=== PATIENT | female | born 1945 | race Caucasian/White ===

== ENCOUNTER → 2016-09-26 | Outpatient (CLI) | payer OTHER ==
[~2016-09-26] MED LIST: ASPEC81 PO; LEVO75TA25 PO; LOVA40TA4 PO; NORT25CA PO; TPRSR25 PO; XNX25 PO
[2016-09-26 12:04] LABS: BASO % 1.1 %; BASO ABS # 0.06 K/uL (0-0.2); COMPLETE YES; EOS % 5.7 %; IG% 0.2 %; LYMPH % 31.1 %; MEAN CORPUSCULAR HEMOGLOBIN 30.3 pg (25-34); MEAN CORPUSCULAR HGB CONC 33.6 g/dl (32-36); MEAN PLATELET VOLUME 10.6 fL (7.4-10.4); MONO % 8.4 %; NEUT % 53.5 %; PLATELET COUNT 253 K/uL (130-400); WHITE BLOOD COUNT 5.47 K/uL (4.8-10.8)
[2016-09-26 17:40] LABS: ALT/SGPT 20 U/L (12-78); BLOOD UREA NITROGEN 15 mg/dl (7-18); BUN/CREATININE RATIO 13.2 (10-20); CALCIUM 8.2 mg/dl (8.5-10.1); CARBON DIOXIDE 27 mmol/L (21-32); CHLORIDE 103 mmol/L (98-107); CHOLESTEROL 183 mg/dl (0-200); GLUCOSE 78 mg/dl (70-99); SODIUM 138 mmol/L (136-145); TRIGLYCERIDES 117 mg/dl (0-150); VERY LOW DENSITY LIPOPROT CALC 23 mg/dl
[2016-09-26 17:50] LABS: ALKALINE PHOSPHATASE 84 U/L (45-117); AST/SGOT 20 U/L (15-37); CHOLESTEROL/HDL RATIO 2.9; HDL CHOLESTEROL 64 mg/dl; LDL CHOLESTEROL CALCULATED 96 mg/dl
== END | disposition home or self-care (01) ==
LOC: C.LABPBG 10:50
PROVIDERS: ATTEND Internal Medicine Geriatric Medicine
DX: E03.9 Hypothyroidism, unspecified (principal); I10 Essential (primary) hypertension; R78.5 Finding of other psychotropic drug in blood; F64.9 Gender identity disorder, unspecified; E55.9 Vitamin D deficiency, unspecified

== ENCOUNTER → 2016-10-28 | Outpatient (CLI) | payer OTHER ==
[2016-10-28 13:58] LABS: BLOOD UREA NITROGEN 18 mg/dl (7-18); BUN/CREATININE RATIO 16.6 (10-20); CALCIUM 8.4 mg/dl (8.5-10.1); CARBON DIOXIDE 30 mmol/L (21-32); CHLORIDE 103 mmol/L (98-107); GLUCOSE 93 mg/dl (70-99); POTASSIUM 3.9 mmol/L (3.5-5.1); SODIUM 139 mmol/L (136-145)
== END | disposition home or self-care (01) ==
LOC: C.LABPBG 11:13
PROVIDERS: ATTEND Internal Medicine Geriatric Medicine
DX: E03.9 Hypothyroidism, unspecified (principal); I10 Essential (primary) hypertension; M81.0 Age-related osteoporosis without current pathological fracture

== ENCOUNTER → 2016-10-29 | Outpatient (CLI) | payer OTHER ==
--- NOTE | 2016-10-29 16:46 | MAMMOGRAPHY REPORT ---
BILATERAL DIGITAL SCREENING MAMMOGRAM WITH CAD: 10/29/2016 TECHNIQUE: Current study was also evaluated with a Computer Aided Detection (CAD) system. Bilatera l CC and MLO views were obtained. COMPARISON: Comparison is made to exams dated: 09/11/2015 mammogram - [facility], 04/19 mammogram, 04/04/2013 mammogram, 03/05/2011 mammogram, 01/30/2010 mammogram, and 03/10/2012 mammogr am - [facility]. BREAST COMPOSITION: There are scattered areas of fibroglandular density in both breasts. FINDINGS: No suspicious masses, calcifications, or areas of architectural distortion are noted in e ither breast. There has been no significant interval change compared to prior exams. Bilateral sunil gn-appearing calcifications are not significantly changed. Nodular asymmetry seen within the left m edial posterior breast on the cc view is stable dating back to at least the 2008 and 2009 exams. IMPRESSION: ACR BI-RADS CATEGORY 2: BENIGN There is no mammographic evidence of malignancy. A 1 year screening mammogram is recommended. The p atient will receive written notification of the results. Approximately 10% of breast cancers are not detected with mammography. A negative mammographic repor t should not delay biopsy if a clinically suggestive mass is present. Julissa Nielsen M.D. /:10/29/2016 14:59:04 Asp Developer: Tricia STEIN(Arpan)(M), [facility] letter sent: Normal 1/2 BI-RADS Code: ACR BI-RADS Category 2: Benign
== END | disposition home or self-care (01) ==
LOC: C.MAMM 14:27
PROVIDERS: ATTEND Internal Medicine Geriatric Medicine
DX: Z12.31 Encounter for screening mammogram for malignant neoplasm of breast (principal)

== ENCOUNTER → 2017-03-19 | Outpatient (CLI) | payer OTHER ==
[2017-03-19 16:08] LABS: CALCIUM 8.5 mg/dl (8.5-10.1)
[2017-03-19 16:23] LABS: THYROID STIMULATING HORMONE 0.821 uIu/ml (0.300-4.500)
--- NOTE | 2017-03-25 11:03 | CODING QUERY MEDICAL NECESSITY ---
CQSUPPORTING DIAGNOSIS NEEDED A supporting diagnosis is required for the test/procedure performed on this patient in order for us to be reimbursed by the patient's insurance. Please provide a supporting diagnosis for the following test/procedure listed below next to the test name along with your signature. *If there is no additional diagnosis for this patient that would support the following test/procedure please document that below next to the test/procedure. Test(s)/Procedure(s) that require a supporting diagnosis: DOS 03/19/17 VITAMIN D TEST ORDERED BY YAMILE MERRILL Provider Signature: Date: Thank you Samira Swenson Health Information Management Once completed, please kindly fax back to [phone] For questions please call [phone]
== END | disposition home or self-care (01) ==
LOC: C.LAB1850 14:48
PROVIDERS: ATTEND Physician Assistant
DX: E03.9 Hypothyroidism, unspecified (principal); E55.9 Vitamin D deficiency, unspecified

== ENCOUNTER → 2017-05-01 | Outpatient (CLI) | payer OTHER | END | disposition home or self-care (01) | LOC: C.LABSPEC 12:36 | PROVIDERS: ATTEND Family Medicine | DX: J02.9 Acute pharyngitis, unspecified (principal) ==

== ENCOUNTER → 2017-12-08 | Outpatient (CLI) | payer OTHER ==
[~2017-12-08] MED LIST changes: -ASPEC81 PO; +ASPI-320 PO
[2017-12-08 17:07] LABS: BASO % 0.5 %; BASO ABS # 0.03 K/uL (0-0.2); EOS % 4.5 %; EOS ABS # 0.28 K/uL (0-0.5); HEMATOCRIT 37.7 % (37-47); HEMOGLOBIN 12.6 g/dL (12.0-16.0); IG# 0.01 K/uL (0.00-0.02); LYMPH % 25.6 %; LYMPH ABS # 1.58 K/uL (1.2-3.4); MEAN CELL VOLUME 91.7 fL (80-100); MEAN CORPUSCULAR HEMOGLOBIN 30.7 pg (25-34); MEAN CORPUSCULAR HGB CONC 33.4 g/dl (32-36); MEAN PLATELET VOLUME 11.1 fL (7.4-10.4); MONO % 10.5 %; MONO ABS # 0.65 K/uL (0.11-0.59); NEUT % 58.7 %; NEUT ABS # 3.62 K/uL (1.4-6.5); PLATELET COUNT 278 K/uL (130-400); RED CELL DISTRIBUTION WIDTH CV 12.8 % (11.5-14.5); RED CELL DISTRIBUTION WIDTH SD 43.3 fL (36.4-46.3); WHITE BLOOD COUNT 6.17 K/uL (4.8-10.8)
[2017-12-08 17:27] LABS: ALBUMIN 3.6 gm/dl (3.4-5.0); ALKALINE PHOSPHATASE 82 U/L (45-117); ALT/SGPT 20 U/L (12-78); AST/SGOT 17 U/L (15-37); BLOOD UREA NITROGEN 18 mg/dl (7-18); CALCIUM 8.4 mg/dl (8.5-10.1); CARBON DIOXIDE 28 mmol/L (21-32); CHOLESTEROL 173 mg/dl (0-200); CREATININE 1.19 mg/dl (0.60-1.20); GLUCOSE 87 mg/dl (70-99); POTASSIUM 3.8 mmol/L (3.5-5.1); SODIUM 134 mmol/L (136-145); TOTAL PROTEIN 7.5 gm/dl (6.4-8.2)
[2017-12-08 17:37] LABS: LDL CHOLESTEROL CALCULATED 86 mg/dl
== END | disposition home or self-care (01) ==
LOC: C.LABPBG 11:06
PROVIDERS: ATTEND Internal Medicine Geriatric Medicine
DX: E03.9 Hypothyroidism, unspecified (principal); I10 Essential (primary) hypertension; M81.0 Age-related osteoporosis without current pathological fracture; E78.5 Hyperlipidemia, unspecified; D64.9 Anemia, unspecified; E55.9 Vitamin D deficiency, unspecified; K21.9 Gastro-esophageal reflux disease without esophagitis; E83.51 Hypocalcemia

== ENCOUNTER → 2017-12-09 | Outpatient (CLI) | payer OTHER ==
--- NOTE | 2017-12-09 15:44 | MAMMOGRAPHY REPORT ---
BILATERAL DIGITAL SCREENING MAMMOGRAM TOMOSYNTHESIS WITH CAD: 12/09/2017 CLINICAL HISTORY: Routine screening. Patient has no complaints. TECHNIQUE: Breast tomosynthesis in addition to standard 2D mammography was performed. Current study was also evaluated with a Computer Aided Detection (CAD) system. COMPARISON: Comparison is made to exams dated: 10/29/2016 mammogram - [facility], mammogram - [facility], 04/19/2014 mammogram, 04/04/2013 mammogram, 03/10/2012 [facility], and 03/05/2011 mammogram - [facility]. BREAST COMPOSITION: There are scattered areas of fibroglandular density in both breasts. FINDINGS: There is a small cluster of calcifications seen within the left medial breast at approximat willy 9:00, for which spot magnification views are recommended for further evaluation. The remainder of both breasts are stable compared to prior exams, without suspicious masses, calcific ations, or areas of architectural distortion noted. IMPRESSION: ACR BI-RADS CATEGORY 0: INCOMPLETE EVALUATION: NEED ADDITIONAL IMAGING EVALUATION Left breast calcifications, for which additional imaging evaluation is recommended. The patient will be called to schedule an appointment. Approximately 10% of breast cancers are not detected with mammography. A negative mammographic report should not delay biopsy if a clinically suggestive mass is present. Julissa Nielsen M.D. ah/:12/09/2017 15:08:05 Commercial Loan Analyst: Yoli STEIN(Arpan)(M), [facility] letter sent: Addl Imaging 0 BI-RADS Code: ACR BI-RADS Category 0: Incomplete Evaluation: Need Additional Imaging Evaluation
== END | disposition home or self-care (01) ==
LOC: C.MAMM 13:55
PROVIDERS: ATTEND Obstetrics & Gynecology
DX: Z12.31 Encounter for screening mammogram for malignant neoplasm of breast (principal)

== ENCOUNTER → 2017-12-16 | Outpatient (CLI) | payer OTHER ==
--- NOTE | 2017-12-16 15:08 | MAMMOGRAPHY REPORT ---
UNILATERAL LEFT DIGITAL DIAGNOSTIC MAMMOGRAM: 12/16/2017 CLINICAL HISTORY: 72-year-old woman called back from screening mammography for microcalcifications in the medial left breast. TECHNIQUE: Spot magnification left CC and ML views were obtained. COMPARISON: Comparison is made to exams dated: 12/09/2017 mammogram, 10/29/2016 mammogram - [facility], 09/11/2015 mammogram - [facility], 04/19/2014 mammogram, 04/04/2013 [facility], and 03/10/2012 mammogram - [facility]. BREAST COMPOSITION: There are scattered areas of fibroglandular density in the left breast. FINDINGS: There is a 3 mm cluster of punctate microcalcifications in the approximate 9:00 middle one third of the left breast. No associated asymmetry, mass or architectural distortion. When comparin g back to prior available mammograms, the calcifications are increased in conspicuity and remain inde terminate. Definitive characterization with a stereotactic guided biopsy is recommended. Note is ma de of mild to moderate vascular calcification in the left breast. IMPRESSION: ACR BI-RADS CATEGORY 4: SUSPICIOUS Left breast stereotactic guided biopsy is recommended for a 3 mm grouping of punctate microcalcificat ions in the 9:00 middle one third of the breast. These results and recommendations were discussed with the patient at the time of the exam. She tenta tively scheduled a left breast biopsy prior to leaving our department. Approximately 10% of breast cancers are not detected with mammography. A negative mammographic report should not delay biopsy if a clinically suggestive mass is present. Kaykay Messina M.D. ay/:12/16/2017 14:18:49 Gate Operator: Laly STEIN(Arpan)(Jasmin), [facility] letter sent: Abnormal 4/5 BI-RADS Code: ACR BI-RADS Category 4: Suspicious
== END | disposition home or self-care (01) ==
LOC: C.MAMM 13:28
PROVIDERS: ATTEND Obstetrics & Gynecology
DX: R92.0 Mammographic microcalcification found on diagnostic imaging of breast (principal)

== ENCOUNTER → 2017-12-23 | Outpatient (CLI) | payer OTHER | END | disposition home or self-care (01) | LOC: C.PAPS 15:32 | PROVIDERS: ATTEND Obstetrics & Gynecology | DX: Z01.419 Encounter for gynecological examination (general) (routine) without abnormal findings (principal) ==

== ENCOUNTER 2022-12-10 09:48 | Observation (INO) ==
[2022-12-10 11:06] LABS: Basophils # (auto) 0.04 K/uL (0-0.2); Basophils % (auto) 0.3 %; Eosinophils # (auto) 0.02 K/uL (0-0.50); Eosinophils % (auto) 0.1 %; Hematocrit (blood only) 38.6 % (37.0-47.0); Hemoglobin 13.1 g/dl (12.0-16.0); Immature Granulocytes # (auto) 0.08 K/uL (0.01-0.20); Immature Granulocytes % (auto) 0.5 %; Lymphocytes # (auto) 0.85 K/uL (1.2-3.4); Lymphocytes % (auto) 5.5 %; Mean Corpuscular Hemoglobin 30.9 pg (25.0-34.0); Mean Corpuscular Hgb Conc 33.9 g/dL (32.0-36.0); Mean Platelet Volume 10.6 fL (9.4-12.4); Monocytes # (auto) 0.83 K/uL (0.11-0.59); Monocytes % (auto) 5.4 %; Neutrophils # (auto) 13.64 K/uL (1.40-6.50); Neutrophils % (auto) 88.2 %; Platelet Count 348 K/uL (130-400); RDW Coefficient of Variation 12.3 % (11.5-14.5); RDW Standard Deviation 40.8 fL (36.4-46.3); Red Blood Count 4.24 M/uL (4.20-5.40); White Blood Count 15.46 K/ul (4.8-10.8)
[2022-12-10] MEDS ORDERED: SODIUM CHLORIDE 0.9% 500 ML IV ONE (11:10)
[2022-12-10 11:19] LABS: Albumin Globulin Ratio 1.5 (0.9-2); Albumin Level 4.1 gm/dl (3.4-5.0); BUN Creatinine Ratio 13.4 (10-20); Bilirubin,Total 0.6 mg/dl (0.2-1.0); Calcium 8.8 mg/dl (8.6-10.3); Creatinine Clr Calc Pharmacy 30.7 ml/min; Est GFR (African American) 47.1 ml/min; Est GFR (Non-African American) 40.7 ml/min; Globulin 2.8 gm/dl (2.5-4.0); Potassium 3.8 mmol/L (3.5-5.1); Total Protein 6.9 gm/dl (6.0-8.3)
[2022-12-10 11:29] LABS: Partial Thromboplastin Time 27.5 Seconds (21.0-31.0); Prothrombin Time 11.3 Seconds (9.0-12.0)
[2022-12-10 11:31] LABS: Troponin I High Sensitivity 86.7 pg/ml (0-14)
[2022-12-10 11:44] LABS: Phosphorus 3.1 mg/dl (2.5-4.9)
--- NOTE | 2022-12-10 12:31 | XRay Report ---
SINGLE VIEW PELVIS CLINICAL HISTORY: Fall. Pelvic pain. FINDINGS: 2 AP, portable, supine views of the pelvis are compared to study dated 05/03/2018. The skele iain structures are osteopenic. There is no radiographic evidence of acute fracture involving the hips or bony pelvis. Mild arthritic change and space narrowing is seen in the hips. There is mild degener ative sclerosis of the sacroiliac joints. The overlying soft tissues are within normal limits. A phle bolith is seen in the right hemipelvis. No bowel obstruction is identified. IMPRESSION: There is no radiographic evidence of acute fracture. Electronically signed by: Leopoldo Sales M.D. 12/10/2022 12:30 PM
--- NOTE | 2022-12-10 12:34 | XRay Report ---
XR chest 1V portable HISTORY: syncope COMPARISON: Chest 05/02/2018. FINDINGS: No pneumothorax. No pleural effusions. The cardiac silhouette remains borderline enlarged. No new focal lung consolidations to suggest a pneumonia. No evidence for pulmonary edema. There is an old distal right clavicle fracture again noted. IMPRESSION: No acute process. ACT 112: Negative or not required by law. Electronically signed by: Richardson Castillo M.D. 12/10/2022 12:33 PM
[2022-12-10] MEDS ORDERED: OPTIRAY 320 500ml IV ONE (13:01)
--- NOTE | 2022-12-10 13:24 | CT Scan Report ---
CT ANGIOGRAM OF THE BRAIN CLINICAL HISTORY: Syncope. Vertigo. COMPARISON STUDY: Unenhanced CT of the brain performed concurrently on 12/10/2022. TECHNIQUE: Following the IV administration of 110 cc of Optiray 320, CT angiogram of the brain was pe rformed from the skull base to the vertex. Images are reviewed in the axial, sagittal, and coronal pl anes. 3-D MIPS images are created and assessed. IV contrast was administered without complication. A dose lowering technique was utilized adhering to the principles of ALARA. FINDINGS: Brain parenchyma: There is age-related involutional change noting mild mammogram disease. There is no evidence of hemorrhage, mass effect, or acute territorial ischemia noting angiog raphic phase technique. There is no evidence of enhancing mass lesion on the angiogram phase images. No extra-axial fluid collection is seen. Dominguez-white matter differentiation is preserved. Ventricles, sulci, and cisterns: Normal in configuration. CT angiogram of the brain: There is atherosclerotic calcification of the cavernous carotid arteries. The internal carotid arteries are widely patent, as are the anterior and middle cerebral arteries. Th e vertebrobasilar system and posterior cerebral arteries are widely patent. The vertebral arteries ar e codominant. There is no aneurysm, high-grade stenosis, or focal vessel cutoff identified throughout the intracranial circulation. Dural sinuses: Clear as visualized. Orbits: The bony orbits are intact. The orbital contents are normal as visualized. Sinuses and mastoids: The visualized paranasal sinuses are clear. The mastoid air cells are well pneu matized. Calvarium: Unremarkable. IMPRESSION: 1. There is no evidence of hemorrhage, mass effect, or acute territorial ischemia noting angiographic phase technique. 2. Unremarkable CT angiogram of the brain. ACT 112: Negative or not required by law. Electronically signed by: Leopoldo Sales M.D. 12/10/2022 1:23 PM
--- NOTE | 2022-12-10 13:27 | CT Scan Report ---
NECK CTA HISTORY: syncope, vertigo TECHNIQUE: Multiaxial CT images of the neck were performed following the intravenous administration o f contrast to evaluate the major cervical vessels. Maximum intensity projection images were also obta ined. All measurements were calculated based on NASCET criteria. A dose lowering technique was utili zed adhering to the principles of ALARA. COMPARISON STUDY: None. FINDINGS: Mild focal narrowing of approximately 30% within the proximal left subclavian artery due to the calcified plaque. Otherwise, the aortic arch and remaining proximal great vessels are patent. Mi ld to moderate calcified plaque within the bilateral carotid bifurcations without significant stenosi s. There is no significant stenosis, occlusion, or dissection identified within the bilateral common carotid, internal carotid, or vertebral arteries. IMPRESSION: No significant stenosis, occlusion, or dissection identified within the carotid or vertebral arteries . ACT 112: Negative or not required by law. Electronically signed by: Ricahrdson Castillo M.D. 12/10/2022 1:26 PM
--- NOTE | 2022-12-10 13:28 | CT Scan Report ---
CT OF THE HEAD WITHOUT CONTRAST CLINICAL HISTORY: Syncope, vertigo. COMPARISON STUDY: Head CT March 23, 2015. TECHNIQUE: Helical axial images of the head were obtained without IV contrast. Automated exposure con trol was utilized for the study. A dose lowering technique was utilized adhering to the principles o f ALARA. FINDINGS: No acute intracranial hemorrhage, midline shift or mass effect is present. Scattered white matter hypodensity suggests small vessel disease. The ventricular system is unremarkable. The basal c isterns are patent. No extra-axial collections are present. There are no findings to suggest acute du ral sinus thrombosis or acute territorial infarct. No significant calvarial abnormalities are present . Visualized portions of the sinuses and mastoid air cells are clear. IMPRESSION: No acute intracranial findings. ACT 112: Negative or not required by law. Electronically signed by: Bari Damon M.D. 12/10/2022 1:27 PM
--- NOTE | 2022-12-10 14:04 | Electrocardiogram Report ---
Test Reason : Blood Pressure : / mmHG Vent. Rate : 071 BPM Atrial Rate : 071 BPM P-R Int : 160 ms QRS Dur : 078 ms QT Int : 428 ms P-R-T Axes : 119 019 112 degrees QTc Int : 465 ms Normal sinus rhythm Abnormal ECG When compared with ECG of 29-MAR-2015 06:38, Premature atrial complexes are no longer Present Questionable change in QRS axis T wave inversion now evident in Anterolateral leads Confirmed by Roney Acosta ([id number]) on 12/10/2022 2:04:41 PM Referred By: Confirmed By:Roney Acosta
[2022-12-10] MEDS ORDERED: ACETAMINOPHEN 1,000 MG/100 ML VIAL IV STA (14:18)
--- NOTE | 2022-12-10 14:27 | Emergency Department Note ---
Impression & Plan Syncope, Elevated troponin, Elevated CPK, Fall from standing, H/O dizziness ED Provider Note NAME: DIANA CHRISTIANSON AGE: 77 SEX: F ARRIVES VIA: Ambulance INFORMANT: Patient ED PROVIDER(S): Alex Sahni MD CHIEF COMPLAINT: Syncope, fall PLAN: Disposition: Admit MEDICAL DECISION MAKING: The patient is a pleasant 77-year-old woman with a past medical history of CKD, lightheadedness/near syncope, history of cardiomyopathy, atrial fibrillation on Eliquis, hypertension, hyperlipidemia, GERD, IBS presents to the emergency department via EMS and then accompanied by her daughter for evaluation of a fall that occurred this morning when she reports she got out of bed around 5 AM to urinate and reports feeling lightheaded and awoke next to the toilet and the w all where it is estimated she may have been there for a couple of hours and then took another hour to 2 hours to crawl and get help from a neighbor in her apartment building. Prior to today she denies any recent fevers, chills, cough, congestion, GI or symptoms. She denies any chest pain or shortness of breath. She does not think she hit her head denies any head pain. Reports she has months to years of symptoms of lightheadedness which per understanding was suspected to be related to blood pressure fluctuations as they attempted to treat her hypertension without overcorrection. Of note, the patient did have a recent echo on 11/06 2022 with normal LV size with mild LVH, EF of 55-60% without regional wall motion abnormalities. Normal RV size and function. Aortic valve sclerosis without stenosis is seen. Normal right-sided pressures. On arrival emergency department the patient is in no acute distress, afebrile with blood pressure 180s/90s and vital signs otherwise stable. She appears clinically dry. There is no midline CTL spine tenderness palpation or step- offs. Head is atraumatic. There is no chest wall tenderness. She has minor abrasion of bilateral elbows without edema or deformity. She is moving all extremities equally with generalized weakness. EKG demonstrates nonspecific ST abnormality without overt ST elevation or depression but is different from prior in 2015 with no more recent for comparison. Chest x-ray negative for acute cardiopulmonary process. Film of the pelvis negative for acute traumatic injuries. WBC 15.4K with neutrophil predominance though no left shift and nonspecific. H/H and platelets within normal limits. Chemistry without metabolic acidosis. Creatinine 1.2, similar to prior values in the setting of CKD. Electrolytes and LFTs without significant abnormality. High-sensitivity troponin 86.7, nonspecific. CPK 470 consistent with patient's prolonged downtime. TSH within normal limits. CT of the head and CT of the head and neck were performed were negative for ICH, ischemia or severe narrowing or occlusion of large vessels. Given the patient's fall with prolonged downtime with elevated CPK the patient and daughter at bedside agree with plan for admission for further management and likely PT/OT eval. Case was d/w Dr. Lang [facility] hospitalist who will evaluate the patient for admission. Triage Nursing notes reviewed and agree them. Prior/outside medical records reviewed Vital Signs: reviewed Differential diagnosis: Vasovagal event, dehydration, infection, hypoglycemia, electrolyte abnormalities, cardiac sources, intracerebral event, pulmonary embolism, seizure, toxicologic, neurologic, as well as other pathologies. ER treatment provided: See below. Diagnostics interpreted by me: ECG: Normal sinus rhythm, 71 bpm, ST and T wave abnormality, no overt ST e levation or depression, QTc 465, QRS 70 Cardiac Monitoring: An order for continuous cardiac monitoring was placed and demonstrated Normal sinus rhythm, 71 bpm, no ectopy Laboratory studies: See below Imaging studies: See below Consultation(s): Case was d/w Dr. Lang [facility] hospitalist who will evaluate the patient for admission. HPI: The patient is a pleasant 77-year-old woman with a past medical history of CKD, lightheadedness/near syncope, history of cardiomyopathy, atrial fibrillation on Eliquis, hypertension, hyperlipidemia, GERD, IBS presents to the emergency department via EMS and then accompanied by her daughter for evaluation of a fall that occurred this morning when she reports she got out of bed around 5 AM to urinate and reports feeling lightheaded and awoke next to the toilet and the wall where it is estimated she may have been there for a couple of hours and then took another hour to 2 hours to crawl and get help from a neighbor in her apartment building. Prior to today she denies any recent fevers, chills, cough, congestion, GI or symptoms. She denies any chest pain or shortness of breath. She does not think she hit her head denies any head pain. Reports she has months to years of symptoms of lightheadedness which per understanding was suspected to be related to blood pressure fluctuations as they attempted to treat her hypertension without overcorrection. Of note, the patient did have a recent echo on 11/06 2022 with normal LV size with mild LVH, EF of 55-60% without regional wall motion abnormalities. Normal RV size and function. Aortic valve sclerosis without stenosis is seen. Normal right-sided pressures. ROS: See above HPI for pertinent positives & negatives. A total of 10 systems reviewed and were otherwise negative. VITALS:See Below PHYSICAL EXAMINATION: GENERAL: Awake, alert, fatigued-appearing, in no distress. HENT: Normocephalic, atraumatic. Oropharynx with dry mucous membranes and otherwise unremarkable. EYES: Normal conjunctiva. Sclera non-icteric. EOMI. No nystamgus. PEARRL. NECK: Supple. No nuchal rigidity. FROM. No JVD. RESPIRATORY: Clear to auscultation. CARDIAC: Regular rate, normal rhythm. Extremities warm and well perfused. Pulses equal. ABDOMEN: Soft, non-distended. No tenderness to palpation. No rebound or guarding. No masses. RECTAL: Deferred. MUSCULOSKELETAL: Chest examination reveals no tenderness. The back is symmetrical on inspection without obvious abnormality. There is no CVA tenderness to palpation. No joint edema. LOWER EXTREMITIES: Calves are equal size bilaterally and non-tender. No edema. No discoloration. NEURO: Normal sensorium. No sensory or motor deficits noted. 5/5 strength and SILT x 4 extremities. Intact finger to nose. SKIN: No rash or jaundice noted. 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 NO HX BLEEDING ISSUES Gastroesophageal reflux disease HX Andriy's thyroiditis History of cardiomyopathy HTN (hypertension) Hx of fracture of clavicle Hypothyroidism Irritable bowel syndrome HX-FAMILY HX Osteoporosis Panic attacks Pleural effusion HX Right clavicle fracture S/P Sensorineural hearing loss of both ears Vitamin D deficiency Surgical History H/O oral surgery History of colonoscopy S/P dilatation and curettage S/P eye surgery BLOCKED TEAR DUCT S/P tubal ligation Family History Mother Hypertension Heart disease Stroke Brother Hypertension Grandfather (Paternal) Lung cancer Father Cancer Other No family history of allergies No family history of bleeding disorder Denies family history of Ovarian cancer Prostate cancer Breast cancer Colorectal cancer Asthma Social History Smoking Status: Never smoker Second Hand Exposure: Yes (SPOUSE SMOKED); Do You Dip or Chew Tobacco: No; Hx Alcohol Use: No Hx Substance Use: No Preferred Language: Swedish Communication Ability: Effective Visual Impairment: No Limitations 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 Required: No Beliefs That Will Affect Care: None marital status: Current Living Situation: Alone current occupational status: retired How many Children do You have: 3 Feels Safe at Home: Yes Childhood Exposure to Second-Hand Smoke: No Diet: regular Diet Comment: regular caffeine: No during the past year weight has: remained stable Dental Care, Regularly: Yes Physical Activity Frequency: Daily Physical Activity Frequency Comment: walk Seatbelt Use: always Sunscreen Use: Yes Assistive Devices: Glasses Allergies Allergies Allergy/AdvReac Type Severity Reaction Status Date / Time methylprednisolone Allergy Mild Rash Verified 09/29/22 11:42 alendronate sodium AdvReac Mild GI upset Verified 09/29/22 11:42 erythromycin base AdvReac Mild GI upset Verified 09/29/22 11:42 hydrochlorothiazide AdvReac Mild hyponatremi Verified 09/29/22 11:42 a hydrocodone AdvReac Mild nausea Verified 09/29/22 11:42 vomiting tramadol AdvReac Mild nausea Verified 09/29/22 11:42 vomiting clavulanic acid AdvReac Gastrointestinal Verified 09/29/22 11:42 [From Augmentin] Upset Home Meds Home Medications Medication Instructions Recorded Confirmed calcium carbonate 600 mg-vitamin 600 tab PO BID 03/28/19 12/10/22 D3 10 mcg (400 unit) chewable tablet (Calcium 600 with Vitamin D3) polyethylene glycol 3350 17 17 gm PO DAILY PRN constipation 10/13/19 12/10/22 gram/dose oral powder metoprolol tartrate 25 mg tablet 0 mg PO .q 8 hours PRN palpitations 12/10/22 12/10/22 Previous Rx's Medication Instructions Recorded betamethasone dipropionate 0.05 % 1 applic topical BID PRN skin 11/11/21 topical cream irritation #45 grams cholecalciferol (vitamin D3) 50 50 mcg PO DAILY #30 caps 04/08/22 mcg (2,000 unit) capsule levothyroxine 88 mcg tablet 88 mcg PO QAM #90 tabs 04/29/22 nortriptyline 25 mg capsule 50 mg PO HS #180 caps 04/29/22 lovastatin 40 mg tablet 40 mg PO QPM #90 tabs 05/12/22 alprazolam 0.25 mg tablet 0.25 mg PO DAILY PRN anxiety #30 07/16/22 tabs apixaban 5 mg tablet (Eliquis) 5 mg PO BID #180 tabs 07/25/22 zoledronic acid 5 mg/100 mL in 5 mg IV ONCE #100 mL 10/15/22 mannitol 5 %-water intravenous piggybck Results & Data (ED) Vital Signs Vital Signs - 24 hr 12/10/22 10:03 12/10/22 10:09 12/10/22 10:09 Temperature 36.5 C Temperature Source Oral Pulse Rate 69 75 Pulse Rate from SpO2 Sensor Respiratory Rate 18 Respiratory Depth Normal Blood Pressure 180/90 H Blood Pressure Mean 120 Blood Pressure Position Lying Pulse Oximetry 96 Oxygen Delivery Method Room Air Room Air Sepsis Recent Fever Within 48 Hours No Sepsis New/Unexplained Change in Mental Status No Sepsis Action Taken by Nursing No Action Required 12/10/22 10:25 12/10/22 11:00 12/10/22 11:01 Temperature Temperature Source Pulse Rate 73 Pulse Rate from SpO2 Sensor 85 Respiratory Rate 20 Respiratory Depth Blood Pressure 138/78 Blood Pressure Mean 98 Blood Pressure Position Pulse Oximetry 95 97 Oxygen Delivery Method Room Air Sepsis Recent Fever Within 48 Hours Sepsis New/Unexplained Change in Mental Status Sepsis Action Taken by Nursing 12/10/22 11:01 12/10/22 11:30 12/10/22 11:30 Temperature Temperature Source Pulse Rate 71 75 Pulse Rate from SpO2 Sensor 71 75 Respiratory Rate 19 24 Respiratory Depth Blood Pressure 150/113 H Blood Pressure Mean 125 Blood Pressure Position Pulse Oximetry 99 97 Oxygen Delivery Method Room Air Sepsis Recent Fever Within 48 Hours Sepsis New/Unexplained Change in Mental Status Sepsis Action Taken by Nursing 12/10/22 12:00 12/10/22 12:00 12/10/22 12:30 Temperature Temperature Source Pulse Rate 78 Pulse Rate from SpO2 Sensor 75 Respiratory Rate 19 Respiratory Depth Blood Pressure 162/80 H 171/91 H Blood Pressure Mean 107 117 Blood Pressure Position Pulse Oximetry 98 Oxygen Delivery Method Room Air Sepsis Recent Fever Within 48 Hours Sepsis New/Unexplained Change in Mental Status Sepsis Action Taken by Nursing 12/10/22 12:30 12/10/22 13:01 12/10/22 13:01 Temperature Temperature Source Pulse Rate 71 72 Pulse Rate from SpO2 Sensor 72 74 Respiratory Rate 17 18 Respiratory Depth Blood Pressure 184/77 H Blood Pressure Mean 112 Blood Pressure Position Pulse Oximetry 97 100 Oxygen Delivery Method Room Air Room Air Sepsis Recent Fever Within 48 Hours Sepsis New/Unexplained Change in Mental Status Sepsis Action Taken by Nursing 12/10/22 13:30 12/10/22 13:30 12/10/22 14:00 Temperature Temperature Source Pulse Rate 68 Pulse Rate from SpO2 Sensor 67 Respiratory Rate 22 Respiratory Depth Blood Pressure 198/93 H 209/97 H Blood Pressure Mean 128 134 Blood Pressure Position Pulse Oximetry 97 Oxygen Delivery Method Room Air Sepsis Recent Fever Within 48 Hours Sepsis New/Unexplained Change in Mental Status Sepsis Action Taken by Nursing 12/10/22 14:00 12/10/22 14:11 12/10/22 14:30 Temperature Temperature Source Pulse Rate 67 69 Pulse Rate from SpO2 Sensor 67 Respiratory Rate 11 L Respiratory Depth Blood Pressure 183/109 H Blood Pressure Mean 133 Blood Pressure Position Pulse Oximetry 97 Oxygen Delivery Method Room Air Sepsis Recent Fever Within 48 Hours Sepsis New/Unexplained Change in Mental Status Sepsis Action Taken by Nursing 12/10/22 14:30 12/10/22 14:51 12/10/22 15:00 Temperature Temperature Source Pulse Rate 68 74 Pulse Rate from SpO2 Sensor 68 74 Respiratory Rate 22 17 Respiratory Depth Blood Pressure 205/92 H Blood Pressure Mean 129 Blood Pressure Position Pulse Oximetry 99 99 Oxygen Delivery Method Room Air Room Air Sepsis Recent Fever Within 48 Hours Sepsis New/Unexplained Change in Mental Status Sepsis Action Taken by Nursing 12/10/22 15:01 12/10/22 15:30 12/10/22 15:30 Temperature Temperature Source Pulse Rate 72 69 Pulse Rate from SpO2 Sensor 71 69 Respiratory Rate 12 20 Respiratory Depth Blood Pressure 196/100 H Blood Pressure Mean 132 Blood Pressure Position Pulse Oximetry 99 100 Oxygen Delivery Method Room Air Room Air Sepsis Recent Fever Within 48 Hours Sepsis New/Unexplained Change in Mental Status Sepsis Action Taken by Nursing 12/10/22 16:00 12/10/22 16:00 12/10/22 16:30 Temperature Temperature Source Pulse Rate 69 Pulse Rate from SpO2 Sensor 69 Respiratory Rate 15 Respiratory Depth Blood Pressure 188/91 H 182/93 H Blood Pressure Mean 123 122 Blood Pressure Position Pulse Oximetry 97 Oxygen Delivery Method Room Air Sepsis Recent Fever Within 48 Hours Sepsis New/Unexplained Change in Mental Status Sepsis Action Taken by Nursing 12/10/22 16:30 12/10/22 17:00 12/10/22 17:00 Temperature Temperature Source Pulse Rate 67 65 Pulse Rate from SpO2 Sensor 67 65 Respiratory Rate 17 19 Respiratory Depth Blood Pressure 158/132 H Blood Pressure Mean 140 Blood Pressure Position Pulse Oximetry 98 99 Oxygen Delivery Method Room Air Room Air Sepsis Recent Fever Within 48 Hours Sepsis New/Unexplained Change in Mental Status Sepsis Action Taken by Nursing 12/10/22 17:30 12/10/22 17:30 12/10/22 18:30 Temperature Temperature Source Pulse Rate 68 69 Pulse Rate from SpO2 Sensor 67 Respiratory Rate 17 Respiratory Depth Blood Pressure 173/101 H Blood Pressure Mean 125 Blood Pressure Position Pulse Oximetry 98 Oxygen Delivery Method Room Air Sepsis Recent Fever Within 48 Hours Sepsis New/Unexplained Change in Mental Status Sepsis Action Taken by Nursing 12/10/22 18:30 12/10/22 18:30 Temperature Temperature Source Pulse Rate 71 Pulse Rate from SpO2 Sensor 70 Respiratory Rate 22 Respiratory Depth Blood Pressure 190/90 H Blood Pressure Mean 123 Blood Pressure Position Pulse Oximetry 96 Oxygen Delivery Method Room Air Sepsis Recent Fever Within 48 Hours Sepsis New/Unexplained Change in Mental Status Sepsis Action Taken by Nursing Laboratory Data Attestation: I reviewed the patient's lab results. 12/10/22 10:33 12/10/22 10:33 Lab Results 12/10/22 12/10/22 12/10/22 Range/Units 10:33 10:33 10:33 WBC 15.46 H (4.8-10.8) K/ul RBC 4.24 (4.20-5.40) M/uL Hgb 13.1 (12.0-16.0) g/dl Hct 38.6 (37.0-47.0) % MCV 91.0 (80.0-100.0) fL MCH 30.9 (25.0-34.0) pg MCHC 33.9 (32.0-36.0) g/dL RDW Std Deviation 40.8 (36.4-46.3) fL RDW Coeff of Maria Antonia 12.3 (11.5-14.5) % Plt Count 348 (130-400) K/uL MPV 10.6 (9.4-12.4) fL Immature Gran % (Auto) 0.5 % Neut % (Auto) 88.2 % Lymph % (Auto) 5.5 % Hays % (Auto) 5.4 % Eos % (Auto) 0.1 % Baso % (Auto) 0.3 % Neut # (Auto) 13.64 H (1.40-6.50) K/uL Lymph # (Auto) 0.85 L (1.2-3.4) K/uL Hays # (Auto) 0.83 H (0.11-0.59) K/uL Eos # (Auto) 0.02 (0-0.50) K/uL Baso # (Auto) 0.04 (0-0.2) K/uL Immature Gran # (Auto) 0.08 (0.01-0.20) K/uL PT 11.3 (9.0-12.0) Seconds INR 1.0 (0.9-1.1) APTT 27.5 (21.0-31.0) Seconds PTT Ratio 1.0 Sodium 138 (136-145) mmol/L Potassium 3.8 (3.5-5.1) mmol/L Chloride 106 (98-107) mmol/L Carbon Dioxide 26 (21-32) mmol/L Anion Gap 6 (3-11) BUN 17 (6-23) mg/dl Creatinine 1.27 H (0.6-1.2) mg/dl Est Cr Clr Drug Dosing 30.7 ml/min Est GFR ( Amer) 47.1 ml/min Est GFR (Non-Af Amer) 40.7 ml/min BUN/Creatinine Ratio 13.4 (10-20) Glucose 108 H (70-99(Fasting)) mg/dl Calcium 8.8 (8.6-10.3) mg/dl Phosphorus 3.1 (2.5-4.9) mg/dl Magnesium 2.0 (1.7-2.4) mg/dl Total Bilirubin 0.6 (0.2-1.0) mg/dl AST 21 (13-39) U/L ALT 13 (7-52) U/L Alkaline Phosphatase 68 (34-104) U/L Total Creatine Kinase 474 H (26-192) U/L Troponin I High Sens 86.7 H* (0-14) pg/ml Total Protein 6.9 (6.0-8.3) gm/dl Albumin 4.1 (3.4-5.0) gm/dl Globulin 2.8 (2.5-4.0) gm/dl Albumin/Globulin Ratio 1.5 (0.9-2) TSH (0.300-4.500) uIu/ml Urine Color Urine Appearance (Clear) Urine pH (4.5-7.5) Ur Specific Breaks (1.000-1.030) Urine Protein (Negative) Urine Glucose (UA) (Negative) Urine Ketones (Negative) Urine Blood (Negative) Urine Nitrite (Negative) Urine Bilirubin (Negative) Urine Urobilinogen (Negative) Ur Leukocyte Esterase (Negative) Urine WBC (Auto) (0-5) /hpf Urine RBC (Auto) (0-4) /hpf U Hyaline Cast (Auto) (0-5) /lpf U Epithel Cells (Auto) (0-5) /lpf Urine Bacteria (Auto) (Negative) SARS-CoV-2, RNA, NAAT (NEGATIVE) 12/10/22 12/10/22 12/10/22 Range/Units 10:40 15:00 16:40 WBC (4.8-10.8) K/ul RBC (4.20-5.40) M/uL Hgb (12.0-16.0) g/dl Hct (37.0-47.0) % MCV (80.0-100.0) fL MCH (25.0-34.0) pg MCHC (32.0-36.0) g/dL RDW Std Deviation (36.4-46.3) fL RDW Coeff of Maria Antonia (11.5-14.5) % Plt Count (130-400) K/uL MPV (9.4-12.4) fL Immature Gran % (Auto) % Neut % (Auto) % Lymph % (Auto) % Hays % (Auto) % Eos % (Auto) % Baso % (Auto) % Neut # (Auto) (1.40-6.50) K/uL Lymph # (Auto) (1.2-3.4) K/uL Hays # (Auto) (0.11-0.59) K/uL Eos # (Auto) (0-0.50) K/uL Baso # (Auto) (0-0.2) K/uL Immature Gran # (Auto) (0.01-0.20) K/uL PT (9.0-12.0) Seconds INR (0.9-1.1) APTT (21.0-31.0) Seconds PTT Ratio Sodium (136-145) mmol/L Potassium (3.5-5.1) mmol/L Chloride (98-107) mmol/L Carbon Dioxide (21-32) mmol/L Anion Gap (3-11) BUN (6-23) mg/dl Creatinine (0.6-1.2) mg/dl Est Cr Clr Drug Dosing ml/min Est GFR ( Amer) ml/min Est GFR (Non-Af Amer) ml/min BUN/Creatinine Ratio (10-20) Glucose (70-99(Fasting)) mg/dl Calcium (8.6-10.3) mg/dl Phosphorus (2.5-4.9) mg/dl Magnesium (1.7-2.4) mg/dl Total Bilirubin (0.2-1.0) mg/dl AST (13-39) U/L ALT (7-52) U/L Alkaline Phosphatase (34-104) U/L Total Creatine Kinase (26-192) U/L Troponin I High Sens (0-14) pg/ml Total Protein (6.0-8.3) gm/dl Albumin (3.4-5.0) gm/dl Globulin (2.5-4.0) gm/dl Albumin/Globulin Ratio (0.9-2) TSH 1.595 (0.300-4.500) uIu/ml Urine Color Yellow Urine Appearance Clear (Clear) Urine pH 8.0 H (4.5-7.5) Ur Specific Breaks > 1.045 H (1.000-1.030) Urine Protein Trace H (Negative) Urine Glucose (UA) Negative (Negative) Urine Ketones 1+ H (Negative) Urine Blood Trace H (Negative) Urine Nitrite Negative (Negative) Urine Bilirubin Negative (Negative) Urine Urobilinogen Negative (Negative) Ur Leukocyte Esterase Negative (Negative) Urine WBC (Auto) 1-5 (0-5) /hpf Urine RBC (Auto) 0-4 (0-4) /hpf U Hyaline Cast (Auto) 1-5 (0-5) /lpf U Epithel Cells (Auto) >30 H (0-5) /lpf Urine Bacteria (Auto) Negative (Negative) SARS-CoV-2, RNA, NAAT NEGATIVE (NEGATIVE) 12/10/22 Range/Units 17:08 WBC (4.8-10.8) K/ul RBC (4.20-5.40) M/uL Hgb (12.0-16.0) g/dl Hct (37.0-47.0) % MCV (80.0-100.0) fL MCH (25.0-34.0) pg MCHC (32.0-36.0) g/dL RDW Std Deviation (36.4-46.3) fL RDW Coeff of Maria Antonia (11.5-14.5) % Plt Count (130-400) K/uL MPV (9.4-12.4) fL Immature Gran % (Auto) % Neut % (Auto) % Lymph % (Auto) % Hays % (Auto) % Eos % (Auto) % Baso % (Auto) % Neut # (Auto) (1.40-6.50) K/uL Lymph # (Auto) (1.2-3.4) K/uL Hays # (Auto) (0.11-0.59) K/uL Eos # (Auto) (0-0.50) K/uL Baso # (Auto) (0-0.2) K/uL Immature Gran # (Auto) (0.01-0.20) K/uL PT (9.0-12.0) Seconds INR (0.9-1.1) APTT (21.0-31.0) Seconds PTT Ratio Sodium (136-145) mmol/L Potassium (3.5-5.1) mmol/L Chloride (98-107) mmol/L Carbon Dioxide (21-32) mmol/L Anion Gap (3-11) BUN (6-23) mg/dl Creatinine (0.6-1.2) mg/dl Est Cr Clr Drug Dosing ml/min Est GFR ( Amer) ml/min Est GFR (Non-Af Amer) ml/min BUN/Creatinine Ratio (10-20) Glucose (70-99(Fasting)) mg/dl Calcium (8.6-10.3) mg/dl Phosphorus (2.5-4.9) mg/dl Magnesium (1.7-2.4) mg/dl Total Bilirubin (0.2-1.0) mg/dl AST (13-39) U/L ALT (7-52) U/L Alkaline Phosphatase (34-104) U/L Total Creatine Kinase (26-192) U/L Troponin I High Sens 715.0 H* D (0-14) pg/ml Total Protein (6.0-8.3) gm/dl Albumin (3.4-5.0) gm/dl Globulin (2.5-4.0) gm/dl Albumin/Globulin Ratio (0.9-2) TSH (0.300-4.500) uIu/ml Urine Color Urine Appearance (Clear) Urine pH (4.5-7.5) Ur Specific Breaks (1.000-1.030) Urine Protein (Negative) Urine Glucose (UA) (Negative) Urine Ketones (Negative) Urine Blood (Negative) Urine Nitrite (Negative) Urine Bilirubin (Negative) Urine Urobilinogen (Negative) Ur Leukocyte Esterase (Negative) Urine WBC (Auto) (0-5) /hpf Urine RBC (Auto) (0-4) /hpf U Hyaline Cast (Auto) (0-5) /lpf U Epithel Cells (Auto) (0-5) /lpf Urine Bacteria (Auto) (Negative) SARS-CoV-2, RNA, NAAT (NEGATIVE) Administered Medications Lactated Ringer's (Lr) 1,000 mls @ 80 mls/hr IV .[id number] BETHANY Stop: 12/11/22 05:29 Last Admin: 12/10/22 18:35 Dose: 80 mls/hr Documented By: MAIKEL Discontinued Medications Sodium Chloride (Nss) 500 mls @ 999 mls/hr IV .Q31M ONE Stop: 12/10/22 11:40 Last Infusion: 12/10/22 13:27 Dose: 0 mls/hr Documented By: Admin: 12/10/22 11:28 Dose: 999 mls/hr Documented By: MAIKEL Sodium Chloride (Nss) 500 mls @ 125 mls/hr IV .Q4H BETHANY Stop: 01/09/23 14:29 Last Infusion: 12/10/22 18:34 Dose: 0 mls/hr Documented By: Admin: 12/10/22 14:57 Dose: 125 mls/hr Documented By: MAIKEL Acetaminophen (Ofirmev) 1,000 mg in 100 mls @ 400 mls/hr IV NOW STA Stop: 12/10/22 14:32 Last Infusion: 12/10/22 15:12 Dose: 0 mls/hr Documented By: Admin: 12/10/22 14:57 Dose: 400 mls/hr Documented By: MAIKEL Ioversol (Optiray 320 500ml) 110 ml IV ONCE ONE Stop: 12/10/22 13:02 Last Admin: 12/10/22 13:01 Dose: 110 ml Documented By: LUC Imaging Data Radiologist's Impression: Chest X-Ray 12/10/22 12:00 XR chest 1V portable HISTORY: syncope COMPARISON: Chest 05/02/2018. FINDINGS: No pneumothorax. No pleural effusions. The cardiac silhouette remains borderline enlarged. No new focal lung consolidations to suggest a pneumonia. No evidence for pulmonary edema. There is an old distal right clavicle fracture again noted. IMPRESSION: No acute process. ACT 112: Negative or not required by law. Electronically signed by: Richardson Castillo M.D. 12/10/2022 12:[address] 12/10/22 12:00 CT OF THE HEAD WITHOUT CONTRAST CLINICAL HISTORY: Syncope, vertigo. COMPARISON STUDY: Head CT March 23, 2015. TECHNIQUE: Helical axial images of the head were obtained without IV contrast. Automated exposure control was utilized for the study. A dose lowering technique was utilized adhering to the principles of ALARA. FINDINGS: No acute intracranial hemorrhage, midline shift or mass effect is present. Scattered white matter hypodensity suggests small vessel disease. The ventricular system is unremarkable. The basal cisterns are patent. No extra- axial collections are present. There are no findings to suggest acute dural sinus thrombosis or acute territorial infarct. No significant calvarial abnormalities are present. Visualized portions of the sinuses and mastoid air cells are clear. IMPRESSION: No acute intracranial findings. ACT 112: Negative or not required by law. Electronically signed by: Bari Damon M.D. 12/10/2022 1:27 PM Head CTA 12/10/22 12:00 CT ANGIOGRAM OF THE BRAIN CLINICAL HISTORY: Syncope. Vertigo. COMPARISON STUDY: Unenhanced CT of the brain performed concurrently on 12/10/2022. TECHNIQUE: Following the IV administration of 110 cc of Optiray 320, CT angiogram of the brain was performed from the skull base to the vertex. Images are reviewed in the axial, sagittal, and coronal planes. 3-D MIPS images are created and assessed. IV contrast was administered without complication. A dose lowering technique was utilized adhering to the principles of ALARA. FINDINGS: Brain parenchyma: There is age-related involutional change noting mild mammogram disease. There is no evidence of hemorrhage, mass effect, or acute territorial ischemia noting angiographic phase technique. There is no evidence of enhancing mass lesion on the angiogram phase images. No extra-axial fluid collection is seen. Dominguez-white matter differentiation is preserved. Ventricles, sulci, and cisterns: Normal in configuration. CT angiogram of the brain: There is atherosclerotic calcification of the cavernous carotid arteries. The internal carotid arteries are widely patent, as are the anterior and middle cerebral arteries. The vertebrobasilar system and posterior cerebral arteries are widely patent. The vertebral arteries are codominant. There is no aneurysm, high-grade stenosis, or focal vessel cutoff identified throughout the intracranial circulation. Dural sinuses: Clear as visualized. Orbits: The bony orbits are intact. The orbital contents are normal as visualized. Sinuses and mastoids: The visualized paranasal sinuses are clear. The mastoid air cells are well pneumatized. Calvarium: Unremarkable. IMPRESSION: 1. There is no evidence of hemorrhage, mass effect, or acute territorial ischemia noting angiographic phase technique. 2. Unremarkable CT angiogram of the brain. ACT 112: Negative or not required by law. Electronically signed by: Leopoldo Sales M.D. 12/10/2022 1:23 PM Neck CTA 12/10/22 12:00 NECK CTA HISTORY: syncope, vertigo TECHNIQUE: Multiaxial CT images of the neck were performed following the intravenous administration of contrast to evaluate the major cervical vessels. Maximum intensity projection images were also obtained. All measurements were calculated based on NASCET criteria. A dose lowering technique was utilized adhering to the principles of ALARA. COMPARISON STUDY: None. FINDINGS: Mild focal narrowing of approximately 30% within the proximal left subclavian artery due to the calcified plaque. Otherwise, the aortic arch and remaining proximal great vessels are patent. Mild to moderate calcified plaque within the bilateral carotid bifurcations without significant stenosis. There is no significant stenosis, occlusion, or dissection identified within the bilate ral common carotid, internal carotid, or vertebral arteries. IMPRESSION: No significant stenosis, occlusion, or dissection identified within the carotid or vertebral arteries. ACT 112: Negative or not required by law. Electronically signed by: Richardson Castillo M.D. 12/10/2022 1:26 PM Pelvis X-Ray 12/10/22 12:03 SINGLE VIEW PELVIS CLINICAL HISTORY: Fall. Pelvic pain. FINDINGS: 2 AP, portable, supine views of the pelvis are compared to study dated 05/03/2018. The skeletal structures are osteopenic. There is no radiographic evidence of acute fracture involving the hips or bony pelvis. Mild arthritic change and space narrowing is seen in the hips. There is mild degenerative sclerosis of the sacroiliac joints. The overlying soft tissues are within normal limits. A phlebolith is seen in the right hemipelvis. No bowel obstruction is identified. IMPRESSION: There is no radiographic evidence of acute fracture. Electronically signed by: Leopoldo Sales M.D. 12/10/2022 12:30 PM Thoracic Spine X-Ray 12/10/22 16:58 XR thoracic spine 3V routine CLINICAL HISTORY: fall, back pain COMPARISON STUDY: Thoracic spine radiographs February 23, 2013. FINDINGS: Incidental note is made of contrast within the collecting systems from recent contrast-enhanced CT. No thoracic spine fracture is identified. Vertebral body heights are maintained. Disc spaces are preserved. IMPRESSION: No thoracic spine fracture. ACT 112: Negative or not required by law. Electronically signed by: Bari Damon M.D. 12/10/2022 6:34 PM Discharge Plan Visit Data Chief Complaint: Syncope Stated Complaint: SYNCOPE ED Provider: Alex Sahni Discharge Problem: Syncope, Elevated troponin, Elevated CPK, Fall from standing, H/O dizziness Forms Stand Alone Forms: [facility] Prescriptions Prescriptions: No Action cholecalciferol (vitamin D3) 50 mcg (2,000 unit) capsule 50 mcg PO DAILY Qty: 30 0RF nortriptyline 25 mg capsule 50 mg PO HS Qty: 180 1RF levothyroxine 88 mcg tablet 88 mcg PO QAM Qty: 90 1RF lovastatin 40 mg tablet 40 mg PO QPM Qty: 90 1RF alprazolam 0.25 mg tablet 0.25 mg PO DAILY PRN (Reason: anxiety) Qty: 30 0RF Rx Instructions: PDMP check 10/01/20 Eliquis 5 mg tablet 5 mg PO BID Qty: 180 3RF zoledronic xdkj-gofzfbxv-teisu 5 mg/100 mL piggyback 5 mg IV ONCE Qty: 100 0RF Rx Instructions: Patient takes once yearly. Scheduled for 01/2023 betamethasone dipropionate 0.05 % cream 1 applic topical BID PRN (Reason: skin irritation) Qty: 45 0RF Rx Instructions: apply to b/l hands polyethylene glycol 3350 17 gram/dose powder 17 gm PO DAILY PRN (Reason: constipation) Calcium 600 with Vitamin D3 600 mg(1,500mg) -400 unit tablet,chewable 600 tab PO BID metoprolol tartrate 25 mg tablet 0 mg PO .q 8 hours PRN (Reason: palpitations) Rx Instructions: Patient only takes medication IF systolic blood pressure is over 200, up to three times daily. Referrals Referrals: Roopa Vo DO [Primary Care Provider] -
[2022-12-10] MEDS ORDERED: SODIUM CHLORIDE 0.9% 500 ML IV SCH (14:30)
--- NOTE | 2022-12-10 15:18 | Electrocardiogram Report ---
Test Reason : Blood Pressure : / mmHG Vent. Rate : 068 BPM Atrial Rate : 068 BPM P-R Int : 182 ms QRS Dur : 082 ms QT Int : 480 ms P-R-T Axes : 065 034 135 degrees QTc Int : 510 ms Normal sinus rhythm Prolonged QT Abnormal ECG When compared with ECG of 10-DEC-2022 10:01, No significant change was found Confirmed by Roney Acosta ([id number]) on 12/10/2022 3:17:34 PM Referred By: REFERRED SELF Confirmed By:Roney Acosta
[2022-12-10 15:23] LABS: Appearance Urine Clear (Clear); Bacteria Urine Automated Negative (Negative); Bilirubin Urine Negative (Negative); Blood Urine Trace (Negative); Color Urine Yellow; Epithelial Cell Urine Auto >30 /lpf (0-5); Glucose Urine UA Negative (Negative); Ketones Urine 1+ (Negative); Leukocyte Esterase Urine Negative (Negative); Nitrite Urine Negative (Negative); RBC Urine Automated 0-4 /hpf (0-4); Specific Gravity Urine > 1.045 (1.000-1.030); Urobilinogen Urine Negative (Negative)
[2022-12-10 15:24] LABS: Protein Urine Trace (Negative)
--- NOTE | 2022-12-10 16:25 | History & Physical Report ---
Date of Service December 10, 2022 Assessment & Plan (1) Syncope: Plan: -Admit to med/tele -Currently stable -At this time it appears that the patient has had another episode of orthostatic hypotension/vasovagal episode leading to syncope -Her history from today is consistent with her previous history of syncope, she noted herself to be in afib prior to getting up, was likely dehydrated this am as well -Initial trauma workup was negative, currently in NSR -Had a recent TTE in October of this year which was WNL -Will obtain an xray of the thoracic spine due to bruising and point tenderness on palpation -Will give 1L LR, placed BL RABIA stocking, and add fall precautions -Daily orthostatic vitals -Continue to monitor on tele -BL SCD's and home Eliquis for DVT PPX (2) Elevated troponin: Plan: -Initial high sen trop elevated at 86 -Patient is without chest pain and acute ST segment or T-wave changes -Likely due to demand from her fall and being down for multiple hours -Will repeat a STAT 2 hour high sen trop, monitor on tele (3) Elevated CK: Plan: -Noted to be 474 -Renal function is stable -S/P 1.5 L NSS in the ED, will give another 1L LR now -Monitor am renal function (4) Atrial fibrillation: Plan: -Currently in NSR -Continue Eliquis -Continue to monitor on tele (5) Dyslipidemia: Plan: -Hold Statin for now with elevated CK (6) Gastroesophageal reflux disease: Plan: -Daily famotidine while admitted (7) Depression with anxiety: Plan: -Continue PRN Xanax (8) HTN (hypertension): Plan: -Starting to improve compared to arrival -Would avoid treating at this time as she is asymptomatic and want to avoid continued episodes of orthostasis (9) Hypothyroidism: Plan: -Continue levothyroxine Plan The patient was discussed with Dr. Lang at the time of the admission History of Present Illness Chief Complaint: Syncope Primary Care Provider: DO Brittney Morgan is a 77-year-old female with a history of paroxysmal atrial fibrillation (on Eliquis), hypertension, mild dynamic LV outflow track obstruction, prior stress-induced cardiomyopathy, orthostatic hypotension who presented to the [facility] ED on 12/10/22 due to syncopal episode this morning. She was noted to be hypertensive at 209/97 on arrival to the ED, otherwise vitals are stable. Labs were remarkable for a leukocytosis of 15 with left shift of 13, total CK of 447, initial high sen trop of 86. ECG shows NSR with ST and T-wave depressions in the anterolateral leads. Chest Xray, CT of the head, CTA of the head/neck, and x-ray of the pelvis were negative for acute findings. Prior to admission the patient was given 1L NSS, and 1 gm of IV tylenol. At the time of the exam the patient was sitting in bed in no acute distress with her daughter sitting bedside. The patient and her daughter explain that she has had a long history of issues with paroxysmal Afib and orthostatic hypotension. She follows with Dr. Mcfarland for these issues and has undergone a large workup in the past including holter monitor and carotid duplexes. She has been taken off of all her antihypertensives in the past and is only on prn metoprolol for systolic BP > 200. She had been in her normal state of health when she woke this am around 0530. She noticed that she was in a-bib when checking her pulse, this quickly resolved on it's own. She then stood to use the bathroom and started to walk with her rolling walker. She quickly developed lightheadedness/dizziness and lost consciousness. She woke around 0800 and had to drag herself to the door in order to get help. She denies any chest pain or SOB when the event occurred and has been without chest pain since arrival to the ED. She uses compression stockings at home, her daughter states that the patient does not drinking enough water. She did not take her am dose of Eliquis today. She denies recent fever, chills, cough, abd pain, nausea, vomiting, diarrhea, dysuria, hematuria, melena, LE swelling. She attempted to get up and walk to the bathroom while in the ED but was still getting lightheaded/dizzy. She is a Full Code and would want her children to make medical decisions for her if she cannot make them herself. Please refer to Dr. Lang's attestation for any changes to the treatment plan Allergies Allergy/AdvReac Type Severity Reaction Status Date / Time methylprednisolone Allergy Mild Rash Verified 09/29/22 11:42 alendronate sodium AdvReac Mild GI upset Verified 09/29/22 11:42 erythromycin base AdvReac Mild GI upset Verified 09/29/22 11:42 hydrochlorothiazide AdvReac Mild hyponatremi Verified 09/29/22 11:42 a hydrocodone AdvReac Mild nausea Verified 09/29/22 11:42 vomiting tramadol AdvReac Mild nausea Verified 09/29/22 11:42 vomiting clavulanic acid AdvReac Gastrointestinal Verified 09/29/22 11:42 [From Augmentin] Upset Home Medications Medication Instructions Recorded Confirmed Type calcium carbonate 600 mg-vitamin 600 tab PO BID 03/28/19 12/10/22 History D3 10 mcg (400 unit) chewable tablet (Calcium 600 with Vitamin D3) polyethylene glycol 3350 17 17 gm PO DAILY PRN constipation 10/13/19 12/10/22 History gram/dose oral powder betamethasone dipropionate 0.05 % 1 applic topical BID PRN skin 11/11/21 12/10/22 Rx topical cream irritation #45 grams cholecalciferol (vitamin D3) 50 50 mcg PO DAILY #30 caps 04/08/22 12/10/22 Rx mcg (2,000 unit) capsule levothyroxine 88 mcg tablet 88 mcg PO QAM #90 tabs 04/29/22 12/10/22 Rx nortriptyline 25 mg capsule 50 mg PO HS #180 caps 04/29/22 12/10/22 Rx lovastatin 40 mg tablet 40 mg PO QPM #90 tabs 05/12/22 12/10/22 Rx alprazolam 0.25 mg tablet 0.25 mg PO DAILY PRN anxiety #30 07/16/22 12/10/22 Rx tabs apixaban 5 mg tablet (Eliquis) 5 mg PO BID #180 tabs 07/25/22 12/10/22 Rx zoledronic acid 5 mg/100 mL in 5 mg IV ONCE #100 mL 10/15/22 12/10/22 Rx mannitol 5 %-water intravenous piggybck metoprolol tartrate 25 mg tablet 0 mg PO .q 8 hours PRN palpitations 12/10/22 12/10/22 History Past Med/Surg History Medical History Allergic rhinitis Aortic atherosclerosis Asymmetric septal hypertrophy Atrial fibrillation HX ON ELIQUIS-F/U DR SUDHA MCFARLAND Chronic kidney disease, stage 3a Depression with anxiety Dyslipidemia 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 NO HX BLEEDING ISSUES Gastroesophageal reflux disease HX Andriy's thyroiditis History of cardiomyopathy HTN (hypertension) Hx of fracture of clavicle Hypothyroidism Irritable bowel syndrome HX-FAMILY HX Osteoporosis Panic attacks Pleural effusion HX Right clavicle fracture S/P Sensorineural hearing loss of both ears Vitamin D deficiency Surgical History H/O oral surgery History of colonoscopy S/P dilatation and curettage S/P eye surgery BLOCKED TEAR DUCT S/P tubal ligation Family History Mother Hypertension Heart disease Stroke Brother Hypertension Grandfather (Paternal) Lung cancer Father Cancer Other No family history of allergies No family history of bleeding disorder Denies family history of Ovarian cancer Prostate cancer Breast cancer Colorectal cancer Asthma Social History Smoking Status: Never smoker Second Hand Exposure: Yes (SPOUSE SMOKED); Do You Dip or Chew Tobacco: No; Hx Alcohol Use: No Hx Substance Use: No Preferred Language: Georgian Communication Ability: Effective Visual Impairment: No Limitations Hearing Ability: Normal Story Editor Required: No Beliefs That Will Affect Care: Spiritual marital status: Current Living Situation: Alone Current Living Situation Comment: apartment alone current occupational status: retired How many Children do You have: 3 Other Information That Helps Us Care for You: No Feels Safe at Home: Yes Safety Concerns: Feels Safe At This Time Childhood Exposure to Second-Hand Smoke: No Diet: regular Diet Comment: regular caffeine: No during the past year weight has: remained stable Dental Care, Regularly: Yes Physical Activity Frequency: Daily Physical Activity Frequency Comment: walk Seatbelt Use: always Sunscreen Use: Yes Assistive Devices: Walker Physical Exam Physical Exam: Physical Exam: General: In no acute distress, stated age, well-nourished, good hygiene HEENT: Normocephalic, atraumatic, no scleral icterus, pupils around round, symmetrical, and reactive to light, moist mucus membranes, trachea midline, no thyromegaly Chest/Pulm: No respiratory distress, symmetrical chest expansion, clear breath sounds throughout Cardiac: RRR, systolic murmur noted Abdomen: Negative for ascites and bruising, normoactive bowel sounds, soft, non-tender to palpation throughout Musculoskeletal: No trauma noted on inspection of the face, head, cervical spine, BL UE's and LE's, and pelvis. Patient noted to have bruises overlying the BL scapulae with minor scratches from dragging herself on the floor. Point tenderness to palpation over the mid thoracic spine. Extremities: Radial, dorsalis pedis, and posterior tibial pulses are intact and symmetrical, no edema noted in the BL LE's Skin: Warm, dry, no rashes , lesions, or scars noted Neuro: Alert and oriented to person, place, month, year, and president, no focal defects, CN II-XII tested and intact, no tremors noted Psych: No acute distress, calm and cooperative during the exam Results & Data Results & Data Vital Signs (Past 12 Hours) Vital Signs Temp Pulse Resp BP Pulse Ox O2 Del Method 12/10/22 16:00 69 15 97 Room Air 12/10/22 16:00 188/91 H 12/10/22 15:30 69 20 100 Room Air 12/10/22 15:30 196/100 H 12/10/22 15:01 72 12 99 Room Air 12/10/22 15:00 205/92 H 12/10/22 14:51 74 17 99 Room Air 12/10/22 14:30 68 22 99 Room Air 12/10/22 14:30 183/109 H 12/10/22 14:11 69 12/10/22 14:00 67 11 L 97 Room Air 12/10/22 14:00 209/97 H 12/10/22 13:30 68 22 97 Room Air 12/10/22 13:30 198/93 H 12/10/22 13:01 72 18 100 Room Air 12/10/22 13:01 184/77 H 12/10/22 12:30 71 17 97 Room Air 12/10/22 12:30 171/91 H 12/10/22 12:00 78 19 98 Room Air 12/10/22 12:00 162/80 H 12/10/22 11:30 75 24 97 Room Air 12/10/22 11:30 150/113 H 12/10/22 11:01 71 19 99 12/10/22 11:01 138/78 12/10/22 11:00 73 20 97 12/10/22 10:25 95 Room Air 12/10/22 10:09 Room Air 12/10/22 10:09 36.5 C 75 18 180/90 H 96 Room Air 12/10/22 10:03 69 Laboratory Results Abnormal lab results 12/10/22 12/10/22 12/10/22 Range/Units 10:33 10:33 15:00 WBC 15.46 H (4.8-10.8) K/ul Neut # (Auto) 13.64 H (1.40-6.50) K/uL Lymph # (Auto) 0.85 L (1.2-3.4) K/uL [place] # (Auto) 0.83 H (0.11-0.59) K/uL Creatinine 1.27 H (0.6-1.2) mg/dl Glucose 108 H (70-99(Fasting)) mg/dl Total Creatine Kinase 474 H (26-192) U/L Troponin I High Sens 86.7 H* (0-14) pg/ml Urine pH 8.0 H (4.5-7.5) Ur Specific [place] > 1.045 H (1.000-1.030) Urine Protein Trace H (Negative) Urine Ketones 1+ H (Negative) Urine Blood Trace H (Negative) U Epithel Cells (Auto) >30 H (0-5) /lpf Diagnostic Findings Chest X-Ray 12/10/22 12:00 XR chest 1V portable HISTORY: syncope COMPARISON: Chest 05/02/2018. FINDINGS: No pneumothorax. No pleural effusions. The cardiac silhouette remains borderline enlarged. No new focal lung consolidations to suggest a pneumonia. No evidence for pulmonary edema. There is an old distal right clavicle fracture again noted. IMPRESSION: No acute process. ACT 112: Negative or not required by law. Electronically signed by: Richardson Castillo M.D. 12/10/2022 12:[address] 12/10/22 12:00 CT OF THE HEAD WITHOUT CONTRAST CLINICAL HISTORY: Syncope, vertigo. COMPARISON STUDY: Head CT March 23, 2015. TECHNIQUE: Helical axial images of the head were obtained without IV contrast. Automated exposure control was utilized for the study. A dose lowering technique was utilized adhering to the principles of ALARA. FINDINGS: No acute intracranial hemorrhage, midline shift or mass effect is present. Scattered white matter hypodensity suggests small vessel disease. The ventricular system is unremarkable. The basal cisterns are patent. No extra- axial collections are present. There are no findings to suggest acute dural sinus thrombosis or acute territorial infarct. No significant calvarial abnormalities are present. Visualized portions of the sinuses and mastoid air cells are clear. IMPRESSION: No acute intracranial findings. ACT 112: Negative or not required by law. Electronically signed by: Bari Damon M.D. 12/10/2022 1:27 PM Head CTA 12/10/22 12:00 CT ANGIOGRAM OF THE BRAIN CLINICAL HISTORY: Syncope. Vertigo. COMPARISON STUDY: Unenhanced CT of the brain performed concurrently on 12/10/2022. TECHNIQUE: Following the IV administration of 110 cc of Optiray 320, CT angio gram of the brain was performed from the skull base to the vertex. Images are reviewed in the axial, sagittal, and coronal planes. 3-D MIPS images are created and assessed. IV contrast was administered without complication. A dose lowering technique was utilized adhering to the principles of ALARA. FINDINGS: Brain parenchyma: There is age-related involutional change noting mild mammogram disease. There is no evidence of hemorrhage, mass effect, or acute territorial ischemia noting angiographic phase technique. There is no evidence of enhancing mass lesion on the angiogram phase images. No extra-axial fluid collection is seen. Dominguez-white matter differentiation is preserved. Ventricles, sulci, and cisterns: Normal in configuration. CT angiogram of the brain: There is atherosclerotic calcification of the cavernous carotid arteries. The internal carotid arteries are widely patent, as are the anterior and middle cerebral arteries. The vertebrobasilar system and posterior cerebral arteries are widely patent. The vertebral arteries are codominant. There is no aneurysm, high-grade stenosis, or focal vessel cutoff identified throughout the intracranial circulation. Dural sinuses: Clear as visualized. Orbits: The bony orbits are intact. The orbital contents are normal as visualized. Sinuses and mastoids: The visualized paranasal sinuses are clear. The mastoid air cells are well pneumatized. Calvarium: Unremarkable. IMPRESSION: 1. There is no evidence of hemorrhage, mass effect, or acute territorial ischemia noting angiographic phase technique. 2. Unremarkable CT angiogram of the brain. ACT 112: Negative or not required by law. Electronically signed by: Leopoldo Sales M.D. 12/10/2022 1:23 PM Neck CTA 12/10/22 12:00 NECK CTA HISTORY: syncope, vertigo TECHNIQUE: Multiaxial CT images of the neck were performed following the intravenous administration of contrast to evaluate the major cervical vessels. Maximum intensity projection images were also obtained. All measurements were calculated based on NASCET criteria. A dose lowering technique was utilized adhering to the principles of ALARA. COMPARISON STUDY: None. FINDINGS: Mild focal narrowing of approximately 30% within the proximal left subclavian artery due to the calcified plaque. Otherwise, the aortic arch and remaining proximal great vessels are patent. Mild to moderate calcified plaque within the bilateral carotid bifurcations without significant stenosis. There is no significant stenosis, occlusion, or dissection identified within the bilateral common carotid, internal carotid, or vertebral arteries. IMPRESSION: No significant stenosis, occlusion, or dissection identified within the carotid or vertebral arteries. ACT 112: Negative or not required by law. Electronically signed by: Richardson Castillo M.D. 12/10/2022 1:26 PM Pelvis X-Ray 12/10/22 12:03 SINGLE VIEW PELVIS CLINICAL HISTORY: Fall. Pelvic pain. FINDINGS: 2 AP, portable, supine views of the pelvis are compared to study dated 05/03/2018. The skeletal structures are osteopenic. There is no radiographic evidence of acute fracture involving the hips or bony pelvis. Mild arthritic change and space narrowing is seen in the hips. There is mild degenerative sclerosis of the sacroiliac joints. The overlying soft tissues are within normal limits. A phlebolith is seen in the right hemipelvis. No bowel obstruction is identified. IMPRESSION: There is no radiographic evidence of acute fracture. Electronically signed by: Leopoldo Sales M.D. 12/10/2022 12:30 PM ECG Additional Comments: Normal sinus rhythm ST & T wave abnormality, consider anterolateral ischemia Prolonged QT Abnormal ECG When compared with ECG of 10-DEC-2022 10:01, No significant change was found Confirmed by Roney Acosta ([id number]) on 12/10/2022 3:17:34 PM Code Status & VTE Plan Code Status Full code VTE Prophylaxis Plan VTE Prophylaxis will be ordered: Yes Supervising Physician Co-Signing Physician Notes I personally saw and examined the patient. I verified all aguiar points and agree with Raul Cunningham PA-C with the following exceptions and/or additions: 77 year old female presents to the ER following a syncopal event. Multiple previous episodes related to a. fib RVR. On this occasion occurred after she went to stand up from the toilet. Currently in NSR O/E A&Ox3, HS RRR, systolic murmur loudest in apex, Chest CTAB, Abdo SNT A/P Syncope - monitor overnight on telemetry. consult cardiology. Monitor for orthostasis. No need to repeat echo as recently performed in October and murmur is longstanding. Fall - CT head negative for intracranial hemorrhage. superficial skin injuries only. Ok to continue apixaban. PG Care Time/CCT Total # of Minutes Spent Total Time Spent with Patient: Total time spent is greater than 50% in coordination of care (as documented) at patient's floor/unit and/or counseling patient: Coding [place] [address] INT INP/OBS CARE 2/55MIN Patient Type Established Medical Decision Making Moderate Complexity Diagnoses Syncope R55 Elevated troponin R77.8 Elevated CK R74.8 Atrial fibrillation I48.91 Dyslipidemia E78.5 Gastroesophageal reflux disease K21.9 Depression with anxiety F41.8 HTN (hypertension) I10 Hypothyroidism E03.9
[2022-12-10] MEDS ORDERED: LACTATED RINGER'S 1,000 ML IV SCH (17:00)
--- NOTE | 2022-12-10 18:35 | XRay Report ---
XR thoracic spine 3V routine CLINICAL HISTORY: fall, back pain COMPARISON STUDY: Thoracic spine radiographs February 23, 2013. FINDINGS: Incidental note is made of contrast within the collecting systems from recent contrast-enha nced CT. No thoracic spine fracture is identified. Vertebral body heights are maintained. Disc spaces are preserved. IMPRESSION: No thoracic spine fracture. ACT 112: Negative or not required by law. Electronically signed by: Bari Damon M.D. 12/10/2022 6:34 PM
[2022-12-10] MEDS: ALPRAZolam 0.25 MG TABLET PO PRN (21:35)
[2022-12-10] MEDS: ACETAMINOPHEN 325 MG TAB PO PRN (21:35)
[2022-12-10] MEDS: APIXABAN 5 MG TABLET PO SCH (21:51)
[2022-12-10] MEDS: NORTRIPTYLINE HCL 25 MG CAP PO SCH (21:51)
[2022-12-11] MEDS: LEVOTHYROXINE SODIUM 88 MCG TABLET PO SCH (05:43)
[2022-12-11 07:16] LABS: Basophils # (auto) 0.09 K/uL (0-0.2); Basophils % (auto) 1.3 %; Eosinophils # (auto) 0.15 K/uL (0-0.50); Eosinophils % (auto) 2.2 %; Hematocrit (blood only) 35.1 % (37.0-47.0); Hemoglobin 11.8 g/dl (12.0-16.0); Immature Granulocytes # (auto) 0.01 K/uL (0.01-0.20); Immature Granulocytes % (auto) 0.1 %; Lymphocytes # (auto) 1.35 K/uL (1.2-3.4); Lymphocytes % (auto) 20.1 %; Mean Corpuscular Hemoglobin 30.6 pg (25.0-34.0); Mean Corpuscular Hgb Conc 33.6 g/dL (32.0-36.0); Mean Corpuscular Volume 90.9 fL (80.0-100.0); Mean Platelet Volume 11.1 fL (9.4-12.4); Monocytes # (auto) 0.54 K/uL (0.11-0.59); Neutrophils # (auto) 4.59 K/uL (1.40-6.50); Neutrophils % (auto) 68.3 %; Platelet Count 299 K/uL (130-400); RDW Coefficient of Variation 12.3 % (11.5-14.5); RDW Standard Deviation 40.8 fL (36.4-46.3); Red Blood Count 3.86 M/uL (4.20-5.40); White Blood Count 6.73 K/ul (4.8-10.8)
[2022-12-11 07:38] LABS: BUN Creatinine Ratio 15.6 (10-20); Calcium 7.9 mg/dl (8.6-10.3); Creatinine Clr Calc Pharmacy 43.1 ml/min; Est GFR (African American) 71.5 ml/min; Est GFR (Non-African American) 61.7 ml/min; Potassium 3.3 mmol/L (3.5-5.1)
[2022-12-11 07:49] LABS: INR 1.1 (0.9-1.1); Prothrombin Time 11.9 Seconds (9.0-12.0)
[2022-12-11] MEDS ORDERED: POTASSIUM CHLORIDE CRTAB 20 MEQ TABCR PO STA (08:03)
[2022-12-11] MEDS ORDERED: amLODIPine BESYLATE 5 MG TAB PO ONE (08:08)
[2022-12-11] MEDS: FAMOTIDINE 10 MG TABLET PO SCH (08:21)
[2022-12-11] MEDS: APIXABAN 5 MG TABLET PO SCH ×2 (08:21→20:54)
[2022-12-11] MEDS ORDERED: LORazepam 0.5 MG TAB PO STA (15:47)
[2022-12-11] MEDS: ALPRAZolam 0.25 MG TABLET PO PRN (16:40)
--- NOTE | 2022-12-11 16:45 | Hospitalist Progress Note ---
Date of Service December 11, 2022 Assessment & Plan (1) Syncope: Plan: -Admit to med/tele -Currently stable -? Orthostasis versus possible A-fib rate related presyncopal episode Did discuss with cardiology. Patient has extremely labile hypertension that has been hard to control, and is instructed not to check her blood pressure at home. She has a significant anxiety component which should be treated, unfortunately thiazides/CCB/BB/oral hydralazine all with extremely poor tolerance and induction of orthostatic symptoms and falls. Tolerating high blood pressure acknowledging risk of CVA. Patient is with blood pressure of 190 on reassessment, is pending treatment with home dose of Xanax for anxiety component. Does decline low-dose trial of hydralazine, amlodipine, metoprolol. Patient also volume depleted on admission, improving oral input and received fl uids in ER TTE 10/2022 within normal limits Repeat echo pending given degree of troponin rise, although this is downtrending and patient is without chest pain at bedside. -BL SCD's and home Eliquis for DVT PPX Fall precautions Patient very resistant to any type of placement or strength training, although is more limited with pain and soreness than her normal baseline. Did discuss with family who agree that they can come and help her at home if needed while she recovers, patient will remain for completion of cardiac work-up and observation tonight (2) Elevated troponin: Plan: -Initial high sen trop elevated at 86, peaked at 715 and now downtrending -Patient is without chest pain and acute ST segment or T-wave changes -Echo pending (3) Elevated CK: Plan: -Noted to be 474, following a fall and patient ran -Renal function is stable -Tolerating p.o., creatinine 0.9 on admission. Continue to encourage oral (4) Atrial fibrillation: Plan: -Currently in NSR -Continue Eliquis -Continue to monitor on tele (5) Dyslipidemia: Plan: Statin held for elevated CK (6) Gastroesophageal reflux disease: Plan: -Daily famotidine while admitted (7) Depression with anxiety: Plan: -Continue PRN Xanax (8) HTN (hypertension): Plan: -Starting to improve compared to arrival -Significant anxiety component, recommended for treatment first. Patient declines various antihypertension options at bedside, noting that she has tried hydralazine/amlodipine/metoprolol/hydralazine all with severe swings in blood pressure (9) Hypothyroidism: Plan: -Continue levothyroxine Hypokalemia 3.3, repletion ordered Admission and Anticipated Discharge Date Admission Date: December 10, 2022 Subjective Seen at the bedside. Denies chest pain, chest pressure, lightheadedness, dizziness. Reports she "just feels achy ". She is tired, would like to go home and take Tylenol and a hot shower. Did discuss that her echo is pending, it is recommended to ensure this is normal given her elevated troponins. Did discuss various options for blood pressure control as she has been [id number], and declines antihypertensive treatment. Did discuss with cardiology and has been noted to have very labile swings and a significant anxiety component and has been treated with Xanax at home. Discussed that he is recommended that she follow-up for mobile telemetry monitoring given her recurrent and persistent symptoms, however she does not wish for this to be done at this time "may be in a week or so I will follow-up ". At time of bedside assessment she is not having chest pain or chest pressure. No numbness or tingling. Family updated at bedside by phone. Did review various blood pressure options including hydralazine, BENJIE/ARB, amlodipine, beta-angelica, calcium channel angelica treatment. P as tolerated as needed very low doses of metoprolol in the past, but has not tolerated thiazides, had rapid swings even with oral hydralazine, and was significantly symptomatic with hypotension on even low-dose amlodipine. She does not wish to have any of these at this time, will continue to manage anxiety component and does acknowledge risk of CVD/CAD with poorly controlled hypertension but again notes that she has been very symptomatic with labile swings and this is not new to her. Review of Systems Review of Systems: All systems reviewed & are unremarkable except as noted in Subjective Physical Exam Physical Exam: General: A&Ox3. NAD. Cooperative. HEENT: Atraumatic, normocephalic. Vision and hearing intact. Pupils equal and reactive to light. Pulm: CTAB A&P. -wheezes, -rales, -rhonchi. Symmetrical chest rise. No increased work of breathing. No respiratory distress. Cardiac: RRR, -mrg. Radial pulses intact and symmetrical. Abdominal: Nontender, nondistended, soft. BS present. Extremities: Dors is feeling diffusely achy, bruises overlying upper back, scratches on the arms, and small skin tear on right wrist. No crepitus/hematoma appreciated. 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 Results & Data Results & Data Vital Signs (Past 12 Hours) Vital Signs Temp Pulse Pulse Resp BP Pulse Ox O2 Del Method 12/11/22 15:42 211/91 H 12/11/22 14:31 36.7 C 67 16 192/94 H 95 Room Air 12/11/22 11:07 36.9 C 71 16 173/91 H 99 Room Air 12/11/22 08:24 174/83 H 12/11/22 07:58 68 12/11/22 07:23 36.7 C 70 16 191/93 H 97 Room Air PG Care Time/CCT Total # of Minutes Spent Total Time Spent with Patient: Total time spent is greater than 50% in coordination of care (as documented) at patient's floor/unit and/or counseling patient: Coding Level of Care Code 35073 SUB INP/OBS CARE 2/35MIN Diagnoses Syncope R55 Elevated troponin R77.8 Elevated CK R74.8 Atrial fibrillation I48.91 Dyslipidemia E78.5 Gastroesophageal reflux disease K21.9 Depression with anxiety F41.8 HTN (hypertension) I10 Hypothyroidism E03.9
--- NOTE | 2022-12-11 18:12 | XCELERA ---
[id number] \\[id number]
[2022-12-11] MEDS: NORTRIPTYLINE HCL 25 MG CAP PO SCH (20:54)
[2022-12-11] MEDS: ACETAMINOPHEN 325 MG TAB PO PRN (20:54)
[2022-12-12] MEDS: LEVOTHYROXINE SODIUM 88 MCG TABLET PO SCH (05:39)
[2022-12-12 07:47] LABS: Basophils # (auto) 0.08 K/uL (0-0.2); Basophils % (auto) 1.1 %; Eosinophils # (auto) 0.28 K/uL (0-0.50); Eosinophils % (auto) 3.9 %; Hematocrit (blood only) 35.7 % (37.0-47.0); Hemoglobin 11.9 g/dl (12.0-16.0); Immature Granulocytes # (auto) 0.02 K/uL (0.01-0.20); Immature Granulocytes % (auto) 0.3 %; Lymphocytes # (auto) 1.94 K/uL (1.2-3.4); Mean Corpuscular Hemoglobin 30.2 pg (25.0-34.0); Mean Corpuscular Hgb Conc 33.3 g/dL (32.0-36.0); Mean Corpuscular Volume 90.6 fL (80.0-100.0); Mean Platelet Volume 10.6 fL (9.4-12.4); Monocytes # (auto) 0.56 K/uL (0.11-0.59); Monocytes % (auto) 7.8 %; Neutrophils % (auto) 59.9 %; Platelet Count 319 K/uL (130-400); RDW Coefficient of Variation 12.1 % (11.5-14.5); RDW Standard Deviation 40.3 fL (36.4-46.3); Red Blood Count 3.94 M/uL (4.20-5.40); White Blood Count 7.18 K/ul (4.8-10.8)
[2022-12-12 07:55] LABS: Prothrombin Time 11.3 Seconds (9.0-12.0)
[2022-12-12 08:11] LABS: Potassium 3.6 mmol/L (3.5-5.1)
[2022-12-12] MEDS: FAMOTIDINE 10 MG TABLET PO SCH (08:11)
[2022-12-12] MEDS: APIXABAN 5 MG TABLET PO SCH (08:11)
[2022-12-12 08:17] LABS: BUN Creatinine Ratio 12.6 (10-20); Creatinine Clr Calc Pharmacy 37.8 ml/min; Est GFR (African American) 60.7 ml/min; Est GFR (Non-African American) 52.4 ml/min
--- NOTE | 2022-12-12 12:57 | Cardiology Consultation ---
Date of Consultation December 12, 2022 Assessment & Plan (1) Syncope: (2) Elevated troponin: (3) History of cardiomyopathy: (4) Atrial fibrillation: Plan 1. Syncope: She had loss of consciousness for some period of time, the duration is not clear and it was not transient lightheadedness or presyncope as she has described before. I am concerned that this was an arrhythmia of some sort, she was in atrial fibrillation prior to it based on her symptoms but subsequently (at least after this event when monitored) she was in sinus rhythm. It is conceivable that this was some type of post cardioversion bradycardia, but that is speculative. It is possible it was a tachy arrhythmia but that seems less likely. I think it is important to try to monitor her for arrhythmias given her history of atrial fibrillation, her intermittent dizziness and presyncope and this most recent event. I have recommended a loop recorder and I thought she should have it done today but she is unwilling. She is willing to do it in the future and I hope she will do it in the near future. 2. Elevated troponin: Her troponin is significantly elevated yet it does not appear to be an acute coronary event based on her echocardiogram, the electrocardiogram and lack of symptoms. She has not had a stress test for a year and a half, I do not think we need to do 1 now but it might be prudent to do that in the future. We can arrange that as an outpatient. I suspect that the elevated troponin is demand ischemia from an arrhythmia, hypotension or what ever caused her loss of consciousness. 3. Cardiomyopathy: There is no evidence that she has had recurrence of her cardiomyopathy. She has been left with anterior T wave inversions but they do not seem to be different now than before. 4. Atrial fibrillation: We have identified atrial fibrillation in the past and she was aware of symptoms she thought were atrial fibrillation prior to this event. As noted above it may be related somehow to her event, but atrial fibrillation itself seems unlikely since she is not very symptomatic during it. Long-term monitoring with loop recorder would help determine the extent of her arrhythmia however. History of Present Illness Reason for Consultation: Loss of consciousness Attending Physician: Bryan Fierro History of Present Illness This is a 77-year-old woman with a history of hypertension, stress-induced cardiomyopathy in 2014 with improvement of her left ventricular function subsequently. An echocardiogram November 06, 2022 shows normal left ventricular size with concentric left ventricular hypertrophy and no regional wall motion abnormalities, her ejection fraction is 55 to 60%. Her most recent stress test was May 15, 2021 which was a perfusion scan and was negative for ischemia. 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 She has been having difficulty with lightheadedness for a number of years, this has been evaluated by monitoring historically and atrial fibrillation was identified on monitoring although it did not reproduce her symptoms. I believe her symptoms have been felt to be due to transient hypotension although by her description I am not sure that we have identified that. She describes intermittent episodes which are transient dizziness, often quite brief, but sounding as though they are presyncope and that she will feel that she might fall over although typically has not. However preceding her hospitalization this time she felt that she was in atrial fibrillation (which she describes as feeling weak and having an irregular heart rate and pulse), she went to the bathroom sat on the toilet and then ended up waking up next to the toilet. She was not able to stand but apparently that is not related to this event, she does not feel she has the strength in her hands to get up from the floor and she had to crawl over to knock on the wall for her neighbor to help pick her up. At some point her atrial fibrillation converted but it is not clear when. Although she has had intermittent lightheadedness and feelings of presyncope this was much worse. Here in the hospital she has felt well, she has been on the monitor without any significant arrhythmia and her electrocardiogram shows sinus rhythm with anterior T wave inversions (which are old) and a repeat echocardiogram with limited views is similar to prior. Her troponins are abnormal, on presentation her high sensitive troponin was slightly elevated at 87, however 7 hours later it had increased to 715 (which was the peak) and about 24 hours after presentation it was 435. This is suggestive of some type of event but it does not appear to be an acute myocardial infarction. Allergies Allergy/AdvReac Type Severity Reaction Status Date / Time methylprednisolone Allergy Mild Rash Verified 09/29/22 11:42 alendronate sodium AdvReac Mild GI upset Verified 09/29/22 11:42 erythromycin base AdvReac Mild GI upset Verified 09/29/22 11:42 hydrochlorothiazide AdvReac Mild hyponatremi Verified 09/29/22 11:42 a hydrocodone AdvReac Mild nausea Verified 09/29/22 11:42 vomiting tramadol AdvReac Mild nausea Verified 09/29/22 11:42 vomiting clavulanic acid AdvReac Gastrointestinal Verified 09/29/22 11:42 [From Augmentin] Upset Home Medications Medication Instructions Recorded Confirmed Type calcium carbonate 600 mg-vitamin 600 tab PO BID 03/28/19 12/10/22 History D3 10 mcg (400 unit) chewable tablet (Calcium 600 with Vitamin D3) polyethylene glycol 3350 17 17 gm PO DAILY PRN constipation 10/13/19 12/10/22 History gram/dose oral powder betamethasone dipropionate 0.05 % 1 applic topical BID PRN skin 11/11/21 12/10/22 Rx topical cream irritation #45 grams cholecalciferol (vitamin D3) 50 50 mcg PO DAILY #30 caps 04/08/22 12/10/22 Rx mcg (2,000 unit) capsule levothyroxine 88 mcg tablet 88 mcg PO QAM #90 tabs 04/29/22 12/10/22 Rx nortriptyline 25 mg capsule 50 mg PO HS #180 caps 04/29/22 12/10/22 Rx lovastatin 40 mg tablet 40 mg PO QPM #90 tabs 05/12/22 12/10/22 Rx alprazolam 0.25 mg tablet 0.25 mg PO DAILY PRN anxiety #30 07/16/22 12/10/22 Rx tabs apixaban 5 mg tablet (Eliquis) 5 mg PO BID #180 tabs 07/25/22 12/10/22 Rx zoledronic acid 5 mg/100 mL in 5 mg IV ONCE #100 mL 10/15/22 12/10/22 Rx mannitol 5 %-water intravenous piggybck metoprolol tartrate 25 mg tablet 0 mg PO .q 8 hours PRN palpitations 12/10/22 12/10/22 History Patient History Medical History Allergic rhinitis Aortic atherosclerosis Asymmetric septal hypertrophy Atrial fibrillation HX ON ELIQUIS-F/U DR SUDHA MCFARLAND Chronic kidney disease, stage 3a Depression with anxiety Dyslipidemia 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 NO HX BLEEDING ISSUES Gastroesophageal reflux disease HX Andriy's thyroiditis History of cardiomyopathy HTN (hypertension) Hx of fracture of clavicle Hypothyroidism Irritable bowel syndrome HX-FAMILY HX Osteoporosis Panic attacks Pleural effusion HX Right clavicle fracture S/P Sensorineural hearing loss of both ears Vitamin D deficiency Surgical History H/O oral surgery History of colonoscopy S/P dilatation and curettage S/P eye surgery BLOCKED TEAR DUCT S/P tubal ligation Family History Mother Hypertension Heart disease Stroke Brother Hypertension Grandfather (Paternal) Lung cancer Father Cancer Other No family history of allergies No family history of bleeding disorder Denies family history of Ovarian cancer Prostate cancer Breast cancer Colorectal cancer Asthma Social History Smoking Status: Never smoker Second Hand Exposure: Yes (SPOUSE SMOKED); Do You Dip or Chew Tobacco: No; Hx Alcohol Use: No Hx Substance Use: No Preferred Language: Thai Communication Ability: Effective Visual Impairment: No Limitations Hearing Ability: Normal Supply Cataloguer Required: No Beliefs That Will Affect Care: Spiritual marital status: Current Living Situation: Alone Current Living Situation Comment: apartment alone current occupational status: retired How many Children do You have: 3 Other Information That Helps Us Care for You: No Feels Safe at Home: Yes Safety Concerns: Feels Safe At This Time Childhood Exposure to Second-Hand Smoke: No Diet: regular Diet Comment: regular caffeine: No during the past year weight has: remained stable Dental Care, Regularly: Yes Physical Activity Frequency: Daily Physical Activity Frequency Comment: walk Seatbelt Use: always Sunscreen Use: Yes Assistive Devices: Walker Review of Systems Review of Systems: Negative for lightheadedness, dizziness, palpitations, presyncope or syncope. No exertional symptoms, no dyspnea on exertion or exertional chest pain. No orthopnea or PND or peripheral edema. No GI complaints, no bleeding. No neurologic complaints such as TIA or stroke symptoms. Other systems negative. Physical Exam Physical Exam: Constitutional: Alert, cooperative and in no distress. HEENT: Unremarkable Neck: No jugular venous distention, carotid pulses are normal and equal bilaterally without bruits. Pulmonary: Clear to auscultation bilaterally. Cardiac: Regular rhythm with no murmur, gallop or rub. Abdomen: Soft, nontender with normal bowel sounds. Extremities: No edema. Distal pulses intact. Neurologic: No focal findings. Gait is steady. Skin: No rash, ecchymoses or petechiae. Results & Data Vital Signs (Past 12 Hours) Vital Signs Temp Pulse Pulse Resp BP BP Pulse Ox 12/12/22 11:17 36.7 C 60 16 165/75 H 97 12/12/22 11:02 12/12/22 06:01 68 12/12/22 07:28 36.5 C 87 16 156/78 H 95 12/12/22 04:07 36.7 C 79 18 163/81 H 96 O2 Del Method 12/12/22 11:17 Room Air 12/12/22 11:02 Room Air 12/12/22 06:01 12/12/22 07:28 Room Air 12/12/22 04:07 Room Air Laboratory Results Cardiac Enzymes 12/11/22 Range/Units 12:27 Troponin I High Sens 434.8 H* (0-14) pg/ml Coagulation 12/12/22 Range/Units 07:19 PT 11.3 (9.0-12.0) Seconds CBC 12/12/22 Range/Units 07:19 WBC 7.18 (4.8-10.8) K/ul RBC 3.94 L (4.20-5.40) M/uL Hgb 11.9 L (12.0-16.0) g/dl Hct 35.7 L (37.0-47.0) % Plt Count 319 (130-400) K/uL Neut # (Auto) 4.30 (1.40-6.50) K/uL Lymph # (Auto) 1.94 (1.2-3.4) K/uL Steele # (Auto) 0.56 (0.11-0.59) K/uL Eos # (Auto) 0.28 (0-0.50) K/uL Baso # (Auto) 0.08 (0-0.2) K/uL Comprehensive Metabolic Panel 12/12/22 Range/Units 07:19 Sodium 133 L (136-145) mmol/L Potassium 3.6 (3.5-5.1) mmol/L Chloride 99 (98-107) mmol/L Carbon Dioxide 28 (21-32) mmol/L BUN 13 (6-23) mg/dl Creatinine 1.03 (0.6-1.2) mg/dl Glucose 84 (70-99(Fasting)) mg/dl Calcium 8.0 L (8.6-10.3) mg/dl Intake and Output 12/11/22 12/12/22 12/12/22 22:59 06:59 14:59 Intake Total 580 / 1680 Balance 580 / 1680 Intake: Oral 580 / 680 Other: # Unmeasured Voids 1 Weight 57 kg Weight Measurement Method Standing Scale Diagnostic Findings Telemetry: Sinus rhythm and sinus bradycardia, no significant arrhythmia. PG Care Time/CCT Total # of Minutes Spent Total Time Spent with Patient: Total time spent is greater than 50% in coordination of care (as documented) at patient's floor/unit and/or counseling patient: Coding Level of Care Code 10030 INT INP/OBS CARE 3/75MIN Diagnoses Syncope R55 Syncope type: unspecified Elevated troponin R77.8 History of cardiomyopathy Z86.79 Atrial fibrillation I48.91 (1) Syncope Syncope type: unspecified Qualified Code(s): R55 - Syncope and collapse
--- NOTE | 2022-12-12 13:16 | Discharge Summary ---
Date of Service December 12, 2022 Admission HPI Per Admitting Provider Brittney Jorgensen is a 77-year-old female with a history of paroxysmal atrial fibrillation (on Eliquis), hypertension, mild dynamic LV outflow track obstruction, prior stress-induced cardiomyopathy, orthostatic hypotension who presented to the [facility] ED on 12/10/22 due to syncopal episode this morning. She was noted to be hypertensive at 209/97 on arrival to the ED, otherwise vitals are stable. Labs were remarkable for a leukocytosis of 15 with left shift of 13, total CK of 447, initial high sen trop of 86. ECG shows NSR with ST and T-wave depressions in the anterolateral leads. Chest Xray, CT of the head, CTA of the head/neck, and x-ray of the pelvis were negative for acute findings. Prior to admission the patient was given 1L NSS, and 1 gm of IV tylenol. At the time of the exam the patient was sitting in bed in no acute distress with her daughter sitting bedside. The patient and her daughter explain that she has had a long history of issues with paroxysmal Afib and orthostatic hypotension. She follows with Dr. Anne for these issues and has undergone a large workup in the past including holter monitor and carotid duplexes. She has been taken off of all her antihypertensives in the past and is only on prn metoprolol for systolic BP > 200. She had been in her normal state of health when she woke this am around 0530. She noticed that she was in a-bib when checking her pulse, this quickly resolved on it's own. She then stood to use the bathroom and started to walk with her rolling walker. She quickly developed lightheadedness/dizziness and lost consciousness. She woke around 0800 and had to drag herself to the door in order to get help. She denies any chest pain or SOB when the event occurred and has been without chest pain since arrival to the ED. She uses compression stockings at home, her daughter states that the patient does not drinking enough water. She did not take her am dose of Eliquis today. She denies recent fever, chills, cough, abd pain, nausea, vomiting, diarrhea, dysuria, hematuria, melena, LE swelling. She attempted to get up and walk to the bathroom while in the ED but was still getting lightheaded/dizzy. She is a [employer] and would want her children to make medical decisions for her if she cannot make them herself. Please refer to Dr. Lang's attestation for any changes to the treatment plan Principal Diagnosis syncope Discharge Exam Patient sitting upright in no acute distress. Not using accessory muscles to breath. moving all extremities. Discharge Data Allergies Allergy/AdvReac Type Severity Reaction Status Date / Time methylprednisolone Allergy Mild Rash Verified 09/29/22 11:42 alendronate sodium AdvReac Mild GI upset Verified 09/29/22 11:42 erythromycin base AdvReac Mild GI upset Verified 09/29/22 11:42 hydrochlorothiazide AdvReac Mild hyponatremi Verified 09/29/22 11:42 a hydrocodone AdvReac Mild nausea Verified 09/29/22 11:42 vomiting tramadol AdvReac Mild nausea Verified 09/29/22 11:42 vomiting clavulanic acid AdvReac Gastrointestinal Verified 09/29/22 11:42 [From Augmentin] Upset Consultations 12/10/22 14:18 ED Decision to Admit Stat 12/12/22 08:45 Consult Cardiology Routine Ordered Studies 12/10/22 12:00 CT angio head w con Stat CT angio neck with con Stat CT head/brain wo con Stat Hospital Course (1) Syncope: -Admit to med/tele -Currently stable -? Orthostasis versus possible A-fib rate related presyncopal episode Did discuss with cardiology. Patient has extremely labile hypertension that has been hard to control, and is instructed not to check her blood pressure at home. She has a significant anxiety component which should be treated, unfortunately thiazides/CCB/BB/oral hydralazine all with extremely poor tolerance and induction of orthostatic symptoms and falls. Tolerating high blood pressure acknowledging risk of CVA. Patient is with blood pressure of 190 on reassessment, is pending treatment with home dose of Xanax for anxiety component. Does decline low-dose trial of hydralazine, amlodipine, metoprolol. Patient also volume depleted on admission, improving oral input and received fluids in ER TTE 10/2022 within normal limits Repeat echo pending given degree of troponin rise, although this is downtrending and patient is without chest pain at bedside. -BL SCD's and home Eliquis for DVT PPX Fall precautions Patient very resistant to any type of placement or strength training, although is more limited with pain and soreness than her normal baseline. Did discuss with family who agree that they can come and help her at home if needed while she recovers -Patient agreeable to plan for loop recorder. Patient seen by Lala: appreciate their input. (2) Elevated troponin: -Initial high sen trop elevated at 86, peaked at 715 and now downtrending -Patient is without chest pain and acute ST segment or T-wave changes (3) Elevated CK: -Noted to be 474, following a fall and patient ran -Renal function is stable -Tolerating p.o., creatinine 0.9 on admission. Continue to encourage oral (4) Atrial fibrillation: -Currently in NSR -Continue Eliquis -Continue to monitor on tele (5) Dyslipidemia: Statin held for elevated CK (6) Gastroesophageal reflux disease: -Daily famotidine while admitted (7) Depression with anxiety: -Continue PRN Xanax (8) HTN (hypertension): -Starting to improve compared to arrival -Significant anxiety component, recommended for treatment first. Patient declines various antihypertension options at bedside, noting that she has tried hydralazine/amlodipine/metoprolol/hydralazine all with severe swings in blood pressure (9) Hypothyroidism: -Continue levothyroxine Hypokalemia replenished Total Time Total Time Spent Total Time Spent (In Minutes): 32 Discharge Plan Discharge Items Patient Disposition: Home - Self-Care Reason For Visit: SYNCOPE Discharge Diagnosis: syncope Activity: Resume your previous activity Non-emergency contact: Primary Care Provider Call non-emergency contact if: you have any medication questions Follow-up/Referrals: Roopa Vo DO [Primary Care Provider] - 12/18/22 11:40 am Diet: Heart Healthy Addtl Attending Provider Instructions: recommend followup with Cardio within 1 week, Pending Studies at Discharge: No Stand-Alone Forms: My [email or web address], Smoking Cessation Medications and DC Order Prescriptions: Continued cholecalciferol (vitamin D3) 50 mcg (2,000 unit) capsule 50 mcg PO DAILY Qty: 30 0RF nortriptyline 25 mg capsule 50 mg PO HS Qty: 180 1RF levothyroxine 88 mcg tablet 88 mcg PO QAM Qty: 90 1RF lovastatin 40 mg tablet 40 mg PO QPM Qty: 90 1RF alprazolam 0.25 mg tablet 0.25 mg PO DAILY PRN (Reason: anxiety) Qty: 30 0RF Rx Instructions: PDMP check 10/01/20 Eliquis 5 mg tablet 5 mg PO BID Qty: 180 3RF zoledronic ovqw-rdquujin-fugqx 5 mg/100 mL piggyback 5 mg IV ONCE Qty: 100 0RF Rx Instructions: Patient takes once yearly. Scheduled for 01/2023 betamethasone dipropionate 0.05 % cream 1 applic topical BID PRN (Reason: skin irritation) Qty: 45 0RF Rx Instructions: apply to b/l hands polyethylene glycol 3350 17 gram/dose powder 17 gm PO DAILY PRN (Reason: constipation) Calcium 600 with Vitamin D3 600 mg(1,500mg) -400 unit tablet,chewable 600 tab PO BID metoprolol tartrate 25 mg tablet 0 mg PO .q 8 hours PRN (Reason: palpitations) Rx Instructions: Patient only takes medication IF systolic blood pressure is over 200, up to three times daily. Discharge Orders: Discharge Order (Routine); Ordered 12/12/22 Ordered By: Bryan Fierro Admission Data Admit Date/Time: 12/10/22 16:36 Attending Provider: Bryan Fierro Admit Provider: Cristobal Lang Primary Care Provider: Roopa Vo Other Providers: Cristobal Lang ; Adonis Ireland ; Wilfred Sauer ; Mick Mays ; Uriel Durant ; Roney Acosta ; Walker Sneed Jr ; Nelson Chaidez ; Nereida Jones ; Kaykay Rockwell ; Ronnie Anne ; Gustabo Kirby ; Davon Elizabeth ; Sarahi Limon ; Margarita Lamar ; Jamaal Castillo ; Baldomero Albright ; Uriel Layne V. Other Interventions: Discharge Summary Assessment (RN) Last Done: 12/12/22 13:32 Coding Level of Care Code 89752 INP/OBS DISCH >30 MIN Diagnoses Syncope R55 Elevated troponin R77.8 Elevated CK R74.8 Atrial fibrillation I48.91 Dyslipidemia E78.5 Gastroesophageal reflux disease K21.9 Depression with anxiety F41.8 HTN (hypertension) I10 Hypothyroidism E03.9
--- NOTE | 2022-12-12 22:16 | Electrocardiogram Report ---
Test Reason : Blood Pressure : / mmHG Vent. Rate : 062 BPM Atrial Rate : 062 BPM P-R Int : 144 ms QRS Dur : 086 ms QT Int : 442 ms P-R-T Axes : 079 052 100 degrees QTc Int : 448 ms Normal sinus rhythm Nonspecific ST and T wave abnormality Abnormal ECG When compared with ECG of 10-DEC-2022 14:41, T wave inversion less evident in Anterolateral leads QT has shortened Confirmed by Roney Acosta ([id number]) on 12/12/2022 10:15:44 PM Referred By: REFERRED SELF Confirmed By:Roney Acosta
== END 2022-12-12 15:52 | disposition home or self-care (01) ==
LOC: ED 09:48 → 2N 09:48 → SUATTDRO 16:36 → 2N 20:17

== ENCOUNTER 2024-07-28 04:54 | Inpatient (IN) ==
[2024-07-28 05:30] LABS: Basophils # (auto) 0.04 K/uL (0.00-0.20); Basophils % (auto) 0.5 %; Eosinophils # (auto) 0.14 K/uL (0.00-0.50); Eosinophils % (auto) 1.6 %; Hematocrit (blood only) 36.4 % (37.0-47.0); Immature Granulocytes # (auto) 0.09 K/uL (0.01-0.20); Mean Corpuscular Hemoglobin 30.5 pg (25.0-34.0); Mean Corpuscular Volume 92.4 fL (80.0-100.0); Mean Platelet Volume 10.2 fL (9.4-12.4); Monocytes # (auto) 0.49 K/uL (0.11-0.59); Monocytes % (auto) 5.6 %; Neutrophils # (auto) 6.62 K/uL (1.40-6.50); Neutrophils % (auto) 76.3 %; Platelet Count 327 K/uL (130-400); RDW Coefficient of Variation 11.7 % (11.5-14.5); RDW Standard Deviation 39.8 fL (36.4-46.3); Red Blood Count 3.94 M/uL (4.20-5.40); White Blood Count 8.68 K/ul (4.8-10.8)
[2024-07-28 05:44] LABS: Albumin Globulin Ratio 1.3 (0.9-2); BUN Creatinine Ratio 12.3 (10-20); Bilirubin,Total 0.5 mg/dl (0.2-1.0); Calcium 8.6 mg/dl (8.6-10.3); Creatinine Clr Calc Pharmacy 33.6 ml/min; Globulin 3.1 gm/dl (2.5-4.0); Potassium 2.9 mmol/L (3.5-5.1); Total Protein 7.1 gm/dl (6.0-8.3)
[2024-07-28 05:50] LABS: Troponin I High Sensitivity 10.2 pg/ml (0-14)
[2024-07-28] MEDS: ONDANSETRON INJ 2 MG/ML 2 ML VIAL IV STA (05:52)
[2024-07-28] MEDS: fentaNYL citrate PF 100 MCG/2 ML VIAL IV STA ×3 (05:52→08:21)
[2024-07-28 05:57] LABS: Partial Thromboplastin Time 28 Seconds (21-31); Prothrombin Time 10.9 Seconds (9.0-12.0)
--- NOTE | 2024-07-28 06:15 | Emergency Department Note ---
Impression & Plan Closed fracture of right hip, Hypokalemia admit to the [facility] ED Provider Note NAME: DIANA CHRISTIANSON AGE: 78 SEX: Female INFORMANT: Patient ED PROVIDER(S): Samira Alejandra DO CHIEF COMPLAINT: Dizziness; fall PLAN: Disposition: admit to the [facility] MEDICAL DECISION MAKING: this is a 78-year-old female patient who had a dizzy episode when she got up to go to the bathroom tonight. She fell to the ground landing on her right hip and now complains of pain. She was unable to get up. She denies striking her head or losing consciousness. patient has been having episodes of dizziness and has a history of atrial fibrillation and is on Eliquis. Right hip x-ray confirms fracture. Chest x-ray was unremarkable. Laboratory studies were performed and revealed significant hypokalemia. IV replacement was initiated. Other laboratory studies revealed a normal glucose. Troponin was negative. Coagulation studies were normal. There was no leukocytosis or anemia noted. I discussed the case with the [facility] Hospitalist. They will evaluate for further inpatient care and discussed the case with orthopedics. patient's pain was managed with multiple doses of IV fentanyl. Care/management discussed with: or nurse manager and [facility] Hospitalist. Triage Nursing notes: reviewed and agree With them. Vital Signs: reviewed and remarkable for hypertension Additional History obtained from: the patient's daughter who is at the bedside Differential Diagnosis: cardiac dysrhythmia, dehydration, vertigo, hip fracture Diagnostics, independently interpreted by me: ECG: normal sinus rhythm at a rate of [address] segment depression laterally and T wave inversion in leads I and aVL. There is no ectopy Cardiac Monitoring: normal sinus rhythm at a rate Of 72 Imaging studies: right hip x-ray: Femoral neck fracture Portable chest x-ray: no acute pulmonary infiltrates or consolidation HPI: 78 year old Female arrives for evaluation of dizziness and fall. patient got up out of bed tonight to go to the bathroom when she became dizzy and fell to the ground landing on her right hip. She denies striking her head or losing consciousness. She was unable to get up off the ground. EMS was called and she was transported here with a shortened and rotated right lower extremity. PAST MEDICAL HISTORY: See Below, PAST SURGICAL HISTORY: See Below, SOCIAL HISTORY: See Below, HOME MEDICATIONS: See list ALLERGIES: see list VITALS: See Below PHYSICAL EXAMINATION: HEENT: Head - normocephalic and atraumatic. Pupils are equal, round, and reactive to light. Extraocular eye muscles are intact, and sclera are anicteric. Nose - moist nasal mucosa without discharge. Mouth - moist buccal mucosa. Oropharynx is nonerythematous and there is no tonsillar exudate or edema noted. Neck: Supple; no Pain to palpation over the posterior cervical spine. Heart: Regular rate and rhythm. There is a normal S1 and S2 with no murmurs, clicks, or gallops appreciated. Lungs: Clear to auscultation bilaterally with no wheezes, rales, or rhonchi. Abdomen: Soft, completely nontender, nondistended, with good bowel sounds. There are no palpable pulsatile masses or hepatosplenomegaly. There is no guarding, rigidity, or rebound noted. Extremities: Pain to palpation over the right hip with obvious shortening to the right lower extremity and external rotation. Will pulses in the posterior tibial region of the right lower extremity and dorsalis pedis pulse as well. Skin: warm and dry with good turgor and no rashes. Emergency department treatment: child monitor, IV Zofran, IV fentanyl x 2, IV K rider emergency department course: The patient was evaluated in room B-10. A complete history and physical was performed. Order was placed for continuous cardiac monitoring. The patient was in a normal sinus rhythm at a rate of 72. Twelve-lead EKG was obtained as described above. Plain x-rays of the right hip were obtained. A chest x-ray was obtained. Patient was medicated with IV Zofran and IV fentanyl for the pain in her hip. Her potassium was quite low and she was started on IV potassium replacement. She continued to complain of pain in the right hip and was given an additional dose of IV fentanyl. I discussed the case with the [facility] Hospitalist and they will evaluate for further inpatient care. Past Med/Surg History Problem List (Updated 07/29/24 @ 18:16 by Samira Alejandra DO) Hypokalemia (Acute) Closed fracture of right hip (Acute) Systolic murmur Fall Vitamin D deficiency Osteoporotic fracture of right hip Hypokalemia Closed right femoral fracture (07/28/24) right femoral neck fracture from a fall Anemia History of loop recorder Syncope (Acute) Chronic kidney disease, stage 3a Gait disturbance Sensorineural hearing loss of both ears Allergic rhinitis History of cardiomyopathy Irritable bowel syndrome HX-FAMILY HX Aortic atherosclerosis Asymmetric septal hypertrophy Atrial fibrillation HX ON ELIQUIS-F/U DR 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 NO HX BLEEDING ISSUES Panic attacks Medical History (Updated 07/29/24 @ 18:16 by Samira Alejandra DO) Paroxysmal atrial fibrillation H/O dizziness Vertigo Dyslipidemia Gastroesophageal reflux disease HX Depression with anxiety Osteoporosis Hypothyroidism HTN (hypertension) Status post placement of implantable loop recorder Hx of fracture of clavicle Right clavicle fracture S/P Pleural effusion HX Surgical History History of colonoscopy H/O oral surgery S/P eye surgery BLOCKED TEAR DUCT S/P tubal ligation S/P dilatation and curettage Family History Mother Hypertension Heart disease Stroke Brother Hypertension Grandfather (Paternal) Lung cancer Father Cancer Other No family history of allergies No family history of bleeding disorder Denies family history of Ovarian cancer Prostate cancer Breast cancer Colorectal cancer Asthma Social History Smoking Status: Never smoker Second Hand Exposure: Yes (SPOUSE SMOKED); Do You Dip or Chew Tobacco: No; Hx Alcohol Use: No Hx Substance Use: No Preferred Language: Slovak Communication Ability: Effective Visual Impairment: No Limitations Hearing Ability: Normal 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 Required: No Beliefs That Will Affect Care: None marital status: Current Living Situation: Alone Current Living Situation Comment: apartment alone current occupational status: retired How many Children do You have: 3 Feels Safe at Home: Yes Childhood Exposure to Second-Hand Smoke: No Diet: regular Diet Comment: regular caffeine: No during the past year weight has: remained stable Dental Care, Regularly: Yes Physical Activity Frequency: Daily Physical Activity Frequency Comment: walk Seatbelt Use: always Sunscreen Use: Yes Assistive Devices: Walker Allergies Allergies Allergy/AdvReac Type Severity Reaction Status Date / Time methylprednisolone Allergy Mild Rash Verified 07/29/24 14:32 alendronate sodium AdvReac Mild GI upset Verified 07/29/24 14:32 erythromycin base AdvReac Mild GI upset Verified 07/29/24 14:32 hydrochlorothiazide AdvReac Mild hyponatremi Verified 07/29/24 14:32 a hydrocodone AdvReac Mild nausea Verified 07/29/24 14:32 vomiting tramadol AdvReac Mild nausea Verified 07/29/24 14:32 vomiting clavulanic acid AdvReac Gastrointestinal Verified 07/29/24 14:32 [From Augmentin] Upset Home Meds Home Medications Medication Instructions Recorded Confirmed calcium 600 mg (as carbonate)-vit 1 tab PO BID 03/28/19 07/28/24 D3 10 mcg (400 unit) chewable tablet (Calcium 600 with Vitamin D3) polyethylene glycol 3350 17 17 gm PO DAILY PRN constipation 10/13/19 07/28/24 gram/dose oral powder Previous Rx's Medication Instructions Recorded cyanocobalamin (vitamin B-12) 1,000 mcg PO DAILY #30 caps 03/23/23 1,000 mcg capsule cetirizine 10 mg tablet (Zyrtec) 10 mg PO DAILY PRN allergy 05/22/23 symptoms #90 tabs fluticasone propionate 50 1 spray intranasal DAILY #48 grams 07/06/23 mcg/actuation nasal spray,suspension (Flonase Allergy Relief) apixaban 5 mg tablet (Eliquis) 5 mg PO BID #180 tabs 07/23/23 lovastatin 40 mg tablet 40 mg PO QPM #90 tabs 01/18/24 sertraline 50 mg tablet 50 mg PO DAILY #90 tabs 02/12/24 cholecalciferol (vitamin D3) 125 125 mcg PO DAILY #30 caps 06/09/24 mcg (5,000 unit) capsule nortriptyline 25 mg capsule 50 mg (2 x 25 mg) PO HS #180 caps 07/04/24 levothyroxine 100 mcg tablet 100 mcg PO QAM #90 tabs 07/11/24 alprazolam 0.25 mg tablet 0.25 mg PO DAILY PRN anxiety #30 07/26/24 tabs Results & Data (ED) Vital Signs Vital Signs - 24 hr 07/28/24 05:05 07/28/24 05:05 07/28/24 05:16 Temperature 36.4 C L Temperature Source Oral Pulse Rate 71 72 Pulse Rhythm Regular Pulse Strength Normal Respiratory Rate 20 Respiratory Effort / Characteristics Non-Labored Spontaneous Respiratory Depth Normal Normal Respiratory Pattern Regular Blood Pressure 177/95 H Blood Pressure Mean 122 Blood Pressure Position Lying Pulse Oximetry 96 Oxygen Delivery Method Room Air Sepsis Recent Fever Within 48 Hours No Sepsis New/Unexplained Change in Mental Status N/A Sepsis Action Taken by Nursing No Action Required Laboratory Data 07/29/24 06:03 07/29/24 06:03 Lab Results 07/28/24 07/28/24 Range/Units 05:10 06:32 WBC 8.68 (4.8-10.8) K/ul RBC 3.94 L (4.20-5.40) M/uL Hgb 12.0 (12.0-16.0) g/dl Hct 36.4 L (37.0-47.0) % MCV 92.4 (80.0-100.0) fL MCH 30.5 (25.0-34.0) pg MCHC 33.0 (32.0-36.0) g/dL RDW Std Deviation 39.8 (36.4-46.3) fL RDW Coeff of Maria Antonia 11.7 (11.5-14.5) % Plt Count 327 (130-400) K/uL MPV 10.2 (9.4-12.4) fL Immature Gran % (Auto) 1.0 % Neut % (Auto) 76.3 % Lymph % (Auto) 15.0 % [place] % (Auto) 5.6 % Eos % (Auto) 1.6 % Baso % (Auto) 0.5 % Neut # (Auto) 6.62 H (1.40-6.50) K/uL Lymph # (Auto) 1.30 (1.20-3.40) K/uL [place] # (Auto) 0.49 (0.11-0.59) K/uL Eos # (Auto) 0.14 (0.00-0.50) K/uL Baso # (Auto) 0.04 (0.00-0.20) K/uL Immature Gran # (Auto) 0.09 (0.01-0.20) K/uL PT 10.9 (9.0-12.0) Seconds INR 1.0 (0.9-1.1) APTT 28 (21-31) Seconds PTT Ratio 1.0 Sodium 134 L (136-145) mmol/L Potassium 2.9 L (3.5-5.1) mmol/L Chloride 98 (98-107) mmol/L Carbon Dioxide 29 (21-32) mmol/L Anion Gap 7 (3-11) BUN 14 (6-23) mg/dl Creatinine 1.14 (0.6-1.2) mg/dl Est Cr Clr Drug Dosing 33.6 ml/min eGFR 49.27 BUN/Creatinine Ratio 12.3 (10-20) Glucose 135 H (70-99(Fasting)) mg/dl Calcium 8.6 (8.6-10.3) mg/dl Magnesium 2.2 (1.7-2.4) mg/dl Total Bilirubin 0.5 (0.2-1.0) mg/dl AST 18 (13-39) U/L ALT 15 (7-52) U/L Alkaline Phosphatase 75 (34-104) U/L Troponin I High Sens 10.2 (0-14) pg/ml Total Protein 7.1 (6.0-8.3) gm/dl Albumin 4.0 (3.4-5.0) gm/dl Globulin 3.1 (2.5-4.0) gm/dl Albumin/Globulin Ratio 1.3 (0.9-2) Urine Color Yellow Urine Appearance Clear (Clear) Urine pH 7.0 (4.5-7.5) Ur Specific [place] 1.005 (1.000-1.030) Urine Protein Negative (Negative) Urine Glucose (UA) Negative (Negative) Urine Ketones Negative (Negative) Urine Blood Negative (Negative) Urine Nitrite Negative (Negative) Urine Bilirubin Negative (Negative) Urine Urobilinogen Negative (Negative) Ur Leukocyte Esterase Negative (Negative) Administered Medications Acetaminophen (Acetaminophen 325 Mg Tab) 650 mg PO Q4H PRN PRN Reason: Pain or Fever Stop: 08/27/24 12:31 Last Admin: 07/29/24 09:28 Dose: 650 mg Documented By: Admin: 07/29/24 06:31 Dose: 650 mg Documented By: Admin: 07/28/24 17:59 Dose: 650 mg Documented By: Admin: 07/28/24 14:28 Dose: 650 mg Documented By: MANISH Alprazolam (Alprazolam 0.25 Mg Tablet) 0.25 mg PO DAILY PRN PRN Reason: anxiety Stop: 08/28/24 01:16 Last Admin: 07/29/24 10:06 Dose: 0.25 mg Documented By: LORRAINE Calcium/Vitamin D (Calcium 600mg + Vit D 400 Iu Tab) 1 tab PO BID [facility] Stop: 08/27/24 12:44 Last Admin: 07/29/24 07:44 Dose: Not Given Documented By: Admin: 07/28/24 21:03 Dose: 1 tab Documented By: Admin: 07/28/24 14:18 Dose: Not Given Documented By: MANISH Cyanocobalamin (Cyanocobalamin (B-12) 500 Mcg Tablet) 1,000 mcg PO DAILY BETHANY Stop: 08/27/24 12:44 Last Admin: 07/29/24 07:44 Dose: Not Given Documented By: Admin: 07/28/24 14:18 Dose: Not Given Documented By: MANISH Fluticasone Propionate (Fluticasone Propionate Na Spr 16 Gm Btl) 1 sprays JESSY DAILY [facility] Stop: 08/27/24 12:31 Last Admin: 07/29/24 07:48 Dose: 1 sprays Documented By: Admin: 07/28/24 13:42 Dose: Not Given Documented By: MANISH Hydromorphone HCl (Hydromorphone Inj 0.5 Mg/0.5 Ml Syr) 0.25 mg IV Q3H PRN PRN Reason: Pain (1,2,3,4,5) & Pre PT Stop: 08/11/24 12:31 Last Admin: 07/28/24 15:55 Dose: 0.25 mg Documented By: MANISH Hydromorphone HCl (Hydromorphone Inj 0.5 Mg/0.5 Ml Syr) 0.5 mg IV Q3H PRN PRN Reason: Pain (6,7,8,9,10) Stop: 08/11/24 12:31 Last Admin: 07/28/24 20:06 Dose: 0.5 mg Documented By: SAIRA Levothyroxine Sodium (Levothyroxine Sodium 100 Mcg Tablet) 100 mcg PO DAILYBB [facility] Stop: 08/27/24 12:31 Last Admin: 07/29/24 05:24 Dose: 100 mcg Documented By: Admin: 07/28/24 14:18 Dose: 100 mcg Documented By: MANISH Lovastatin (Lovastatin 20 Mg Tab) 40 mg PO QPM BETHANY Stop: 08/27/24 20:59 Last Admin: 07/28/24 21:03 Dose: 40 mg Documented By: SAIRA Nortriptyline HCl (Nortriptyline Hcl 25 Mg Cap) 50 mg PO HS BETHANY Stop: 08/27/24 20:59 Last Admin: 07/28/24 21:03 Dose: 50 mg Documented By: SAIRA Sertraline HCl (Sertraline Hcl 50 Mg Tablet) 50 mg PO DAILY BETHANY Stop: 08/27/24 12:31 Last Admin: 07/29/24 07:44 Dose: Not Given Documented By: Admin: 07/28/24 14:18 Dose: 50 mg Documented By: MANISH Vitamin D (Cholecalciferol 125 Mcg (5,000 Units) Tab) 125 mcg PO DAILY [facility] Stop: 08/27/24 12:44 Last Admin: 07/29/24 07:44 Dose: Not Given Documented By: Admin: 07/28/24 14:18 Dose: Not Given Documented By: MANISH Discontinued Medications Bupivacaine HCl (Bupivacaine 0.5 % 5 Mg/1 Ml Mpf 30ml Vial) Confirm Administered Dose 30 ml .ROUTE .STK-MED ONE Stop: 07/29/24 15:31 Last Admin: 07/29/24 16:36 Dose: 5 ml Documented By: MATHEUS Fentanyl Citrate (Fentanyl Citrate Pf 100 Mcg/2 Ml Vial) 50 mcg IV NOW STA Stop: 07/28/24 05:46 Last Admin: 07/28/24 05:52 Dose: 50 mcg Documented By: BRITNEY Fentanyl Citrate (Fentanyl Citrate Pf 100 Mcg/2 Ml Vial) 50 mcg IV NOW STA Stop: 07/28/24 06:48 Last Admin: 07/28/24 06:51 Dose: 50 mcg Documented By: BRITNEY Fentanyl Citrate (Fentanyl Citrate Pf 100 Mcg/2 Ml Vial) 50 mcg IV NOW STA Stop: 07/28/24 07:55 Last Admin: 07/28/24 08:21 Dose: 50 mcg Documented By: PAUL Hydralazine HCl (Hydralazine Hcl 20 Mg/Ml Vial) 5 mg IV Q8H PRN PRN Reason: SBP>180 Stop: 08/27/24 16:22 Last Admin: 07/28/24 17:19 Dose: 5 mg Documented By: MANISH Hydromorphone HCl (Hydromorphone Inj 0.5 Mg/0.5 Ml Syr) Confirm Administered Dose 0.5 mg .ROUTE .STK-MED ONE Stop: 07/28/24 12:10 Last Admin: 07/28/24 12:14 Dose: 0.25 mg Documented By: MANISH Potassium Chloride (K [place] / Wtr) 10 meq in 100 mls @ 100 mls/hr IV ONE ONE Stop: 07/28/24 06:57 Last Infusion: 07/28/24 07:47 Dose: Infused Documented By: Admin: 07/28/24 06:38 Dose: 100 mls/hr Documented By: BRITNEY Potassium Chloride (K [place] / Wtr) 10 meq in 100 mls @ 100 mls/hr IV Q1H BETHANY Stop: 07/28/24 11:29 Last Infusion: 07/28/24 20:57 Dose: Infused Documented By: Admin: 07/28/24 11:08 Dose: 100 mls/hr Documented By: Infusion: 07/28/24 11:07 Dose: Infused Documented By: Admin: 07/28/24 09:55 Dose: 100 mls/hr Documented By: Infusion: 07/28/24 09:51 Dose: Infused Documented By: Admin: 07/28/24 08:51 Dose: 100 mls/hr Documented By: Infusion: 07/28/24 08:51 Dose: Infused Documented By: Infusion: 07/28/24 08:38 Dose: 100 mls/hr Documented By: Infusion: 07/28/24 08:20 Dose: 0 mls/hr Documented By: Admin: 07/28/24 07:47 Dose: 100 mls/hr Documented By: PAUL Acetaminophen (Ofirmev) 1,000 mg in 100 mls @ 400 mls/hr IV NOW STA Stop: 07/28/24 08:08 Last Infusion: 07/28/24 08:37 Dose: Infused Documented By: Admin: 07/28/24 08:20 Dose: 400 mls/hr Documented By: PAUL Cefazolin Sodium (Ancef 2000mg) 2,000 mg in 15 mls @ 3.75 mls/min IV PREOP ONE; Protocol Stop: 07/29/24 06:03 Last Admin: 07/29/24 14:49 Dose: Not Given Documented By: SARIAH Tranexamic Acid (Tranexamic Acid / 0.7% Nacl) 1,000 mg in 100 mls @ 600 mls/hr IV PREOP ONE Stop: 07/29/24 06:09 Last Admin: 07/29/24 14:49 Dose: Not Given Documented By: SARIAH Potassium Chloride (K [place] / Wtr) 10 meq in 100 mls @ 100 mls/hr IV Q1H BETHANY Stop: 07/28/24 17:59 Last Admin: 07/28/24 16:21 Dose: Not Given Documented By: Admin: 07/28/24 16:21 Dose: Not Given Documented By: MANISH Sodium Chloride (Nss) 1,000 mls @ 125 mls/hr IV .Q8H BETHANY Stop: 07/29/24 16:14 Last Admin: 07/29/24 08:29 Dose: 125 mls/hr Documented By: LORRAINE Tranexamic Acid (Tranexamic Acid / 0.7% Nacl) 1,000 mg in 100 mls @ 600 mls/hr IV PREOP ONE Stop: 07/29/24 14:24 Last Admin: 07/29/24 15:32 Dose: 600 mls/hr Documented By: SARIAH Cefazolin Sodium (Ancef 2000mg) 2,000 mg in 15 mls @ 3.75 mls/min IV PREOP ONE; Protocol Stop: 07/29/24 14:18 Last Admin: 07/29/24 15:36 Dose: 3.75 mls/min Documented By: [id number] Prothrombin Complex Concent ( (Human) 2,000 units/ Syringe) 80 mls @ 10 mls/min IV NOW ONE; Protocol Stop: 07/29/24 15:37 Last Admin: 07/29/24 15:01 Dose: 10 mls/min Documented By: SARIAH Lidocaine/Epinephrine (Lidocaine 1%/Epinephrine 1:100,000 50 Ml Vial) Confirm Administered Dose 1 ml .ROUTE .STK-MED ONE Stop: 07/29/24 15:31 Last Admin: 07/29/24 16:36 Dose: 5 ml Documented By: DAB Ondansetron HCl (Ondansetron Inj 2 Mg/Ml 2 Ml Vial) 4 mg IV NOW STA Stop: 07/28/24 05:47 Last Admin: 07/28/24 05:52 Dose: 4 mg Documented By: NAW Potassium Chloride (Potassium Chloride Crtab 20 Meq Tabcr) 20 meq PO NOW STA Stop: 07/28/24 12:11 Last Admin: 07/28/24 13:42 Dose: Not Given Documented By: MANISH Discharge Plan Visit Data Chief Complaint: Fall Stated Complaint: FALL ED Provider: Samira Alejandra Discharge Problem: Closed fracture of right hip, Hypokalemia Patient Disposition: Admitted As Inpatient Discharge Instructions Interventions: ED Discharge Assessment Last Done: 07/28/24 18:45
--- NOTE | 2024-07-28 06:26 | XRay Report ---
EXAM: XR hip RT min 2V CLINICAL HISTORY: FALL RT HIP PAIN, DEFORMITY JMF TECHNIQUE: X-ray images of the right hip joint were obtained in 2 views: anteroposterior (AP) and lateral projection. COMPARISON: No prior studies are available for comparison. FINDINGS: Hip Joint: There is a shortening of the right femoral neck and showing a linear dense line [due to compression of trabeculae] traversing in the neck of femur. 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 Right sacroiliac joint appears normal. Symphysis Pubis: The symphysis pubis is normal and intact. No evidence of separation or widening. Soft Tissues: Visualized soft tissues are normal and unremarkable. No soft tissue swelling, calcifications, or masses. Additional Findings: No other significant abnormalities noted. IMPRESSION: Shortening of right femoral neck showing that dense linear line in the femoral neck possibly due to compression of trabeculae with coxa vera deformity, possibility of femoral neck fracture. Suggest clinical correlation and CT right hip joint is advised. DISCLAIMER:A subtle bone abnormality or fracture may not be readily apparent on x-rays, thus clinical correlation and further imaging including follow up CT, MRI, or follow up x-rays are advised as needed. Electronically signed by Rupesh Willoughby 07-28-2024 06:26 AM
[2024-07-28] MEDS: POTASSIUM CHLORIDE / WTR 10 MEQ/100 ML PLCT IV ONE (06:38)
--- NOTE | 2024-07-28 07:07 | XRay Report ---
EXAM: XR chest 1V portable CLINICAL HISTORY: FALL JM TECHNIQUE: An X-ray image of the chest is obtained in 1 AP projection. COMPARISON: 12/10/2022 CR. FINDINGS: Pulmonary Parenchyma: Mildly hyperinflated lung field are seen. Bilateral prominent bronchovascular markings. No pneumothorax. No evidence of consolidation, collapse, or focal opacities. No pulmonary nodules are identified. No evidence of pleural effusion or pleural thickening. Heart and Mediastinum: Heart size and shape are normal. No mediastinal widening or masses. No hilar or mediastinal lymphadenopathy. Bony Thorax: Bony thorax appears intact without fractures or deformities. Old healled right distal clavicular fracture Soft Tissues: Soft tissues overlying the chest wall are unremarkable. Linear external device shadow is seen overlying left chest wall. Device seen over right upper arm. IMPRESSION: 1. Mildly hyperinflated lung field are seen with bilateral prominent bronchovascular markings, interval progression could be bronchitis. 2. No acute cardiopulmonary abnormalities are identified. 3. No definite acute abnormality seen. Electronically signed by Rupesh Willoughby 07-28-2024 07:07 AM
[2024-07-28 07:18] LABS: Appearance Urine Clear (Clear); Bilirubin Urine Negative (Negative); Blood Urine Negative (Negative); Color Urine Yellow; Glucose Urine UA Negative (Negative); Ketones Urine Negative (Negative); Leukocyte Esterase Urine Negative (Negative); Nitrite Urine Negative (Negative); Protein Urine Negative (Negative); Specific Gravity Urine 1.005 (1.000-1.030); Urobilinogen Urine Negative (Negative)
--- NOTE | 2024-07-28 07:42 | History & Physical Report ---
Date of Service July 28, 2024 Assessment & Plan (1) Closed right femoral fracture: Plan: s/p mechanical fall after a vertigo episode interrogated loop recorder-no arrhythmias around time of fall but did have several hours of Afib in 100-150s on 07/23 and 07/24 which is more than her usual burden admit to med-tele unit Consult ortho-plan for hemiarthroplasty tomorrow after holding Eliquis for over 24 hrs. Diet today and then NPO after midnight Pain control with IV dilaudid, ZOfran prn nausea (has a h/o nausea with some opioids) Burden in place Check CBC, BMP in AM, watch for blood loss with fracture in setting of taking Eliquis (2) Hypokalemia: Plan: significantly low at 2.9 on admission replace with IV and po KCl Mag level normal follow BMP. mag in AM (3) Paroxysmal atrial fibrillation: Plan: had several hours of rapid afib on 07/23 and 07/24 on loop recorder holding Eliquis for hip surgery, resume afterwards if ok with Ortho monitor on tele (4) HTN (hypertension): Plan: BPs quite elevated here likely due to pain, anxiety disorder IV hydralazine prn treat pain and anxiety Cardio wanted her to be on Toprol XL for atrial tach but she declined to take it-if med needed, would be good first line choice (5) History of loop recorder: Plan: for multiple dizzy spells has PAF and atrial tachycardia Follows with Dr. Acosta (6) Depression with anxiety: Plan: continue home xanax prn, sertraline, nortriptylline (7) Hypothyroidism: Plan: recent TSH normal continue home levothyroxine (8) Dyslipidemia: Plan: continue statin Plan DVT proph-SCDs, add Eliquis after surgery Dispo-admit to med-tele DNR/DNI as discussed with pt. Her daughter would be her POA History of Present Illness Chief Complaint: Right hip pain Primary Care Provider: Roopa Vo, DO This pt is a 78-year-old female with a h/o HTN, dyslipidemia, anxiety/depression, GERD, hypothyroidism, vertigo, and paroxysmal atrial fibrillation on Eliquis who had one of her usual vertigo spells and fell around 3:00 AM after getting up to go to the bathroom. She fell onto her right side and was unable to get up secondary to hip pain. She denies striking her head. There was no loss of consciousness. She does have some left-sided lower rib pain but no other injuries. She denies associated chest pain, SOB, heart palpitations with the fall. A hip xray showed right hip fracture. She will be admitted for right hip fracture. I contacted Orthopedic Surgery who will perform surgical repair tomorrow after Eliquis held for 24 hours or more. Last dose of Eliquis was 8:00 PM on 07/27. Allergies Allergy/AdvReac Type Severity Reaction Status Date / Time methylprednisolone Allergy Mild Rash Verified 07/05/24 16:25 alendronate sodium AdvReac Mild GI upset Verified 07/05/24 16:25 erythromycin base AdvReac Mild GI upset Verified 07/05/24 16:25 hydrochlorothiazide AdvReac Mild hyponatremi Verified 07/05/24 16:25 a hydrocodone AdvReac Mild nausea Verified 07/05/24 16:25 vomiting tramadol AdvReac Mild nausea Verified 07/05/24 16:25 vomiting clavulanic acid AdvReac Gastrointestinal Verified 07/05/24 16:25 [From Augmentin] Upset Home Medications Medication Instructions Recorded Confirmed Type calcium 600 mg (as carbonate)-vit 1 tab PO BID 03/28/19 07/28/24 History D3 10 mcg (400 unit) chewable tablet (Calcium 600 with Vitamin D3) polyethylene glycol 3350 17 17 gm PO DAILY PRN constipation 10/13/19 07/28/24 History gram/dose oral powder cyanocobalamin (vitamin B-12) 1,000 mcg PO DAILY #30 caps 03/23/23 07/28/24 Rx 1,000 mcg capsule cetirizine 10 mg tablet (Zyrtec) 10 mg PO DAILY PRN allergy 05/22/23 07/28/24 Rx symptoms #90 tabs fluticasone propionate 50 1 spray intranasal DAILY #48 grams 07/06/23 07/28/24 Rx mcg/actuation nasal spray,suspension (Flonase Allergy Relief) apixaban 5 mg tablet (Eliquis) 5 mg PO BID #180 tabs 07/23/23 07/28/24 Rx lovastatin 40 mg tablet 40 mg PO QPM #90 tabs 01/18/24 07/28/24 Rx sertraline 50 mg tablet 50 mg PO DAILY #90 tabs 02/12/24 07/28/24 Rx cholecalciferol (vitamin D3) 125 125 mcg PO DAILY #30 caps 06/09/24 07/28/24 Rx mcg (5,000 unit) capsule nortriptyline 25 mg capsule 50 mg (2 x 25 mg) PO HS #180 caps 07/04/24 07/28/24 Rx levothyroxine 100 mcg tablet 100 mcg PO QAM #90 tabs 07/11/24 07/28/24 Rx alprazolam 0.25 mg tablet 0.25 mg PO DAILY PRN anxiety #30 07/26/24 07/28/24 Rx tabs Past Med/Surg History Problem List (Updated 07/29/24 @ 01:17 by Miriam Hutchinson MD) Hypokalemia Closed right femoral fracture (07/28/24) right femoral neck fracture from a fall Anemia History of loop recorder Syncope (Acute) Chronic kidney disease, stage 3a Gait disturbance Sensorineural hearing loss of both ears Allergic rhinitis History of cardiomyopathy Irritable bowel syndrome HX-FAMILY HX Aortic atherosclerosis Asymmetric septal hypertrophy Atrial fibrillation HX ON ELIQUIS-F/U DR 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 NO HX BLEEDING ISSUES Panic attacks Medical History Paroxysmal atrial fibrillation H/O dizziness Vertigo Dyslipidemia Gastroesophageal reflux disease HX Depression with anxiety Vitamin D deficiency Osteoporosis Hypothyroidism HTN (hypertension) Status post placement of implantable loop recorder Hx of fracture of clavicle Right clavicle fracture S/P Pleural effusion HX Surgical History History of colonoscopy H/O oral surgery S/P eye surgery BLOCKED TEAR DUCT S/P tubal ligation S/P dilatation and curettage Family History Mother Hypertension Heart disease Stroke Brother Hypertension Grandfather (Paternal) Lung cancer Father Cancer Other No family history of allergies No family history of bleeding disorder Denies family history of Ovarian cancer Prostate cancer Breast cancer Colorectal cancer Asthma Social History Smoking Status: Never smoker Second Hand Exposure: Yes (SPOUSE SMOKED); Do You Dip or Chew Tobacco: No; Hx Alcohol Use: No Hx Substance Use: No Preferred Language: Luxembourgish Communication Ability: Effective Visual Impairment: No Limitations Hearing Ability: Normal Dowel Sticker Operator Required: No Beliefs That Will Affect Care: None marital status: Current Living Situation: Alone Current Living Situation Comment: apartment alone current occupational status: retired How many Children do You have: 3 Feels Safe at Home: Yes Childhood Exposure to Second-Hand Smoke: No Diet: regular Diet Comment: regular caffeine: No during the past year weight has: remained stable Dental Care, Regularly: Yes Physical Activity Frequency: Daily Physical Activity Frequency Comment: walk Seatbelt Use: always Sunscreen Use: Yes Assistive Devices: Glasses and Walker Review of Systems Review of Systems: All systems reviewed & are unremarkable except as noted in HPI & below no constipation or diarrhea, no urinary issues Physical Exam Constitutional: WD/WN, vitals as above Eyes: PERRL, conjunctivae normal, anicteric sclerae ENMT: external ear and nose normal, oropharynx normal Neck: trachea midline, no thyromegaly Respiratory: normal respiratory effort, lungs clear to auscultation Cardiovascular: Rate/Rhythm: regular rate and regular rhythm Heart Sounds: + murmur (2/6 holosystolic murmur at LLSB) Extremities: no edema Chest (Breasts): Chest: normal inspection of chest Additional Comments: +TTP over left posterior lower ribs, no hematoma or ecchymosis Gastrointestinal (Abdomen): normal bowel sounds, soft, nontender, no hepatosplenomegaly Musculoskeletal: Extremities: + extremities abnormal to inspection (RLE shortened and int rotated,+TTP over right hip), no cyanosis and no clubbing Skin: no rashes, warm and dry Neurologic: moves all extremities and awake; no focal motor deficits Psychiatric: A+Ox3, euthymic affect Lymphatic: no lymphedema Results & Data Results & Data Vital Signs (Past 12 Hours) Vital Signs Temp Pulse Resp BP Pulse Ox O2 Del Method O2 Flow Rate 07/28/24 07:00 158/83 H 07/28/24 06:57 62 13 94 Nasal Cannula 3 07/28/24 05:16 72 07/28/24 05:05 36.4 C L 71 20 177/95 H 96 Room Air Laboratory Results CBC, BMP,magnesium, troponin, LFTs, UA, coags reviewed Diagnostic Findings CXR and right hip xray images personally reviewed by me ECG Additional Comments: ECG with SR, 1st deg AVB, normal rate, ST downsloping depressions in lateral leads slightly increased from previous Code Status & VTE Plan Code Status DNR/DNI VTE Prophylaxis Plan VTE Prophylaxis will be ordered: Yes PG Care Time/CCT Total # of Minutes Spent Total Time Spent with Patient: Total time spent is greater than 50% in coordination of care (as documented) at patient's floor/unit and/or counseling patient: Coding Level of Care Code 77428 INT INP/OBS CARE 3/75MIN Diagnoses Closed nondisplaced basicervical fracture of right femur, initial encounter S72.044A Encounter type: initial encounter Femur location: base of neck Fracture alignment: nondisplaced Hypokalemia E87.6 Paroxysmal atrial fibrillation I48.0 HTN (hypertension) I10 History of loop recorder Z98.890 Depression with anxiety F41.8 Hypothyroidism E03.9 Dyslipidemia E78.5 (1) Closed right femoral fracture Encounter type: initial encounter Femur location: base of neck Fracture alignment: nondisplaced Qualified Code(s): S72.044A - Nondisplaced fracture of base of neck of right femur, initial encounter for closed fracture
[2024-07-28] MEDS: POTASSIUM CHLORIDE / WTR 10 MEQ/100 ML PLCT IV SCH ×2 (07:47→16:21)
[2024-07-28 08:04] LABS: Magnesium 2.2 mg/dl (1.7-2.4)
[2024-07-28] MEDS: ACETAMINOPHEN 1,000 MG/100 ML VIAL IV STA (08:20)
--- NOTE | 2024-07-28 10:43 | Orthopedic Consultation ---
Date of Consultation July 28, 2024 Assessment & Plan (1) Closed right femoral fracture: The patient was educated regarding today's findings as well as her daughter. She will be admitted to the hospitalist service. Conservative care measures were discussed vs surgical intervention. Risks and benefits of each were discussed. Her films show a well-preserved acetabulum. The patient will be scheduled for a right hip hemiarthroplasty tomorrow. She is on Eliquis and we will hold this over the next 24 hours. Antibiotics on-call to the OR. Surgery will be performed by Dr. Diamond. All questions were answered. Informed written consent was obtained. She may eat today. NPO after midnight. Call the office at [phone] with any other questions. Present on Admission?: Yes Supervising Physician Co-Signing Physician Notes I, Dr. Diamond, saw and examined the patient and agree with the above findings and plan of care I developed and discussed with my PA. History of Present Illness Reason for Consultation: Right hip femoral neck fracture Requesting Physician: Fermín Diamond MD Attending Physician: Miriam Hutchinson MD History of Present Illness This 78-year-old female with a history of hypertension, dyslipidemia, anxiety, depression, GERD, hypothyroidism, vertigo, and atrial fibrillation is seen today in the ED for orthopedic consultation. Her daughter is present at this time. The patient states she fell around 3:00 AM after getting up to go to the bathroom. She became dizzy and lost her balance. She fell onto her right side. She was unable to get up secondary to hip pain. She denies striking her head. There was no loss of consciousness. She currently denies any neck pain, back pain, or left leg pain. She does have some left-sided lower rib pain. She has already been evaluated by the ED staff. Radiographic films obtained this morning show a femoral neck fracture. She denies any prior history of long bone fracture. She did fracture her foot and her clavicle in the past. She currently denies any chest pain, shortness of breath, nausea, or vomiting. Allergies Allergy/AdvReac Type Severity Reaction Status Date / Time methylprednisolone Allergy Mild Rash Verified 07/05/24 16:25 alendronate sodium AdvReac Mild GI upset Verified 07/05/24 16:25 erythromycin base AdvReac Mild GI upset Verified 07/05/24 16:25 hydrochlorothiazide AdvReac Mild hyponatremi Verified 07/05/24 16:25 a hydrocodone AdvReac Mild nausea Verified 07/05/24 16:25 vomiting tramadol AdvReac Mild nausea Verified 07/05/24 16:25 vomiting clavulanic acid AdvReac Gastrointestinal Verified 07/05/24 16:25 [From Augmentin] Upset Home Medications Medication Instructions Recorded Confirmed Type calcium 600 mg (as carbonate)-vit 1 tab PO BID 03/28/19 07/28/24 History D3 10 mcg (400 unit) chewable tablet (Calcium 600 with Vitamin D3) polyethylene glycol 3350 17 17 gm PO DAILY PRN constipation 10/13/19 07/28/24 History gram/dose oral powder cyanocobalamin (vitamin B-12) 1,000 mcg PO DAILY #30 caps 03/23/23 07/28/24 Rx 1,000 mcg capsule cetirizine 10 mg tablet (Zyrtec) 10 mg PO DAILY PRN allergy 05/22/23 07/28/24 Rx symptoms #90 tabs fluticasone propionate 50 1 spray intranasal DAILY #48 grams 07/06/23 07/28/24 Rx mcg/actuation nasal spray,suspension (Flonase Allergy Relief) apixaban 5 mg tablet (Eliquis) 5 mg PO BID #180 tabs 07/23/23 07/28/24 Rx lovastatin 40 mg tablet 40 mg PO QPM #90 tabs 01/18/24 07/28/24 Rx sertraline 50 mg tablet 50 mg PO DAILY #90 tabs 02/12/24 07/28/24 Rx cholecalciferol (vitamin D3) 125 125 mcg PO DAILY #30 caps 06/09/24 07/28/24 Rx mcg (5,000 unit) capsule nortriptyline 25 mg capsule 50 mg (2 x 25 mg) PO HS #180 caps 07/04/24 07/28/24 Rx levothyroxine 100 mcg tablet 100 mcg PO QAM #90 tabs 07/11/24 07/28/24 Rx alprazolam 0.25 mg tablet 0.25 mg PO DAILY PRN anxiety #30 07/26/24 07/28/24 Rx tabs Patient History Medical History (Updated 07/28/24 @ 14:45 by Abhishek Cortes LPN) Paroxysmal atrial fibrillation H/O dizziness Vertigo Dyslipidemia Gastroesophageal reflux disease HX Depression with anxiety Vitamin D deficiency Osteoporosis Hypothyroidism HTN (hypertension) Status post placement of implantable loop recorder Hx of fracture of clavicle Right clavicle fracture S/P Pleural effusion HX Surgical History History of colonoscopy H/O oral surgery S/P eye surgery BLOCKED TEAR DUCT S/P tubal ligation S/P dilatation and curettage Family History Mother Hypertension Heart disease Stroke Brother Hypertension Grandfather (Paternal) Lung cancer Father Cancer Other No family history of allergies No family history of bleeding disorder Denies family history of Ovarian cancer Prostate cancer Breast cancer Colorectal cancer Asthma Social History Smoking Status: Never smoker Second Hand Exposure: Yes (SPOUSE SMOKED); Do You Dip or Chew Tobacco: No; Hx Alcohol Use: No Hx Substance Use: No Preferred Language: Portuguese Communication Ability: Effective Visual Impairment: No Limitations Hearing Ability: Normal Education Reporter Required: No Beliefs That Will Affect Care: None marital status: Current Living Situation: Alone Current Living Situation Comment: apartment alone current occupational status: retired How many Children do You have: 3 Feels Safe at Home: Yes Childhood Exposure to Second-Hand Smoke: No Diet: regular Diet Comment: regular caffeine: No during the past year weight has: remained stable Dental Care, Regularly: Yes Physical Activity Frequency: Daily Physical Activity Frequency Comment: walk Seatbelt Use: always Sunscreen Use: Yes Assistive Devices: Glasses and Walker Review of Systems Review of Systems: All systems reviewed & are unremarkable except as noted in HPI & below Physical Exam Physical Exam: General: Well-developed, well-nourished, elderly female, in no acute distress. Lying on the bed. Alert and oriented. Obvious discomfort with any movement of her right leg. Skin: Warm and dry with fair turgor. No rashes. She has ecchymosis present on her left deltoid from a previous COVID vaccine. No ecchymosis at her hip or ribs. No peripheral edema. HEENT: Normocephalic atraumatic. Eyes PERRLA, EOMI. No conjunctiva or scleral injection. Nares patent bilaterally without turbinate enlargement. No significant drainage. No epistaxis. Oropharynx without erythema or exudate. Uvula midline, oral mucosa mildly dry. No lesions present. Fair dentition. Heart: RRR. No GR. 2/6 ejection murmur is noted in all andnio. Peripheral pulses are 2+. Lungs: Clear to auscultation bilaterally. No crackles, rhonchi, or wheezing. Good air movement. Abdomen: Abdomen was inspected, auscultated, and palpated. Bowel sounds present x 4. Soft, nontender to palpation. No hepato-splenomegaly. No masses noted. No rebound. Musculoskeletal: Right leg is shortened and externally rotated. She has no discomfort with motion of the left hip, knee, or ankle. She has intact motor function of the right ankle and toes. Hip and knee motion was not assessed secondary to patient comfort. She has discomfort with palpation over the anterior flexion crease. Neurologic: Gross sensation is intact across both lower extremities by soft touch. Results & Data Vital Signs (Past 12 Hours) Vital Signs Temp Pulse Resp BP Pulse Ox O2 Del Method O2 Flow Rate 07/28/24 09:37 66 07/28/24 09:00 174/94 H 07/28/24 09:00 66 17 100 Nasal Cannula 3 07/28/24 08:36 66 18 100 Nasal Cannula 3 07/28/24 08:06 66 15 100 Nasal Cannula 3 07/28/24 08:00 161/84 H 07/28/24 07:54 66 18 100 Nasal Cannula 3 07/28/24 07:48 66 18 100 Nasal Cannula 3 07/28/24 07:00 158/83 H 07/28/24 06:57 62 13 94 Nasal Cannula 3 07/28/24 05:16 72 07/28/24 05:05 36.4 C L 71 20 177/95 H 96 Room Air Laboratory Results CBC obtained today shows a white count of 8.68. H&H of 12.0 and 36.4. Platelets are normal at 327,000. INR is 1.0 today with PT 10.9. Sodium 134, potassium low at 2.9. Chloride 98. BUN of 14 with creatinine 1.14. Glucose today is 135. Normal LFTs. Troponin obtained this morning was 10.2. UA was entirely unremarkable. Diagnostic Findings 1 view chest x-ray obtained today was unremarkable. Right hip x-ray shows a femoral neck fracture, displaced, with shortening. (1) Closed right femoral fracture Encounter type: initial encounter Femur location: base of neck Fracture alignment: nondisplaced Qualified Code(s): S72.044A - Nondisplaced fracture of base of neck of right femur, initial encounter for closed fracture
[2024-07-28] MEDS: HYDROmorphone INJ 0.5 MG/0.5 ML SYR ONE (12:14)
[2024-07-28] MEDS ORDERED: POLYETHYLENE (MIRALAX) 17 GM PACK PO PRN (12:32)
[2024-07-28] MEDS ORDERED: MAGNESIUM HYDROXIDE SUSP 30 ML UDC PO PRN (12:32)
[2024-07-28] MEDS ORDERED: bisacodyL 10 MG SUPP PR PRN (12:32)
[2024-07-28] MEDS ORDERED: ALUMINUM/MAGNESIUM SUSP 30 ML UDC PO PRN (12:32)
[2024-07-28] MEDS ORDERED: NALOXONE HCL 0.4 MG/1 ML VIAL/CARP IV PRN (12:32)
[2024-07-28] MEDS ORDERED: CETIRIZINE HCL 10 MG TABLET PO PRN (12:32)
[2024-07-28] MEDS ORDERED: ONDANSETRON INJ 2 MG/ML 2 ML VIAL IV PRN (12:32)
--- NOTE | 2024-07-28 13:39 | XCELERA ---
[id number]
[2024-07-28] MEDS: FLUTICASONE PROPIONATE NA SPR 16 GM BTL NAE SCH (13:42)
[2024-07-28] MEDS: POTASSIUM CHLORIDE CRTAB 20 MEQ TABCR PO STA (13:42)
[2024-07-28] MEDS: CHOLECALCIFEROL 125 MCG (5,000 UNITS) TAB PO SCH (14:18)
[2024-07-28] MEDS: LEVOTHYROXINE SODIUM 100 MCG TABLET PO SCH (14:18)
[2024-07-28] MEDS: CALCIUM 600MG + VIT D 400 IU TAB PO SCH (14:18)
[2024-07-28] MEDS: CYANOCOBALAMIN (B-12) 500 MCG TABLET PO SCH (14:18)
[2024-07-28] MEDS: SERTRALINE HCL 50 MG TABLET PO SCH (14:18)
[2024-07-28] MEDS: ACETAMINOPHEN 325 MG TAB PO PRN (14:28)
[2024-07-28] MEDS: HYDROmorphone INJ 0.5 MG/0.5 ML SYR IV PRN ×2 (15:55→20:06)
[2024-07-28] MEDS: hydrALAZINE HCL 20 MG/ML VIAL IV PRN (17:19)
[2024-07-28] MEDS: LOVASTATIN 20 MG TAB PO SCH (21:03)
[2024-07-28] MEDS: NORTRIPTYLINE HCL 25 MG CAP PO SCH (21:03)
--- NOTE | 2024-07-28 22:13 | Electrocardiogram Report ---
Test Reason : Blood Pressure : */* mmHG Vent. Rate : 70 BPM Atrial Rate : 70 BPM P-R Int : 216 ms QRS Dur : 86 ms QT Int : 422 ms P-R-T Axes : 37 22 94 degrees QTcB Int : 455 ms Sinus rhythm with 1st degree A-V block with Premature atrial complexes Abnormal ECG When compared with ECG of 12-Dec-2022 10:14, Premature atrial complexes are now Present Confirmed by Nelson Chaidez ([id number]) on 07/28/2024 10:13:25 PM Referred By: REFERRED SELF Confirmed By: Nelson Chaidez
[2024-07-29] MEDS ORDERED: ceFAZolin 2000MG 2,000 MG/15 ML SYR IV SCH (06:00)
[2024-07-29 06:30] LABS: Basophils # (auto) 0.02 K/uL (0.00-0.20); Basophils % (auto) 0.1 %; Hematocrit (blood only) 32.4 % (37.0-47.0); Hemoglobin 10.5 g/dl (12.0-16.0); Immature Granulocytes # (auto) 0.06 K/uL (0.01-0.20); Immature Granulocytes % (auto) 0.4 %; Lymphocytes % (auto) 4.3 %; Mean Corpuscular Hemoglobin 30.3 pg (25.0-34.0); Mean Corpuscular Hgb Conc 32.4 g/dL (32.0-36.0); Mean Corpuscular Volume 93.6 fL (80.0-100.0); Mean Platelet Volume 10.4 fL (9.4-12.4); Monocytes # (auto) 0.81 K/uL (0.11-0.59); Monocytes % (auto) 5.9 %; Neutrophils # (auto) 12.35 K/uL (1.40-6.50); Neutrophils % (auto) 89.3 %; Platelet Count 285 K/uL (130-400); RDW Standard Deviation 41.1 fL (36.4-46.3); Red Blood Count 3.46 M/uL (4.20-5.40); White Blood Count 13.84 K/ul (4.8-10.8)
[2024-07-29 06:56] LABS: BUN Creatinine Ratio 18.3 (10-20); Calcium 8.5 mg/dl (8.6-10.3); Creatinine Clr Calc Pharmacy 36.9 ml/min; Potassium 4.4 mmol/L (3.5-5.1)
[2024-07-29] MEDS: SODIUM CHLORIDE 0.9% 1,000 ML IV SCH (08:29)
--- NOTE | 2024-07-29 08:41 | Hospitalist Progress Note ---
Date of Service July 29, 2024 Assessment & Plan (1) Closed right femoral fracture: Plan: s/p mechanical fall after a vertigo episode (longstanding balance issues) Suspected osteoporotic fracture but will need DEXA as follow up on discharge interrogated loop recorder-no arrhythmias around time of fall but did have several hours of Afib in 100-150s on 07/23 and 07/24 which is more than her usual burden No further episodes of a. fib on med/tele Plan for kirby-arthroplasty today, NPO, start IV NSS. Discussed with Dr Rivera and given within 48 hours and higher risk bleeding procedure plan on KCentra prior to surgery Burden placed on admission, will need to be removed post operatively Medically stable for surgery today (2) Fall: Plan: Longstanding balance issues B12 level with AM labs but otherwise recommend outpatient workup for this as longstanding with progression over last several years (3) Systolic murmur: Plan: Systolic loud murmur on exam. Sclerotic aortic valve but no significant stenosis, no further workup required (4) Hypokalemia: Plan: Resolved with supplementation given on admission, will repeat with AM labs (5) Paroxysmal atrial fibrillation: Plan: had several hours of rapid afib on 07/23 and 07/24 on loop recorder holding Eliquis for hip surgery, timing of resumption after surgery per ortho recommendations but no urgency from a atrial fibrillation perspective Currently in NSR, monitor on tele (6) HTN (hypertension): Plan: BPs quite elevated here likely due to pain, anxiety disorder Avoid IV PRN medications, will discontinue hydralazine treat pain and anxiety Cardio wanted her to be on Toprol XL for atrial tach but she declined to take it-if med needed, would be good first line choice (7) History of loop recorder: Plan: for multiple dizzy spells has PAF and atrial tachycardia Follows with Dr. Acosta (8) Osteoporotic fracture of right hip: Plan: Suspected osteoporosis, will need DEXA scan as follow up (9) Vitamin D deficiency: Plan: Add vitamin D2 50,000 units weekly to her prior regimen as appears to be chronically deficient Plan Depression with anxiety - continue home Xanax prn, sertraline, nortriptyline Hypothyroidism - recent TSH normal, continue home levothyroxine VTE Prophylaxis - SCDs, add Eliquis after surgery Diet - NPO, can restart following surgery Dispo-admit to med-tele DNR/DNI as discussed with pt. on admission. Her daughter would be her POA Admission and Anticipated Discharge Date Admission Date: July 28, 2024 Subjective Awaiting surgery today. No questions or concerns from the patient just asking when her surgery will be. No chest pain, shortness of breath, history of AK or stroke. Not on oxygen at home but using 1.5 LPM O2 here. No cough, fever or chills. CXR with bilateral prominent bronchovascular markings but no significant cardiopulmonary abnormality identified. Discussed care with orthopedics and anticoagulation clinic physician Dr Rivera Review of Systems Review of Systems: All systems reviewed & are unremarkable except as noted in HPI & below Physical Exam Constitutional: WD/WN, vitals as above ENMT: Mouth: + dry oral mucous membranes Respiratory: normal respiratory effort, lungs clear to auscultation Cardiovascular: Rate/Rhythm: regular rate and regular rhythm Heart Sounds: + murmur (systolic 4/6) Extremities: normal capillary refill; no calf tenderness and no pedal edema Gastrointestinal (Abdomen): normal bowel sounds, soft, nontender, no hepatosplenomegaly Musculoskeletal: Shortended and externally rotated right leg with normal sensation in toes and cap refill Results & Data Results & Data Vital Signs (Past 12 Hours) Vital Signs Temp Pulse Pulse Resp BP BP Pulse Ox 07/29/24 07:44 36.8 C 72 18 186/75 H 92 07/29/24 07:28 73 07/29/24 02:58 37.3 C 81 18 174/75 H 93 07/28/24 23:10 37.3 C 82 20 107/69 93 07/28/24 21:49 79 O2 Del Method O2 Flow Rate 07/29/24 07:44 Room Air 07/29/24 07:28 07/29/24 02:58 Nasal Cannula 2 07/28/24 23:10 Nasal Cannula 2 07/28/24 21:49 PG Care Time/CCT Total # of Minutes Spent Total Time Spent with Patient: Total time spent is greater than 50% in coordination of care (as documented) at patient's floor/unit and/or counseling patient: Coding Level of Care Code 13448 SUB INP/OBS CARE 2/35MIN Diagnoses Closed nondisplaced basicervical fracture of right femur, initial encounter S72.044A Encounter type: initial encounter Femur location: base of neck Fracture alignment: nondisplaced Fall W19.XXXA Encounter type: initial encounter Systolic murmur R01.1 Hypokalemia E87.6 Paroxysmal atrial fibrillation I48.0 HTN (hypertension) I10 History of loop recorder Z98.890 Osteoporotic fracture of right hip M80.051A Vitamin D deficiency E55.9 (1) Closed right femoral fracture Encounter type: initial encounter Femur location: base of neck Fracture alignment: nondisplaced Qualified Code(s): S72.044A - Nondisplaced fracture of base of neck of right femur, initial encounter for closed fracture (2) Fall Encounter type: initial encounter Qualified Code(s): W19.XXXA - Unspecified fall, initial encounter
[2024-07-29] MEDS: ALPRAZolam 0.25 MG TABLET PO PRN (10:06)
--- NOTE | 2024-07-29 10:10 | Orthopedic Progress Note ---
Date of Service July 29, 2024 Assessment & Plan (1) Closed right femoral fracture: Plan: Surgery was delayed this morning due to Eliquis. Care was coordinated with the hospitalist Dr. Lang as well as Dr. Rivera with hematology. Plan is that the patient will go to surgery this afternoon. We are to notify Dr. Rivera when she is in preop so she can order Kcentra. Consent is on chart. Patient has a history of anxiety and I think would benefit from a dose of her Xanax. I discussed this with the nurse and she was given a half dose. It sounds like she received Dilaudid overnight which did not agree with her from a psychiatric standpoint, so she did just receive Tylenol. Hopefully that will provide some relief as well. Remain NPO. Notified Dr. Diamond to coordinate with Dr. Rivera when she is in pre-op Admission and Anticipated Discharge Date Admission Date: July 28, 2024 Subjective Patient seen in bed this morning with son at bedside. She has pain in the right hip and is having a hard time getting comfortable. She takes alprazolam on a fairly regular basis for anxiety and thinks she probably needs a dose. She denies any chest pain or shortness of breath, no numbness or tingling in her toes. She did not have breakfast. Physical Exam Constitutional: Uncomfortable and anxious appearing. Cardiovascular: DP pulses 2+ bilaterally Musculoskeletal: Thigh-high teds in place bilaterally. Right lower extremity: leg is shortened and externally rotated. buttock and hip/thigh soft tissue is soft without induration, no ecchymosis. Strength 5/5 with ankle plantarflexion and dorsiflexion. Significant pain elicited with active ankle eversion. Able to fire ankle inversion. Moves all toes. Neurologic: No sensory deficits to bilateral toes to light touch Results & Data Vital Signs (Past 12 Hours) Vital Signs Temp Pulse Pulse Resp BP BP Pulse Ox 07/29/24 09:23 07/29/24 07:44 98.2 F 72 18 186/75 H 92 07/29/24 07:28 73 07/29/24 02:58 99.1 F 81 18 174/75 H 93 07/28/24 23:10 99.1 F 82 20 107/69 93 O2 Del Method O2 Flow Rate 07/29/24 09:23 Nasal Cannula 2 07/29/24 07:44 Room Air 07/29/24 07:28 07/29/24 02:58 Nasal Cannula 2 07/28/24 23:10 Nasal Cannula 2 (1) Closed right femoral fracture Encounter type: initial encounter Femur location: base of neck Fracture alignment: nondisplaced Qualified Code(s): S72.044A - Nondisplaced fracture of base of neck of right femur, initial encounter for closed fracture
[2024-07-29] MEDS: ceFAZolin 2000MG 2,000 MG/15 ML SYR IV ONE ×2 (14:49→15:36)
[2024-07-29] MEDS: TRANEXAMIC ACID / 0.7% NACL 1,000 MG/100 ML BAG IV ONE ×2 (14:49→15:32)
[2024-07-29] MEDS: KCENTRA (500unit vial) 2000 units IVP IV ONE (15:01)
--- NOTE | 2024-07-29 15:14 | Anesthesiology Consultation ---
Date of Service July 29, 2024 Assessment & Plan Chart Review Chart Review: Acceptable Risk for Surgery Consults Requested none History Surgery Operation Date: 07/29/24 07:00 Proposed Procedures p Right Hip Hemiarthroplasty - Shawn Anya Diamond MD Height/Weight Height: 5 ft 3 in Weight: 54.9 kg Allergies Allergy/AdvReac Type Severity Reaction Status Date / Time methylprednisolone Allergy Mild Rash Verified 07/29/24 14:32 alendronate sodium AdvReac Mild GI upset Verified 07/29/24 14:32 erythromycin base AdvReac Mild GI upset Verified 07/29/24 14:32 hydrochlorothiazide AdvReac Mild hyponatremi Verified 07/29/24 14:32 a hydrocodone AdvReac Mild nausea Verified 07/29/24 14:32 vomiting tramadol AdvReac Mild nausea Verified 07/29/24 14:32 vomiting clavulanic acid AdvReac Gastrointestinal Verified 07/29/24 14:32 [From Augmentin] Upset Medications Home Medications Medication Instructions Recorded Confirmed Last Taken calcium 600 mg (as carbonate)-vit 1 tab PO BID 03/28/19 07/28/24 12/09/22 D3 10 mcg (400 unit) chewable tablet (Calcium 600 with Vitamin D3) polyethylene glycol 3350 17 17 gm PO DAILY PRN constipation 10/13/19 07/28/24 12/09/22 gram/dose oral powder cyanocobalamin (vitamin B-12) 1,000 mcg PO DAILY #30 caps 03/23/23 07/28/24 Unknown 1,000 mcg capsule cetirizine 10 mg tablet (Zyrtec) 10 mg PO DAILY PRN allergy 05/22/23 07/28/24 Unknown symptoms #90 tabs fluticasone propionate 50 1 spray intranasal DAILY #48 grams 07/06/23 07/28/24 Unknown mcg/actuation nasal spray,suspension (Flonase Allergy Relief) apixaban 5 mg tablet (Eliquis) 5 mg PO BID #180 tabs 07/23/23 07/28/24 Unknown lovastatin 40 mg tablet 40 mg PO QPM #90 tabs 01/18/24 07/28/24 Unknown sertraline 50 mg tablet 50 mg PO DAILY #90 tabs 02/12/24 07/28/24 Unknown cholecalciferol (vitamin D3) 125 125 mcg PO DAILY #30 caps 06/09/24 07/28/24 Unknown mcg (5,000 unit) capsule nortriptyline 25 mg capsule 50 mg (2 x 25 mg) PO HS #180 caps 07/04/24 07/28/24 Unknown levothyroxine 100 mcg tablet 100 mcg PO QAM #90 tabs 07/11/24 07/28/24 Unknown alprazolam 0.25 mg tablet 0.25 mg PO DAILY PRN anxiety #30 07/26/24 07/28/24 Unknown tabs Active Medications Generic Name Dose Route Start Last Admin Trade Name Freq PRN Reason Stop Dose Admin Acetaminophen 650 mg 07/28/24 12:32 07/29/24 09:28 Acetaminophen 325 Mg Tab PO 08/27/24 12:31 650 mg Q4H PRN Administration Pain or Fever Alprazolam 0.25 mg 07/29/24 01:17 07/29/24 10:06 Alprazolam 0.25 Mg Tablet PO 08/28/24 01:16 0.25 mg DAILY PRN Administration anxiety Calcium/Vitamin D 1 tab 07/28/24 12:45 07/29/24 07:44 Calcium 600mg + Vit D 400 Iu Tab PO 08/27/24 12:44 Not Given BID BETHANY Cyanocobalamin 1,000 mcg 07/28/24 12:45 07/29/24 07:44 Cyanocobalamin (B-12) 500 Mcg Tablet PO 08/27/24 12:44 Not Given DAILY BETHANY Fluticasone Propionate 1 sprays 07/28/24 12:32 07/29/24 07:48 Fluticasone Propionate Na Spr 16 Gm Btl JESSY 08/27/24 12:31 1 sprays DAILY BETHANY Administration Hydromorphone HCl 0.25 mg 07/28/24 12:32 07/28/24 15:55 Hydromorphone Inj 0.5 Mg/0.5 Ml Syr IV 08/11/24 12:31 0.25 mg Q3H PRN Administration Pain (1,2,3,4,5) & Pre PT Hydromorphone HCl 0.5 mg 07/28/24 12:32 07/28/24 20:06 Hydromorphone Inj 0.5 Mg/0.5 Ml Syr IV 08/11/24 12:31 0.5 mg Q3H PRN Administration Pain (6,7,8,9,10) Sodium Chloride 1,000 mls @ 125 mls/hr 07/29/24 08:15 07/29/24 08:29 Nss IV 07/29/24 16:14 125 mls/hr .Q8H BETHANY Administration Prothrombin Complex Concent ( 80 mls @ 10 mls/min 07/29/24 15:30 07/29/24 15:01 Human) 2,000 units/ Syringe IV 07/29/24 15:37 10 mls/min NOW ONE Administration Protocol Levothyroxine Sodium 100 mcg 07/28/24 12:32 07/29/24 05:24 Levothyroxine Sodium 100 Mcg Tablet PO 08/27/24 12:31 100 mcg DAILYBB BETHANY Administration Lovastatin 40 mg 07/28/24 21:00 07/28/24 21:03 Lovastatin 20 Mg Tab PO 08/27/24 20:59 40 mg QPM BETHANY Administration Nortriptyline HCl 50 mg 07/28/24 21:00 07/28/24 21:03 Nortriptyline Hcl 25 Mg Cap PO 08/27/24 20:59 50 mg HS BETHANY Administration Sertraline HCl 50 mg 07/28/24 12:32 07/29/24 07:44 Sertraline Hcl 50 Mg Tablet PO 08/27/24 12:31 Not Given DAILY BETHANY Vitamin D 125 mcg 07/28/24 12:45 07/29/24 07:44 Cholecalciferol 125 Mcg (5,000 Units) Tab PO 08/27/24 12:44 Not Given DAILY BETHANY NPO Date Last Intake of Fluids: 07/28/24 Time Last Intake of Fluids: 21:00 Date Last Intake of Solids: 07/28/24 Time Last Intake of Solids: 21:00 Past Medical History Medical History (Updated 07/29/24 @ 13:13 by Cristobal Lang MD) Paroxysmal atrial fibrillation H/O dizziness Vertigo Dyslipidemia Gastroesophageal reflux disease HX Depression with anxiety Osteoporosis Hypothyroidism HTN (hypertension) Status post placement of implantable loop recorder Hx of fracture of clavicle Right clavicle fracture S/P Pleural effusion HX Past Family History Family History Mother Hypertension Heart disease Stroke Brother Hypertension Grandfather (Paternal) Lung cancer Father Cancer Other No family history of allergies No family history of bleeding disorder Denies family history of Ovarian cancer Prostate cancer Breast cancer Colorectal cancer Asthma Past Surgical History Surgical History History of colonoscopy H/O oral surgery S/P eye surgery BLOCKED TEAR DUCT S/P tubal ligation S/P dilatation and curettage Social History Smoking Status: Never smoker Do You Dip or Chew Tobacco: No Hx Alcohol Use: No Hx Substance Use: No substance use type: does not use Physical Exam Vital Signs Last Vital Signs Temp 36.3 C L 07/29/24 14:26 Pulse 79 07/29/24 14:26 Resp 19 07/29/24 14:26 BP 176/85 H 07/29/24 14:26 Pulse Ox 93 07/29/24 14:26 O2 Del Method Nasal Cannula 07/29/24 14:26 O2 Flow Rate 3 07/29/24 14:26 Testing Laboratory Results 07/29/24 06:03 07/29/24 06:03 PT 10.9 Seconds (9.0-12.0) 07/28/24 05:10 INR 1.0 (0.9-1.1) 07/28/24 05:10 APTT 28 Seconds (21-31) 07/28/24 05:10 Urine Color Yellow 07/28/24 06:32 Urine Appearance Clear (Clear) 07/28/24 06:32 Urine pH 7.0 (4.5-7.5) 07/28/24 06:32 Ur Specific [place] 1.005 (1.000-1.030) 07/28/24 06:32 Urine Protein Negative (Negative) 07/28/24 06:32 Urine Glucose (UA) Negative (Negative) 07/28/24 06:32 Urine Ketones Negative (Negative) 07/28/24 06:32 Urine Nitrite Negative (Negative) 07/28/24 06:32 Ur Leukocyte Esterase Negative (Negative) 07/28/24 06:32 Blood Type B Positive 07/28/24 07:45 Antibody Screen NEGATIVE 07/28/24 07:45
[2024-07-29] MEDS ORDERED: PROMETHAZINE HCL 6.25 MG in SODIUM CHLORIDE 0.9% 50 ML IV PRN (15:17)
[2024-07-29] MEDS ORDERED: ONDANSETRON INJ 2 MG/ML 2 ML VIAL IV PRN ×3 (15:17→16:49)
[2024-07-29] MEDS ORDERED: ePHEDrine sulfate 50 MG/ML AMP IV PRN ×2 (15:17→15:26)
[2024-07-29] MEDS ORDERED: PROPOFOL IV EMULSION 10 MG/ML 20 ML VIAL IV ONE (15:17)
[2024-07-29] MEDS ORDERED: ATROPINE SULFATE 0.1 MG/ML 10ML SYR IV PRN ×2 (15:17→15:26)
[2024-07-29] MEDS ORDERED: LIDOCAINE 2% 2 ML VIAL/AMP(20MG/ML) INFIL ONE (15:17)
[2024-07-29] MEDS ORDERED: HYDROmorphone INJ 1 MG/ML SYRINGE IV PRN ×2 (15:17→15:26)
[2024-07-29] MEDS ORDERED: fentaNYL citrate PF 100 MCG/2 ML VIAL ONE (15:17)
[2024-07-29] MEDS ORDERED: fentaNYL citrate PF 100 MCG/2 ML VIAL IV PRN ×2 (15:17→15:26)
[2024-07-29] MEDS ORDERED: ONDANSETRON INJ 2 MG/ML 2 ML VIAL ONE (15:17)
[2024-07-29] MEDS ORDERED: ALBUMIN HUMAN 5% 12.5 GM/250 ML VIAL IV ONE (15:28)
[2024-07-29] MEDS: LIDOCAINE 1%/EPINEPHRINE 1:100,000 50 ML VIAL ONE (16:36)
[2024-07-29] MEDS: BUPIVACAINE 0.5 % 5 MG/1 ML MPF 30ML VIAL ONE (16:36)
[2024-07-29] MEDS ORDERED: MAGNESIUM HYDROXIDE SUSP 30 ML UDC PO PRN (16:49)
[2024-07-29] MEDS ORDERED: bisacodyL 10 MG SUPP PR PRN (16:49)
[2024-07-29] MEDS ORDERED: METOCLOPRAMIDE HCL INJ 5 MG/ML 2 ML VIAL IV PRN (16:49)
[2024-07-29] MEDS ORDERED: oxyCODONE HCL IR 5 MG TAB (IMMEDIATE RELEASE) PO PRN (16:49)
[2024-07-29] MEDS ORDERED: NALOXONE HCL 0.4 MG/1 ML VIAL/CARP IV PRN (16:49)
[2024-07-29] MEDS ORDERED: diphenhydrAMINE 50 MG/ML VIAL IV PRN (16:49)
[2024-07-29] MEDS ORDERED: ALUMINUM/MAGNESIUM SUSP 30 ML UDC PO PRN (16:49)
[2024-07-29] MEDS ORDERED: PHENYLEPHRINE HCL 10 MG/ML VIAL ONE (17:03)
--- NOTE | 2024-07-29 17:21 | XRay Report ---
EXAM: Radiographs of the Right Hip 1 View INDICATION: Intraoperative assessment. TECHNIQUE: Intraoperative images in 1 projection obtained. COMPARISON: No relevant prior studies available. FINDINGS: Femoral shaft device is in good position. No acute fracture. Resected femoral head. IMPRESSION: Intraoperative imaging during hip arthroplasty. ACT 112: Negative or not required by law. Electronically signed by Viviane Dunlap 07-29-2024 6:20 PM
[2024-07-29] MEDS ORDERED: SUGAMMADEX SODIUM 200 MG/2 ML VIAL IV ONE (17:42)
--- NOTE | 2024-07-29 18:12 | Post Operative Brief Note ---
Immediate Post Op Note Date of Surgery July 29, 2024 Pre & Post Diagnosis Operation Date: 07/29/24 07:00 Pre-Op Diagnosis: Right hip fracture Post-Op Diagnosis: Right hip fracture I identified the patient and participated in the time-out.: Yes Procedure Operation Date: 07/29/24 07:00 Actual Procedures p Right Hip Hemiarthroplasty(Right) - Shawn Diamond MD Surgeon Shawn Diamond MD Film [employer] Video Graphics Designer Zaira Luke PA-C, was relived by Wendy Gay DO Estimated Blood Loss 50 Findings Consistent with Post-Op Diagnosis Fluids 800 cc Specimens Right hip contents Drains Burden Catheter Anesthesia Type General Complications none
--- NOTE | 2024-07-29 18:13 | Operative Report ---
Post Operative Report Pre & Post Diagnosis Operation Date: 07/29/24 07:00 Pre-Op Diagnosis: Right hip fracture Post-Op Diagnosis: Right hip fracture I identified the patient and participated in the time-out.: Yes Procedure Operation Date: 07/29/24 07:00 Actual Procedures p Right Hip Hemiarthroplasty(Right) - Shawn Diamond MD Surgeon Shawn Diamond MD Class A Lineman Zaira Luke PA-C, was relived by Wendy Gay DO Estimated Blood Loss 50 Findings See Below Displaced, comminuted right femoral neck fracture. Fluids 800 cc Specimens Right hip contents Drains Burden Anesthesia Type General Complications none Indications The patient is a 78 year old female who sustained a Traumatic Osteoporotic fracture of right femoral neck in setting of ground level fall. After orthope dic consult discussing the patients treatment options of conservative versus surgical intervention, she agreed for a planned hemiarthroplasty. Since the patient was ambulatory prior to the injury and to avoid the risks of bed sores, pulmonary complications, and to give the patient the best chance for ambulation, I recommended surgery. The patient understands the risks of surgery, which include but are not limited to: bleeding, infection, re-operation, damage to nerves and arteries, continued pain, failure of the hardware, dislocation, DVT, and . In addition, the patient is aware of the 20-30% morbidity associated with hip fracture for up to 1 year following a hip fracture. The patient understands all of these instructions and explanations, all of their questions have been satisfactorily addressed. The patient has elected to proceed with surgery and the informed consent was signed. Description of Procedure Zaira Luke PA-C is assisting with retraction, reducing the hip, and was relieved by the fellow as he was not available until x-rays were obtained of the trial components. IMPLANTS: 1) 9 x 130, Echo Fx Cemented Stem ([place]/[employer]). 2) Femoral Head 28mm Diameter, + 0 mm Neck Length. 3) 48 mm Bipolar Shell. 4) 9 mm Distal Centralizer. 5) Pal[place]os cement x 2 PROCEDURE: The patient was taken to the Operating Room and placed in the lateral position with [place]berg following general anesthesia administration. A multidisciplinary time-out was performed identifying my initials on the left lower limb as the correct and operative limb. Prior to the incision being made, 2 grams of intravenous Ancef were given. The right lower extremity was prepped in the standard fashion. The trochanter was marked as was the planned incision 1/3 proximal and 2/3 distal to the tip of the greater trochanter. The incision was injected with a 50:50 mixture of 1% Lidocaine epi and 0.5% Bupivacaine plain for a total of 10cc. A standard posterior approach was made. The planned incision was carried down through the Tensor Fascia Radha, which was then split in-line with its fibers. The Gluteus Vasu was bluntly dissected. The Piriformis and short external rotators were dissected off the capsule and femur and tagged for later repair. The capsule was incised and freed off the fracture fragments. The Neck cut was made to allow removal of the femoral head and comminuted fragments. The femoral canal was prepared with Box osteotome, followed by a canal finder. The femur was sequentially broached in the standard fashion, and trial heads were placed. Fluoroscopy was brought in to ensure adequate proper alignment, fill of the canal, head size, and leg length. Fluoroscopy showed good canal fill and good position. The trial components were removed and the wound and femoral canal were copiously irrigated and dried. The femur was cemented using 3rd generation technique followed by placement of the components in the standard fashion and the hip reduced. There was excellent stability with no sense of dislocation with 20 degrees adduction, flexion 90 degrees, and internal rotation to 75 degrees. The wounds were copiously irrigated. The External rotators and capsule were closed over bone bridges with #2 FiberWire. The Tensor Fascia Radha was closed with #0 Vicryl. The subcutaneous fat had a few stay sutures placed using 2-0 Vicryl. The subcutaneous tissue was closed with 3-0 Vicryl. The skin was closed with Zipline and shield. The incisions were covered with 4 x 4's, ABD, and foam tape. The patient was transferred to her hospital bed and taken to the PACU in stable condition. The sponge and needle counts were correct. Post-op Instructions: The patient was re-admitted back to the Hospitalist service on the Med/Surg floor. Final x-rays will be obtained in the PACU. The patient will be WBAT with a walker. The patient will be seen by PT/OT. Total hip precautions will be followed. The patient's labs will be checked in the am. DVT prophylaxis will be with TEDs, mechanical devices and ASA in the AM. I attest to the content of the Intraoperative Record and any orders documented therein. Any exceptions are noted below.
[2024-07-29] MEDS ORDERED: LABETALOL HCL IV 5 MG/ML 20ML IV ONE (18:19)
--- NOTE | 2024-07-29 19:03 | XRay Report ---
EXAM: Radiographs of the Right Hip 1 View INDICATION: Postoperative check. TECHNIQUE: AP view of the right hip and pelvis not including the iliac crests. COMPARISON: No relevant prior studies available. FINDINGS: Bones/joints: Cemented hip arthroplasty component well-seated and normally located in 1 view. No fracture. Soft tissues: Expected postoperative gas and swelling noted in the operative bed. IMPRESSION: Satisfactory appearance of right hip arthroplasty. ACT 112: Negative or not required by law. Electronically signed by Viviane Dunlap 07-29-2024 8:01 PM
--- NOTE | 2024-07-29 19:21 | Anesthesiology Progress Note ---
Date of Service July 29, 2024 Anesthesia Post Procedure Vital Signs Vital Signs: Temp Pulse Pulse Pulse Resp BP BP 07/29/24 19:15 60 18 149/97 H 07/29/24 19:05 62 16 150/80 H 07/29/24 18:55 64 16 153/70 H 07/29/24 18:45 60 14 163/85 H 07/29/24 18:37 36.1 C L 59 L 16 161/86 H 07/29/24 16:34 74 07/29/24 14:26 36.3 C L 79 19 176/85 H 07/29/24 11:45 36.6 C 76 16 162/79 H 07/29/24 09:23 07/29/24 07:44 36.8 C 72 18 186/75 H 07/29/24 07:28 73 07/29/24 02:58 37.3 C 81 18 174/75 H 07/28/24 23:10 37.3 C 82 20 107/69 07/28/24 21:49 79 07/28/24 20:10 07/28/24 20:06 70 07/28/24 19:58 36.5 C 72 18 146/67 H Pulse Ox O2 Del Method O2 Flow Rate 07/29/24 19:15 94 Oxymask 4 07/29/24 19:05 95 Oxymask 4 07/29/24 18:55 92 Oxymask 5 07/29/24 18:45 94 Oxymask 6 07/29/24 18:37 93 Oxymask 8 07/29/24 16:34 07/29/24 14:26 93 Nasal Cannula 3 07/29/24 11:45 90 Nasal Cannula 1.5 07/29/24 09:23 Nasal Cannula 2 07/29/24 07:44 92 Room Air 07/29/24 07:28 07/29/24 02:58 93 Nasal Cannula 2 07/28/24 23:10 93 Nasal Cannula 2 07/28/24 21:49 07/28/24 20:10 Nasal Cannula 2 07/28/24 20:06 07/28/24 19:58 93 Nasal Cannula 2 Pain Intensity Right Hip: Pain Intensity: 8 Transfer of Care Handoff Completed per policy Notes Mental Status: alert / awake / arousable Patient Amnestic to Procedure: Yes Nausea / Vomiting: adequately controlled Pain: adequately controlled Airway Patency, RR, SpO2: stable & adequate BP & HR: stable & adequate Hydration State: stable & adequate Anesthetic Complications: no major complications apparent and Pt Satisfied with anesthetic care
--- NOTE | 2024-07-29 19:50 | Operative Report ---
Post Operative Report Pre & Post Diagnosis Operation Date: 07/29/24 07:00 Pre-Op Diagnosis: Right hip fracture Post-Op Diagnosis: Right hip fracture I identified the patient and participated in the time-out.: No Procedure Operation Date: 07/29/24 07:00 Actual Procedures p Right Hip Hemiarthroplasty(Right) - Shawn Diamond MD Surgeon Shawn Diamond MD In Store Banker Zaira Luke PA-C, was relived by Wendy Gay DO Estimated Blood Loss 50 Findings Consistent with Post-Op Diagnosis Specimens Right hip contents Description of Procedure Patient was brought to the operative suite where she underwent anesthesia. She was placed in the left lateral decubitus position. The right lower extremity was prepped and draped in the usual sterile fashion. Surgical timeout was performed. Patient positioning and timeout were performed prior to my arrival. Patient underwent a right total hip arthroplasty. Please see Dr. Diamond's operative report for full details. I was not present at the start of the procedure, I relieved Sarahi Luke PA-C and assisted with final hardware placement, soft tissue retraction, limb management, wound closure, postoperative dressing placement. The patient was awakened and taken to the recovery room in satisfactory condition. I attest to the content of the Intraoperative Record and any orders documented therein. Any exceptions are noted below.
[2024-07-29] MEDS: KETOROLAC TROMETHAMINE 15 MG/ML VIAL IV SCH (20:08)
[2024-07-29] MEDS: FERROUS GLUCONATE 324 MG TAB PO SCH (20:17)
[2024-07-29] MEDS: ASCORBIC ACID 500 MG TAB PO SCH (20:17)
[2024-07-29] MEDS: DOCUSATE SODIUM 100 MG CAP PO SCH (20:29)
[2024-07-29] MEDS: SENNA 8.6 MG TAB PO SCH (20:29)
--- NOTE | 2024-07-29 22:21 | Electrocardiogram Report ---
Test Reason : Blood Pressure : */* mmHG Vent. Rate : 74 BPM Atrial Rate : 74 BPM P-R Int : 240 ms QRS Dur : 82 ms QT Int : 410 ms P-R-T Axes : 46 73 101 degrees QTcB Int : 455 ms Sinus rhythm with 1st degree A-V block T wave abnormality, consider lateral ischemia When compared with ECG of 28-Jul-2024 05:07, Premature atrial complexes are no longer Present T wave inversion no longer evident in Anterolateral leads Confirmed by Nelson Chaidez ([id number]) on 07/29/2024 10:21:03 PM Referred By: REFERRED SELF Confirmed By: Nelson Chaidez
[2024-07-29] MEDS: ACETAMINOPHEN 500 MG TAB PO SCH (22:59)
[2024-07-29] MEDS: ceFAZolin 2000MG 2,000 MG/15 ML SYR IV SCH (23:16)
[2024-07-30] MEDS ORDERED: ceFAZolin 2000MG 2,000 MG/15 ML SYR IV ONE (06:00)
[2024-07-30] MEDS: APIXABAN 5 MG TABLET PO SCH (07:43)
[2024-07-30] MEDS: ERGOCALCIFEROL 1250 MCG (50,000 UNITS) CAP PO SCH (07:44)
[2024-07-30] MEDS: MULTIVITAMIN TAB PO SCH (07:44)
--- NOTE | 2024-07-30 09:17 | Orthopedic Progress Note ---
Date of Service July 30, 2024 Assessment & Plan (1) Closed right femoral fracture: Plan: POD 1 s/p Right hip hemiarthroplasty, doing well WBAT with walker Continue pain control Resume diet Continue Total hip precautions, 8 weeks DVT prophylaxis: TEDs x 3 weeks, foot pumps while in hospital, resume Eliquis. Plan dressing change to Silverlon prior to d/c PT/OT D/C planning Continue care per primary service. Follow-up in Dr. Diamond's office in 2 weeks. Admission and Anticipated Discharge Date Admission Date: July 28, 2024 Subjective No hip pain. Physical Exam Physical Exam: RLE: Dressing clean, dry, intact. BCR < 2 sec. Sensation to light touch intact. Wiggling toes & ankle up and down. Calf soft and non-tender. Abduction pillow in place. Results & Data Vital Signs (Past 12 Hours) Vital Signs Temp Pulse Pulse Resp BP Pulse Ox O2 Del Method 07/30/24 08:36 37.8 C H 83 20 93 Nasal Cannula 07/30/24 07:19 89 07/30/24 07:18 38.4 C H 86 24 97/61 L 94 Oxymask 07/30/24 01:00 36.8 C 75 16 153/88 H 97 Oxymask 07/29/24 22:04 Oxymask 07/29/24 21:46 72 07/29/24 21:26 36.6 C 70 16 133/73 92 Oxymask O2 Flow Rate 07/30/24 08:36 4 07/30/24 07:19 07/30/24 07:18 6 07/30/24 01:00 4 07/29/24 22:04 4 07/29/24 21:46 07/29/24 21:26 4 Laboratory Results Laboratory Results WBC 13.84 K/ul (4.8-10.8) H 07/29/24 06:03 RBC 3.46 M/uL (4.20-5.40) L 07/29/24 06:03 Hgb 10.5 g/dl (12.0-16.0) L 07/29/24 06:03 Hct 32.4 % (37.0-47.0) L 07/29/24 06:03 MCV 93.6 fL (80.0-100.0) 07/29/24 06:03 MCH 30.3 pg (25.0-34.0) 07/29/24 06:03 MCHC 32.4 g/dL (32.0-36.0) 07/29/24 06:03 RDW Std Deviation 41.1 fL (36.4-46.3) 07/29/24 06:03 RDW Coeff of Maria Antonia 12.0 % (11.5-14.5) 07/29/24 06:03 Plt Count 285 K/uL (130-400) 07/29/24 06:03 MPV 10.4 fL (9.4-12.4) 07/29/24 06:03 Immature Gran % (Auto) 0.4 % 07/29/24 06:03 Neut % (Auto) 89.3 % 07/29/24 06:03 Lymph % (Auto) 4.3 % 07/29/24 06:03 [place] % (Auto) 5.9 % 07/29/24 06:03 Eos % (Auto) 0.0 % 07/29/24 06:03 Baso % (Auto) 0.1 % 07/29/24 06:03 Neut # (Auto) 12.35 K/uL (1.40-6.50) H 07/29/24 06:03 Lymph # (Auto) 0.60 K/uL (1.20-3.40) L 07/29/24 06:03 [place] # (Auto) 0.81 K/uL (0.11-0.59) H 07/29/24 06:03 Eos # (Auto) 0.00 K/uL (0.00-0.50) 07/29/24 06:03 Baso # (Auto) 0.02 K/uL (0.00-0.20) 07/29/24 06:03 Immature Gran # (Auto) 0.06 K/uL (0.01-0.20) 07/29/24 06:03 PT 10.9 Seconds (9.0-12.0) 07/28/24 05:10 INR 1.0 (0.9-1.1) 07/28/24 05:10 APTT 28 Seconds (21-31) 07/28/24 05:10 PTT Ratio 1.0 07/28/24 05:10 Sodium 130 mmol/L (136-145) L 07/29/24 06:03 Potassium 4.4 mmol/L (3.5-5.1) D 07/29/24 06:03 Chloride 97 mmol/L (98-107) L 07/29/24 06:03 Carbon Dioxide 26 mmol/L (21-32) 07/29/24 06:03 Anion Gap 7 (3-11) 07/29/24 06:03 BUN 19 mg/dl (6-23) 07/29/24 06:03 Creatinine 1.04 mg/dl (0.6-1.2) 07/29/24 06:03 Est Cr Clr Drug Dosing 36.9 ml/min 07/29/24 06:03 eGFR 55.01 07/29/24 06:03 BUN/Creatinine Ratio 18.3 (10-20) 07/29/24 06:03 Glucose 124 mg/dl (70-99(Fasting)) H 07/29/24 06:03 Calcium 8.5 mg/dl (8.6-10.3) L 07/29/24 06:03 Magnesium 2.0 mg/dl (1.7-2.4) 07/29/24 06:03 Total Bilirubin 0.5 mg/dl (0.2-1.0) 07/28/24 05:10 AST 18 U/L (13-39) 07/28/24 05:10 ALT 15 U/L (7-52) 07/28/24 05:10 Alkaline Phosphatase 75 U/L (34-104) 07/28/24 05:10 Troponin I High Sens 9.3 pg/ml (0-14) 07/28/24 18:43 Total Protein 7.1 gm/dl (6.0-8.3) 07/28/24 05:10 Albumin 4.0 gm/dl (3.4-5.0) 07/28/24 05:10 Globulin 3.1 gm/dl (2.5-4.0) 07/28/24 05:10 Albumin/Globulin Ratio 1.3 (0.9-2) 07/28/24 05:10 Urine Color Yellow 07/28/24 06:32 Urine Appearance Clear (Clear) 07/28/24 06:32 Urine pH 7.0 (4.5-7.5) 07/28/24 06:32 Ur Specific [place] 1.005 (1.000-1.030) 07/28/24 06:32 Urine Protein Negative (Negative) 07/28/24 06:32 Urine Glucose (UA) Negative (Negative) 07/28/24 06:32 Urine Ketones Negative (Negative) 07/28/24 06:32 Urine Blood Negative (Negative) 07/28/24 06:32 Urine Nitrite Negative (Negative) 07/28/24 06:32 Urine Bilirubin Negative (Negative) 07/28/24 06:32 Urine Urobilinogen Negative (Negative) 07/28/24 06:32 Ur Leukocyte Esterase Negative (Negative) 07/28/24 06:32 Blood Type B Positive 07/28/24 07:45 Antibody Screen NEGATIVE 07/28/24 07:45 Impressions Chest X-Ray 07/28/24 06:01 EXAM: XR chest 1V portable CLINICAL HISTORY: FALL JMF TECHNIQUE: An X-ray image of the chest is obtained in 1 AP projection. COMPARISON: 12/10/2022 CR. FINDINGS: Pulmonary Parenchyma: Mildly hyperinflated lung field are seen. Bilateral prominent bronchovascular markings. No pneumothorax. No evidence of consolidation, collapse, or focal opacities. No pulmonary nodules are identified. No evidence of pleural effusion or pleural thickening. Heart and Mediastinum: Heart size and shape are normal. No mediastinal widening or masses. No hilar or mediastinal lymphadenopathy. Bony Thorax: Bony thorax appears intact without fractures or deformities. Old healled right distal clavicular fracture Soft Tissues: Soft tissues overlying the chest wall are unremarkable. Linear external device shadow is seen overlying left chest wall. Device seen over right upper arm. IMPRESSION: 1. Mildly hyperinflated lung field are seen with bilateral prominent bronchovascular markings, interval progression could be bronchitis. 2. No acute cardiopulmonary abnormalities are identified. 3. No definite acute abnormality seen. Electronically signed by Rupesh Willoughby 07-28-2024 07:07 AM Hip X-Ray 07/29/24 15:21 EXAM: Radiographs of the Right Hip 1 View INDICATION: Intraoperative assessment. TECHNIQUE: Intraoperative images in 1 projection obtained. COMPARISON: No relevant prior studies available. FINDINGS: Femoral shaft device is in good position. No acute fracture. Resected femoral head. IMPRESSION: Intraoperative imaging during hip arthroplasty. ACT 112: Negative or not required by law. Electronically signed by Viviane Dunlap 07-29-2024 5:20 PM Pelvis X-Ray 07/29/24 16:49 EXAM: Radiographs of the Right Hip 1 View INDICATION: Postoperative check. TECHNIQUE: AP view of the right hip and pelvis not including the iliac crests. COMPARISON: No relevant prior studies available. FINDINGS: Bones/joints: Cemented hip arthroplasty component well-seated and normally located in 1 view. No fracture. Soft tissues: Expected postoperative gas and swelling noted in the operative bed. IMPRESSION: Satisfactory appearance of right hip arthroplasty. ACT 112: Negative or not required by law. Electronically signed by Viviane Dunlap 07-29-2024 7:01 PM (1) Closed right femoral fracture Encounter type: initial encounter Femur location: base of neck Fracture alignment: nondisplaced Qualified Code(s): S72.044A - Nondisplaced fracture of base of neck of right femur, initial encounter for closed fracture
--- NOTE | 2024-07-30 09:17 | Hospitalist Progress Note ---
Date of Service July 30, 2024 Assessment & Plan (1) Closed right femoral fracture: Plan: s/p mechanical fall after a vertigo episode (longstanding balance issues) s/p Right Hip Hemiarthroplasty performed by Dr Diamond on 07/29 Suspected osteoporotic fracture but will need DEXA as follow up on discharge PT/OT (2) Postoperative hypoxia: Plan: WBC actually improved post operatively from yesterday but procalcitonin positive and new patchy infiltrates on CXR with fever this morning Incentive spirometer, flutter valve, sputum culture Start Unasyn to cover for aspiration pneumonia Follow up blood cultures (3) Fall: Plan: Longstanding balance issues B12 level normal Interrogated loop recorder-no arrhythmias around time of fall but did have several hours of Afib in 100-150s on 07/23 and 07/24 which is more than her usual burden. No further episodes of a. fib on med/tele (4) Systolic murmur: Plan: Systolic loud murmur on exam. Sclerotic aortic valve but no significant stenosis, no further workup required (5) Hypokalemia: Plan: Resolved with supplementation given on admission, will repeat with AM labs (6) Paroxysmal atrial fibrillation: Plan: had several hours of rapid afib on 07/23 and 07/24 on loop recorder holding Eliquis for hip surgery, timing of resumption after surgery per ortho recommendations but no urgency from a atrial fibrillation perspective Currently in NSR, monitor on tele (7) HTN (hypertension): Plan: BPs quite elevated here likely due to pain, anxiety disorder Avoid IV PRN medications, will discontinue hydralazine treat pain and anxiety Cardio wanted her to be on Toprol XL for atrial tach but she declined to take it-if med needed, would be good first line choice (8) History of loop recorder: Plan: for multiple dizzy spells has PAF and atrial tachycardia Follows with Dr. Acosta (9) Osteoporotic fracture of right hip: Plan: Suspected osteoporosis, will need DEXA scan as follow up (10) Vitamin D deficiency: Plan: Add vitamin D2 50,000 units weekly to her prior regimen as appears to be chronically deficient Plan Depression with anxiety - continue home Xanax prn, sertraline, nortriptyline Hypothyroidism - recent TSH normal, continue home levothyroxine VTE Prophylaxis - Eliquis Diet - regular Disposition - continue admission to med-tele DNR/DNI as discussed with pt. on admission. Her daughter would be her POA Admission and Anticipated Discharge Date Admission Date: July 28, 2024 Subjective No shortness of breath, cough or chest pain. She feels she is a bit confused. hypoxic on 4LPM O2 and febrile this morning Review of Systems Review of Systems: All systems reviewed & are unremarkable except as noted in HPI & below Physical Exam Constitutional: WD/WN, vitals as above ENMT: Mouth: oral mucous membranes not dry Respiratory: normal respiratory effort, lungs clear to auscultation Cardiovascular: Rate/Rhythm: regular rate and regular rhythm Heart Sounds: + murmur (systolic 4/6) Extremities: normal capillary refill; no calf tenderness and no pedal edema Gastrointestinal (Abdomen): normal bowel sounds, soft, nontender, no hepatosplenomegaly Results & Data Results & Data Vital Signs (Past 12 Hours) Vital Signs Temp Pulse Pulse Resp BP Pulse Ox O2 Del Method 07/30/24 08:36 37.8 C H 83 20 93 Nasal Cannula 07/30/24 07:19 89 07/30/24 07:18 38.4 C H 86 24 97/61 L 94 Oxymask 07/30/24 01:00 36.8 C 75 16 153/88 H 97 Oxymask 07/29/24 22:04 Oxymask 07/29/24 21:46 72 07/29/24 21:26 36.6 C 70 16 133/73 92 Oxymask O2 Flow Rate 07/30/24 08:36 4 07/30/24 07:19 07/30/24 07:18 6 07/30/24 01:00 4 07/29/24 22:04 4 07/29/24 21:46 07/29/24 21:26 4 PG Care Time/CCT Total # of Minutes Spent Total Time Spent with Patient: Total time spent is greater than 50% in coordination of care (as documented) at patient's floor/unit and/or counseling patient: Coding Level of Care Code 52348 SUB INP/OBS CARE 2/35MIN Diagnoses Closed nondisplaced basicervical fracture of right femur, initial encounter S72.044A Encounter type: initial encounter Femur location: base of neck Fracture alignment: nondisplaced Postoperative hypoxia R09.02; Z98.890 Fall W19.XXXA Encounter type: initial encounter Systolic murmur R01.1 Hypokalemia E87.6 Paroxysmal atrial fibrillation I48.0 HTN (hypertension) I10 History of loop recorder Z98.890 Osteoporotic fracture of right hip M80.051A Vitamin D deficiency E55.9 (1) Closed right femoral fracture Encounter type: initial encounter Femur location: base of neck Fracture alignment: nondisplaced Qualified Code(s): S72.044A - Nondisplaced fracture of base of neck of right femur, initial encounter for closed fracture (3) Fall Encounter type: initial encounter Qualified Code(s): W19.XXXA - Unspecified fall, initial encounter
[2024-07-30 09:29] LABS: Basophils # (auto) 0.03 K/uL (0.00-0.20); Basophils % (auto) 0.3 %; Eosinophils # (auto) 0.04 K/uL (0.00-0.50); Eosinophils % (auto) 0.4 %; Hematocrit (blood only) 29.1 % (37.0-47.0); Hemoglobin 9.6 g/dl (12.0-16.0); Immature Granulocytes # (auto) 0.06 K/uL (0.01-0.20); Immature Granulocytes % (auto) 0.6 %; Lymphocytes # (auto) 0.43 K/uL (1.20-3.40); Lymphocytes % (auto) 4.5 %; Mean Corpuscular Hemoglobin 31.1 pg (25.0-34.0); Mean Corpuscular Volume 94.2 fL (80.0-100.0); Mean Platelet Volume 10.9 fL (9.4-12.4); Monocytes # (auto) 0.66 K/uL (0.11-0.59); Monocytes % (auto) 6.9 %; Neutrophils # (auto) 8.38 K/uL (1.40-6.50); Neutrophils % (auto) 87.3 %; Platelet Count 228 K/uL (130-400); RDW Coefficient of Variation 12.1 % (11.5-14.5); RDW Standard Deviation 41.6 fL (36.4-46.3); Red Blood Count 3.09 M/uL (4.20-5.40)
[2024-07-30 09:38] LABS: Albumin Level 3.4 gm/dl (3.4-5.0); Bilirubin,Total 0.4 mg/dl (0.2-1.0); Calcium 8.2 mg/dl (8.6-10.3); Potassium 4.7 mmol/L (3.5-5.1)
[2024-07-30 09:44] LABS: Albumin Globulin Ratio 1.4 (0.9-2); BUN Creatinine Ratio 19.7 (10-20); Creatinine Clr Calc Pharmacy 31.4 ml/min; Globulin 2.5 gm/dl (2.5-4.0); Total Protein 5.9 gm/dl (6.0-8.3)
--- NOTE | 2024-07-30 10:01 | XRay Report ---
EXAM: Radiograph of the Chest 1 View INDICATION: Fever and hypoxia TECHNIQUE: Frontal view of the chest. COMPARISON: 07/28/2024 FINDINGS: Lungs and pleural spaces: New consolidation in the left lung base and patchy bilateral lower lung zone infiltrates present. New small left pleural effusion. No pneumothorax. Heart: Stable prominent cardiac shadow and loop recorder. Mediastinum: Normal contour. Bones/joints: No fracture, erosion or dislocation. Soft tissues: No abnormality noted. No radiopaque foreign body noted. Upper abdomen: No abnormality noted. IMPRESSION: 1. New dense consolidation in the left base and small left pleural effusion. Consider mucous plugging. 2. New patchy infiltrates in the lower lung zones. Consider alveolar edema and aspiration pneumonitis. ACT 112: Negative or not required by law. Electronically signed by Viviane Dunlap 07-30-2024 11:01 AM
[2024-07-30] MEDS: SODIUM CHLORIDE 0.9% 1,000 ML IV ONE (10:30)
[2024-07-30] MEDS: AMPICILLIN/SULBACTAM SOD 3,000 MG/100 ML BAG IV SCH (11:12)
[2024-07-30 11:28] LABS: Appearance Urine Cloudy (Clear); Bacteria Urine Automated None Seen (None Seen); Bilirubin Urine 1+ (Negative); Blood Urine 2+ (Negative); Color Urine Dark Yellow; Glucose Urine UA Negative (Negative); Ketones Urine 1+ (Negative); Leukocyte Esterase Urine 1+ (Negative); Mucus Urine Present (None Prsent); Nitrite Urine Negative (Negative); Protein Urine 2+ (Negative); RBC Urine Automated >20 /hpf (0-2); Specific Gravity Urine > 1.045 (1.000-1.030); Urobilinogen Urine Negative (Negative); pH Urine 5.5 (4.5-7.5)
[2024-07-30 11:42] LABS: Adenovirus PCR Not Detected (NotDetected); Bordetella parapertussis PCR Not Detected (NotDetected); Bordetella pertussis PCR Not Detected (NotDetected); Chlamydia pneumoniae PCR Not Detected (NotDetected); Coronavirus 229E PCR Not Detected (NotDetected); Coronavirus CoV-2 (COVID19)PCR Not Detected (NotDetected); Coronavirus HKU1 PCR Not Detected (NotDetected); Coronavirus NL63 PCR Not Detected (NotDetected); Coronavirus OC43PCR Not Detected (NotDetected); Human Metapneumovirus PCR Not Detected (NotDetected); Influenza A PCR Not Detected (NotDetected); Influenza B PCR Not Detected (NotDetected); Mycoplasma pneumoniae PCR Not Detected (NotDetected); Parainfluenza Virus 1 PCR Not Detected (NotDetected); Parainfluenza Virus 2 PCR Not Detected (NotDetected); Parainfluenza Virus 3 PCR Not Detected (NotDetected); Parainfluenza Virus 4 PCR Not Detected (NotDetected); Respiratory Syncytial VirusPCR Not Detected (NotDetected); Rhinovirus/Enterovirus PCR Not Detected (NotDetected)
--- NOTE | 2024-07-30 18:55 | CT Scan Report ---
EXAM: CT Head Without Intravenous Contrast INDICATION: Right upper extremity weakness. TECHNIQUE: Axial computed tomography images of the head/brain without intravenous contrast. Sagittal and/or coronal reformats are provided. Sagittal and coronal reformatted images were created and reviewed. This CT exam was performed using one or more of the following dose reduction techniques: automated exposure control, adjustment of the mA and/or kV according to patient size, and/or use of iterative reconstruction technique. COMPARISON: 12/10/2022 FINDINGS: Limitations: None. Brain and extra-axial spaces: Periventricular white matter hypodensities are unchanged. Stable more prominent hypodensity in the bilateral subinsular cortices. No acute infarct identified. No hemorrhage. No extra-axial collection noted. Bones/joints: No acute changes. Soft tissues: No significant abnormality noted. Vasculature: No acute abnormality noted. Sinuses: No layering fluid in the visualized portions of the paranasal sinuses. Mastoid air cells: No mastoid effusion. Orbits: No significant abnormality noted. IMPRESSION: Stable nonspecific periventricular white matter changes. No acute abnormality identified. ACT 112: Negative or not required by law. Electronically signed by Viviane Dunlap 07-30-2024 7:55 PM
[2024-07-31] MEDS: METOPROLOL TARTRATE 1 MG/ML VIAL IV STA ×2 (04:07→06:26)
[2024-07-31] MEDS: METOPROLOL TARTRATE 1 MG/ML VIAL IV ONE (04:15)
[2024-07-31 07:49] LABS: Basophils # (auto) 0.04 K/uL (0.00-0.20); Basophils % (auto) 0.4 %; Eosinophils # (auto) 0.22 K/uL (0.00-0.50); Eosinophils % (auto) 2.2 %; Hematocrit (blood only) 27.1 % (37.0-47.0); Immature Granulocytes # (auto) 0.04 K/uL (0.01-0.20); Immature Granulocytes % (auto) 0.4 %; Lymphocytes # (auto) 0.85 K/uL (1.20-3.40); Lymphocytes % (auto) 8.4 %; Mean Corpuscular Hemoglobin 30.6 pg (25.0-34.0); Mean Corpuscular Hgb Conc 33.2 g/dL (32.0-36.0); Mean Corpuscular Volume 92.2 fL (80.0-100.0); Mean Platelet Volume 10.9 fL (9.4-12.4); Monocytes # (auto) 0.71 K/uL (0.11-0.59); Monocytes % (auto) 7.1 %; Neutrophils # (auto) 8.21 K/uL (1.40-6.50); Neutrophils % (auto) 81.5 %; Platelet Count 241 K/uL (130-400); RDW Coefficient of Variation 12.2 % (11.5-14.5); RDW Standard Deviation 41.1 fL (36.4-46.3); Red Blood Count 2.94 M/uL (4.20-5.40); White Blood Count 10.07 K/ul (4.8-10.8)
[2024-07-31 08:06] LABS: BUN Creatinine Ratio 27.1 (10-20); Calcium 8.1 mg/dl (8.6-10.3); Creatinine Clr Calc Pharmacy 35.8 ml/min; Potassium 4.2 mmol/L (3.5-5.1)
--- NOTE | 2024-07-31 09:20 | Hospitalist Progress Note ---
Date of Service July 31, 2024 Assessment & Plan (1) Closed right femoral fracture: Plan: s/p mechanical fall after a vertigo episode (longstanding balance issues) s/p Right Hip Hemiarthroplasty performed by Dr Diamond on 07/29 Suspected osteoporotic fracture but will need DEXA as follow up on discharge PT/OT (2) Aspiration pneumonia: Plan: Video swallow planned for tomorrow Unasyn IV (3) Dry mouth: Plan: Despite being on nortriptyline for 25 years this is the most likely medication contributing towards this and making her eating difficulty, will hold starting tonight 07/31 Suspect she is also hypovolemic and will give additional NSS today (4) Loss of coordination: Plan: Longstanding balance issues although having significant upper extremity right > left co-ordination difficulty which she reports is new CT head taken yesterday for this reason shows no acute abnormality, will get Brain MRI today No opiates to account for this since 07/28 but will discontinue irregardless Possible hyponatremia related but lower suspicion of this at current levels (5) Hyponatremia: Plan: Previously assumed to be from hypovolemia but given additional 1L NSS bolus yesterday and continues to decrease Will get serum osm, urine osm and Na this morning to assess further (6) Postoperative hypoxia: Plan: WBC actually improved post operatively from yesterday but procalcitonin positive and new patchy infiltrates on CXR with post operative fever Incentive spirometer, flutter valve, sputum culture Start Unasyn to cover for aspiration pneumonia Follow up blood cultures (7) Fall: Plan: Longstanding balance issues B12 level normal Interrogated loop recorder-no arrhythmias around time of fall but did have several hours of Afib in 100-150s on 07/23 and 07/24 which is more than her usual burden. No further episodes of a. fib on med/tele (8) Systolic murmur: Plan: Systolic loud murmur on exam. Sclerotic aortic valve but no significant stenosis, no further workup required (9) Hypokalemia: Plan: Resolved with supplementation given on admission, will repeat with AM labs (10) Paroxysmal atrial fibrillation: Plan: had several hours of rapid afib on 07/23 and 07/24 on loop recorder Resumed Eliquis post operatively Currently in NSR, monitor on tele (11) HTN (hypertension): Plan: BPs quite elevated here likely due to pain, anxiety disorder Avoid IV PRN medications, will discontinue hydralazine treat pain and anxiety Cardio wanted her to be on Toprol XL for atrial tach but she declined to take it-if med needed, would be good first line choice (12) History of loop recorder: Plan: for multiple dizzy spells has PAF and atrial tachycardia Follows with Dr. Acosta (13) Osteoporotic fracture of right hip: Plan: Suspected osteoporosis, will need DEXA scan as follow up (14) Vitamin D deficiency: Plan: Add vitamin D2 50,000 units weekly to her prior regimen as appears to be chronically deficient Plan Depression with anxiety - continue home Xanax prn, sertraline, nortriptyline Hypothyroidism - recent TSH normal, continue home levothyroxine VTE Prophylaxis - Eliquis Diet - regular Disposition - continue admission to med-tele DNR/DNI as discussed with pt. on admission. Her daughter would be her POA Admission and Anticipated Discharge Date Admission Date: July 28, 2024 Subjective Bilateral co-ordination issue not resolved, ongoing since yesterday, remains confused and in a fog, episode of a. fib RVR last night. Ongoing very dry mouth which she feels is impacting her eating, drinking and speaking. Discussed with her son at bedside and notes the amoxicillin previously caused thrush wish impacted her eating but no painful No fever, chills, shortness of breath or cough. Review of Systems Review of Systems: All systems reviewed & are unremarkable except as noted in HPI & below Physical Exam Constitutional: WD/WN, vitals as above ENMT: Mouth: + dry oral mucous membranes Respiratory: normal respiratory effort, lungs clear to auscultation Cardiovascular: Rate/Rhythm: regular rate and regular rhythm Heart Sounds: + murmur (systolic 4/6) Extremities: normal capillary refill; no calf tenderness and no pedal edema Gastrointestinal (Abdomen): normal bowel sounds, soft, nontender, no hepatosplenomegaly Neurologic: CN's II-XI intact bilaterally, moves all extremities, awake and + confused Speech / Cognition: + expressive aphasia Results & Data Results & Data Vital Signs (Past 12 Hours) Vital Signs Temp Pulse Pulse Resp BP BP Pulse Ox 07/31/24 07:33 36.8 C 72 16 112/74 96 07/31/24 07:33 72 112/74 07/31/24 07:13 07/31/24 06:00 124 H 116/72 07/31/24 04:21 123 H 114/68 07/31/24 03:55 36.8 C 140 H 18 125/75 93 07/30/24 23:00 36.7 C 69 18 149/85 H 94 07/30/24 21:45 79 O2 Del Method O2 Flow Rate 07/31/24 07:33 Nasal Cannula 4 07/31/24 07:33 07/31/24 07:13 Nasal Cannula 4 07/31/24 06:00 07/31/24 04:21 07/31/24 03:55 Nasal Cannula 4 07/30/24 23:00 Nasal Cannula 4 07/30/24 21:45 PG Care Time/CCT Total # of Minutes Spent Total Time Spent with Patient: Total time spent is greater than 50% in coordination of care (as documented) at patient's floor/unit and/or counseling patient: Coding Level of Care Code 96022 SUB INP/OBS CARE 3/50MIN Diagnoses Closed nondisplaced basicervical fracture of right femur, initial encounter S72.044A Encounter type: initial encounter Femur location: base of neck Fracture alignment: nondisplaced Aspiration pneumonia J69.0 Dry mouth R68.2 Loss of coordination R27.8 Hyponatremia E87.1 Postoperative hypoxia R09.02; Z98.890 Fall W19.XXXA Encounter type: initial encounter Systolic murmur R01.1 Hypokalemia E87.6 Paroxysmal atrial fibrillation I48.0 HTN (hypertension) I10 History of loop recorder Z98.890 Osteoporotic fracture of right hip M80.051A Vitamin D deficiency E55.9 (1) Closed right femoral fracture Encounter type: initial encounter Femur location: base of neck Fracture alignment: nondisplaced Qualified Code(s): S72.044A - Nondisplaced fracture of base of neck of right femur, initial encounter for closed fracture (7) Fall Encounter type: initial encounter Qualified Code(s): W19.XXXA - Unspecified fall, initial encounter
--- NOTE | 2024-07-31 10:20 | Orthopedic Progress Note ---
Date of Service July 31, 2024 Assessment & Plan (1) Closed right femoral fracture: Plan: POD 2 s/p Right hip hemiarthroplasty, post-op confusion, difficulty swallowing WBAT with walker Continue pain control Resume diet Continue Total hip precautions, 8 weeks DVT prophylaxis: TEDs x 3 weeks, foot pumps while in hospital, resume Eliquis. Plan dressing change to Silverlon tomorrow PT/OT D/C planning Continue care per primary service. Alfredo MRI shortly Follow-up in Dr. Diamond's office in 2 weeks. Admission and Anticipated Discharge Date Admission Date: July 28, 2024 Subjective Per her son, she is more confused "in a fog" and having difficulty swallowing today Physical Exam Physical Exam: Pt seen in MRI waiting area RLE: Incision clean, dry, intact. BCR < 2 sec. Sensation to light touch intact. Wiggling toes & ankle up and down. Calf soft and non-tender. Results & Data Vital Signs (Past 12 Hours) Vital Signs Temp Pulse Pulse Resp BP BP Pulse Ox 07/31/24 07:33 36.8 C 72 16 112/74 96 07/31/24 07:33 72 112/74 07/31/24 07:13 07/31/24 06:00 124 H 116/72 07/31/24 04:21 123 H 114/68 07/31/24 03:55 36.8 C 140 H 18 125/75 93 07/30/24 23:00 36.7 C 69 18 149/85 H 94 O2 Del Method O2 Flow Rate 07/31/24 07:33 Nasal Cannula 4 07/31/24 07:33 07/31/24 07:13 Nasal Cannula 4 07/31/24 06:00 07/31/24 04:21 07/31/24 03:55 Nasal Cannula 4 07/30/24 23:00 Nasal Cannula 4 Laboratory Results 07/31/24 07/31/24 07/30/24 Range/Units 08:31 06:52 10:56 WBC 10.07 (4.8-10.8) K/ul RBC 2.94 L (4.20-5.40) M/uL Hgb 9.0 L (12.0-16.0) g/dl Hct 27.1 L (37.0-47.0) % MCV 92.2 (80.0-100.0) fL MCH 30.6 (25.0-34.0) pg MCHC 33.2 (32.0-36.0) g/dL RDW Std Deviation 41.1 (36.4-46.3) fL RDW Coeff of Maria Antonia 12.2 (11.5-14.5) % Plt Count 241 (130-400) K/uL MPV 10.9 (9.4-12.4) fL Immature Gran % (Auto) 0.4 % Neut % (Auto) 81.5 % Lymph % (Auto) 8.4 % [place] % (Auto) 7.1 % Eos % (Auto) 2.2 % Baso % (Auto) 0.4 % Neut # (Auto) 8.21 H (1.40-6.50) K/uL Lymph # (Auto) 0.85 L (1.20-3.40) K/uL [place] # (Auto) 0.71 H (0.11-0.59) K/uL Eos # (Auto) 0.22 (0.00-0.50) K/uL Baso # (Auto) 0.04 (0.00-0.20) K/uL Immature Gran # (Auto) 0.04 (0.01-0.20) K/uL Sodium 127 L (136-145) mmol/L Potassium 4.2 (3.5-5.1) mmol/L Chloride 97 L (98-107) mmol/L Carbon Dioxide 24 (21-32) mmol/L Anion Gap 6 (3-11) BUN 29 H (6-23) mg/dl Creatinine 1.07 (0.6-1.2) mg/dl Est Cr Clr Drug Dosing 35.8 ml/min eGFR 53.17 BUN/Creatinine Ratio 27.1 H (10-20) Glucose 101 H (70-99(Fasting)) mg/dl Osmolality 268 L (280-300) mOsm/kg Calcium 8.1 L (8.6-10.3) mg/dl Procalcitonin (0-0.5) ng/ml Urine Color Dark Yellow Urine Appearance Cloudy A (Clear) Urine pH 5.5 (4.5-7.5) Ur Specific Soldier > 1.045 H (1.000-1.030) Urine Protein 2+ H (Negative) Urine Glucose (UA) Negative (Negative) Urine Ketones 1+ H (Negative) Urine Blood 2+ H (Negative) Urine Nitrite Negative (Negative) Urine Bilirubin 1+ H (Negative) Urine Urobilinogen Negative (Negative) Ur Leukocyte Esterase 1+ H (Negative) Urine WBC (Auto) 6-10 H (0-5) /hpf Urine RBC (Auto) >20 H (0-2) /hpf U Hyaline Cast (Auto) 3-5 H (0-2) /lpf U Epithel Cells (Auto) 3-5 H (0-2) /hpf Urine Bacteria (Auto) None Seen (None Seen) Urine Mucus Present A (None Prsent) Adenovirus (PCR) (NotDetected) B. pertussis DNA (PCR) (NotDetected) B.parapertussis DNA PCR (NotDetected) C. pneumoniae DNA (PCR) (NotDetected) Coronavirus OC43 (PCR) (NotDetected) Coronavirus HKU1 (PCR) (NotDetected) Coronavirus 229E (PCR) (NotDetected) SARS-CoV-2 (PCR) (NotDetected) Coronavirus NL63 (PCR) (NotDetected) Human Metapneumovir PCR (NotDetected) Influenza Type A (PCR) (NotDetected) Influenza Type B (PCR) (NotDetected) M. pneumoniae (PCR) (NotDetected) Parainfluenza 1 (PCR) (NotDetected) Parainfluenza 2 (PCR) (NotDetected) Parainfluenza 3 (PCR) (NotDetected) Parainfluenza 4 (PCR) (NotDetected) RSV (PCR) (NotDetected) Entero/Rhino (PCR) (NotDetected) 07/30/24 07/30/24 Range/Units 10:40 10:15 WBC (4.8-10.8) K/ul RBC (4.20-5.40) M/uL Hgb (12.0-16.0) g/dl Hct (37.0-47.0) % MCV (80.0-100.0) fL MCH (25.0-34.0) pg MCHC (32.0-36.0) g/dL RDW Std Deviation (36.4-46.3) fL RDW Coeff of Maria Antonia (11.5-14.5) % Plt Count (130-400) K/uL MPV (9.4-12.4) fL Immature Gran % (Auto) % Neut % (Auto) % Lymph % (Auto) % [place] % (Auto) % Eos % (Auto) % Baso % (Auto) % Neut # (Auto) (1.40-6.50) K/uL Lymph # (Auto) (1.20-3.40) K/uL [place] # (Auto) (0.11-0.59) K/uL Eos # (Auto) (0.00-0.50) K/uL Baso # (Auto) (0.00-0.20) K/uL Immature Gran # (Auto) (0.01-0.20) K/uL Sodium (136-145) mmol/L Potassium (3.5-5.1) mmol/L Chloride (98-107) mmol/L Carbon Dioxide (21-32) mmol/L Anion Gap (3-11) BUN (6-23) mg/dl Creatinine (0.6-1.2) mg/dl Est Cr Clr Drug Dosing ml/min eGFR BUN/Creatinine Ratio (10-20) Glucose (70-99(Fasting)) mg/dl Osmolality (280-300) mOsm/kg Calcium (8.6-10.3) mg/dl Procalcitonin 0.83 H (0-0.5) ng/ml Urine Color Urine Appearance (Clear) Urine pH (4.5-7.5) Ur Specific Soldier (1.000-1.030) Urine Protein (Negative) Urine Glucose (UA) (Negative) Urine Ketones (Negative) Urine Blood (Negative) Urine Nitrite (Negative) Urine Bilirubin (Negative) Urine Urobilinogen (Negative) Ur Leukocyte Esterase (Negative) Urine WBC (Auto) (0-5) /hpf Urine RBC (Auto) (0-2) /hpf U Hyaline Cast (Auto) (0-2) /lpf U Epithel Cells (Auto) (0-2) /hpf Urine Bacteria (Auto) (None Seen) Urine Mucus (None Prsent) Adenovirus (PCR) Not Detected (NotDetected) B. pertussis DNA (PCR) Not Detected (NotDetected) B.parapertussis DNA PCR Not Detected (NotDetected) C. pneumoniae DNA (PCR) Not Detected (NotDetected) Coronavirus OC43 (PCR) Not Detected (NotDetected) Coronavirus HKU1 (PCR) Not Detected (NotDetected) Coronavirus 229E (PCR) Not Detected (NotDetected) SARS-CoV-2 (PCR) Not Detected (NotDetected) Coronavirus NL63 (PCR) Not Detected (NotDetected) Human Metapneumovir PCR Not Detected (NotDetected) Influenza Type A (PCR) Not Detected (NotDetected) Influenza Type B (PCR) Not Detected (NotDetected) M. pneumoniae (PCR) Not Detected (NotDetected) Parainfluenza 1 (PCR) Not Detected (NotDetected) Parainfluenza 2 (PCR) Not Detected (NotDetected) Parainfluenza 3 (PCR) Not Detected (NotDetected) Parainfluenza 4 (PCR) Not Detected (NotDetected) RSV (PCR) Not Detected (NotDetected) Entero/Rhino (PCR) Not Detected (NotDetected) (1) Closed right femoral fracture Encounter type: initial encounter Femur location: base of neck Fracture alignment: nondisplaced Qualified Code(s): S72.044A - Nondisplaced fracture of base of neck of right femur, initial encounter for closed fracture
[2024-07-31] MEDS: SODIUM CHLORIDE 0.9% 1,000 ML IV ONE (11:39)
--- NOTE | 2024-07-31 12:32 | Magnetic Resonance Report ---
EXAM: MR brain wo con CLINICAL HISTORY: ACUTE RUE LOSS OF CO-ORDINATION S/P RIGHT HIP REPLACEMENT DONE A FEW DAYS AGO [employer] LOOP RECORDER NORMAL MODE BEST SCANS POSSIBLE, PT CONFUSED TECHNIQUE: MRI of the brain was performed without contrast with multiplanar sequences obtained. COMPARISON: 07/30/2024. FINDINGS: Brain Parenchyma: Senile atrophic changes of the brain with periventricular high signal foci in T2 and FLAIR suggesting chronic microvascular ischemic changes. No evidence of acute infarction or hemorrhage. Normal schrader-white matter differentiation. No mass lesions or focal cortical abnormalities identified. Ventricles and Sulci: Normal size and configuration of the lateral ventricles, third ventricle, and fourth ventricle, For age. No evidence of hydrocephalus or ventriculomegaly. Sylvian fissures, sulci, and cisterns are within normal limits. Posterior Fossa: Cerebellum and brainstem appear normal without evidence of mass lesions or signal abnormalities. Cranial Nerves: Normal course and appearance of cranial nerves identified. Vessels: Ectatic and tortuous vertebrobasilar artery compressing the anterior aspect of the [place], denoting vertebral artery compression syndrome. No evidence of vascular malformations or aneurysms. Intracranial arteries and veins appear normal without evidence of stenosis or occlusion. Orbits and Skull Base: Orbits and skull base structures are normal without evidence of abnormalities. Left side mastoid air cells opacification suggestive of acute mastoiditis. IMPRESSION: 1. Senile atrophic changes of the brain with periventricular chronic microvascular ischemic changes. 2. Ectatic and tortuous vertebrobasilar artery compressing the anterior aspect of the [place], denoting vertebral artery compression syndrome. 3. No acute hemorrhage or infarction. 4. Left acute mastoiditis. 5. No significant interval changes. Electronically signed by Casey Woods 07-31-2024 12:30 PM
--- NOTE | 2024-07-31 12:58 | XRay Report ---
EXAM: Radiograph of the Chest 1 View INDICATION: Hypoxia. TECHNIQUE: Frontal view of the chest. COMPARISON: 07/30/2024 FINDINGS: Lungs and pleural spaces: Stable vascular congestion and bilateral lower lung zone patchy infiltrates and small pleural effusions left greater than right. No pneumothorax. Heart: Shape and configuration within normal limits allowing for technique. Mediastinum: Normal contour. Bones/joints: No fracture, erosion or dislocation. Soft tissues: No abnormality noted. No radiopaque foreign body noted. Tubes, lines and devices: Stable enlarged cardiac shadow and loop recorder. Upper abdomen: No abnormality noted. IMPRESSION: Stable CHF and/or pneumonia. Consider mucous plugging causing segmental collapse of the left base. ACT 112: Negative or not required by law. Electronically signed by Viviane Dunlap 07-31-2024 13:57 PM
--- NOTE | 2024-07-31 13:04 | Electrocardiogram Report ---
Test Reason : Blood Pressure : */* mmHG Vent. Rate : 96 BPM Atrial Rate : 96 BPM P-R Int : 254 ms QRS Dur : 96 ms QT Int : 368 ms P-R-T Axes : 57 71 68 degrees QTcB Int : 464 ms Sinus rhythm with 1st degree A-V block with occasional Premature ventricular complexes and Premature atrial complexes Nonspecific T wave abnormality Abnormal ECG When compared with ECG of 29-Jul-2024 05:06, Premature ventricular complexes are now Present Premature atrial complexes are now Present Inverted T waves have replaced nonspecific T wave abnormality in Anterior leads Confirmed by Mick Mays ([id number]) on 07/31/2024 1:04:41 PM Referred By: REFERRED SELF Confirmed By: Mick Mays
--- NOTE | 2024-07-31 13:12 | Electrocardiogram Report ---
Test Reason : Blood Pressure : */* mmHG Vent. Rate : 134 BPM Atrial Rate : 68 BPM P-R Int : * ms QRS Dur : 94 ms QT Int : 318 ms P-R-T Axes : * 89 102 degrees QTcB Int : 474 ms Atrial fibrillation with rapid ventricular response Nonspecific ST and T wave abnormality Abnormal ECG When compared with ECG of 31-Jul-2024 03:50, (unconfirmed) Nonspecific T wave abnormality, improved in Inferior leads T wave inversion less evident in Lateral leads Confirmed by Mick Mays ([id number]) on 07/31/2024 1:12:07 PM Referred By: REFERRED SELF Confirmed By: Mick Mays
[2024-07-31] MEDS: SODIUM CHLORIDE 0.9% 1,000 ML IV SCH (13:33)
[2024-08-01 07:57] LABS: Basophils # (auto) 0.04 K/uL (0.00-0.20); Basophils % (auto) 0.5 %; Eosinophils # (auto) 0.17 K/uL (0.00-0.50); Eosinophils % (auto) 1.9 %; Hematocrit (blood only) 27.2 % (37.0-47.0); Hemoglobin 8.9 g/dl (12.0-16.0); Immature Granulocytes # (auto) 0.05 K/uL (0.01-0.20); Immature Granulocytes % (auto) 0.6 %; Lymphocytes # (auto) 0.57 K/uL (1.20-3.40); Lymphocytes % (auto) 6.5 %; Mean Corpuscular Hemoglobin 30.4 pg (25.0-34.0); Mean Corpuscular Hgb Conc 32.7 g/dL (32.0-36.0); Mean Corpuscular Volume 92.8 fL (80.0-100.0); Mean Platelet Volume 10.7 fL (9.4-12.4); Monocytes # (auto) 0.76 K/uL (0.11-0.59); Monocytes % (auto) 8.6 %; Neutrophils % (auto) 81.9 %; Platelet Count 258 K/uL (130-400); RDW Coefficient of Variation 12.2 % (11.5-14.5); RDW Standard Deviation 41.8 fL (36.4-46.3); Red Blood Count 2.93 M/uL (4.20-5.40); White Blood Count 8.79 K/ul (4.8-10.8)
[2024-08-01 08:07] LABS: BUN Creatinine Ratio 26.7 (10-20); Calcium 7.8 mg/dl (8.6-10.3); Creatinine Clr Calc Pharmacy 51.1 ml/min; Potassium 4.2 mmol/L (3.5-5.1)
--- NOTE | 2024-08-01 10:27 | Orthopedic Progress Note ---
Date of Service August 01, 2024 Assessment & Plan (1) Closed right femoral fracture: Plan: POD 3 s/p Right hip hemiarthroplasty, post-op confusion, difficulty swallowing WBAT with walker Continue pain control Continue Total hip precautions, 8 weeks DVT prophylaxis: TEDs x 3 weeks, foot pumps while in hospital, resume Eliquis Dressing changed to Silverlon dressing which can remain on until she is seen in the office at her 2-week appointment. Nursing may reinforce as needed. PT/OT D/C planning Continue care per primary service. Follow-up in Dr. Diamond's office in 2 weeks from surgery date Admission and Anticipated Discharge Date Admission Date: July 28, 2024 Subjective Pt seen and examined in room. Working well with PT. Doing well this morning. No major pain. Says that she feels weak. Physical Exam Physical Exam: Patient is walking with a walker and to assistance. She repeatedly says she feels weak. Right lower extremity: Dressing was removed today. Zipline is intact and incisions are well-approximated with minimal bloody drainage. No surrounding swelling, redness. Thighs soft and compressible. Silverlon was placed. Patient is able to put weight on her leg and do some gentle active and passive range of motion with her hip, knee and foot. Results & Data Vital Signs (Past 12 Hours) Vital Signs Temp Pulse Pulse Resp BP BP Pulse Ox 08/01/24 08:19 08/01/24 07:50 36.6 C 64 16 170/69 H 99 08/01/24 07:07 107 H 08/01/24 02:08 36.6 C 60 16 144/73 H 96 07/31/24 23:41 76 190/82 H 07/31/24 22:28 82 191/77 H O2 Del Method O2 Flow Rate 08/01/24 08:19 Nasal Cannula 4 08/01/24 07:50 Nasal Cannula 4 08/01/24 07:07 08/01/24 02:08 Nasal Cannula 4 07/31/24 23:41 07/31/24 22:28 (1) Closed right femoral fracture Encounter type: initial encounter Femur location: base of neck Fracture alignment: nondisplaced Qualified Code(s): S72.044A - Nondisplaced fracture of base of neck of right femur, initial encounter for closed fracture
--- NOTE | 2024-08-01 11:43 | Fluoroscopy Report ---
FL video swallow CLINICAL HISTORY: r/o aspiration TECHNIQUE: Video fluoroscopy of the pharyngeal region was performed as barium mixtures of varying con sistencies were administered to the patient by the speech pathologist. A formal esophagram was not pe rformed. Comparison: None available at the time of this dictation. FINDINGS: Total fluoroscopy time: 1.49 minutes. Radiation dose: 55 mGy. The patient swallowed the different barium consistencies without difficulty. Penetration is seen with out aspiration. Pooling of barium was noted in the bilateral piriform sinuses and valleculae. IMPRESSION: Penetration is seen without evidence of aspiration. Please see the speech pathology report for further details. ACT 112: Negative or not required by law. Electronically signed by: Rupesh Argueta M.D. 08/01/2024 11:40 AM
--- NOTE | 2024-08-01 18:39 | Hospitalist Progress Note ---
Date of Service August 01, 2024 Assessment & Plan (1) Closed right femoral fracture: Plan: s/p mechanical fall after a vertigo episode (longstanding balance issues) s/p Right Hip Hemiarthroplasty performed by Dr Diamond on 07/29 Suspected osteoporotic fracture but will need DEXA as follow up on discharge PT/OT: may need placement. (2) Aspiration pneumonia: Plan: Video swallow completed. no aspiration. Issues in the esophagus. Unasyn IV (3) Dry mouth: Plan: Despite being on nortriptyline for 25 years this is the most likely medication contributing towards this and making her eating difficulty, will hold starting tonight 07/31 appears improved. will monitor. (4) Loss of coordination: Plan: Longstanding balance issues although having significant upper extremity right > left co-ordination difficulty which she reports is new CT head taken yesterday for this reason shows no acute abnormality, will get Brain MRI today No opiates to account for this since 07/28 but will discontinue irregardless Possible hyponatremia related but lower suspicion of this at current levels (5) Hyponatremia: Plan: Previously assumed to be from hypovolemia but given additional 1L NSS bolus yesterday and continues to decrease Will get serum osm, urine osm and Na this morning to assess further; improving. (6) Postoperative hypoxia: Plan: WBC actually improved post operatively from yesterday but procalcitonin positive and new patchy infiltrates on CXR with post operative fever Incentive spirometer, flutter valve, sputum culture Start Unasyn to cover for aspiration pneumonia Follow up blood cultures (7) Fall: Plan: Longstanding balance issues B12 level normal Interrogated loop recorder-no arrhythmias around time of fall but did have several hours of Afib in 100-150s on 07/23 and 07/24 which is more than her usual burden. No further episodes of a. fib on med/tele (8) Systolic murmur: Plan: Systolic loud murmur on exam. Sclerotic aortic valve but no significant stenosis, no further workup required (9) Hypokalemia: Plan: Resolved with supplementation given on admission, will repeat with AM labs (10) Paroxysmal atrial fibrillation: Plan: had several hours of rapid afib on 07/23 and 07/24 on loop recorder Resumed Eliquis post operatively Currently in NSR, monitor on tele (11) HTN (hypertension): Plan: BPs quite elevated here likely due to pain, anxiety disorder Avoid IV PRN medications, will discontinue hydralazine treat pain and anxiety Cardio wanted her to be on Toprol XL for atrial tach but she declined to take it-if med needed, would be good first line choice (12) History of loop recorder: Plan: for multiple dizzy spells has PAF and atrial tachycardia Follows with Dr. Acosta (13) Osteoporotic fracture of right hip: Plan: Suspected osteoporosis, will need DEXA scan as follow up (14) Vitamin D deficiency: Plan: Add vitamin D2 50,000 units weekly to her prior regimen as appears to be chronically deficient Plan Depression with anxiety - continue home Xanax prn, sertraline, nortriptyline Hypothyroidism - recent TSH normal, continue home levothyroxine VTE Prophylaxis - Eliquis Diet - regular Disposition - continue admission to med-tele DNR/DNI as discussed with pt. on admission. Her daughter would be her POA Admission and Anticipated Discharge Date Admission Date: July 28, 2024 Subjective 78 yo female reports no new symptoms. Review of Systems Review of Systems: All systems reviewed & are unremarkable except as noted in HPI & below Physical Exam Constitutional: WD/WN, vitals as above Respiratory: normal respiratory effort, lungs clear to auscultation Cardiovascular: Rate/Rhythm: regular rate and regular rhythm Heart Sounds: + murmur (systolic 4/6) Extremities: normal capillary refill; no calf tenderness and no pedal edema Gastrointestinal (Abdomen): normal bowel sounds, soft, nontender, no hepatosplenomegaly Neurologic: moves all extremities, awake and + confused Speech / Cognition: + expressive aphasia Results & Data Results & Data Vital Signs (Past 12 Hours) Vital Signs Temp Pulse Pulse Resp BP Pulse Ox O2 Del Method 08/01/24 15:39 36.6 C 85 16 180/82 H 98 Nasal Cannula 08/01/24 14:40 91 H 08/01/24 11:08 36.6 C 82 16 147/78 H 97 Nasal Cannula 08/01/24 08:19 Nasal Cannula 08/01/24 07:50 36.6 C 64 16 170/69 H 99 Nasal Cannula 08/01/24 07:07 107 H O2 Flow Rate 08/01/24 15:39 4 08/01/24 14:40 08/01/24 11:08 4 08/01/24 08:19 4 08/01/24 07:50 4 08/01/24 07:07 PG Care Time/CCT Total # of Minutes Spent Total Time Spent with Patient: Total time spent is greater than 50% in coordination of care (as documented) at patient's floor/unit and/or counseling patient: Coding Level of Care Code 51961 SUB INP/OBS CARE 2/35MIN Diagnoses Closed nondisplaced basicervical fracture of right femur, initial encounter S72.044A Encounter type: initial encounter Femur location: base of neck Fracture alignment: nondisplaced Aspiration pneumonia J69.0 Dry mouth R68.2 Loss of coordination R27.8 Hyponatremia E87.1 Postoperative hypoxia R09.02; Z98.890 Fall W19.XXXA Encounter type: initial encounter Systolic murmur R01.1 Hypokalemia E87.6 Paroxysmal atrial fibrillation I48.0 HTN (hypertension) I10 History of loop recorder Z98.890 Osteoporotic fracture of right hip M80.051A Vitamin D deficiency E55.9 (1) Closed right femoral fracture Encounter type: initial encounter Femur location: base of neck Fracture alignment: nondisplaced Qualified Code(s): S72.044A - Nondisplaced fracture of base of neck of right femur, initial encounter for closed fracture (7) Fall Encounter type: initial encounter Qualified Code(s): W19.XXXA - Unspecified fall, initial encounter
[2024-08-02] MEDS: SODIUM CHLORIDE 0.9% 500 ML IV ONE (04:13)
[2024-08-02] MEDS: MAGNESIUM SULFATE / D5W 1 GM/100 ML BAG IV SCH (04:18)
--- NOTE | 2024-08-02 05:10 | Communication Note ---
Date of Service: August 02, 2024 Notified by nursing that patient was hypertensive to 198/105, recheck of BP one hour later improved to 161/64. Telemetry reporting that patient was flipping in and out of afib, HR 95 at that time. At approximately 04:00, I was notified that the patient was in afib with rates reach 130s. As patient had become somewhat hypotensive several nights prior after two doses of IV Lopressor, I initially ordered a 500mL IV fluid bolus for concern that patient was a bit dry, also ordered IV mag sulfate. After fluid bolus and ongoing IV mag sulfate infusion, patient was remaining in afib with RVR (rates 130s-150s), so I ordered a 1x dose of 250mcg IV digoxin to help achieve rate control. Case was discussed with attending physician. Resident Activity Tracking Resident Involvement: Resident Care Provided Care Provided: Adult Hospital Medicine
[2024-08-02] MEDS: DIGOXIN 250 MCG in SYRINGE 9 ML IV STA (05:24)
[2024-08-02 07:03] LABS: Hematocrit (blood only) 27.8 % (37.0-47.0); Hemoglobin 9.3 g/dl (12.0-16.0); Mean Corpuscular Hemoglobin 30.3 pg (25.0-34.0); Mean Corpuscular Hgb Conc 33.5 g/dL (32.0-36.0); Mean Corpuscular Volume 90.6 fL (80.0-100.0); Mean Platelet Volume 10.2 fL (9.4-12.4); Platelet Count 344 K/uL (130-400); RDW Coefficient of Variation 12.3 % (11.5-14.5); RDW Standard Deviation 41.1 fL (36.4-46.3); Red Blood Count 3.07 M/uL (4.20-5.40); White Blood Count 9.39 K/ul (4.8-10.8)
[2024-08-02 07:20] LABS: BUN Creatinine Ratio 15.5 (10-20); Calcium 7.8 mg/dl (8.6-10.3); Potassium 3.6 mmol/L (3.5-5.1)
--- NOTE | 2024-08-02 10:03 | Orthopedic Progress Note ---
Date of Service August 02, 2024 Assessment & Plan (1) Closed right femoral fracture: Plan: POD 4 s/p Right hip hemiarthroplasty. Pain seems well controlled. Patient motivated to participate with PT/OT and wondering when she can go home. Will need rehab. She has additional medical problems being addressed currently while in hospital. WBAT with walker Continue pain control Continue Total hip precautions, 8 weeks DVT prophylaxis: TEDs x 3 weeks, foot pumps while in hospital, resume Eliquis Dressing changed to Silverlon dressing which can remain on until she is seen in the office at her 2-week appointment. Nursing may reinforce as needed. PT/OT D/C planning Continue care per primary service. Follow-up in Dr. Diamond's office in 2 weeks from surgery date. Working on appointment Admission and Anticipated Discharge Date Admission Date: July 28, 2024 Subjective Patient seen in bed this morning. She states that her pain is improving. She denies any nausea, vomiting, chest pain, shortness of breath, numbness or tingling in her toes. Has not been up with PT or OT yet today but is motivated to work with them. Physical Exam Constitutional: Resting comfortably in bed eating breakfast. In no distress. Cardiovascular: DP pulses 1+ bilaterally Musculoskeletal: Right lower extremity: Silverlon dressing is in place, clean, dry, intact. No soft tissue induration or ecchymosis about the hip. No pain elicited with passive logroll. Strength 4/5 with bilateral ankle plantarflexion, dorsiflexion, inversion, eversion. Able to set quad however unable to perform a straight leg raise. Moves all toes. Neurologic: No sensory deficits in bilateral lower extremities to light touch Results & Data Vital Signs (Past 12 Hours) Vital Signs Temp Pulse Pulse Resp BP BP Pulse Ox 08/02/24 07:36 08/02/24 07:35 98.1 F 150 H 18 135/87 98 08/02/24 05:24 135 H 08/02/24 03:54 135 H 138/97 08/02/24 02:54 97.9 F 48 L 18 161/64 H 98 08/01/24 22:58 85 08/01/24 22:49 98.2 F 77 16 198/105 H 225/71 H 94 O2 Del Method O2 Flow Rate 08/02/24 07:36 Nasal Cannula 4 08/02/24 07:35 Nasal Cannula 4 08/02/24 05:24 08/02/24 03:54 08/02/24 02:54 Nasal Cannula 4 08/01/24 22:58 08/01/24 22:49 Nasal Cannula 4 (1) Closed right femoral fracture Encounter type: initial encounter Femur location: base of neck Fracture alignment: nondisplaced Qualified Code(s): S72.044A - Nondisplaced fracture of base of neck of right femur, initial encounter for closed fracture
--- NOTE | 2024-08-02 10:07 | XRay Report ---
XR chest 2V PA/lateral CLINICAL HISTORY: Hypoxia. COMPARISON STUDY: Chest CT March 23, 2024. Chest radiograph July 31, 2024. FINDINGS: There is no pneumothorax. Moderate bilateral pleural effusions, left larger than right, hav e increased in size. Associated bibasilar opacities are noted. Pulmonary edema persists. Cardiomegaly is again noted. Electronic device projects over the left chest. IMPRESSION: 1. Cardiomegaly with persistent pulmonary edema. 2. Increase in moderate bilateral pleural effusions, left larger than right, with associated bibasila r opacities. ACT 112: Negative or not required by law. Electronically signed by: Bari Damon M.D. 08/02/2024 10:06 AM
--- NOTE | 2024-08-02 15:38 | Cardiology Consultation ---
Date of Consultation August 02, 2024 Assessment & Plan (1) Atrial fibrillation: Plan 1. Atrial fibrillation: She is known to have paroxysms of atrial fibrillation versus atrial tachycardia. She is been on systemic anticoagulation as a result. In the past she was advised to take metoprolol for episodes. However, she recalls having low blood pressures when taking metoprolol. At her last clinic visit she was advised to take metoprolol on a daily basis based on recordings from her loop recorder. However, she has not been taking metoprolol. She seems to have fairly frequent episodes. These may be exacerbated by her recent surgery and some volume shifts. I think our best option for reducing episodes, rate control and facilitating a transfer to rehab would be amiodarone. Will start her on some oral amiodarone tonight and monitor her progress over the next 24 hours. Hopefully with fewer episodes and improve rate control she could be discharged by the end of the week. Continue Eliquis. History of Present Illness Reason for Consultation: Atrial fibrillation Requesting Physician: Sri Attending Physician: Bryan Fierro History of Present Illness The patient is a 78-year-old woman with a history of paroxysmal atrial fibrillation who has developed paroxysmal atrial fibrillation. The patient was initially mid to the hospital on 07/28/2024 after suffering a hip fracture. This occurred while she was attempting to exit the bathroom. She does have occasional episodes of vertigo and appears to be experiencing some dizziness at this time. There was no apparent loss of consciousness. She underwent operative intervention and her postoperative course has been complicated by occasional episodes of atrial fibrillation and high ventricular rates. While she seems to be recovering well from her hip surgery, she has not yet transition to rehab. She was ambulatory today. She is notes significant weakness all over. She has not felt any palpitations. In the past she was seen confident that she knew when she had developed atrial fibrillation, but was surprised when she has been told by the nursing staff recently that she is having some atrial fibrillation here in the hospital. No notable breathing trouble currently. Occasional dizzy spells as described above. Allergies Allergy/AdvReac Type Severity Reaction Status Date / Time methylprednisolone Allergy Mild Rash Verified 07/29/24 14:32 alendronate sodium AdvReac Mild GI upset Verified 07/29/24 14:32 erythromycin base AdvReac Mild GI upset Verified 07/29/24 14:32 hydrochlorothiazide AdvReac Mild hyponatremi Verified 07/29/24 14:32 a hydrocodone AdvReac Mild nausea Verified 07/29/24 14:32 vomiting tramadol AdvReac Mild nausea Verified 07/29/24 14:32 vomiting clavulanic acid AdvReac Gastrointestinal Verified 07/29/24 14:32 [From Augmentin] Upset Home Medications Medication Instructions Recorded Confirmed Type calcium 600 mg (as carbonate)-vit 1 tab PO BID 03/28/19 07/28/24 History D3 10 mcg (400 unit) chewable tablet (Calcium 600 with Vitamin D3) polyethylene glycol 3350 17 17 gm PO DAILY PRN constipation 10/13/19 07/28/24 History gram/dose oral powder cyanocobalamin (vitamin B-12) 1,000 mcg PO DAILY #30 caps 03/23/23 07/28/24 Rx 1,000 mcg capsule cetirizine 10 mg tablet (Zyrtec) 10 mg PO DAILY PRN allergy 05/22/23 07/28/24 Rx symptoms #90 tabs fluticasone propionate 50 1 spray intranasal DAILY #48 grams 07/06/23 07/28/24 Rx mcg/actuation nasal spray,suspension (Flonase Allergy Relief) apixaban 5 mg tablet (Eliquis) 5 mg PO BID #180 tabs 07/23/23 07/28/24 Rx lovastatin 40 mg tablet 40 mg PO QPM #90 tabs 01/18/24 07/28/24 Rx sertraline 50 mg tablet 50 mg PO DAILY #90 tabs 02/12/24 07/28/24 Rx cholecalciferol (vitamin D3) 125 125 mcg PO DAILY #30 caps 06/09/24 07/28/24 Rx mcg (5,000 unit) capsule nortriptyline 25 mg capsule 50 mg (2 x 25 mg) PO HS #180 caps 07/04/24 07/28/24 Rx levothyroxine 100 mcg tablet 100 mcg PO QAM #90 tabs 07/11/24 07/28/24 Rx alprazolam 0.25 mg tablet 0.25 mg PO DAILY PRN anxiety #30 07/26/24 07/28/24 Rx tabs Patient History Medical History (Updated 07/31/24 @ 09:16 by Cristobal Lang MD) Paroxysmal atrial fibrillation H/O dizziness Vertigo Dyslipidemia Gastroesophageal reflux disease HX Depression with anxiety Osteoporosis Hypothyroidism HTN (hypertension) Status post placement of implantable loop recorder Hx of fracture of clavicle Right clavicle fracture S/P Pleural effusion HX Surgical History History of colonoscopy H/O oral surgery S/P eye surgery BLOCKED TEAR DUCT S/P tubal ligation S/P dilatation and curettage Family History Mother Hypertension Heart disease Stroke Brother Hypertension Grandfather (Paternal) Lung cancer Father Cancer Other No family history of allergies No family history of bleeding disorder Denies family history of Ovarian cancer Prostate cancer Breast cancer Colorectal cancer Asthma Social History Smoking Status: Never smoker Second Hand Exposure: Yes (SPOUSE SMOKED); Do You Dip or Chew Tobacco: No; Hx Alcohol Use: No Hx Substance Use: No Preferred Language: Estonian Communication Ability: Effective Visual Impairment: No Limitations Hearing Ability: Normal Engraved Roller Inspector Required: No Beliefs That Will Affect Care: None marital status: Current Living Situation: Alone Current Living Situation Comment: apartment alone current occupational status: retired How many Children do You have: 3 Feels Safe at Home: Yes Childhood Exposure to Second-Hand Smoke: No Diet: regular Diet Comment: regular caffeine: No during the past year weight has: remained stable Dental Care, Regularly: Yes Physical Activity Frequency: Daily Physical Activity Frequency Comment: walk Seatbelt Use: always Sunscreen Use: Yes Assistive Devices: Walker Review of Systems Review of Systems: Per HPI Physical Exam Physical Exam: She is alert and oriented x3. Mood affect appear normal. She answered all questions appropriately. HEENT: Sclerae are anicteric. Pupils are equal and reactive to light and accommodation. Extraocular movements were intact. Neuro: Cranial nerves intact Lungs: Lungs are clear to auscultation bilaterally. There are no rales wheezes or rhonchi. She has normal respiratory effort without use of accessory muscles. There is normal pulmonary excursion. Cardiac: The rhythm was irregular. S1 and S2 were normal. Crescendo systolic murmur, variable intensity and high-pitched at times.. The PMI was not markedly displaced on palpation. Extremities: Patient has bilateral radial pulses that are equal in intensity. There is no evidence cyanosis or clubbing. Skin: There are no rashes noted on examination today. Results & Data Vital Signs (Past 12 Hours) Vital Signs Temp Pulse Pulse Resp BP BP Pulse Ox 08/02/24 14:33 36.9 C 130 H 18 163/86 H 95 08/02/24 14:15 109 H 08/02/24 11:28 36.6 C 131 H 17 142/95 H 98 08/02/24 07:36 08/02/24 07:35 36.7 C 150 H 18 135/87 98 08/02/24 05:24 135 H 08/02/24 03:54 135 H 138/97 O2 Del Method O2 Flow Rate 08/02/24 14:33 Nasal Cannula 4 08/02/24 14:15 08/02/24 11:28 Nasal Cannula 6 08/02/24 07:36 Nasal Cannula 4 08/02/24 07:35 Nasal Cannula 4 08/02/24 05:24 08/02/24 03:54 Laboratory Results Abnormal Lab Results 08/02/24 06:44 WBC 9.39 RBC 3.07 L Hgb 9.3 L Hct 27.8 L MCV 90.6 MCH 30.3 MCHC 33.5 RDW Std Deviation 41.1 RDW Coeff of Maria Antonia 12.3 Plt Count 344 MPV 10.2 Sodium 130 L Potassium 3.6 Chloride 99 Carbon Dioxide 25 Anion Gap 6 BUN 11 Creatinine 0.71 Est Cr Clr Drug Dosing 54.0 eGFR 86.98 BUN/Creatinine Ratio 15.5 Glucose 120 H Calcium 7.8 L Diagnostic Findings Echocardiogram 07/28/2024: Normal LV systolic function with ejection fraction greater than 70%. Moderate LVH. Sclerotic aortic valve without stenosis. Mild pulmonary hypertension estimated at 40 mmHg. PG Care Time/CCT Total # of Minutes Spent Total Time Spent with Patient: Total time spent is greater than 50% in coordination of care (as documented) at patient's floor/unit and/or counseling patient: Coding Level of Care Code 82109 INT INP/OBS CARE 3/75MIN Diagnoses Atrial fibrillation I48.91
[2024-08-02] MEDS: FUROSEMIDE 40 MG/4 ML VIAL IV ONE (16:21)
[2024-08-02] MEDS: POTASSIUM CHLORIDE CRTAB 20 MEQ TABCR PO STA (16:31)
[2024-08-02] MEDS: AMIODARONE 200 MG TAB PO SCH (16:52)
--- NOTE | 2024-08-02 17:30 | Hospitalist Progress Note ---
Date of Service August 02, 2024 Assessment & Plan (1) Closed right femoral fracture: Plan: s/p mechanical fall after a vertigo episode (longstanding balance issues) s/p Right Hip Hemiarthroplasty performed by Dr Diamond on 07/29 Suspected osteoporotic fracture but will need DEXA as follow up on discharge PT/OT: may need placement. (2) Aspiration pneumonia: Plan: Video swallow completed. no aspiration. Issues in the esophagus. Unasyn IV chest x ray showed pleural effusions. ordered Lasix on 08/02 potassium replensihed as bmp showed hypokaelmia (3) Dry mouth: Plan: Despite being on nortriptyline for 25 years this is the most likely medication contributing towards this and making her eating difficulty, will hold starting tonight 07/31 appears improved. will monitor. (4) Loss of coordination: Plan: Longstanding balance issues although having significant upper extremity right > left co-ordination difficulty which she reports is new CT head taken yesterday for this reason shows no acute abnormality, will get Brain MRI today No opiates to account for this since 07/28 but will discontinue irregardless Possible hyponatremia related but lower suspicion of this at current levels (5) Hyponatremia: Plan: Previously assumed to be from hypovolemia but given additional 1L NSS bolus yesterday and continues to decrease Will get serum osm, urine osm and Na this morning to assess further; improving. (6) Postoperative hypoxia: Plan: WBC actually improved post operatively from yesterday but procalcitonin positive and new patchy infiltrates on CXR with post operative fever Incentive spirometer, flutter valve, sputum culture Start Unasyn to cover for aspiration pneumonia Follow up blood cultures (7) Fall: Plan: Longstanding balance issues B12 level normal Interrogated loop recorder-no arrhythmias around time of fall but did have several hours of Afib in 100-150s on 07/23 and 07/24 which is more than her usual burden. No further episodes of a. fib on med/tele (8) Systolic murmur: Plan: Systolic loud murmur on exam. Sclerotic aortic valve but no significant stenosis, no further workup required (9) Hypokalemia: Plan: Resolved with supplementation given on admission, will repeat with AM labs (10) Paroxysmal atrial fibrillation: Plan: had several hours of rapid afib on 07/23 and 07/24 on loop recorder Resumed Eliquis post operatively Patient back in a fib, placed on amiodarone. (11) HTN (hypertension): Plan: BPs quite elevated here likely due to pain, anxiety disorder Avoid IV PRN medications, will discontinue hydralazine treat pain and anxiety Cardio wanted her to be on Toprol XL for atrial tach but she declined to take it-if med needed, would be good first line choice (12) History of loop recorder: Plan: for multiple dizzy spells has PAF and atrial tachycardia Follows with Dr. Acosta (13) Osteoporotic fracture of right hip: Plan: Suspected osteoporosis, will need DEXA scan as follow up (14) Vitamin D deficiency: Plan: Add vitamin D2 50,000 units weekly to her prior regimen as appears to be chronically deficient Plan Depression with anxiety - continue home Xanax prn, sertraline, nortriptyline Hypothyroidism - recent TSH normal, continue home levothyroxine VTE Prophylaxis - Eliquis Diet - regular Disposition - continue admission to [facility]-tele DNR/DNI as discussed with pt. on admission. Her daughter would be her POA Admission and Anticipated Discharge Date Admission Date: July 28, 2024 Subjective 78 yo female reports no new complaints. She is on 4 liters nasal cannula, comfortable breathing well. Review of Systems Review of Systems: All systems reviewed & are unremarkable except as noted in HPI & below Physical Exam Constitutional: WD/WN, vitals as above Respiratory: bibasilar rales Cardiovascular: Rate/Rhythm: regular rate and regular rhythm Heart Sounds: + murmur (systolic 4/6) Extremities: normal capillary refill; no calf tenderness and no pedal edema Gastrointestinal (Abdomen): normal bowel sounds, soft, nontender, no hepatosplenomegaly Neurologic: moves all extremities, awake and + confused Speech / Cognition: + expressive aphasia Results & Data Results & Data Vital Signs (Past 12 Hours) Vital Signs Temp Pulse Pulse Resp BP BP Pulse Ox 08/02/24 14:33 36.9 C 130 H 18 163/86 H 95 08/02/24 14:15 109 H 08/02/24 11:28 36.6 C 131 H 17 142/95 H 98 08/02/24 07:36 08/02/24 07:35 36.7 C 150 H 18 135/87 98 O2 Del Method O2 Flow Rate 08/02/24 14:33 Nasal Cannula 4 08/02/24 14:15 08/02/24 11:28 Nasal Cannula 6 08/02/24 07:36 Nasal Cannula 4 08/02/24 07:35 Nasal Cannula 4 PG Care Time/CCT Total # of Minutes Spent Total Time Spent with Patient: Total time spent is greater than 50% in coordination of care (as documented) at patient's floor/unit and/or counseling patient: Coding Level of Care Code 15300 SUB INP/OBS CARE 3/50MIN Diagnoses Closed nondisplaced basicervical fracture of right femur, initial encounter S72.044A Encounter type: initial encounter Femur location: base of neck Fracture alignment: nondisplaced Aspiration pneumonia J69.0 Dry mouth R68.2 Loss of coordination R27.8 Hyponatremia E87.1 Postoperative hypoxia R09.02; Z98.890 Fall W19.XXXA Encounter type: initial encounter Systolic murmur R01.1 Hypokalemia E87.6 Paroxysmal atrial fibrillation I48.0 HTN (hypertension) I10 History of loop recorder Z98.890 Osteoporotic fracture of right hip M80.051A Vitamin D deficiency E55.9 (1) Closed right femoral fracture Encounter type: initial encounter Femur location: base of neck Fracture alignment: nondisplaced Qualified Code(s): S72.044A - Nondisplaced fracture of base of neck of right femur, initial encounter for closed fracture (7) Fall Encounter type: initial encounter Qualified Code(s): W19.XXXA - Unspecified fall, initial encounter
[2024-08-03 06:30] LABS: Hematocrit (blood only) 27.2 % (37.0-47.0); Hemoglobin 9.1 g/dl (12.0-16.0); Mean Corpuscular Hemoglobin 30.2 pg (25.0-34.0); Mean Corpuscular Hgb Conc 33.5 g/dL (32.0-36.0); Mean Corpuscular Volume 90.4 fL (80.0-100.0); Mean Platelet Volume 10.4 fL (9.4-12.4); Platelet Count 381 K/uL (130-400); RDW Coefficient of Variation 11.9 % (11.5-14.5); RDW Standard Deviation 39.4 fL (36.4-46.3); Red Blood Count 3.01 M/uL (4.20-5.40); White Blood Count 9.26 K/ul (4.8-10.8)
[2024-08-03 06:49] LABS: BUN Creatinine Ratio 14.3 (10-20); Calcium 7.6 mg/dl (8.6-10.3); Creatinine Clr Calc Pharmacy 45.7 ml/min; Potassium 3.7 mmol/L (3.5-5.1)
--- NOTE | 2024-08-03 09:32 | Orthopedic Progress Note ---
Date of Service August 03, 2024 Assessment & Plan (1) Closed right femoral fracture: Plan: POD 5 s/p Right hip hemiarthroplasty. Pain seems well controlled. Patient motivated to participate with PT/OT She has additional medical problems being addressed currently while in hospital. WBAT with walker Continue pain control Continue Total hip precautions, 8 weeks DVT prophylaxis: TEDs x 3 weeks, foot pumps while in hospital, resume Eliquis Dressing changed to Silverlon dressing which can remain on until she is seen in the office at her 2-week appointment. Nursing may reinforce as needed. PT/OT D/C planning Continue care per primary service. Follow-up in Dr. Diamond's office in 2 weeks from surgery date. Admission and Anticipated Discharge Date Admission Date: July 28, 2024 Subjective No hip complaints Physical Exam Physical Exam: RLE: Dressing clean, dry, intact. BCR < 2 sec. Sensation to light touch intact. Wiggling toes & ankle up and down. Calf soft and non-tender. Results & Data Vital Signs (Past 12 Hours) Vital Signs Temp Pulse Pulse Resp BP BP Pulse Ox 08/03/24 07:11 08/03/24 07:07 36.8 C 111 H 18 124/85 99 08/03/24 07:00 108 H 08/03/24 03:47 36.7 C 106 H 18 182/107 H 98 08/02/24 22:22 37.1 C 106 H 18 180/100 H 96 08/02/24 22:10 08/02/24 21:55 118 H 08/02/24 21:33 159/95 H O2 Del Method O2 Flow Rate 08/03/24 07:11 Nasal Cannula 4 08/03/24 07:07 Nasal Cannula 4 08/03/24 07:00 08/03/24 03:47 Nasal Cannula 4 08/02/24 22:22 Nasal Cannula 4 08/02/24 22:10 Nasal Cannula 4 08/02/24 21:55 08/02/24 21:33 Laboratory Results 08/03/24 Range/Units 05:26 WBC 9.26 (4.8-10.8) K/ul RBC 3.01 L (4.20-5.40) M/uL Hgb 9.1 L (12.0-16.0) g/dl Hct 27.2 L (37.0-47.0) % MCV 90.4 (80.0-100.0) fL MCH 30.2 (25.0-34.0) pg MCHC 33.5 (32.0-36.0) g/dL RDW Std Deviation 39.4 (36.4-46.3) fL RDW Coeff of Maria Antonia 11.9 (11.5-14.5) % Plt Count 381 (130-400) K/uL MPV 10.4 (9.4-12.4) fL Sodium 130 L (136-145) mmol/L Potassium 3.7 (3.5-5.1) mmol/L Chloride 94 L (98-107) mmol/L Carbon Dioxide 29 (21-32) mmol/L Anion Gap 7 (3-11) BUN 12 (6-23) mg/dl Creatinine 0.84 (0.6-1.2) mg/dl Est Cr Clr Drug Dosing 45.7 ml/min eGFR 71.08 BUN/Creatinine Ratio 14.3 (10-20) Glucose 100 H (70-99(Fasting)) mg/dl Calcium 7.6 L (8.6-10.3) mg/dl B-Natriuretic Peptide 1389 H (0-100) pg/ml (1) Closed right femoral fracture Encounter type: initial encounter Femur location: base of neck Fracture alignment: nondisplaced Qualified Code(s): S72.044A - Nondisplaced fracture of base of neck of right femur, initial encounter for closed fracture
[2024-08-03] MEDS: FUROSEMIDE 40 MG/4 ML VIAL IV ONE (11:46)
[2024-08-03] MEDS: POTASSIUM CHLORIDE CRTAB 20 MEQ TABCR PO STA (11:46)
--- NOTE | 2024-08-03 12:40 | Orthopedic Progress Note ---
Date of Service August 03, 2024 Assessment & Plan (1) Closed right femoral fracture: Plan: POD 5 s/p Right hip hemiarthroplasty. Pain seems reasonably well controlled. She has additional cardiac problems being addressed currently while in hospital. WBAT with walker Continue pain control Continue Total hip precautions, 8 weeks DVT prophylaxis: TEDs x 3 weeks, foot pumps while in hospital, continue Eliquis twice daily Silverlon dressing was checked and is dry. This may remain in place until she is seen in the office in follow-up. Continue PT/OT Her daughter states she has been approved by insurance for [facility]. They are awaiting the hospitalist decision regarding date of transfer. Continue care per primary service. Follow-up in Dr. Diamond's office in 2 weeks from surgery date. Admission and Anticipated Discharge Date Admission Date: July 28, 2024 Subjective This 78-year-old female is seen today in her room. She is 5 days status post right hip ORIF. Her daughter is currently present in the room. The patient is sitting at bedside has no complaints. She is wondering when she is going to rehab. No chest pain, shortness of breath, nausea, vomiting, or abdominal pain. No additional complaints. Physical Exam Physical Exam: General: Well-developed, well-nourished, elderly female, in no acute distress. Sitting in the bedside chair. Alert and oriented. Minimal obvious discomfort with movement of her right leg. Skin: Warm and dry with fair turgor. No rashes. She still has ecchymosis present on her left deltoid from a previous COVID vaccine. No ecchymosis at her hip or ribs. 1+ peripheral edema in the right leg. HEENT: Normocephalic atraumatic. Eyes PERRLA, EOMI. No conjunctiva or scleral injection. Musculoskeletal: Right leg has mild discomfort with palpation over the hip and greater trochanter. Mild discomfort with passive flexion as well as rotation of the right hip. She has intact motor function of the right ankle and toes. Neurologic: Gross sensation is intact across both lower extremities by soft touch. Peripheral pulses are 2+. Results & Data Vital Signs (Past 12 Hours) Vital Signs Temp Pulse Pulse Resp BP BP Pulse Ox 08/03/24 11:35 36.8 C 96 H 18 101/70 98 08/03/24 07:11 08/03/24 07:07 36.8 C 111 H 18 124/85 99 08/03/24 07:00 108 H 08/03/24 03:47 36.7 C 106 H 18 182/107 H 98 O2 Del Method O2 Flow Rate 08/03/24 11:35 Nasal Cannula 4 08/03/24 07:11 Nasal Cannula 4 08/03/24 07:07 Nasal Cannula 4 08/03/24 07:00 08/03/24 03:47 Nasal Cannula 4 Laboratory Results CBC obtained this morning shows a white count of 9.26. H&H of 9.1 and 27.2. Platelets normal at 381,000. PRP shows sodium 130, potassium 3.7, chloride 94. BUN of 12 with creatinine 0.84. Glucose today was 100. BNP remains elevated at 1389. (1) Closed right femoral fracture Encounter type: initial encounter Femur location: base of neck Fracture alignment: nondisplaced Qualified Code(s): S72.044A - Nondisplaced fracture of base of neck of right femur, initial encounter for closed fracture
--- NOTE | 2024-08-03 23:05 | Hospitalist Progress Note ---
Date of Service August 03, 2024 Assessment & Plan (1) Closed right femoral fracture: Plan: s/p mechanical fall after a vertigo episode (longstanding balance issues) s/p Right Hip Hemiarthroplasty performed by Dr Diamond on 07/29 Suspected osteoporotic fracture but will need DEXA as follow up on discharge PT/OT: may need placement. (2) Aspiration pneumonia: Plan: Video swallow completed. no aspiration. Issues in the esophagus. Unasyn IV chest x ray showed pleural effusions. ordered Lasix on 08/02 potassium replensihed as bmp showed hypokaelmia (3) Dry mouth: Plan: Despite being on nortriptyline for 25 years this is the most likely medication contributing towards this and making her eating difficulty, will hold starting tonight 07/31 appears improved. will monitor. restarting nortriptyline at a lower dose. (4) Loss of coordination: Plan: Longstanding balance issues although having significant upper extremity right > left co-ordination difficulty which she reports is new CT head taken yesterday for this reason shows no acute abnormality, will get Brain MRI today No opiates to account for this since 07/28 but will discontinue irregardless Possible hyponatremia related but lower suspicion of this at current levels (5) Hyponatremia: Plan: Previously assumed to be from hypovolemia but given additional 1L NSS bolus yesterday and continues to decrease Will get serum osm, urine osm and Na this morning to assess further; improving. (6) Postoperative hypoxia: Plan: WBC actually improved post operatively from yesterday but procalcitonin positive and new patchy infiltrates on CXR with post operative fever Incentive spirometer, flutter valve, sputum culture Start Unasyn to cover for aspiration pneumonia Follow up blood cultures (7) Fall: Plan: Longstanding balance issues B12 level normal Interrogated loop recorder-no arrhythmias around time of fall but did have several hours of Afib in 100-150s on 07/23 and 07/24 which is more than her usual burden. No further episodes of a. fib on med/tele (8) Systolic murmur: Plan: Systolic loud murmur on exam. Sclerotic aortic valve but no significant stenosis, no further workup required (9) Hypokalemia: Plan: Resolved with supplementation given on admission, will repeat with AM labs (10) Paroxysmal atrial fibrillation: Plan: had several hours of rapid afib on 07/23 and 07/24 on loop recorder Resumed Eliquis post operatively Patient back in a fib, placed on amiodarone. (11) HTN (hypertension): Plan: BPs quite elevated here likely due to pain, anxiety disorder Avoid IV PRN medications, will discontinue hydralazine treat pain and anxiety Cardio wanted her to be on Toprol XL for atrial tach but she declined to take it-if med needed, would be good first line choice (12) History of loop recorder: Plan: for multiple dizzy spells has PAF and atrial tachycardia Follows with Dr. Acosta (13) Osteoporotic fracture of right hip: Plan: Suspected osteoporosis, will need DEXA scan as follow up (14) Vitamin D deficiency: Plan: Add vitamin D2 50,000 units weekly to her prior regimen as appears to be chronically deficient Plan Depression with anxiety - continue home Xanax prn, sertraline, nortriptyline Hypothyroidism - recent TSH normal, continue home levothyroxine VTE Prophylaxis - Eliquis Diet - regular Disposition - continue admission to [facility] DNR/DNI as discussed with pt. on admission. Her daughter would be her POA Admission and Anticipated Discharge Date Admission Date: July 28, 2024 Subjective 78 yo female is a poor historian. Has no new active complaints. Review of Systems Review of Systems: All systems reviewed & are unremarkable except as noted in HPI & below Physical Exam Constitutional: WD/WN, vitals as above Respiratory: normal respiratory effort, lungs clear to auscultation Cardiovascular: Rate/Rhythm: regular rate and regular rhythm Heart Sounds: + murmur (systolic 4/6) Extremities: normal capillary refill; no calf tenderness and no pedal edema Gastrointestinal (Abdomen): normal bowel sounds, soft, nontender, no hepatosplenomegaly Neurologic: moves all extremities, awake and + confused Speech / Cognition: + expressive aphasia Results & Data Results & Data Vital Signs (Past 12 Hours) Vital Signs Temp Pulse Pulse Resp BP BP Pulse Ox 08/03/24 22:07 08/03/24 19:25 36.8 C 97 H 18 116/61 98 08/03/24 15:28 95 08/03/24 15:10 36.8 C 91 H 18 108/71 95 08/03/24 13:58 83 08/03/24 11:35 36.8 C 96 H 18 101/70 98 O2 Del Method O2 Flow Rate 08/03/24 22:07 Nasal Cannula 4 08/03/24 19:25 Nasal Cannula 3 08/03/24 15:28 Nasal Cannula 3 08/03/24 15:10 Room Air 08/03/24 13:58 08/03/24 11:35 Nasal Cannula 4 PG Care Time/CCT Total # of Minutes Spent Total Time Spent with Patient: Total time spent is greater than 50% in coordination of care (as documented) at patient's floor/unit and/or counseling patient: Coding Level of Care Code 20097 SUB INP/OBS CARE 235MIN Diagnoses Closed nondisplaced basicervical fracture of right femur, initial encounter S72.044A Encounter type: initial encounter Femur location: base of neck Fracture alignment: nondisplaced Aspiration pneumonia J69.0 Dry mouth R68.2 Loss of coordination R27.8 Hyponatremia E87.1 Postoperative hypoxia R09.02; Z98.890 Fall W19.XXXA Encounter type: initial encounter Systolic murmur R01.1 Hypokalemia E87.6 Paroxysmal atrial fibrillation I48.0 HTN (hypertension) I10 History of loop recorder Z98.890 Osteoporotic fracture of right hip M80.051A Vitamin D deficiency E55.9 (1) Closed right femoral fracture Encounter type: initial encounter Femur location: base of neck Fracture alignment: nondisplaced Qualified Code(s): S72.044A - Nondisplaced fracture of base of neck of right femur, initial encounter for closed fracture (7) Fall Encounter type: initial encounter Qualified Code(s): W19.XXXA - Unspecified fall, initial encounter
[2024-08-04 06:09] LABS: Mean Corpuscular Hemoglobin 30.9 pg (25.0-34.0); Mean Corpuscular Hgb Conc 34.6 g/dL (32.0-36.0); Mean Corpuscular Volume 89.3 fL (80.0-100.0); Mean Platelet Volume 10.2 fL (9.4-12.4); Platelet Count 396 K/uL (130-400); RDW Coefficient of Variation 11.9 % (11.5-14.5); RDW Standard Deviation 38.6 fL (36.4-46.3); Red Blood Count 2.91 M/uL (4.20-5.40); White Blood Count 9.89 K/ul (4.8-10.8)
[2024-08-04 06:38] LABS: BUN Creatinine Ratio 16.9 (10-20); Creatinine Clr Calc Pharmacy 49.8 ml/min; Potassium 3.5 mmol/L (3.5-5.1)
[2024-08-04] MEDS: NORTRIPTYLINE HCL 25 MG CAP PO ONE (09:00)
[2024-08-04] MEDS: FUROSEMIDE 40 MG/4 ML VIAL IV ONE (11:41)
[2024-08-04] MEDS: POTASSIUM CHLORIDE CRTAB 20 MEQ TABCR PO STA (11:41)
--- NOTE | 2024-08-04 12:13 | Orthopedic Progress Note ---
Date of Service August 04, 2024 Assessment & Plan (1) Closed right femoral fracture: Plan: POD 6 s/p Right hip hemiarthroplasty. Pain seems reasonably well controlled. She is scheduled to be transferred to [facility] today. WBAT with walker Continue pain control Continue Total hip precautions, 8 weeks DVT prophylaxis: TEDs x 3 weeks, foot pumps while in hospital, continue Eliquis twice daily Silverlon dressing was checked and was beginning to peel off. A new silverlon dressing was applied today. She can get this wet in the shower. Follow up appointment scheduled 08/08. Orthopedic discharge instructions in discharge tab. Admission and Anticipated Discharge Date Admission Date: July 28, 2024 Subjective Patient seen sitting in chair today. She denies any new concerns. Pain is well-controlled. She was able to stand with physical therapy. Physical Exam Physical Exam: General: Well-developed, well-nourished in no distress. Sitting in bedside chair. Cardiovascular: Peripheral pulses are 2+. Skin: Warm and dry with fair turgor. No rashes. No ecchymosis at her hip or ribs. 1+ peripheral edema in the right leg. Silverlon dressing over right hip is starting to separate from skin Musculoskeletal: Right leg has mild discomfort with palpation over the hip and greater trochanter. Mild discomfort with passive flexion as well as rotation of the right hip. She has intact motor function of the right ankle and toes. Neurologic: Alert and oriented. Gross sensation is intact across both lower extremities by soft touch. Results & Data Vital Signs (Past 12 Hours) Vital Signs Temp Pulse Pulse Resp BP BP Pulse Ox 08/04/24 11:00 98.2 F 105 H 18 149/104 H 94 08/04/24 09:02 08/04/24 07:00 97.7 F 105 H 18 152/87 H 99 08/04/24 05:36 113 H 08/04/24 03:37 98.6 F 109 H 16 141/85 H 98 O2 Del Method O2 Flow Rate 08/04/24 11:00 Nasal Cannula 2 08/04/24 09:02 Nasal Cannula 4 08/04/24 07:00 Nasal Cannula 2 08/04/24 05:36 08/04/24 03:37 Nasal Cannula 3 (1) Closed right femoral fracture Encounter type: initial encounter Femur location: base of neck Fracture alignment: nondisplaced Qualified Code(s): S72.044A - Nondisplaced fracture of base of neck of right femur, initial encounter for closed fracture
--- NOTE | 2024-08-04 12:37 | Cardiology Progress Note ---
Date of Service August 04, 2024 Assessment & Plan (1) Atrial fibrillation: Plan 1. Atrial fibrillation: History of paroxysmal atrial fibrillation. No current symptoms. She still has some elevated heart rates at times. She is received 4 doses of amiodarone and will likely see some improved heart rate control as she takes more. She hopefully will spontaneously convert as well. Reportedly there is availability at rehab today. I do not think her atrial fibrillation should preclude any discharge. She may require some additional rate control and additional doses of amiodarone moving forward. However, in the absence of symptoms this can be managed electively. Continue systemic anticoagulation. 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 I think amiodarone 400 mg twice daily for another 5 days and then a reduced dose to 200 mg daily would be reasonable. Admission and Anticipated Discharge Date Admission Date: July 28, 2024 Subjective This afternoon the patient complained of some back pain. Despite reports of noticing atrial fibrillation in the past she has not had any symptoms of palpitations recently. No current symptoms of palpitation. No breathing difficulty. Reportedly ambulatory with a walker. Review of Systems Review of Systems: Per HPI Physical Exam Physical Exam: She is alert and oriented x3. Mood affect appear normal. She answered all questions appropriately. Perhaps forgetful at times HEENT: Sclerae are anicteric. Pupils are equal and reactive to light and accommodation. Extraocular movements were intact. Neuro: Cranial nerves intact Lungs: Lungs are clear to auscultation bilaterally. There are no rales wheezes or rhonchi. She has normal respiratory effort without use of accessory muscles. There is normal pulmonary excursion. Cardiac: The rhythm was irregular. S1 and S2 were normal. Crescendo systolic murmur, variable intensity and high-pitched at times.. The PMI was not markedly displaced on palpation. Extremities: Patient has bilateral radial pulses that are equal in intensity. There is no evidence cyanosis or clubbing. Skin: There are no rashes noted on examination today. Results & Data Vital Signs (Past 12 Hours) Vital Signs Temp Pulse Pulse Resp BP BP Pulse Ox 08/04/24 11:00 36.8 C 105 H 18 149/104 H 94 08/04/24 09:02 08/04/24 07:00 36.5 C 105 H 18 152/87 H 99 08/04/24 05:36 113 H 08/04/24 03:37 37 C 109 H 16 141/85 H 98 O2 Del Method O2 Flow Rate 08/04/24 11:00 Nasal Cannula 2 08/04/24 09:02 Nasal Cannula 4 08/04/24 07:00 Nasal Cannula 2 08/04/24 05:36 08/04/24 03:37 Nasal Cannula 3 PG Care Time/CCT Total # of Minutes Spent Total Time Spent with Patient: Total time spent is greater than 50% in coordination of care (as documented) at patient's floor/unit and/or counseling patient: Coding Level of Care Code 02877 SUB INP/OBS CARE 2/35MIN Diagnoses Atrial fibrillation I48.91
--- NOTE | 2024-08-04 12:52 | Nephrology Consultation ---
Date of Consultation August 04, 2024 Assessment & Plan (1) Hyponatremia: (2) Hypokalemia: (3) Fall: (4) Anemia: (5) Chronic kidney disease, stage 3a: Plan 78-year-old female going history of stage III A CKD, b/l cr 1.1-1.3 mg/dl with h/o hypertension, chronic hyponatremia admitted to the hospital after fall and right hip fracture status post surgery on 07/29/2024. Urinalysis notable for proteinuria, hematuria, pyuria without bacteriuria with no significant proteinuria before. Prior renal imaging in 2022 was unremarkable. On admission sodium was 134 which dropped to 127-128 over last few days. Her weight is slightly higher than her baseline as well with elevated BNP and bilateral pleural effusion. Blood pressure is running high. Heart rate stable with history of A fib and occasional RVR, on amiodarone. -- continue on Lasix 20 mg daily on discharge --Continue fluid restriction to less than 1200 mL/day --Liberalize salt in diet --check sodium while at rehab, if Na remains low, recommend starting on salt tab 1 gm bid --Advised to keep well hydrated, avoid all NSAIDs. --OK to be discharged --repeat UA once Burden catheter is removed. Thank you for allowing me to participate in your patient's care. It was a pleasure to see Brittney. History of Present Illness Reason for Consultation: Hyponatremia. Attending Physician: Bryan Fierro History of Present Illness Ms. Brittney Jorgensen is a 78-year-old female with a h/o II CKD, b/l cr 1.1-1.3 mg/dl, Hyponatremia, HTN, dyslipidemia, anxiety/depression, GERD, hypothyroidism admitted to the hospital after a fall at home and right hip fracture. Nephrology consult requested for management of hyponatremia. Electronic medical records are reviewed in detail during patient's visit. Family was at bedside. Brittney the hospital on 07/28/2024 after she had a fall at home and had right hip fracture and had surgery on 07/29/2024. On admission her sodium was 134 but over last few days her sodium dropped and staying around 127-130. Has history of chronic hyponatremia, serum sodium stays around 130s. Urine osmolality was 777. Kidney function has been stable at baseline. Urinalysis showed 2+ proteinuria, microscopic hematuria and pyuria, no bacteriuria, >20 RBC/HPF, 6-10 WBC/HPF. Has stage II/ III A CKD, b/l cr 1.1-1.3 mg/dl with h/o hypertension. Previous urinalysis with trace proteinuria, no significant hematuria, pyuria. Renal ultrasound showed bilateral otherwise normal size kidney, no hydronephrosis. No history of chronic NSAID use. No history of autoimmune disease. No known family history of CKD or ESRD. No personal history of malignancy. Never smoker. Retired, . Has history of hypertension for several years however she has history of generalized weakness and dizziness for years not able to be on medications, Usually blood pressure drops too low if she takes antihypertensive medications. History of paroxysmal AFib, on Eliquis and metoprolol 25 mg taking as needed for tachycardia. No h/o DM, PVD. Overall she is doing well, denies any dysuria, shortness of breath or chest pain. Kidney function staying stable in fact creatinine has been lower than her usual. BNP was elevated. Allergies Allergy/AdvReac Type Severity Reaction Status Date / Time methylprednisolone Allergy Mild Rash Verified 07/29/24 14:32 alendronate sodium AdvReac Mild GI upset Verified 07/29/24 14:32 erythromycin base AdvReac Mild GI upset Verified 07/29/24 14:32 hydrochlorothiazide AdvReac Mild hyponatremi Verified 07/29/24 14:32 a hydrocodone AdvReac Mild nausea Verified 07/29/24 14:32 vomiting tramadol AdvReac Mild nausea Verified 07/29/24 14:32 vomiting clavulanic acid AdvReac Gastrointestinal Verified 07/29/24 14:32 [From Augmentin] Upset Home Medications Medication Instructions Recorded Confirmed Type calcium 600 mg (as carbonate)-vit 1 tab PO BID 03/28/19 07/28/24 History D3 10 mcg (400 unit) chewable tablet (Calcium 600 with Vitamin D3) polyethylene glycol 3350 17 17 gm PO DAILY PRN constipation 10/13/19 07/28/24 History gram/dose oral powder cyanocobalamin (vitamin B-12) 1,000 mcg PO DAILY #30 caps 03/23/23 07/28/24 Rx 1,000 mcg capsule cetirizine 10 mg tablet (Zyrtec) 10 mg PO DAILY PRN allergy 05/22/23 07/28/24 Rx symptoms #90 tabs fluticasone propionate 50 1 spray intranasal DAILY #48 grams 07/06/23 07/28/24 Rx mcg/actuation nasal spray,suspension (Flonase Allergy Relief) apixaban 5 mg tablet (Eliquis) 5 mg PO BID #180 tabs 07/23/23 07/28/24 Rx lovastatin 40 mg tablet 40 mg PO QPM #90 tabs 01/18/24 07/28/24 Rx sertraline 50 mg tablet 50 mg PO DAILY #90 tabs 02/12/24 07/28/24 Rx cholecalciferol (vitamin D3) 125 125 mcg PO DAILY #30 caps 06/09/24 07/28/24 Rx mcg (5,000 unit) capsule nortriptyline 25 mg capsule 50 mg (2 x 25 mg) PO HS #180 caps 07/04/24 07/28/24 Rx levothyroxine 100 mcg tablet 100 mcg PO QAM #90 tabs 07/11/24 07/28/24 Rx alprazolam 0.25 mg tablet 0.25 mg PO DAILY PRN anxiety #30 07/26/24 07/28/24 Rx tabs Patient History Medical History (Updated 07/31/24 @ 09:16 by Cristobal Lang MD) Paroxysmal atrial fibrillation H/O dizziness Vertigo Dyslipidemia Gastroesophageal reflux disease HX Depression with anxiety Osteoporosis Hypothyroidism HTN (hypertension) Status post placement of implantable loop recorder Hx of fracture of clavicle Right clavicle fracture S/P Pleural effusion HX Surgical History History of colonoscopy H/O oral surgery S/P eye surgery BLOCKED TEAR DUCT S/P tubal ligation S/P dilatation and curettage Family History Mother Hypertension Heart disease Stroke Brother Hypertension Grandfather (Paternal) Lung cancer Father Cancer Other No family history of allergies No family history of bleeding disorder Denies family history of Ovarian cancer Prostate cancer Breast cancer Colorectal cancer Asthma Social History Smoking Status: Never smoker Second Hand Exposure: Yes (SPOUSE SMOKED); Do You Dip or Chew Tobacco: No; Hx Alcohol Use: No Hx Substance Use: No Preferred Language: German Communication Ability: Effective Visual Impairment: No Limitations Hearing Ability: Normal [employer] Required: No Beliefs That Will Affect Care: None marital status: Current Living Situation: Alone Current Living Situation Comment: apartment alone current occupational status: retired How many Children do You have: 3 Feels Safe at Home: Yes Childhood Exposure to Second-Hand Smoke: No Diet: regular Diet Comment: regular caffeine: No during the past year weight has: remained stable Dental Care, Regularly: Yes Physical Activity Frequency: Daily Physical Activity Frequency Comment: walk Seatbelt Use: always Sunscreen Use: Yes Assistive Devices: Walker Review of Systems Review of Systems: Detailed review of system was otherwise unremarkable. Physical Exam Constitutional: WD/WN, vitals as above no acute distress Eyes: + anicteric sclerae Neck: normal visual inspection Respiratory: Auscultation: + diminished lung sounds Cardiovascular: Rate/Rhythm: + tachycardic and + irregularly irregular Extremities: + edema Gastrointestinal (Abdomen): Inspection/Auscultation: abdomen normal to inspection Musculoskeletal: Extremities: extremities normal to inspection Skin: no rashes, warm and dry Neurologic: no focal motor deficits Psychiatric: Orientation: alert and oriented x 3 Affect: euthymic affect Results & Data Vital Signs (Past 12 Hours) Vital Signs Temp Pulse Pulse Resp BP BP Pulse Ox 08/04/24 11:00 36.8 C 105 H 18 149/104 H 94 08/04/24 09:02 08/04/24 07:00 36.5 C 105 H 18 152/87 H 99 08/04/24 05:36 113 H 08/04/24 03:37 37 C 109 H 16 141/85 H 98 O2 Del Method O2 Flow Rate 08/04/24 11:00 Nasal Cannula 2 08/04/24 09:02 Nasal Cannula 4 08/04/24 07:00 Nasal Cannula 2 08/04/24 05:36 08/04/24 03:37 Nasal Cannula 3 PG Care Time/CCT Total # of Minutes Spent Total Time Spent with Patient: Total time spent is greater than 50% in coordination of care (as documented) at patient's floor/unit and/or counseling patient: Coding Level of Care Code 05421 INT INP/OBS CARE 3/75MIN Diagnoses Hyponatremia E87.1 Hypokalemia E87.6 Fall W19.XXXA Encounter type: initial encounter Anemia D64.9 Chronic kidney disease, stage 3a N18.31 (3) Fall Encounter type: initial encounter Qualified Code(s): W19.XXXA - Unspecified fall, initial encounter
[2024-08-04 17:11] LABS: BUN Creatinine Ratio 15.7 (10-20); Calcium 7.7 mg/dl (8.6-10.3); Creatinine Clr Calc Pharmacy 43.1 ml/min; Potassium 3.6 mmol/L (3.5-5.1)
[2024-08-04] MEDS: NORTRIPTYLINE HCL 25 MG CAP PO SCH (21:31)
--- NOTE | 2024-08-04 21:53 | Hospitalist Progress Note ---
Date of Service August 04, 2024 Assessment & Plan (1) Closed right femoral fracture: Plan: s/p mechanical fall after a vertigo episode (longstanding balance issues) s/p Right Hip Hemiarthroplasty performed by Dr Diamond on 07/29 Suspected osteoporotic fracture but will need DEXA as follow up on discharge PT/OT: may need placement. (2) Aspiration pneumonia: Plan: Video swallow completed. no aspiration. Issues in the esophagus. Unasyn IV chest x ray showed pleural effusions. ordered Lasix again on 08/04 potassium replensihed as bmp showed hypokaelmia (3) Dry mouth: Plan: Despite being on nortriptyline for 25 years this is the most likely medication contributing towards this and making her eating difficulty, will hold starting tonight 07/31 appears improved. will monitor. restarting nortriptyline at a lower dose. (4) Loss of coordination: Plan: Longstanding balance issues although having significant upper extremity right > left co-ordination difficulty which she reports is new CT head taken yesterday for this reason shows no acute abnormality, will get Brain MRI today No opiates to account for this since 07/28 but will discontinue irregardless Possible hyponatremia related but lower suspicion of this at current levels (5) Hyponatremia: Plan: Previously assumed to be from hypovolemia but given additional 1L NSS bolus yesterday and continues to decrease Will get serum osm, urine osm and Na this morning to assess further; improving. (6) Postoperative hypoxia: Plan: WBC actually improved post operatively from yesterday but procalcitonin positive and new patchy infiltrates on CXR with post operative fever Incentive spirometer, flutter valve, sputum culture Start Unasyn to cover for aspiration pneumonia Follow up blood cultures (7) Fall: Plan: Longstanding balance issues B12 level normal Interrogated loop recorder-no arrhythmias around time of fall but did have several hours of Afib in 100-150s on 07/23 and 07/24 which is more than her usual burden. No further episodes of a. fib on med/tele (8) Systolic murmur: Plan: Systolic loud murmur on exam. Sclerotic aortic valve but no significant stenosis, no further workup required (9) Hypokalemia: Plan: Resolved with supplementation given on admission, will repeat with AM labs (10) Paroxysmal atrial fibrillation: Plan: had several hours of rapid afib on 07/23 and 07/24 on loop recorder Resumed Eliquis post operatively Patient back in a fib, placed on amiodarone. (11) HTN (hypertension): Plan: BPs quite elevated here likely due to pain, anxiety disorder Avoid IV PRN medications, will discontinue hydralazine treat pain and anxiety Cardio wanted her to be on Toprol XL for atrial tach but she declined to take it-if med needed, would be good first line choice (12) History of loop recorder: Plan: for multiple dizzy spells has PAF and atrial tachycardia Follows with Dr. Acosta (13) Osteoporotic fracture of right hip: Plan: Suspected osteoporosis, will need DEXA scan as follow up (14) Vitamin D deficiency: Plan: Add vitamin D2 50,000 units weekly to her prior regimen as appears to be chronically deficient Plan Depression with anxiety - continue home Xanax prn, sertraline, nortriptyline Hypothyroidism - recent TSH normal, continue home levothyroxine VTE Prophylaxis - Eliquis Diet - regular Disposition - continue admission to [facility]-tele DNR/DNI as discussed with pt. on admission. Her daughter would be her POA Admission and Anticipated Discharge Date Admission Date: July 28, 2024 Subjective 78 yo female reports no new symptoms. Physical Exam Constitutional: WD/WN, vitals as above Respiratory: normal respiratory effort, lungs clear to auscultation Cardiovascular: Rate/Rhythm: regular rate and regular rhythm Heart Sounds: + murmur (systolic 4/6) Extremities: normal capillary refill; no calf tenderness and no pedal edema Gastrointestinal (Abdomen): normal bowel sounds, soft, nontender, no hepatosplenomegaly Neurologic: moves all extremities, awake and + confused Speech / Cognition: + expressive aphasia Results & Data Results & Data Vital Signs (Past 12 Hours) Vital Signs Temp Pulse Pulse Resp BP BP Pulse Ox 08/04/24 19:29 37.1 C 109 H 18 111/69 100 08/04/24 15:44 36.8 C 75 20 165/97 H 100 08/04/24 13:00 96 H 08/04/24 11:00 36.8 C 105 H 18 149/104 H 94 O2 Del Method O2 Flow Rate 08/04/24 19:29 Nasal Cannula 2 08/04/24 15:44 Nasal Cannula 2 08/04/24 13:00 08/04/24 11:00 Nasal Cannula 2 PG Care Time/CCT Total # of Minutes Spent Total Time Spent with Patient: Total time spent is greater than 50% in coordination of care (as documented) at patient's floor/unit and/or counseling patient: Coding Level of Care Code 48776 SUB INP/OBS CARE 2/35MIN Diagnoses Closed nondisplaced basicervical fracture of right femur, initial encounter S72.044A Encounter type: initial encounter Femur location: base of neck Fracture alignment: nondisplaced Aspiration pneumonia J69.0 Dry mouth R68.2 Loss of coordination R27.8 Hyponatremia E87.1 Postoperative hypoxia R09.02; Z98.890 Fall W19.XXXA Encounter type: initial encounter Systolic murmur R01.1 Hypokalemia E87.6 Paroxysmal atrial fibrillation I48.0 HTN (hypertension) I10 History of loop recorder Z98.890 Osteoporotic fracture of right hip M80.051A Vitamin D deficiency E55.9 (1) Closed right femoral fracture Encounter type: initial encounter Femur location: base of neck Fracture alignment: nondisplaced Qualified Code(s): S72.044A - Nondisplaced fracture of base of neck of right femur, initial encounter for closed fracture (7) Fall Encounter type: initial encounter Qualified Code(s): W19.XXXA - Unspecified fall, initial encounter
[2024-08-05] MEDS: LIDOCAINE 5% 1 PATCH TD STA (02:22)
[2024-08-05 07:05] LABS: Hematocrit (blood only) 28.7 % (37.0-47.0); Hemoglobin 9.6 g/dl (12.0-16.0); Mean Corpuscular Hemoglobin 30.3 pg (25.0-34.0); Mean Corpuscular Hgb Conc 33.4 g/dL (32.0-36.0); Mean Corpuscular Volume 90.5 fL (80.0-100.0); Mean Platelet Volume 10.3 fL (9.4-12.4); Platelet Count 432 K/uL (130-400); RDW Coefficient of Variation 12.3 % (11.5-14.5); Red Blood Count 3.17 M/uL (4.20-5.40); White Blood Count 10.28 K/ul (4.8-10.8)
[2024-08-05 07:28] LABS: BUN Creatinine Ratio 14.5 (10-20); Creatinine Clr Calc Pharmacy 46.2 ml/min; Potassium 3.8 mmol/L (3.5-5.1)
--- NOTE | 2024-08-05 11:18 | Nephrology Progress Note ---
Date of Service August 05, 2024 Assessment & Plan (1) Hyponatremia: (2) Hypokalemia: (3) Fall: (4) Anemia: (5) Chronic kidney disease, stage 3a: Plan 78-year-old female going history of stage III A CKD, b/l cr 1.1-1.3 mg/dl with h/o hypertension, chronic hyponatremia admitted to the hospital after fall and right hip fracture status post surgery on 07/29/2024. Urinalysis notable for proteinuria, hematuria, pyuria without bacteriuria with no significant proteinuria before. Prior renal imaging in 2022 was unremarkable. On admission sodium was 134 which dropped to 127-128 over last few days. Her weight is slightly higher than her baseline as well with elevated BNP and bilateral pleural effusion. Blood pressure is running high. Heart rate stable with history of A fib and occasional RVR, on amiodarone. Sodium dropped to 126 this morning. Kidney function improved.n I will order --Tolvapatn 15 mg po x 1 dose now, repeat Na in afternoon, continue on Lasix 20 mg daily on discharge --Continue fluid restriction to less than 1200 mL/day --Liberalize salt in diet --continue on salt tab 1 gm bid --Advised to keep well hydrated, avoid all NSAIDs. --OK to be discharged --repeat UA once Burden catheter is removed. Admission and Anticipated Discharge Date Admission Date: July 28, 2024 Farhat Lugo was seen and evaluated this morning. She denies any significant pain at surgical site, shortness of breath. Has Burden catheter in place. Blood pressure elevated. Sodium dropped to 126 this morning, other electrolyte accep table. Review of Systems Review of Systems: Detailed review of system was otherwise unremarkable. Physical Exam Constitutional: WD/WN, vitals as above no acute distress Eyes: + anicteric sclerae Respiratory: Auscultation: + diminished lung sounds Cardiovascular: RRR, no murmur, no edema Rate/Rhythm: + tachycardic and + irregularly irregular Extremities: + edema Skin: no rashes, warm and dry Neurologic: no focal motor deficits Psychiatric: Orientation: alert and oriented x 3 Affect: euthymic affect Results & Data Vital Signs (Past 12 Hours) Vital Signs Temp Pulse Resp BP BP Pulse Ox O2 Del Method 08/05/24 09:04 Nasal Cannula 08/05/24 07:03 36.6 C 93 H 17 169/95 H 98 Nasal Cannula 08/05/24 03:46 36.9 C 94 H 18 107/68 97 Nasal Cannula 08/04/24 23:38 36.2 C L 82 20 157/81 H 97 Nasal Cannula O2 Flow Rate 08/05/24 09:04 2 08/05/24 07:03 3.5 08/05/24 03:46 2 08/04/24 23:38 3 PG Care Time/CCT Total # of Minutes Spent Total Time Spent with Patient: Total time spent is greater than 50% in coordination of care (as documented) at patient's floor/unit and/or counseling patient: Coding Level of Care Code 86825 SUB INP/OBS CARE 235MIN Diagnoses Hyponatremia E87.1 Hypokalemia E87.6 Fall W19.XXXA Encounter type: initial encounter Anemia D64.9 Chronic kidney disease, stage 3a N18.31 (3) Fall Encounter type: initial encounter Qualified Code(s): W19.XXXA - Unspecified fall, initial encounter
[2024-08-05] MEDS: SODIUM CHLORIDE 1 GM TABLET PO SCH (11:21)
[2024-08-05] MEDS: TOLVAPTAN 15 MG TABLET PO ONE (11:21)
--- NOTE | 2024-08-05 15:16 | Cardiology Progress Note ---
Date of Service August 05, 2024 Assessment & Plan (1) Atrial fibrillation: Plan 1. Atrial fibrillation: She remains in atrial fibrillation. No overt symptoms. Rate control appears suboptimal. I think we will continue oral amiodarone for another few days at the current dose and then reduce to 200 mg daily. She will continue her systemic anticoagulation. I get also add a low-dose of beta- blockade. I think amiodarone 400 mg twice daily for another 4 days and then a reduced dose to 200 mg daily would be reasonable. Admission and Anticipated Discharge Date Admission Date: July 28, 2024 Subjective This afternoon the patient clinically feeling well. Some discomfort from lying in the bed. No breathing difficulty. No chest pain. No sense of palpitation. Anxious for discharge to rehab. Review of Systems Review of Systems: Per HPI Physical Exam Physical Exam: She is alert and oriented x3. Mood affect appear normal. She answered all que stions appropriately. HEENT: Sclerae are anicteric. Pupils are equal and reactive to light and accommodation. Extraocular movements were intact. Neuro: Cranial nerves intact Lungs: Lungs are clear to auscultation bilaterally. There are no rales wheezes or rhonchi. She has normal respiratory effort without use of accessory muscles. There is normal pulmonary excursion. Cardiac: The rhythm was irregular. S1 and S2 were normal. Crescendo systolic murmur, variable intensity and high-pitched at times.. The PMI was not markedly displaced on palpation. Extremities: Patient has bilateral radial pulses that are equal in intensity. There is no evidence cyanosis or clubbing. Mild bilateral lower extremity edema Skin: There are no rashes noted on examination today. Results & Data Vital Signs (Past 12 Hours) Vital Signs Temp Pulse Resp BP BP Pulse Ox O2 Del Method 08/05/24 11:29 36.5 C 69 16 166/107 H 99 Nasal Cannula 08/05/24 09:04 Nasal Cannula 08/05/24 07:03 36.6 C 93 H 17 169/95 H 98 Nasal Cannula 08/05/24 03:46 36.9 C 94 H 18 107/68 97 Nasal Cannula O2 Flow Rate 08/05/24 11:29 3 08/05/24 09:04 2 08/05/24 07:03 3.5 08/05/24 03:46 2 Laboratory Results Abnormal Lab Results 08/04/24 08/05/24 16:37 06:04 WBC 10.28 RBC 3.17 L Hgb 9.6 L Hct 28.7 L MCV 90.5 MCH 30.3 MCHC 33.4 RDW Std Deviation 40.0 RDW Coeff of Maria Antonia 12.3 Plt Count 432 H MPV 10.3 Sodium 126 L 126 L Potassium 3.6 3.8 Chloride 89 L 90 L Carbon Dioxide 30 31 Anion Gap 7 5 BUN 14 12 Creatinine 0.89 0.83 Est Cr Clr Drug Dosing 43.1 46.2 eGFR 66.32 72.11 BUN/Creatinine Ratio 15.7 14.5 Glucose 120 H 116 H Calcium 7.7 L 8.0 L B-Natriuretic Peptide 767 H PG Care Time/CCT Total # of Minutes Spent Total Time Spent with Patient: Total time spent is greater than 50% in coordination of care (as documented) at patient's floor/unit and/or counseling patient: Coding Level of Care Code 89475 SUB INP/OBS CARE 2/35MIN Diagnoses Atrial fibrillation I48.91
--- NOTE | 2024-08-05 16:36 | Orthopedic Progress Note ---
Date of Service August 05, 2024 Assessment & Plan (1) Closed right femoral fracture: Plan: POD 7 s/p Right hip hemiarthroplasty. Pain seems reasonably well controlled. She is scheduled to be transferred to [facility] today. WBAT with walker Continue pain control Continue Total hip precautions, 8 weeks DVT prophylaxis: TEDs x 3 weeks, foot pumps while in hospital, continue Eliquis twice daily A new silverlon dressing was applied Yesterday and is C/D/I and left in place Follow up appointment scheduled 08/08. Orthopedic discharge instructions in discharge tab. Admission and Anticipated Discharge Date Admission Date: July 28, 2024 Subjective This 78-year-old female 7 days status post right hip hemiarthroplasty with Dr. Diamond. Patient states she is doing very well. She states she does have a little bit of back pain today. She states she still has difficulty lifting her right leg off the table. Patient states she understands she will need to go to rehab facility to work on improving her strength and range of motion. Currently she denies chest pain, shortness of breath, fever, chills, sweats, nausea, vomiting, diarrhea or numbness or tingling in her right lower extremity. Review of Systems Review of Systems: All systems reviewed & are unremarkable except as noted in Subjective Physical Exam Physical Exam: Right hip: Silverlon dressing is clean dry and intact left in place. Patient has difficulty performing active straight leg raise test however she is able to actively dorsi and plantarflex her foot without issue. Her peripheral pulses are 2+. She is able to detect light sensation to touch over the pads of all digits. She tolerates light passive hip flexion to about 70 degrees but experiences some slight discomfort and pulling sensation with light passive internal and external hip rotation. She is neurovascularly intact in right lower extremity. Results & Data Vital Signs (Past 12 Hours) Vital Signs Temp Pulse Resp BP BP Pulse Ox O2 Del Method 08/05/24 15:18 36.7 C 96 H 17 149/86 H 98 Nasal Cannula 08/05/24 11:29 36.5 C 69 16 166/107 H 99 Nasal Cannula 08/05/24 09:04 Nasal Cannula 08/05/24 07:03 36.6 C 93 H 17 169/95 H 98 Nasal Cannula O2 Flow Rate 08/05/24 15:18 3 08/05/24 11:29 3 08/05/24 09:04 2 08/05/24 07:03 3.5 Diagnostic Findings Laboratory Results WBC 10.28 K/ul (4.8-10.8) 08/05/24 06:04 RBC 3.17 M/uL (4.20-5.40) L 08/05/24 06:04 Hgb 9.6 g/dl (12.0-16.0) L 08/05/24 06:04 Hct 28.7 % (37.0-47.0) L 08/05/24 06:04 MCV 90.5 fL (80.0-100.0) 08/05/24 06:04 MCH 30.3 pg (25.0-34.0) 08/05/24 06:04 MCHC 33.4 g/dL (32.0-36.0) 08/05/24 06:04 RDW Std Deviation 40.0 fL (36.4-46.3) 08/05/24 06:04 RDW Coeff of Maria Antonia 12.3 % (11.5-14.5) 08/05/24 06:04 Plt Count 432 K/uL (130-400) H 08/05/24 06:04 MPV 10.3 fL (9.4-12.4) 08/05/24 06:04 Immature Gran % (Auto) 0.6 % 08/01/24 07:21 Neut % (Auto) 81.9 % 08/01/24 07:21 Lymph % (Auto) 6.5 % 08/01/24 07:21 Coles % (Auto) 8.6 % 08/01/24 07:21 Eos % (Auto) 1.9 % 08/01/24 07:21 Baso % (Auto) 0.5 % 08/01/24 07:21 Neut # (Auto) 7.20 K/uL (1.40-6.50) H 08/01/24 07:21 Lymph # (Auto) 0.57 K/uL (1.20-3.40) L 08/01/24 07:21 Coles # (Auto) 0.76 K/uL (0.11-0.59) H 08/01/24 07:21 Eos # (Auto) 0.17 K/uL (0.00-0.50) 12/23/24 07:21 Baso # (Auto) 0.04 K/uL (0.00-0.20) 08/01/24 07:21 Immature Gran # (Auto) 0.05 K/uL (0.01-0.20) 08/01/24 07:21 PT 10.9 Seconds (9.0-12.0) 07/28/24 05:10 INR 1.0 (0.9-1.1) 07/28/24 05:10 APTT 28 Seconds (21-31) 07/28/24 05:10 PTT Ratio 1.0 07/28/24 05:10 Sodium 126 mmol/L (136-145) L 08/05/24 15:08 Potassium 3.8 mmol/L (3.5-5.1) 08/05/24 06:04 Chloride 90 mmol/L (98-107) L 08/05/24 06:04 Carbon Dioxide 31 mmol/L (21-32) 08/05/24 06:04 Anion Gap 5 (3-11) 08/05/24 06:04 BUN 12 mg/dl (6-23) 08/05/24 06:04 Creatinine 0.83 mg/dl (0.6-1.2) 08/05/24 06:04 Est Cr Clr Drug Dosing 46.2 ml/min 08/05/24 06:04 eGFR 72.11 08/05/24 06:04 BUN/Creatinine Ratio 14.5 (10-20) 08/05/24 06:04 Glucose 116 mg/dl (70-99(Fasting)) H 08/05/24 06:04 Osmolality 268 mOsm/kg (280-300) L 07/31/24 08:31 Calcium 8.0 mg/dl (8.6-10.3) L 08/05/24 06:04 Magnesium 2.0 mg/dl (1.7-2.4) 07/29/24 06:03 Total Bilirubin 0.4 mg/dl (0.2-1.0) 07/30/24 08:38 AST 28 U/L (13-39) 07/30/24 08:38 ALT 15 U/L (7-52) 07/30/24 08:38 Alkaline Phosphatase 51 U/L (34-104) 07/30/24 08:38 Troponin I High Sens 9.3 pg/ml (0-14) 07/28/24 18:43 B-Natriuretic Peptide 767 pg/ml (0-100) H 08/05/24 06:04 Total Protein 5.9 gm/dl (6.0-8.3) L 07/30/24 08:38 Albumin 3.4 gm/dl (3.4-5.0) 07/30/24 08:38 Globulin 2.5 gm/dl (2.5-4.0) 07/30/24 08:38 Albumin/Globulin Ratio 1.4 (0.9-2) 07/30/24 08:38 Vitamin B12 609 pg/ml (180-914) 07/30/24 08:38 Procalcitonin 0.18 ng/ml (0-0.5) 08/04/24 05:00 Urine Color Dark Yellow 07/30/24 10:56 Urine Appearance Cloudy (Clear) A 07/30/24 10:56 Urine pH 5.5 (4.5-7.5) 07/30/24 10:56 Ur Specific [place] > 1.045 (1.000-1.030) H 07/30/24 10:56 Urine Protein 2+ (Negative) H 07/30/24 10:56 Urine Glucose (UA) Negative (Negative) 07/30/24 10:56 Urine Ketones 1+ (Negative) H 07/30/24 10:56 Urine Blood 2+ (Negative) H 07/30/24 10:56 Urine Nitrite Negative (Negative) 07/30/24 10:56 Urine Bilirubin 1+ (Negative) H 07/30/24 10:56 Urine Urobilinogen Negative (Negative) 07/30/24 10:56 Ur Leukocyte Esterase 1+ (Negative) H 07/30/24 10:56 Urine WBC (Auto) 6-10 /hpf (0-5) H 07/30/24 10:56 Urine RBC (Auto) >20 /hpf (0-2) H 07/30/24 10:56 U Hyaline Cast (Auto) 3-5 /lpf (0-2) H 07/30/24 10:56 U Epithel Cells (Auto) 3-5 /hpf (0-2) H 07/30/24 10:56 Urine Bacteria (Auto) None Seen (None Seen) 07/30/24 10:56 Urine Mucus Present (None Prsent) A 07/30/24 10:56 Urine Osmolality 777 mOsm/kg (500-800) 07/31/24 12: Ur Random Sodium 10 mmol/L 07/31/24 12:27 Adenovirus (PCR) Not Detected (NotDetected) 07/30/24 10:40 B. pertussis DNA (PCR) Not Detected (NotDetected) 07/30/24 10:40 B.parapertussis DNA PCR Not Detected (NotDetected) 07/30/24 10:40 C. pneumoniae DNA (PCR) Not Detected (NotDetected) 07/30/24 10:40 Coronavirus OC43 (PCR) Not Detected (NotDetected) 07/30/24 10:40 Coronavirus HKU1 (PCR) Not Detected (NotDetected) 07/30/24 10:40 Coronavirus 229E (PCR) Not Detected (NotDetected) 07/30/24 10:40 SARS-CoV-2 (PCR) Not Detected (NotDetected) 07/30/24 10:40 Coronavirus NL63 (PCR) Not Detected (NotDetected) 07/30/24 10:40 Human Metapneumovir PCR Not Detected (NotDetected) 07/30/24 10:40 Influenza Type A (PCR) Not Detected (NotDetected) 07/30/24 10:40 Influenza Type B (PCR) Not Detected (NotDetected) 07/30/24 10:40 M. pneumoniae (PCR) Not Detected (NotDetected) 07/30/24 10:40 Parainfluenza 1 (PCR) Not Detected (NotDetected) 07/30/24 10:40 Parainfluenza 2 (PCR) Not Detected (NotDetected) 07/30/24 10:40 Parainfluenza 3 (PCR) Not Detected (NotDetected) 07/30/24 10:40 Parainfluenza 4 (PCR) Not Detected (NotDetected) 07/30/24 10:40 RSV (PCR) Not Detected (NotDetected) 07/30/24 10:40 Entero/Rhino (PCR) Not Detected (NotDetected) 07/30/24 10:40 Blood Type B Positive 07/28/24 07:45 Antibody Screen NEGATIVE 07/28/24 07:45 Impressions Hip X-Ray 07/29/24 15:21 EXAM: Radiographs of the Right Hip 1 View INDICATION: Intraoperative assessment. TECHNIQUE: Intraoperative images in 1 projection obtained. COMPARISON: No relevant prior studies available. FINDINGS: Femoral shaft device is in good position. No acute fracture. Resected femoral head. IMPRESSION: Intraoperative imaging during hip arthroplasty. ACT 112: Negative or not required by law. Electronically signed by Viviane Dunlap 07-29-2024 5:20 PM Pelvis X-Ray 07/29/24 16:49 EXAM: Radiographs of the Right Hip 1 View INDICATION: Postoperative check. TECHNIQUE: AP view of the right hip and pelvis not including the iliac crests. COMPARISON: No relevant prior studies available. FINDINGS: Bones/joints: Cemented hip arthroplasty component well-seated and normally located in 1 view. No fracture. Soft tissues: Expected postoperative gas and swelling noted in the operative bed. IMPRESSION: Satisfactory appearance of right hip arthroplasty. ACT 112: Negative or not required by law. Electronically signed by Viviane Dunlap 07-29-2024 7:[address] 07/30/24 17:38 EXAM: CT Head Without Intravenous Contrast INDICATION: Right upper extremity weakness. TECHNIQUE: Axial computed tomography images of the head/brain without intravenous contrast. Sagittal and/or coronal reformats are provided. Sagittal and coronal reformatted images were created and reviewed. This CT exam was performed using one or more of the following dose reduction techniques: automated exposure control, adjustment of the mA and/or kV according to patient size, and/or use of iterative reconstruction technique. COMPARISON: 12/10/2022 FINDINGS: Limitations: None. Brain and extra-axial spaces: Periventricular white matter hypodensities are unchanged. Stable more prominent hypodensity in the bilateral subinsular cortices. No acute infarct identified. No hemorrhage. No extra-axial collection noted. Bones/joints: No acute changes. Soft tissues: No significant abnormality noted. Vasculature: No acute abnormality noted. Sinuses: No layering fluid in the visualized portions of the paranasal sinuses. Mastoid air cells: No mastoid effusion. Orbits: No significant abnormality noted. IMPRESSION: Stable nonspecific periventricular white matter changes. No acute abnormality identified. ACT 112: Negative or not required by law. Electronically signed by Viviane Dunlap 07-30-2024 6:55 PM Brain MRI 07/31/24 09:03 EXAM: MR brain wo con CLINICAL HISTORY: ACUTE RUE LOSS OF CO-ORDINATION S/P RIGHT HIP REPLACEMENT DONE A FEW DAYS AGO SensoristTRONIC LOOP RECORDER NORMAL MODE BEST SCANS POSSIBLE, PT CONFUSED TECHNIQUE: MRI of the brain was performed without contrast with multiplanar sequences obtained. COMPARISON: 07/30/2024. FINDINGS: Brain Parenchyma: Senile atrophic changes of the brain with periventricular high signal foci in T2 and FLAIR suggesting chronic microvascular ischemic changes. No evidence of acute infarction or hemorrhage. Normal schrader-white matter differentiation. No mass lesions or focal cortical abnormalities identified. Ventricles and Sulci: Normal size and configuration of the lateral ventricles, third ventricle, and fourth ventricle, For age. No evidence of hydrocephalus or ventriculomegaly. Sylvian fissures, sulci, and cisterns are within normal limits. Posterior Fossa: Cerebellum and brainstem appear normal without evidence of mass lesions or signal abnormalities. Cranial Nerves: Normal course and appearance of cranial nerves identified. Vessels: Ectatic and tortuous vertebrobasilar artery compressing the anterior aspect of the is[place], denoting vertebral artery compression syndrome. No evidence of vascular malformations or aneurysms. Intracranial arteries and veins appear normal without evidence of stenosis or occlusion. Orbits and Skull Base: Orbits and skull base structures are normal without evidence of abnormalities. Left side mastoid air cells opacification suggestive of acute mastoiditis. IMPRESSION: 1. Senile atrophic changes of the brain with periventricular chronic microvascular ischemic changes. 2. Ectatic and tortuous vertebrobasilar artery compressing the anterior aspect of the israel, denoting vertebral artery compression syndrome. 3. No acute hemorrhage or infarction. 4. Left acute mastoiditis. 5. No significant interval changes. Electronically signed by Casey Woods 07-31-2024 12:30 PM Videofluoroscopic Swallow 08/01/24 10:00 FL video swallow CLINICAL HISTORY: r/o aspiration TECHNIQUE: Video fluoroscopy of the pharyngeal region was performed as barium mixtures of varying consistencies were administered to the patient by the speech pathologist. A formal esophagram was not performed. Comparison: None available at the time of this dictation. FINDINGS: Total fluoroscopy time: 1.49 minutes. Radiation dose: 55 mGy. The patient swallowed the different barium consistencies without difficulty. Penetration is seen without aspiration. Pooling of barium was noted in the bilateral piriform sinuses and valleculae. IMPRESSION: Penetration is seen without evidence of aspiration. Please see the speech pathology report for further details. ACT 112: Negative or not required by law. Electronically signed by: Rupesh Argueta M.D. 08/01/2024 11:40 AM Chest X-Ray 08/02/24 08:58 XR chest 2V PA/lateral CLINICAL HISTORY: Hypoxia. COMPARISON STUDY: Chest CT March 23, 2024. Chest radiograph July 31, 2024. FINDINGS: There is no pneumothorax. Moderate bilateral pleural effusions, left larger than right, have increased in size. Associated bibasilar opacities are noted. Pulmonary edema persists. Cardiomegaly is again noted. Electronic device projects over the left chest. IMPRESSION: 1. Cardiomegaly with persistent pulmonary edema. 2. Increase in moderate bilateral pleural effusions, left larger than right, with associated bibasilar opacities. ACT 112: Negative or not required by law. Electronically signed by: Bari Damon M.D. 08/02/2024 10:06 AM (1) Closed right femoral fracture Encounter type: initial encounter Femur location: base of neck Fracture alignment: nondisplaced Qualified Code(s): S72.044A - Nondisplaced fracture of base of neck of right femur, initial encounter for closed fracture
[2024-08-05 19:03] LABS: Appearance Urine Clear (Clear); Bilirubin Urine Negative (Negative); Blood Urine Negative (Negative); Color Urine Yellow; Glucose Urine UA Negative (Negative); Ketones Urine Negative (Negative); Leukocyte Esterase Urine Negative (Negative); Nitrite Urine Negative (Negative); Protein Urine Negative (Negative); Specific Gravity Urine 1.003 (1.000-1.030); Urobilinogen Urine Negative (Negative); pH Urine 7.5 (4.5-7.5)
[2024-08-05 19:36] VITALS: RESP 18
[2024-08-05] MEDS: METOPROLOL TARTRATE 25 MG TAB PO SCH (21:17)
[2024-08-06 05:12] LABS: Albumin Level 2.9 gm/dl (3.4-5.0); BUN Creatinine Ratio 12.9 (10-20); Calcium 8.4 mg/dl (8.6-10.3); Creatinine Clr Calc Pharmacy 45.1 ml/min; Phosphorus 3.2 mg/dl (2.5-4.9); Potassium 3.9 mmol/L (3.5-5.1)
--- NOTE | 2024-08-06 06:01 | Hospitalist Progress Note ---
Date of Service August 05, 2024 Assessment & Plan (1) Closed right femoral fracture: Plan: s/p mechanical fall after a vertigo episode (longstanding balance issues) s/p Right Hip Hemiarthroplasty performed by Dr Diamond on 07/29 Suspected osteoporotic fracture but will need DEXA as follow up on discharge PT/OT: may need placement. (2) Aspiration pneumonia: Plan: Video swallow completed. no aspiration. Issues in the esophagus. Unasyn IV chest x ray showed pleural effusions. ordered Lasix again on 08/04 potassium replensihed as bmp showed hypokaelmia (3) Dry mouth: Plan: Despite being on nortriptyline for 25 years this is the most likely medication contributing towards this and making her eating difficulty, will hold starting tonight 07/31 appears improved. will monitor. restarting nortriptyline at a lower dose. (4) Loss of coordination: Plan: Longstanding balance issues although having significant upper extremity right > left co-ordination difficulty which she reports is new CT head taken yesterday for this reason shows no acute abnormality, will get Brain MRI today No opiates to account for this since 07/28 but will discontinue irregardless Possible hyponatremia related but lower suspicion of this at current levels (5) Hyponatremia: Plan: remains low. consulted nephrology for assistance. Despite patient being fluid overloaded, her sodium continues to drop with diuret ics. Tolvaptan x1 (6) Postoperative hypoxia: Plan: WBC actually improved post operatively from yesterday but procalcitonin positive and new patchy infiltrates on CXR with post operative fever Incentive spirometer, flutter valve, sputum culture Start Unasyn to cover for aspiration pneumonia Follow up blood cultures (7) Fall: Plan: Longstanding balance issues B12 level normal Interrogated loop recorder-no arrhythmias around time of fall but did have several hours of Afib in 100-150s on 07/23 and 07/24 which is more than her usual burden. No further episodes of a. fib on med/tele (8) Systolic murmur: Plan: Systolic loud murmur on exam. Sclerotic aortic valve but no significant stenosis, no further workup required (9) Hypokalemia: Plan: Resolved with supplementation given on admission, will repeat with AM labs (10) Paroxysmal atrial fibrillation: Plan: had several hours of rapid afib on 07/23 and 07/24 on loop recorder Resumed Eliquis post operatively Patient back in a fib, placed on amiodarone. (11) HTN (hypertension): Plan: BPs quite elevated here likely due to pain, anxiety disorder Avoid IV PRN medications, will discontinue hydralazine treat pain and anxiety Cardio wanted her to be on Toprol XL for atrial tach but she declined to take it-if med needed, would be good first line choice (12) History of loop recorder: Plan: for multiple dizzy spells has PAF and atrial tachycardia Follows with Dr. Acosta (13) Osteoporotic fracture of right hip: Plan: Suspected osteoporosis, will need DEXA scan as follow up (14) Vitamin D deficiency: Plan: Add vitamin D2 50,000 units weekly to her prior regimen as appears to be chronically deficient Plan Depression with anxiety - continue home Xanax prn, sertraline, nortriptyline Hypothyroidism - recent TSH normal, continue home levothyroxine VTE Prophylaxis - Eliquis Diet - regular Disposition - continue admission to [facility]-tele DNR/DNI as discussed with pt. on admission. Her daughter would be her POA Admission and Anticipated Discharge Date Admission Date: July 28, 2024 Subjective 78 yo female reports no new symptoms. Currently states she feels well. Physical Exam Constitutional: WD/WN, vitals as above Respiratory: normal respiratory effort, lungs clear to auscultation Cardiovascular: Rate/Rhythm: regular rate and regular rhythm Heart Sounds: + murmur (systolic 4/6) Extremities: normal capillary refill; no calf tenderness and no pedal edema Gastrointestinal (Abdomen): normal bowel sounds, soft, nontender, no hepatosplenomegaly Neurologic: moves all extremities and awake Speech / Cognition: + expressive aphasia Results & Data Results & Data Vital Signs (Past 12 Hours) Vital Signs Temp Pulse Pulse Resp BP BP Pulse Ox 08/06/24 03:21 36.7 C 61 18 177/80 H 97 08/05/24 22:56 36.8 C 79 18 166/98 H 99 08/05/24 22:15 86 08/05/24 21:27 08/05/24 19:35 36.6 C 100 H 18 134/87 94 O2 Del Method O2 Flow Rate 08/06/24 03:21 Nasal Cannula 3 08/05/24 22:56 Nasal Cannula 3 08/05/24 22:15 12/27/24 21:27 Nasal Cannula 2 08/05/24 19:35 Nasal Cannula 3 PG Care Time/CCT Total # of Minutes Spent Total Time Spent with Patient: Total time spent is greater than 50% in coordination of care (as documented) at patient's floor/unit and/or counseling patient: Coding Level of Care Code 25248 SUB INP/OBS CARE 2/35MIN Diagnoses Closed nondisplaced basicervical fracture of right femur, initial encounter S72.044A Encounter type: initial encounter Femur location: base of neck Fracture alignment: nondisplaced Aspiration pneumonia J69.0 Dry mouth R68.2 Loss of coordination R27.8 Hyponatremia E87.1 Postoperative hypoxia R09.02; Z98.890 Fall W19.XXXA Encounter type: initial encounter Systolic murmur R01.1 Hypokalemia E87.6 Paroxysmal atrial fibrillation I48.0 HTN (hypertension) I10 History of loop recorder Z98.890 Osteoporotic fracture of right hip M80.051A Vitamin D deficiency E55.9 (1) Closed right femoral fracture Encounter type: initial encounter Femur location: base of neck Fracture alignment: nondisplaced Qualified Code(s): S72.044A - Nondisplaced fracture of base of neck of right femur, initial encounter for closed fracture (7) Fall Encounter type: initial encounter Qualified Code(s): W19.XXXA - Unspecified fall, initial encounter
[2024-08-06 06:35] LABS: Hematocrit (blood only) 29.5 % (37.0-47.0); Hemoglobin 9.7 g/dl (12.0-16.0); Mean Corpuscular Hgb Conc 32.9 g/dL (32.0-36.0); Mean Corpuscular Volume 91.3 fL (80.0-100.0); Mean Platelet Volume 9.9 fL (9.4-12.4); Platelet Count 504 K/uL (130-400); RDW Coefficient of Variation 12.5 % (11.5-14.5); RDW Standard Deviation 41.7 fL (36.4-46.3); Red Blood Count 3.23 M/uL (4.20-5.40); White Blood Count 8.76 K/ul (4.8-10.8)
[2024-08-06 07:09] VITALS: BP 157/79; TEMP 97.9; O2SAT 93
[2024-08-06 07:25] VITALS: PULSE 62
--- NOTE | 2024-08-06 11:33 | Nephrology Progress Note ---
Date of Service August 06, 2024 Assessment & Plan (1) Hyponatremia: (2) Hypokalemia: (3) Fall: (4) Anemia: (5) Chronic kidney disease, stage 3a: Plan 78-year-old female going history of stage III A CKD, b/l cr 1.1-1.3 mg/dl with h/o hypertension, chronic hyponatremia admitted to the hospital after fall and right hip fracture status post surgery on 07/29/2024. Urinalysis notable for proteinuria, hematuria, pyuria without bacteriuria with no significant proteinuria before. Prior renal imaging in 2022 was unremarkable. On admission sodium was 134 which dropped to 127-128 over last few days. Her weight is slightly higher than her baseline as well with elevated BNP and bilateral pleural effusion. Blood pressure is running high. Heart rate stable with history of A fib and occasional RVR, on amiodarone. Sodium improved to 133 this morning. --continue on Lasix 20 mg daily on discharge --Continue fluid restriction to less than 1200 mL/day --Liberalize salt in diet --continue on salt tab 1 gm bid --Advised to keep well hydrated, avoid all NSAIDs. --OK to be discharged. Admission and Anticipated Discharge Date Admission Date: July 28, 2024 Farhat Lugo was seen and evaluated this morning. She reports overall feeling well and ready to be discharged, denies any significant pain at surgical site, shortness of breath. Sodium improved to 133, other electrolyte acceptable. Review of Systems Review of Systems: Detailed review of system was otherwise unremarkable. Physical Exam Constitutional: WD/WN, vitals as above no acute distress Eyes: + anicteric sclerae Respiratory: Auscultation: + diminished lung sounds Cardiovascular: RRR, no murmur, no edema Rate/Rhythm: + irregularly irregular Extremities: + edema Skin: no rashes, warm and dry Neurologic: no focal motor deficits Psychiatric: Orientation: alert and oriented x 3 Affect: euthymic affect Results & Data Vital Signs (Past 12 Hours) Vital Signs Temp Pulse Pulse Resp BP Pulse Ox O2 Del Method 08/06/24 09:33 Nasal Cannula 08/06/24 07:24 62 08/06/24 07:08 36.6 C 64 18 157/79 H 93 Nasal Cannula 08/06/24 03:21 36.7 C 61 18 177/80 H 97 Nasal Cannula O2 Flow Rate 08/06/24 09:33 3 08/06/24 07:24 08/06/24 07:08 3 08/06/24 03:21 3 PG Care Time/CCT Total # of Minutes Spent Total Time Spent with Patient: Total time spent is greater than 50% in coordination of care (as documented) at patient's floor/unit and/or counseling patient: Coding Level of Care Code 16206 SUB INP/OBS CARE 2/35MIN Diagnoses Hyponatremia E87.1 Hypokalemia E87.6 Fall W19.XXXA Encounter type: initial encounter Anemia D64.9 Chronic kidney disease, stage 3a N18.31 (3) Fall Encounter type: initial encounter Qualified Code(s): W19.XXXA - Unspecified fall, initial encounter
--- NOTE | 2024-08-06 11:58 | Discharge Summary ---
Discharge Summary Date of Service August 06, 2024 Principal Dx & Hospital Course #1 = Principal Diagnosis (1) Closed right femoral fracture: s/p mechanical fall after a vertigo episode (longstanding balance issues) s/p Right Hip Hemiarthroplasty performed by Dr Diamond on 07/29 Suspected osteoporotic fracture but will need DEXA as follow up on discharge PT/OT: may need placement. (2) Aspiration pneumonia: Video swallow completed. no aspiration. Issues in the esophagus. Unasyn IV chest x ray showed pleural effusions. ordered Lasix again on 08/04 potassium replensihed as bmp showed hypokaelmia (3) Dry mouth: Despite being on nortriptyline for 25 years this is the most likely medication contributing towards this and making her eating difficulty, will hold starting tonight 07/31 appears improved. will monitor. restarting nortriptyline at a lower dose. (4) Loss of coordination: Longstanding balance issues although having significant upper extremity right > left co-ordination difficulty which she reports is new CT head taken yesterday for this reason shows no acute abnormality, will get Brain MRI today No opiates to account for this since 07/28 but will discontinue irregardless Possible hyponatremia related but lower suspicion of this at current levels (5) Hyponatremia: remains low. consulted nephrology for assistance. Despite patient being fluid overloaded, her sodium continues to drop with diuretics. Tolvaptan x1 (6) Postoperative hypoxia: WBC actually improved post operatively from yesterday but procalcitonin positive and new patchy infiltrates on CXR with post operative fever Incentive spirometer, flutter valve, sputum culture Start Unasyn to cover for aspiration pneumonia Follow up blood cultures (7) Fall: Longstanding balance issues B12 level normal Interrogated loop recorder-no arrhythmias around time of fall but did have several hours of Afib in 100-150s on 07/23 and 07/24 which is more than her usual burden. No further episodes of a. fib on med/tele (8) Systolic murmur: Systolic loud murmur on exam. Sclerotic aortic valve but no significant stenosis, no further workup required (9) Hypokalemia: Resolved with supplementation given on admission, will repeat with AM labs (10) Paroxysmal atrial fibrillation: had several hours of rapid afib on 07/23 and 07/24 on loop recorder Resumed Eliquis post operatively Patient back in a fib, placed on amiodarone. (11) HTN (hypertension): BPs quite elevated here likely due to pain, anxiety disorder Avoid IV PRN medications, will discontinue hydralazine treat pain and anxiety Cardio wanted her to be on Toprol XL for atrial tach but she declined to take it-if med needed, would be good first line choice (12) History of loop recorder: for multiple dizzy spells has PAF and atrial tachycardia Follows with Dr. Acosta (13) Osteoporotic fracture of right hip: Suspected osteoporosis, will need DEXA scan as follow up (14) Vitamin D deficiency: Add vitamin D2 50,000 units weekly to her prior regimen as appears to be chronically deficient Plan Depression with anxiety - continue home Xanax prn, sertraline, nortriptyline Hypothyroidism - recent TSH normal, continue home levothyroxine VTE Prophylaxis - Eliquis Diet - regular Disposition - continue admission to med-tele DNR/DNI as discussed with pt. on admission. Her daughter would be her POA Admission HPI Per Admitting Provider This pt is a 78-year-old female with a h/o HTN, dyslipidemia, anxiety/depression, GERD, hypothyroidism, vertigo, and paroxysmal atrial fibrillation on Eliquis who had one of her usual vertigo spells and fell around 3:00 AM after getting up to go to the bathroom. She fell onto her right side and was unable to get up secondary to hip pain. She denies striking her head. There was no loss of consciousness. She does have some left-sided lower rib pain but no other injuries. She denies associated chest pain, SOB, heart palpitations with the fall. A hip xray showed right hip fracture. She will be admitted for right hip fracture. I contacted Orthopedic Surgery who will perform surgical repair tomorrow after Eliquis held for 24 hours or more. Last dose of Eliquis was 8:00 PM on 07/27. Discharge Exam Constitutional WD/WN, vitals as above Respiratory normal respiratory effort, lungs clear to auscultation Cardiovascular Rate/Rhythm: regular rate and regular rhythm Heart Sounds: + murmur (systolic 4/6) Extremities: normal capillary refill; no calf tenderness and no pedal edema Gastrointestinal (Abdomen) normal bowel sounds, soft, nontender, no hepatosplenomegaly Neurologic moves all extremities, awake and + confused Speech / Cognition: + expressive aphasia Discharge Plan Discharge Items Reason For Visit: R HIP FRACTURE Follow-up/Referrals: Roopa Vo DO [Primary Care Provider] - Morena Murphy PA-C [Physician Physical Fitness Teacher] - 08/08/24 11:00 am Addtl Logistics Specialist Provider Instructions: ORTHOPEDIC DISCHARGE INSTRUCTIONS -Weight bearing as tolerated with walker to assist in ambulation -Posterior hip precautions for 8 weeks: DO NOT flex your hip past 90, DO NOT internally rotate your foot/leg, DO NOT cross your legs -Please do rehab exercises as instructed -Frequently ice, at least 20 minutes 5 times a day. -You may shower on Post op Day 3. Leave Mepilex/Silverlon dressing in tact until follow up appt in 2 weeks. Your dressing is water-resistant, meaning you can shower with it on as long as it is in-tact. Letting some running water run over top of it from the shower is okay. You cannot submerge your incision in water. No baths, hot tubs or swimming pools. Keep dressing clean and dry. If your dressing starts to peel off or gets moisture under it, nursing may reinforce as needed. -DVT prophylaxis: Continue Eliquis, RABIA compression stockings for 3 weeks -Pain control: Recommend oxycodone 5mg every 4-6 hours as needed, Tylenol 500- 1000mg every 8 hours -To promote healing, please take 500mg Vitamin C twice a day with meals x 2 weeks and Iron 325 mg twice a day with meals x 2 weeks -While on narcotic pain medication and iron supplement, we recommend you take a stool softener to prevent constipation -Follow up in 2 weeks with [facility] for post op evaluation and Zip-line removal. Please call our office sooner @ [phone] if you have any questions or concerns Medications and DC Order Prescriptions: No Action cyanocobalamin (vitamin B-12) 1,000 mcg capsule 1,000 mcg PO DAILY Qty: 30 0RF cetirizine [Zyrtec] 10 mg tablet 10 mg PO DAILY PRN (Reason: allergy symptoms) Qty: 90 1RF fluticasone propionate [Flonase Allergy Relief] 50 mcg/actuation spray,suspension 1 spray INTNAS DAILY Qty: 48 1RF Rx Instructions: administer into each nostril Eliquis 5 mg tablet 5 mg PO BID Qty: 180 3RF lovastatin 40 mg tablet 40 mg PO QPM Qty: 90 1RF sertraline 50 mg tablet 50 mg PO DAILY Qty: 90 2RF cholecalciferol (vitamin D3) 125 mcg (5,000 unit) capsule 125 mcg PO DAILY Qty: 30 0RF Rx Instructions: INCREASED 06/09/24 FROM LAB RESULTS nortriptyline 25 mg capsule 50 mg PO HS Qty: 180 1RF levothyroxine 100 mcg tablet 100 mcg PO QAM Qty: 90 2RF alprazolam 0.25 mg tablet 0.25 mg PO DAILY PRN (Reason: anxiety) Qty: 30 0RF Rx Instructions: PDMP check 10/01/20 polyethylene glycol 3350 17 gram/dose powder 17 gm PO DAILY PRN (Reason: constipation) Calcium 600 with Vitamin D3 600 mg(1,500mg) -400 unit tablet,chewable 1 tab PO BID Admission Data Admit Date/Time: 07/28/24 07:40 Attending Provider: Bryan Fierro Admit Provider: Miriam Hutchinson Primary Care Provider: Roopa Vo [facility]; Coretta Hinton; Sathya Nielsen; Shawn Diamond; Gustabo Kirby; Carmelina Rivas Hospital Stay Data Consultations 07/28/24 05:59 ED Decision to Admit Stat 07/28/24 07:42 Consult Anesthesiology Routine Consult Orthopedic Surgery Routine 08/02/24 08:45 Consult Cardiology Routine 08/04/24 11:25 Consult Nephrology Routine Procedures Performed Operation Date: 07/29/24 07:00 Actual Procedures p Right Hip Hemiarthroplasty(Right) - Shawn Diamond MD Diagnostic Imagining Performed 07/30/24 17:38 CT head/brain wo con Stat 07/31/24 09:03 MR brain wo con Routine 08/01/24 10:00 FL video swallow Routine Coding Diagnoses Closed nondisplaced basicervical fracture of right femur, initial encounter S72.044A Encounter type: initial encounter Femur location: base of neck Fracture alignment: nondisplaced Aspiration pneumonia J69.0 Dry mouth R68.2 Loss of coordination R27.8 Hyponatremia E87.1 Postoperative hypoxia R09.02; Z98.890 Fall W19.XXXA Encounter type: initial encounter Systolic murmur R01.1 Hypokalemia E87.6 Paroxysmal atrial fibrillation I48.0 HTN (hypertension) I10 History of loop recorder Z98.890 Osteoporotic fracture of right hip M80.051A Vitamin D deficiency E55.9
[2024-08-06] MEDS: FUROSEMIDE 40 MG TAB PO ONE (12:32)
== END 2024-08-06 13:04 | DRG 521 ==
LOC: SUATTDRO → ED 04:54 → SUATTDRO 07:40 → EDINP 07:40 → 2W 12:33
DX: Z88.5 Allergy status to narcotic agent; Z79.899 Other long term (current) drug therapy; E87.6 Hypokalemia; T43.015A Adverse effect of tricyclic antidepressants, initial encounter; R68.2 Dry mouth, unspecified; Z88.8 Allergy status to other drugs, medicaments and biological substances; R01.1 Cardiac murmur, unspecified; Z66 Do not resuscitate; M80.051A Age-related osteoporosis with current pathological fracture, right femur, initial encounter for fracture; Z79.890 Hormone replacement therapy; R41.0 Disorientation, unspecified; I48.0 Paroxysmal atrial fibrillation; Z79.01 Long term (current) use of anticoagulants; I47.19 Other supraventricular tachycardia; R09.02 Hypoxemia; R27.9 Unspecified lack of coordination; E78.5 Hyperlipidemia, unspecified; J69.0 Pneumonitis due to inhalation of food and vomit; F41.8 Other specified anxiety disorders; I12.9 Hypertensive chronic kidney disease with stage 1 through stage 4 chronic kidney disease, or unspecified chronic kidney disease; E03.9 Hypothyroidism, unspecified; M47.011 Anterior spinal artery compression syndromes, occipito-atlanto-axial region; N18.31 Chronic kidney disease, stage 3a; E87.1 Hypo-osmolality and hyponatremia; Z95.818 Presence of other cardiac implants and grafts; R26.81 Unsteadiness on feet; Z88.1 Allergy status to other antibiotic agents; W18.30XA Fall on same level, unspecified, initial encounter

== ENCOUNTER 2024-08-25 07:42 | Inpatient (IN) ==
--- OUTSIDE RECORDS SUMMARY | 2024-08-25 07:48 | External Medical Summary ---
Author Name Unknown Address Unknown Organization K0G:LABORATORY [facility] [address] [place] [address] Laboratory Report Ordering Provider Test Date Status TREVER DAVIS 08/21/2024 06:31:08 Final Observation Date Value Abnormality Reference (Units ) Status Color of Urine by Auto 08/21/2024 06:31:08 Yellow Light Yellow, Yellow, Dark Yellow Final Clarity, Urine 08/21/2024 06:31:08 Slightly Cloudy Abnormal Clear Final Glucose [Mass/volume] in Urine by Automated test strip 08/21/2024 06:31:08 Negative Negative (mg/dL) Final Bilirubin.total [Presence] in Urine by Automated test strip 08/21/2024 06:31:08 Negative Negative Final Ketones [Mass/volume] in Urine by Automated test strip 08/21/2024 06:31:08 Trace Abnormal Negative (mg/dL) Final Specific gravity, Urine 08/21/2024 06:31:08 1.020 1.003-1.030 Final Hemoglobin [Presence] in Urine by Automated test strip 08/21/2024 06:31:08 Negative Negative Final pH, Urine 08/21/2024 06:31:08 6.5 5.0-7.5 (Units) Final Protein [Mass/volume] in Urine by Automated test strip 08/21/2024 06:31:08 Trace Abnormal Negative (mg/dL) Final Urobilinogen [Mass/volume] in Urine by Automated test strip 08/21/2024 06:31:08 2.0 Abnormal 0.2, 1.0 (mg/dL) Final Nitrite [Presence] in Urine by Automated test strip 08/21/2024 06:31:08 Negative Negative Final Leukocyte esterase [Presence] in Urine by Automated test strip 08/21/2024 06:31:08 Negative Negative Final RBC, Urine 08/21/2024 06:31:08 0-2 0-2 (/HPF) Final WBC, Urine 08/21/2024 06:31:08 3-5 Abnormal 0-2 (/HPF) Final Bacteria [#/area] in Urine sediment by Microscopy high power field 08/21/2024 06:31:08 0-25 0-25 (/HPF) Final Calcium oxalate crystals [#/area] in Urine sediment by Microscopy high power field 08/21/2024 06:31:08 10-19 Abnormal None (/HPF) Final Performing Location LABORATORY [facility] [address] [place] [address]
--- OUTSIDE RECORDS SUMMARY | 2024-08-25 07:49 | External Medical Summary ---
Author Name Unknown Address Unknown Organization K09:[facility]ATORY [place] [address] Laboratory Report Ordering Provider Test Date Status AMIRAH MORENO 08/16/2024 06:54:05 Final Observation Date Value Abnormality Reference (Units ) Status WBC, Total 08/16/2024 06:54:05 6.70 4.00-10.8 0 (K/uL) Final RBC 08/16/2024 06:54:05 2.83 3.85-5.15 (M/uL) Final Hemoglobin 08/16/2024 06:54:05 8.6 Below low normal 12 .0-15.3 (g/dL) Final HCT 08/16/2024 06:54:05 27.1 Below low normal 36. 0-45.2 (%) Final MCV 08/16/2024 06:54:05 95.8 81.5-97.5 (fL) Final MCH 08/16/2024 06:54:05 30.4 27.0-34.0 (pg) Final MCHC 08/16/2024 06:54:05 31.7 32.0-36.0 (g/dL) Final RDW 08/16/2024 06:54:05 13.2 11.5-15.5 (%) Final Platelets 08/16/2024 06:54:05 543 Above high normal 14 0-400 (K/uL) Final MPV 08/16/2024 06:54:05 9.7 6.6-11.1 ( fL) Final Performing Location [facility] [address]
--- OUTSIDE RECORDS SUMMARY | 2024-08-25 07:49 | External Medical Summary ---
Author Name Unknown Address Unknown Organization K09:[facility]ATORY [place] [address] Laboratory Report Ordering Provider Test Date Status AMIRAH MORENO 08/19/2024 06:50:36 Final Observation Date Value Abnormality Reference (Units ) Status BUN 08/19/2024 06:50:36 8 6-20 (mg/dL) Final Creatinine 08/19/2024 06:50:36 0.8 0.5-1.0 (mg/dL) Final Glomerular filtration rate/1.73 sq M.predicted [Volume Rate/Area] in Serum, Plasma or Blood by Creatinine-based formula (CKD-EPI) 08/19/2024 06:50:36 74 >=60 (mL/min) Final eGFR is calculated based on the CKD-EPI 2020 equation. Sodium 08/19/2024 06:50:36 130 Below low normal 135 -146 (mmol/L) Final Potassium 08/19/2024 06:50:36 3.9 3.5-5.1 (m mol/L) Final Cl 08/19/2024 06:50:36 89 Below low normal 98- 107 (mmol/L) Final CO2 08/19/2024 06:50:36 28 22-32 (mmo l/L) Final Anion gap 08/19/2024 06:50:36 13 7-15 (mmol /L) Final Glucose 08/19/2024 06:50:36 111 70-120 (mg /dL) Final Calcium 08/19/2024 06:50:36 8.6 8.4-10.2 ( mg/dL) Final Performing Location [facility] [place] [address]
--- OUTSIDE RECORDS SUMMARY | 2024-08-25 07:49 | External Medical Summary ---
Author Name Unknown Address Unknown Organization K01:LABORATORY [facility] - [address] [facility] [address] Laboratory Report Ordering Provider Test Date Status NICOLLE GOODEN 08/10/2024 06:07:08 Final Observation Date Value Abnormality Reference (Units ) Status T4, Free 08/10/2024 06:07:08 1.5 0.9-1.7 (n g/dL) Final Performing Location LABORATORY [facility] - [address] [facility] [address]
--- OUTSIDE RECORDS SUMMARY | 2024-08-25 07:49 | External Medical Summary ---
Author Name Unknown Address Unknown Organization K0G:LABORATORY [facility] [address] [place] [address] Laboratory Report Ordering Provider Test Date Status AMIRAH MORENO 08/21/2024 06:11:59 Final Observation Date Value Abnormality Reference (Units ) Status WBC, Total 08/21/2024 06:11:59 7.66 4.00-10.8 0 (K/uL) Final RBC 08/21/2024 06:11:59 3.08 3.85-5.15 (M/uL) Final Hemoglobin 08/21/2024 06:11:59 9.2 Below low normal 12 .0-15.3 (g/dL) Final HCT 08/21/2024 06:11:59 29.2 Below low normal 36. 0-45.2 (%) Final MCV 08/21/2024 06:11:59 94.8 81.5-97.5 (fL) Final MCH 08/21/2024 06:11:59 29.9 27.0-34.0 (pg) Final MCHC 08/21/2024 06:11:59 31.5 32.0-36.0 (g/dL) Final RDW 08/21/2024 06:11:59 12.8 11.5-15.5 (%) Final Platelets 08/21/2024 06:11:59 484 Above high normal 14 0-400 (K/uL) Final MPV 08/21/2024 06:11:59 10.1 6.6-11.1 ( fL) Final Performing Location LAB[facility]ATORY [facility] [address] [place] [address]
--- OUTSIDE RECORDS SUMMARY | 2024-08-25 07:49 | External Medical Summary | Continuity of Care Document ---
Author Name Unknown Organization [place] [id number] Address [address] [place] [id number] Care Team Providers Care Segment Producer Name Role Phone MattosbaldoRoopa Primary Care Physician [phone] Encounter [facility] [id number] Date(s): 08/08/24 - 08/08/24 [facility] [address] [place] [id number] [facility] [address] [place] [id number] Encounter Diagnosis S/P hip hemiarthroplasty(Discharge Diagnosis) - 08/08/24 Discharge Disposition: Home or Self Care Attending Physician: ANJANA Murphy [place] Referring Physician: MD Angelic, Oswaldo Gonzalez Allergies, Adverse Reactions, Alerts No Known Allergies Assessment and Plan Extracted from: Title:Orthopaedics Office Visit Note Author:Manan perez PA-C, [place] Date:08/08/24 1.S/P hip hemiarthroplasty The patient is doing well and can continue to progress with physical therapy/HEP. They can continue with pain medication as needed, ice, compression and elevation. Recommended Tylenol 1000 mg 3 times a day or every 8 hours. Band-Aids were placed over the blisters which can be changed daily. They will follow up in [address] Diamond with x-rays. They will call sooner if they have any questions or concerns. The patient expressed verbal understanding and agreement with this plan. Medications ALPRAZolam 0.25 mg oral tablet Start: 01/29/15 4:18:00 PM EDT, 1 tab, PO, Daily, PRN: as needed for anxiety Start Date: 01/29/15 Status: Ordered amLODIPine 2.5 mg oral tablet Start: 02/01/14 4:03:00 PM EDT, 1 tab, PO, Daily Start Date: 02/01/14 Status: Ordered cloNIDine 0.2 mg oral tablet Start: 02/01/14 4:05:00 PM EDT, 1 tab, PO, qhs Start Date: 02/01/14 Status: Ordered Eliquis 5 mg oral tablet Start: 08/08/24 10:51:00 AM EST Start Date: 08/08/24 Status: Ordered Hydroquinone and Sunscreen 4% topical cream Start: 02/01/14 4:16:00 PM EDT, 1 appl, topical, bid, Disp# 30 g, Refills: 2, Note to Pharmacy: Any form of 4% hydroquinone is acceptable. Cream, gel or emulsion, with or without sunscreen., Pharmacy:[facility]/pharmacy #[id number] Start Date: 02/01/14 Status: Ordered lovastatin Start: 09/26/11 4:31:00 PM EST, 40 mg =, PO, Daily Start Date: 09/26/11 Status: Ordered Metoprolol Succinate ER 25 mg oral tablet, extended release Start: 08/08/24 10:51:00 AM EST Start Date: 08/08/24 Status: Ordered minocycline 50 mg oral capsule Start: 01/29/15 4:38:00 PM EDT, 1 cap, PO, bid, Disp# 60 cap, Refills: 3, Pharmacy: [facility]/pharmacy #[id number] Start Date: 01/29/15 Stop Date: 05/29/15 Status: Ordered nadolol 40 mg oral tablet Start: 01/29/15 4:17:00 PM EDT, 1 tab, PO, Daily Start Date: 01/29/15 Status: Ordered nortriptyline 25 mg oral capsule Start: 01/29/15 4:17:00 PM EDT, 1 cap, PO, Daily Start Date: 01/29/15 Status: Ordered nystatin 100,000 units/mL oral suspension Start: 08/08/24 10:51:00 AM EST Start Date: 08/08/24 Status: Ordered sertraline 50 mg oral tablet Start: 08/08/24 10:51:00 AM EST Start Date: 08/08/24 Status: Ordered Synthroid Start: 09/26/11 4:32:00 PM EST, 88 mcg =, PO, Daily Start Date: 09/26/11 Status: Ordered triamcinolone 0.1% topical cream Start: 03/18/18 1:55:00 PM EDT, 1 appl, topical, bid, Disp# 80 g, Refills: 1, to spots on legs., Pharmacy: [facility]/pharmacy #[id number] Start Date: 03/18/18 Status: Ordered Mental Status 08/08/24 Barriers to Learning one year None evide nt Mandatory Health Literacy Documentation Yes Health Literacy Communication Barriers N ever Primary Language Slovenian Problem List Condition Confirmation Course Effective Dates Status H ealth Status Informant Anxiety Confirmed Active Hypertension Confirmed Active Hypothyroidism Confirmed Active Elevated cholesterol Confirmed Active Diagnosis Diagnosis Type Effective Dates Health Status Clinical Service Informant S/P hip hemiarthroplasty Discharge Diagnosis 08/08/24 Procedures Procedure Date Related Diagnosis Body Site Status None Completed Social History Social History Type Response Smoking Status Never smoked cigaret benton Sex Female Sex Representation Female (finding) Ortho Outpt Note * ANJANA Murphy, Morena: PERFORM Event Display: Ortho Outpt Note Authored Date: [id number] Primary Care Provider MD Gilda, Roopa Castellanos Referring Provider MD Angelic, Oswaldo Gonzalez Chief Complaint R hip f/u History of Present Illness Denise is a 70-year-old female here today 2 weeks status post right hip hemiarthroplasty with Dr. Diamond. She says she is still having some pain. She is only getting 1 Tylenol a day. She is currently residing at [facility]. She has been working with PT and she is able to ambulate with a walkerand assistance. She says that she was told she developed some blisters over herdressing and they took the Zipline off todayand put a bandage over top of it. Physical Exam Focusing on the [facility] extremity: Incisions are clean, dry, and well approximated with no signs of redness, warmth or purulent drainage 2+ distal pulses Sensation tolight touch is intact distally Motor to the gastrocsoleus, tibialis anterior andEHL nerves are in tact Patient is forage motion of her toes and ankle. She is able to do some resistance against dorsiflexion and plantarflexion. She can tolerate some light passiverange of motion with her hip. Sheis unable to do a straight leg raise but can with some assistance. She is able to flex and extendher knee. She is able to stand and ambulatewith walker and assistance. Bandages were taken down. She does not need anything over her incision it is very well- healed and approximated. She had someblisters distallyfrom her incision and large Band-Aids were placed over thiswhich can bechanged daily. Diagnostic Results X-rays were done today in the office and interpreted personally by me. Hardware is well-maintainedwith no signs of loosening. No acute fractures or dislocation. Assessment/Plan 1.S/P hip hemiarthroplasty The patient is doing well and can continue to progress with physical therapy/HEP. They can continuewith pain medication as needed, ice, compression and elevation. Recommended Tylenol 1000 mg 3 times a day or every 8 hours. Band-Aids were placed over the blisters which can be changed daily. They will follow up in [address] Diamond with x-rays. They will call sooner if they have any questions or concerns. The patient expressed verbal understanding and agreement with this plan. Problem List/Past Medical History Ongoing Anxiety Elevated cholesterol Hypertension Hypothyroidism Procedure/Surgical History None Medications ALPRAZolam(ALPRAZolam 0.25 mg oral tablet), 0.25 mg= 1 tab, PO, Daily, PRN amlodipine(amLODIPine 2.5 mg oral tablet), 2.5 mg= 1 tab, PO, Daily apixaban(Eliquis 5 mg oral tablet) cloNIDine(cloNIDine 0.2 mg oral tablet), 0.2 mg= 1 tab, PO, qhs hydroquinone topical(Hydroquinone and Sunscreen 4% topical cream), 1 appl, topical, bid, 2 refills levothyroxine(Synthroid), 88 mcg, PO, Daily lovastatin, 40 mg, PO, Daily metoprolol(Metoprolol Succinate ER 25 mg oral tablet, extended release) minocycline(minocycline 50 mg oral capsule), 50 mg= 1 cap, PO, bid, 3 refills nadolol(nadolol 40 mg oral tablet), 40 mg= 1 tab, PO, Daily nortriptyline(nortriptyline 25 mg oral capsule), 25 mg= 1 cap, PO, Daily nystatin(nystatin 100,000 units/mL oral suspension) sertraline(sertraline 50 mg oral tablet) triamcinolone topical(triamcinolone 0.1% topical cream), 1 appl, topical, bid, 1 refills Allergies NKA Social History Smoking Status Never smoked cigarettes Recommendations Health Maintenance Pending(in the next year) OverDue Adult Influenza Vaccine due06/30/24and every 1year Due Adult COVID-19 Vaccination due08/08/24Unknown Frequency Adult Social Determinants of Health Screening due08/08/24Unknown Frequency Adult Tdap/Td Vaccine due08/08/24Unknown Frequency Body Mass Index due08/08/24Unknown Frequency Hepatitis C Screening due08/08/24One-time only Medicare Annual Wellness Visit due08/08/24and every 1year Osteoporosis Screening due08/08/24One-time only Pneumococcal Vaccine Older Adults due08/08/24One-time only Shingles Vaccine due08/08/24One-time only Satisfied(in the past 1 year) There are no satisfied recommendations within the defined date range Electronic Signature on File Electronically Reviewed/Signed by: Morena Murphy PA-C Author Signature Dt/Tm:08/08/2024 01:19 PM Physician Optometric Technician, Dept. of Orthopaedics and Sports Medicine [facility] - [address], [address] [address] Electronically Reviewed/Signed by: Shawn Daimond MD Cosigner Signature Dt/Tm: 08/08/2024 04:34 PM [facility] Cut In Worker Department of Orthopaedics and Rehabilitation [facility] [address], [place] [address] Patient Care team information Care Team Personnel Name: MD Vo Cara M Position: Referring DIRECT Member Role: Primary Care Provider Address: [address] [place], [place] [id number] [place] Care Team Related Persons Name: MAVIS PEARCE
--- OUTSIDE RECORDS SUMMARY | 2024-08-25 07:49 | External Medical Summary ---
Author Name Unknown Address Unknown Organization K0G:LAB[facility]ATORY [place] [address] [place] [address] Laboratory Report Ordering Provider Test Date Status AMIRAH MORENO 08/21/2024 06:11:59 Final Observation Date Value Abnormality Reference (Units ) Status BUN 08/21/2024 06:11:59 13 6-20 (mg/dL) Final Creatinine 08/21/2024 06:11:59 0.8 0.5-1.0 (mg/dL) Final Glomerular filtration rate/1.73 sq M.predicted [Volume Rate/Area] in Serum, Plasma or Blood by Creatinine-based formula (CKD-EPI) 08/21/2024 06:11:59 74 >=60 (mL/min) Final eGFR is calculated based on the CKD-EPI 2020 equation. Sodium 08/21/2024 06:11:59 130 Below low normal 135 -146 (mmol/L) Final Potassium 08/21/2024 06:11:59 3.3 Below low normal 3.5 -5.1 (mmol/L) Final Cl 08/21/2024 06:11:59 88 Below low normal 98- 107 (mmol/L) Final CO2 08/21/2024 06:11:59 31 22-32 (mmo l/L) Final Anion gap 08/21/2024 06:11:59 11 7-15 (mmol /L) Final Glucose 08/21/2024 06:11:59 110 70-120 (mg /dL) Final Calcium 08/21/2024 06:11:59 8.4 8.4-10.2 ( mg/dL) Final Performing Location LAB[facility]ATORY [facility] [place] [address] [place] [address]
--- OUTSIDE RECORDS SUMMARY | 2024-08-25 07:49 | External Medical Summary ---
Author Name Unknown Address Unknown Organization K0G:[facility] [place] [address] [place] [address] Laboratory Report Ordering Provider Test Date Status MAIRAH MORENO 08/14/2024 06:30:24 Final Observation Date Value Abnormality Reference (Units ) Status WBC, Total 08/14/2024 06:30:24 9.35 4.00-10.8 0 (K/uL) Final RBC 08/14/2024 06:30:24 2.82 3.85-5.15 (M/uL) Final Hemoglobin 08/14/2024 06:30:24 8.6 Below low normal 12 .0-15.3 (g/dL) Final HCT 08/14/2024 06:30:24 26.7 Below low normal 36. 0-45.2 (%) Final MCV 08/14/2024 06:30:24 94.7 81.5-97.5 (fL) Final MCH 08/14/2024 06:30:24 30.5 27.0-34.0 (pg) Final MCHC 08/14/2024 06:30:24 32.2 32.0-36.0 (g/dL) Final RDW 08/14/2024 06:30:24 12.8 11.5-15.5 (%) Final Platelets 08/14/2024 06:30:24 531 Above high normal 14 0-400 (K/uL) Final MPV 08/14/2024 06:30:24 10.0 6.6-11.1 ( fL) Final Performing Location LABORATORY [facility] [place] [address] [place] [address]
--- OUTSIDE RECORDS SUMMARY | 2024-08-25 07:49 | External Medical Summary ---
Author Name Unknown Address Unknown Organization K09:[facility] [place] [address] Laboratory Report Ordering Provider Test Date Status AMIRAH MORENO 08/16/2024 06:54:05 Final Observation Date Value Abnormality Reference (Units ) Status Magnesium 08/16/2024 06:54:05 1.9 1.5-2.6 (m g/dL) Final Performing Location [facility]ORY [place] [address]
--- OUTSIDE RECORDS SUMMARY | 2024-08-25 07:49 | External Medical Summary | Continuity of Care Document ---
Author Name Unknown Organization [place] [id number] Address [address] [place] [id number] Care Team Providers Care Juvenile Court Liaison Name Role Phone MattosbaldoRoopa Primary Care Physician [phone] Encounter [facility] [id number] Date(s): 08/08/24 - 08/08/24 [facility] [address] [place] [id number] [facility] [address] [place] [id number] Encounter Diagnosis S/P hip hemiarthroplasty(Discharge Diagnosis) - [...] gel or emulsion, with or without sunscreen., Pharmacy:[facility]/pharmacy #[id number] Start Date: 02/01/14 Status: Ordered lovastatin Start: 09/26/11 4:31:00 PM EST, 40 mg =, PO, Daily Start Date: 09/26/11 Status: Ordered Metoprolol Succinate ER 25 mg oral tablet, extended release Start: 08/08/24 10:51:00 AM EST Start Date: 08/08/24 Status: Ordered minocycline 50 mg oral capsule Start: 01/29/15 4:38:00 PM EDT, 1 cap, PO, bid, Disp# 60 cap, Refills: 3, Pharmacy: [facility]/pharmacy #[id number] Start Date: 01/29/15 Stop Date: 05/29/15 Status: [...] Literacy Communication Barriers N ever Primary Language Thai Problem List Condition Confirmation Course Effective Dates [...] Event Display: Ortho Outpt Note Authored Date: [id number] Primary Care Provider MD Gilda, Roopa Castellanos Referring Provider MD Angelic, Oswaldo Gonzalez Chief Complaint R hip f/u History of Present Illness Denise is a 70-year-old female here today 2 weeks status post right hip hemiarthroplasty with Dr. Diamond. She says she is still having some pain. She is only getting 1 Tylenol a day. She is currently residing at [facility]. She has been working with PT and she is able to ambulate with a walkerand assistance. She says that she was told she developed some blisters over herdressing and they took the Zipline off todayand put a bandage over top of it. Physical Exam Focusing [facility]: Incisions are clean, dry, and well [...] PA-C Author Signature Dt/Tm:08/08/2024 01:19 PM Physician Puff Iron Operator, Dept. of Orthopaedics and Sports Medicine [facility] - [address], [address] [address] Electronically Reviewed/Signed by: Shawn Diamond MD Cosigner Signature Dt/Tm: 08/08/2024 04:34 PM [facility] Sand Mill Operator Core Sand Department of Orthopaedics and Rehabilitation [facility] [address], [place] [address] Patient Care team information Care Team Personnel Name: MD Vo Cara M Position: Referring DIRECT Member Role: Primary Care Provider Address: [address] [place], [place] [id number] [place] Care Team Related Persons Name: MAVIS PEARCE
--- OUTSIDE RECORDS SUMMARY | 2024-08-25 07:49 | External Medical Summary ---
Author Name Unknown Address Unknown Organization K01:LABORATORY [facility] - [facility] [address] [facility] [address] Laboratory Report Ordering Provider Test Date Status NICOLLE GOODEN 08/10/2024 06:07:08 Final Observation Date Value Abnormality Reference (Units ) Status TSH 08/10/2024 06:07:08 6.81 Above high normal 0. 27-4.20 (uIU/mL) Final Performing Location LABORATORY [facility] - [address] [facility] [address]
--- OUTSIDE RECORDS SUMMARY | 2024-08-25 07:49 | External Medical Summary ---
Author Name Unknown Address Unknown Organization K0G:[facility] [place] [address] [place] [address] Laboratory Report Ordering Provider Test Date Status AMIRAH MORENO 08/14/2024 06:30:24 Final Observation Date Value Abnormality Reference (Units ) Status BUN 08/14/2024 06:30:24 10 6-20 (mg/dL) Final Creatinine 08/14/2024 06:30:24 0.8 0.5-1.0 (mg/dL) Final Glomerular filtration rate/1.73 sq M.predicted [Volume Rate/Area] in Serum, Plasma or Blood by Creatinine-based formula (CKD-EPI) 08/14/2024 06:30:24 74 >=60 (mL/min) Final eGFR is calculated based on the CKD-EPI 2020 equation. Sodium 08/14/2024 06:30:24 129 Below low normal 135 -146 (mmol/L) Final Potassium 08/14/2024 06:30:24 4.1 3.5-5.1 (m mol/L) Final Cl 08/14/2024 06:30:24 90 Below low normal 98- 107 (mmol/L) Final CO2 08/14/2024 06:30:24 28 22-32 (mmo l/L) Final Anion gap 08/14/2024 06:30:24 11 7-15 (mmol /L) Final Glucose 08/14/2024 06:30:24 102 70-120 (mg /dL) Final Calcium 08/14/2024 06:30:24 7.8 Below low normal 8.4 -10.2 (mg/dL) Final Performing Location [facility] [address] [place] [address]
--- OUTSIDE RECORDS SUMMARY | 2024-08-25 07:49 | External Medical Summary ---
Author Name Unknown Address Unknown Organization K09:[facility]ORY [place] [address] Laboratory Report Ordering Provider Test Date Status AMIRAH MORENO 08/19/2024 06:50:36 Final Observation Date Value Abnormality Reference (Units ) Status WBC, Total 08/19/2024 06:50:36 8.33 4.00-10.8 0 (K/uL) Final RBC 08/19/2024 06:50:36 3.23 3.85-5.15 (M/uL) Final Hemoglobin 08/19/2024 06:50:36 9.7 Below low normal 12 .0-15.3 (g/dL) Final HCT 08/19/2024 06:50:36 30.6 Below low normal 36. 0-45.2 (%) Final MCV 08/19/2024 06:50:36 94.7 81.5-97.5 (fL) Final MCH 08/19/2024 06:50:36 30.0 27.0-34.0 (pg) Final MCHC 08/19/2024 06:50:36 31.7 32.0-36.0 (g/dL) Final RDW 08/19/2024 06:50:36 13.1 11.5-15.5 (%) Final Platelets 08/19/2024 06:50:36 531 Above high normal 14 0-400 (K/uL) Final MPV 08/19/2024 06:50:36 9.9 6.6-11.1 ( fL) Final Performing Location [facility] [place] [address]
--- OUTSIDE RECORDS SUMMARY | 2024-08-25 07:49 | External Medical Summary ---
Author Name Unknown Address Unknown Organization K09:[facility]ATORY [place] [address] Laboratory Report Ordering Provider Test Date Status AMIRAH MORENO 08/16/2024 06:54:05 Final Observation Date Value Abnormality Reference (Units ) Status BUN 08/16/2024 06:54:05 9 6-20 (mg/dL) Final Creatinine 08/16/2024 06:54:05 0.9 0.5-1.0 (mg/dL) Final Glomerular filtration rate/1.73 sq M.predicted [Volume Rate/Area] in Serum, Plasma or Blood by Creatinine-based formula (CKD-EPI) 08/16/2024 06:54:05 62 >=60 (mL/min) Final eGFR is calculated based on the CKD-EPI 2020 equation. Sodium 08/16/2024 06:54:05 128 Below low normal 135 -146 (mmol/L) Final Potassium 08/16/2024 06:54:05 4.1 3.5-5.1 (m mol/L) Final Cl 08/16/2024 06:54:05 90 Below low normal 98- 107 (mmol/L) Final CO2 08/16/2024 06:54:05 27 22-32 (mmo l/L) Final Anion gap 08/16/2024 06:54:05 11 7-15 (mmol /L) Final Glucose 08/16/2024 06:54:05 99 70-120 (mg /dL) Final Calcium 08/16/2024 06:54:05 8.3 Below low normal 8.4 -10.2 (mg/dL) Final Performing Location LABORATORY [place] [address]
--- OUTSIDE RECORDS SUMMARY | 2024-08-25 07:49 | External Medical Summary ---
Author Name Unknown Address Unknown Organization K09:[facility]ATORY [place] [address] Laboratory Report Ordering Provider Test Date Status AMIRAH MORENO 08/19/2024 06:50:36 Final Observation Date Value Abnormality Reference (Units ) Status Magnesium 08/19/2024 06:50:36 1.9 1.5-2.6 (m g/dL) Final Performing Location [facility]ORY [place] [address]
--- NOTE | 2024-08-25 08:03 | Emergency Department Note ---
Impression & Plan CHI (closed head injury), Fall, Pneumonia, Hypoxia, Anemia, Hyponatremia ED Provider Note ED Provider Note NAME: DIANA CHRISTIANSON AGE:78 SEX: Female : 1945 ARRIVES VIA: EMS INFORMANT: Patient ED PROVIDER(s): Sarah Hawkins DO CHIEF COMPLAINT: Fall HPI: This is a 78-year-old female brought in from the facility via EMS after an accidental fall. Patient states she was using her walker and it accidentally braked and stopped on her throwing her off balance causing her to fall. She states she did hit her head but did not lose consciousness. She states she does not have any pain acutely since the fall. She denies back pain, chest pain, trouble breathing, abdominal pain, or upper extremity injury. Patient is at [facility] recovering from a recent right hip surgery. She states she does still have pain there and has felt perpetually weak since the surgery. She states when she was discharged from the hospital she was placed on oxygen. Staff reported when she fell she was off oxygen and so initial sats were low. Patient states prior to the surgery she did not need to wear oxygen. She denies any history of asthma/COPD and reports never being a smoker. PAST MEDICAL HISTORY:See Below PAST SURGICAL HISTORY:See Below FAMILY HISTORY:See Below SOCIAL HISTORY:See Below HOME MEDICATIONS:See Below ALLERGIES:See Below VITALS:See Below PHYSICAL EXAMINATION: GENERAL: alert, well appearing, well nourished, no distress, non-toxic EYE EXAM: normal conjunctiva, PERRL and EOM's grossly intact OROPHARYNX: no exudate, no erythema, lips, buccal mucosa, and tongue normal and mucous membranes are dry NECK: supple, no nuchal rigidity, no adenopathy, non-tender LUNGS: Clear to auscultation. Normal chest wall mechanics, no w/r/r HEART: no murmurs, S1 normal and S2 normal ABDOMEN: abdomen soft, non-tender, normo-active bowel sounds, no masses, no rebound or guarding. BACK: Back is symmetrical on inspection and there is no deformity, no midline tenderness, no CVA tenderness. SKIN: no rashes, petechiae, orbruising UPPER EXTREMITIES: upper extremities are grossly normal. FROM, nml pulses b/l. LOWER EXTREMITIES: No pitting edema. FROM, nml pulses b/l. Well-healed vertical right lateral hip incision consistent with recent surgery, no crepitus, no dehiscence, no bleeding or drainage noted from the wound, no surrounding erythema NEURO EXAM: Normal sensorium, cranial nerves II-XII grossly intact, normal speech, no facial droop,nogross weakness of arms, no gross weakness of legs. Gross sensation intact. No ataxia. Vital Signs: reviewed and remarkable Differential Diagnosis: dehydration, stroke, anemia, hypoglycemia, hyponatremia, hypernatremia, urinary tract infection, pneumonia, bronchitis, sepsis, gastroenteritis, additional abdominal pathology, metabolic abnormalities, as well as others were considered MEDICAL DECISION MAKING: This is a 78 yo female sent in following a ground level fall and hypoxia. She was afebrile and VS stable, but was noted to be hypoxic on RA. Patient has been wearing oxygen 1-2 lpm since her recent hospitalization. Her oxygen improved here with reapplication of oxygen via NC. She denied sob and had no apparent respiratory distress. Labs drawn and sent, IV established, EKG and CXR performed and interpreted at bedside, and patient placed on telemetry. I did review her recent rehab stay with rehab physician. Patient initially sent for CT head/cspine and the xrays performed at bedside and interpreted by me. No obvious acute injury. After further review of recent hospitalization following discussion with Dr. Solis, labs drawn and sent, IV established, EKG performed at bedside and interpreted by me and she was monitored on telemetry. She was started on gentle IVF hydration. Nasal swab obtained and sent for viral panel. Given hypoxia and recent surgery, patient sent for CTA chest. Labs reassuring. Hyponatremia noted however stable compared to prior. Anemia noted and stable compared to prior. Troponin and BNP elevated however improved compared to prior. CT reveals b/l pna. Patient covered with antibiotics, no pulm hx. Initial plan for patient to return to rehab however no bed readily available. Case discussed with hospitalist team for additional evaluation and mgmt. Consultation(s): 0940: Discussed with Dr. Solis at [facility]. [id number]: Discussed with Jak, case management. [id number]: Discussed with Jurgen COLBERT hospitalist team, for additional evaluation and mgmt. ER Treatment Provided: See below Diagnostics Interpreted By Me: -ECG: Normal sinus at 70, normal axis, normal intervals, nonspecific ST/T wave changes -Cardiac Monitoring: An order was placed for continuous cardiac monitoring. The monitor shows a rate of 68 with normal sinus rhythm. -Laboratory studies: As stated above and show below. -Imaging studies: X-ray Chest: A single view study of the chest was reviewed and was negative for cardiomegaly or wide mediastinum. Bilateral pleural effusions and increased interstitial markings in bilateral lower lobes noted, no focal consolidation. Triage Nursing Note Reviewed Prior/Outside Records Reviewed Critical Care: Critical care of 58 min performed to assess and manage high likelihood of life-threatening hypoxia and weakness, involving labs and imaging performed with assessment to evaluate XX diagnosis] with frequent reassessment. This time includes bedside time, treatment discussions with patient/family/consultants, documentation time and excludes procedure time. Past Med/Surg History Problem List (Updated 08/26/24 @ 18:14 by Sarah Hawkins DO) Hyponatremia (Acute) Anemia (Acute) (HFpEF) heart failure with preserved ejection fraction Defect of endplate of vertebra Elevated troponin Paroxysmal atrial fibrillation Hypoxia (Acute) Pneumonia (Acute) Fall (Acute) CHI (closed head injury) (Acute) Hyponatremia Dry mouth Loss of coordination Aspiration pneumonia Postoperative hypoxia Hypokalemia (Acute) Closed fracture of right hip (Acute 07/28/24) Systolic murmur Fall Vitamin D deficiency Osteoporotic fracture of right hip (07/28/24) Hypokalemia Closed right femoral fracture (07/28/24) right femoral neck fracture from a fall Anemia History of loop recorder Syncope (Acute) Chronic kidney disease, stage 3a Gait disturbance Sensorineural hearing loss of both ears Allergic rhinitis History of cardiomyopathy Irritable bowel syndrome HX-FAMILY HX Aortic atherosclerosis Asymmetric septal hypertrophy Atrial fibrillation HX ON ELIQUIS-F/U DR 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 NO HX BLEEDING ISSUES Panic attacks Medical History (Updated 08/26/24 @ 18:14 by Sarha Hawkins DO) H/O dizziness Vertigo Dyslipidemia Gastroesophageal reflux disease HX Depression with anxiety Osteoporosis Hypothyroidism HTN (hypertension) Status post placement of implantable loop recorder Hx of fracture of clavicle Right clavicle fracture S/P Pleural effusion HX Surgical History (Updated 08/20/24 @ 00:07 by Marcell Peterson) History of colonoscopy H/O oral surgery S/P eye surgery BLOCKED TEAR DUCT S/P tubal ligation S/P dilatation and curettage Family History Mother Hypertension Heart disease Stroke Brother Hypertension Grandfather (Paternal) Lung cancer Father Cancer Other No family history of allergies No family history of bleeding disorder Denies family history of Ovarian cancer Prostate cancer Breast cancer Colorectal cancer Asthma Social History Smoking Status: Never smoker Second Hand Exposure: Yes (SPOUSE SMOKED); Do You Dip or Chew Tobacco: No; Hx Alcohol Use: No Hx Substance Use: No Preferred Language: Jamaican Communication Ability: Effective Visual Impairment: No Limitations Hearing Ability: Normal Electronics Manufacturer Required: No Beliefs That Will Affect Care: None marital status: Current Living Situation: Rehab Current Living Situation Comment: apartment alone current occupational status: retired How many Children do You have: 3 Feels Safe at Home: Yes Safety Concerns: Feels Safe At This Time Childhood Exposure to Second-Hand Smoke: No Diet: regular Diet Comment: regular caffeine: No during the past year weight has: remained stable Dental Care, Regularly: Yes Physical Activity Frequency: Daily Physical Activity Frequency Comment: walk Seatbelt Use: always Sunscreen Use: Yes Assistive Devices: Oxygen - Continuous and Walker Allergies Allergies Allergy/AdvReac Type Severity Reaction Status Date / Time methylprednisolone Allergy Mild Rash Verified 07/29/24 14:32 alendronate sodium AdvReac Mild GI upset Verified 07/29/24 14:32 erythromycin base AdvReac Mild GI upset Verified 07/29/24 14:32 hydrochlorothiazide AdvReac Mild hyponatremi Verified 07/29/24 14:32 a hydrocodone AdvReac Mild nausea Verified 07/29/24 14:32 vomiting tramadol AdvReac Mild nausea Verified 07/29/24 14:32 vomiting clavulanic acid AdvReac Gastrointestinal Verified 07/29/24 14:32 [From Augmentin] Upset Home Meds Home Medications Medication Instructions Recorded Confirmed amiodarone 200 mg tablet 200 mg PO BID 08/25/24 08/25/24 amlodipine 10 mg tablet 10 mg PO DAILY 08/25/24 08/25/24 calcium carbonate 500 mg PO BID 08/25/24 08/25/24 cetirizine 10 mg tablet 10 mg PO DAILY PRN allergies 08/25/24 08/25/24 cyanocobalamin (vitamin B-12) 0 mcg PO DAILY 08/25/24 08/25/24 1,000 mcg capsule furosemide 40 mg tablet 40 mg PO DAILY 08/25/24 08/25/24 losartan 50 mg tablet 50 mg PO PM 08/25/24 08/25/24 sertraline 50 mg tablet 50 mg PO DAILY 08/25/24 08/25/24 sodium chloride 1,000 mg soluble 1,000 mg PO BID 08/25/24 08/25/24 tablet Previous Rx's Medication Instructions Recorded fluticasone propionate 50 1 spray intranasal DAILY #48 grams 07/06/23 mcg/actuation nasal spray,suspension (Flonase Allergy Relief) apixaban 5 mg tablet (Eliquis) 5 mg PO BID #180 tabs 07/23/23 lovastatin 40 mg tablet 40 mg PO QPM #90 tabs 01/18/24 cholecalciferol (vitamin D3) 125 125 mcg PO DAILY #30 caps 06/09/24 mcg (5,000 unit) capsule levothyroxine 100 mcg tablet 100 mcg PO QAM #90 tabs 07/11/24 alprazolam 0.25 mg tablet 0.25 mg PO DAILY PRN anxiety #30 07/26/24 tabs nortriptyline 25 mg capsule 25 mg PO HS #180 caps 08/06/24 Results & Data (ED) Vital Signs Vital Signs - 24 hr 08/25/24 07:44 08/25/24 07:44 08/25/24 08:34 Temperature 37.0 C Temperature Source Oral Pulse Rate 73 67 Pulse Rate [Right Finger] Pulse Rate from SpO2 Sensor Respiratory Rate 16 Respiratory Effort / Characteristics Non-Labored Spontaneous Respiratory Depth Normal Respiratory Pattern Regular Blood Pressure 129/71 Blood Pressure [Left Arm] Blood Pressure Mean 90 Blood Pressure Mean [Left Arm] Blood Pressure Position [Left Arm] Pulse Oximetry 94 72 L Oxygen Delivery Method Nasal Cannula Room Air Oxygen Flow Rate 4 0 Sepsis Recent Fever Within 48 Hours No Sepsis New/Unexplained Change in Mental Status N/A Sepsis Action Taken by Nursing No Action Required Oxygen Flow Rate - Titration 4 Pulse Oximetry Post Tiitration 94 08/25/24 09:05 08/25/24 09:30 08/25/24 10:00 Temperature Temperature Source Pulse Rate 67 66 67 Pulse Rate [Right Finger] Pulse Rate from SpO2 Sensor Respiratory Rate 20 19 22 Respiratory Effort / Characteristics Respiratory Depth Respiratory Pattern Blood Pressure 132/66 125/58 L 137/66 Blood Pressure [Left Arm] Blood Pressure Mean 80 80 89 Blood Pressure Mean [Left Arm] Blood Pressure Position [Left Arm] Pulse Oximetry 96 95 93 Oxygen Delivery Method Nasal Cannula Nasal Cannula Nasal Cannula Oxygen Flow Rate 3 2 2 Sepsis Recent Fever Within 48 Hours Sepsis New/Unexplained Change in Mental Status Sepsis Action Taken by Nursing Oxygen Flow Rate - Titration Pulse Oximetry Post Tiitration 08/25/24 10:00 08/25/24 10:06 08/25/24 11:25 Temperature Temperature Source Pulse Rate 66 Pulse Rate [Right Finger] 70 Pulse Rate from SpO2 Sensor 66 Respiratory Rate 18 16 Respiratory Effort / Characteristics Non-Labored Spontaneous Respiratory Depth Normal Respiratory Pattern Regular Blood Pressure 137/66 Blood Pressure [Left Arm] 136/65 Blood Pressure Mean 89 Blood Pressure Mean [Left Arm] 88 Blood Pressure Position [Left Arm] Pulse Oximetry 95 92 Oxygen Delivery Method Nasal Cannula Oxygen Flow Rate 2 Sepsis Recent Fever Within 48 Hours Sepsis New/Unexplained Change in Mental Status Sepsis Action Taken by Nursing Oxygen Flow Rate - Titration Pulse Oximetry Post Tiitration 08/25/24 12:30 08/25/24 12:32 08/25/24 14:14 Temperature Temperature Source Pulse Rate 63 Pulse Rate [Right Finger] 63 66 Pulse Rate from SpO2 Sensor Respiratory Rate 18 16 Respiratory Effort / Characteristics Non-Labored Spontaneous Non-Labored Spontaneous Respiratory Depth Normal Normal Respiratory Pattern Regular Regular Blood Pressure Blood Pressure [Left Arm] 131/64 146/77 H Blood Pressure Mean Blood Pressure Mean [Left Arm] 86 100 Blood Pressure Position [Left Arm] Semi-fowlers Pulse Oximetry 97 92 Oxygen Delivery Method Nasal Cannula Nasal Cannula Oxygen Flow Rate 2 2 Sepsis Recent Fever Within 48 Hours Sepsis New/Unexplained Change in Mental Status Sepsis Action Taken by Nursing Oxygen Flow Rate - Titration Pulse Oximetry Post Tiitration Laboratory Data 08/26/24 06:10 08/26/24 06:10 Lab Results 08/25/24 Range/Units 09:44 WBC 8.34 (4.8-10.8) K/ul RBC 3.28 L (4.20-5.40) M/uL Hgb 9.6 L (12.0-16.0) g/dl Hct 29.4 L (37.0-47.0) % MCV 89.6 (80.0-100.0) fL MCH 29.3 (25.0-34.0) pg MCHC 32.7 (32.0-36.0) g/dL RDW Std Deviation 41.6 (36.4-46.3) fL RDW Coeff of Maria Antonia 12.7 (11.5-14.5) % Plt Count 403 H (130-400) K/uL MPV 9.9 (9.4-12.4) fL Immature Gran % (Auto) 0.6 % Neut % (Auto) 79.7 % Lymph % (Auto) 7.4 % [place] % (Auto) 9.4 % Eos % (Auto) 2.5 % Baso % (Auto) 0.4 % Neut # (Auto) 6.65 H (1.40-6.50) K/uL Lymph # (Auto) 0.62 L (1.20-3.40) K/uL [place] # (Auto) 0.78 H (0.11-0.59) K/uL Eos # (Auto) 0.21 (0.00-0.50) K/uL Baso # (Auto) 0.03 (0.00-0.20) K/uL Immature Gran # (Auto) 0.05 (0.01-0.20) K/uL PT 13.0 H (9.0-12.0) Seconds INR 1.2 H (0.9-1.1) Sodium 128 L (136-145) mmol/L Potassium 3.3 L (3.5-5.1) mmol/L Chloride 88 L (98-107) mmol/L Carbon Dioxide 33 H (21-32) mmol/L Anion Gap 7 (3-11) BUN 17 (6-23) mg/dl Creatinine 0.92 (0.6-1.2) mg/dl Est Cr Clr Drug Dosing 41.7 ml/min eGFR 63.73 BUN/Creatinine Ratio 18.5 (10-20) Glucose 114 H (70-99(Fasting)) mg/dl Calcium 8.4 L (8.6-10.3) mg/dl Magnesium 1.7 (1.7-2.4) mg/dl Total Bilirubin 0.6 (0.2-1.0) mg/dl AST 17 (13-39) U/L ALT 16 (7-52) U/L Alkaline Phosphatase 100 (34-104) U/L Troponin I High Sens 39.5 H (0-14) pg/ml B-Natriuretic Peptide 599 H (0-100) pg/ml Total Protein 6.6 (6.0-8.3) gm/dl Albumin 3.5 (3.4-5.0) gm/dl Globulin 3.1 (2.5-4.0) gm/dl Albumin/Globulin Ratio 1.1 (0.9-2) Lipase 20 (11-82) U/L Adenovirus (PCR) Not Detected (NotDetected) B. pertussis DNA (PCR) Not Detected (NotDetected) B.parapertussis DNA PCR Not Detected (NotDetected) C. pneumoniae DNA (PCR) Not Detected (NotDetected) Coronavirus OC43 (PCR) Not Detected (NotDetected) Coronavirus HKU1 (PCR) Not Detected (NotDetected) Coronavirus 229E (PCR) Not Detected (NotDetected) SARS-CoV-2 (PCR) Not Detected (NotDetected) Coronavirus NL63 (PCR) Not Detected (NotDetected) Human Metapneumovir PCR Not Detected (NotDetected) Influenza Type A (PCR) Not Detected (NotDetected) Influenza Type B (PCR) Not Detected (NotDetected) M. pneumoniae (PCR) Not Detected (NotDetected) Parainfluenza 1 (PCR) Not Detected (NotDetected) Parainfluenza 2 (PCR) Not Detected (NotDetected) Parainfluenza 3 (PCR) Not Detected (NotDetected) Parainfluenza 4 (PCR) Not Detected (NotDetected) RSV (PCR) Not Detected (NotDetected) Entero/Rhino (PCR) Not Detected (NotDetected) Administered Medications Amiodarone HCl (Amiodarone 200 Mg Tab) 200 mg PO BID [facility] Stop: 09/24/24 20:59 Last Admin: 08/26/24 07:50 Dose: 200 mg Documented By: Admin: 08/25/24 20:24 Dose: 200 mg Documented By: LUISA Amlodipine Besylate (Amlodipine Besylate 5 Mg Tab) 10 mg PO DAILY [facility] Stop: 09/25/24 08:59 Last Admin: 08/26/24 07:50 Dose: 10 mg Documented By: BAY Apixaban (Apixaban 5 Mg Tablet) 5 mg PO BID [facility] Stop: 09/24/24 20:59 Last Admin: 08/26/24 07:50 Dose: 5 mg Documented By: [facility] Admin: 08/25/24 20:24 Dose: 5 mg Documented By: LUISA Fluticasone Propionate (Fluticasone Propionate Na Spr 16 Gm Btl) 1 sprays NA DAILY [facility] Stop: 09/25/24 08:59 Last Admin: 08/26/24 07:48 Dose: 1 sprays Documented By: BAY Ampicillin Sodium/Sulbactam Sodium (Unasyn) 3,000 mg in 100 mls @ 200 mls/hr IV Q6H [facility] Stop: 08/30/24 19:59 Last Infusion: 08/26/24 14:21 Dose: Infused Documented By: [facility] Admin: 08/26/24 13:39 Dose: 200 mls/hr Documented By: Infusion: 08/26/24 08:21 Dose: Infused Documented By: [facility] Admin: 08/26/24 07:48 Dose: 200 mls/hr Documented By: Infusion: 08/26/24 02:13 Dose: Infused Documented By: Admin: 08/26/24 01:39 Dose: 200 mls/hr Documented By: Infusion: 08/25/24 20:59 Dose: Infused Documented By: Admin: 08/25/24 20:24 Dose: 200 mls/hr Documented By: LUISA Levothyroxine Sodium (Levothyroxine Sodium 100 Mcg Tablet) 100 mcg PO DAILYBB [facility] Stop: 09/25/24 06:29 Last Admin: 08/26/24 04:51 Dose: 100 mcg Documented By: LUISA Losartan Potassium (Losartan Potassium 50 Mg Tab) 50 mg PO PM [facility] Stop: 09/24/24 20:59 Last Admin: 08/25/24 20:24 Dose: 50 mg Documented By: LUISA Lovastatin (Lovastatin 20 Mg Tab) 40 mg PO QPM [facility] Stop: 09/24/24 20:59 Last Admin: 08/25/24 20:24 Dose: 40 mg Documented By: LUISA Nortriptyline HCl (Nortriptyline Hcl 25 Mg Cap) 25 mg PO HS [facility] Stop: 09/24/24 20:59 Last Admin: 08/25/24 20:24 Dose: 25 mg Documented By: LUISA Sertraline HCl (Sertraline Hcl 50 Mg Tablet) 50 mg PO DAILY [facility] Stop: 09/25/24 08:59 Last Admin: 08/26/24 07:49 Dose: 50 mg Documented By: BAY Sodium Chloride (Sodium Chloride 1 Gm Tablet) 1 gm PO BID [facility] Stop: 09/24/24 20:59 Last Admin: 08/26/24 07:50 Dose: 1 gm Documented By: Admin: 08/25/24 20:24 Dose: 1 gm Documented By: LUISA Discontinued Medications Doxycycline Hyclate (Doxycycline Hyclate 100 Mg Cap) 100 mg PO NOW STA Stop: 08/25/24 14:19 Last Admin: 08/25/24 14:33 Dose: 100 mg Documented By: ABHINAV Furosemide (Furosemide 40 Mg/4 Ml Vial) 40 mg IV ONE ONE Stop: 08/26/24 10:41 Last Admin: 08/26/24 11:27 Dose: 40 mg Documented By: BAY Furosemide (Furosemide 40 Mg/4 Ml Vial) 40 mg IV ONE ONE Stop: 08/26/24 17:01 Last Admin: 08/26/24 16:43 Dose: 40 mg Documented By: BAY Sodium Chloride (Nss) 500 mls @ 999 mls/hr IV .Q31M ONE Stop: 08/25/24 10:28 Last Infusion: 08/25/24 10:48 Dose: Infused Documented By: Admin: 08/25/24 10:12 Dose: 999 mls/hr Documented By: KOLTON Magnesium Sulfate/Dextrose (Magnesium Sulfate / D5w) 1 gm in 100 mls @ 100 mls/hr IV NOW STA Stop: 08/25/24 11:52 Last Infusion: 08/25/24 12:36 Dose: Infused Documented By: Admin: 08/25/24 11:26 Dose: 100 mls/hr Documented By: ABHINAV Ceftriaxone Sodium (Rocephin) 2,000 mg in 50 mls @ 100 mls/hr IV NOW STA Stop: 08/25/24 13:56 Last Infusion: 08/25/24 14:44 Dose: Infused Documented By: Admin: 08/25/24 14:14 Dose: 100 mls/hr Documented By: ABHINAV Sodium Chloride (Nss) 500 mls @ 999 mls/hr IV .Q31M ONE Stop: 08/25/24 14:48 Last Infusion: 08/25/24 15:45 Dose: Infused Documented By: Admin: 08/25/24 14:37 Dose: 999 mls/hr Documented By: ABHINAV Ioversol (Optiray 320 125ml) 112 ml IV ONCE ONE Stop: 08/25/24 11:15 Last Admin: 08/25/24 11:14 Dose: 112 ml Documented By: ZULEYKA Potassium Chloride (Potassium Chloride Crtab 20 Meq Tabcr) 40 meq PO NOW STA Stop: 08/25/24 10:54 Last Admin: 08/25/24 11:27 Dose: 40 meq Documented By: ABHINAV Imaging Data Radiologist's Impression: Cervical Spine CT 08/25/24 07:57 CT cervical spine wo con CLINICAL HISTORY: trauma TECHNIQUE: Multidetector row helical CT of the cervical spine was performed without administration of intravenous contrast. Coronal and sagittal reformations were obtained. Automated dose lowering techniques and/or adjustment according to patient size were utilized for this exam. Comparison: None available at the time of this dictation. FINDINGS: No acute fractures or subluxations are identified. Degenerative changes are seen in the visualized spine. The alignment is normal. Airspace opacities are noted in the bilateral pulmonary apices. IMPRESSION: Degenerative changes without evidence of acute bony injury. ACT 112: Negative or not required by law. Electronically signed by: Rupesh Argueta M.D. 08/25/2024 9:19 AM Chest X-Ray 08/25/24 07:57 XR chest 1V portable CLINICAL HISTORY: trauma TECHNIQUE: Single frontal radiograph of the chest was obtained. Comparison: Comparison is made to chest radiograph 08/02/2024 FINDINGS: A loop recorder is noted. Calcified aortic knob is seen. Bilateral lower lung predominant airspace opacities are seen. Small bilateral pleural effusions are seen evaluation of the right effusion is limited. IMPRESSION: 1. Bilateral lower lung predominant airspace opacities which may represent atelectasis, pneumonia, and/or aspiration. 2. Small bilateral pleural effusions are somewhat smaller than on the prior exam. ACT 112: Negative or not required by law. Electronically signed by: Rupesh Argueta M.D. 08/25/2024 8:[address] 08/25/24 07:57 CT head/brain wo con CLINICAL HISTORY: 78 years-old Female with trauma. Acute head trauma with weakness TECHNIQUE: Multiple axial CT images of the head were obtained without contrast. A dose lowering technique was utilized adhering to the principles of ALARA. COMPARISON: Head CT 07/30/2024 FINDINGS: No acute intracranial hemorrhage, midline shift, intracranial mass, hydrocephalus, territorial ischemia or abnormal extra-axial collection. Involutional changes with white matter hypodensities redemonstrated suggestive of chronic microvascular ischemic disease. The calvarium is intact. The paranasal sinuses, mastoid air cells, and middle ear cavities are clear. IMPRESSION: No acute intracranial abnormality or calvarial fracture. ACT 112: Negative or not required by law. The above report was generated using voice recognition software. It may contain grammatical, syntax or spelling errors. Electronically signed by: Silvio Miguel M.D. 08/25/2024 9:22 AM Hip/Pelvis X-Ray 08/25/24 07:57 XR hip RT 2V w pelvis HISTORY: 78 years-old Female trauma acute pain of the pelvis and right hip COMPARISON: 08/08/2024 TECHNIQUE: AP view of the pelvis with 2 views of the right hip FINDINGS: Mild osteoarthritis of the left hip. Satisfactory alignment of the right hip arthroplasty. Soft tissue swelling of the right thigh and tissues lateral to the right hip. No periprosthetic fracture or hardware loosening. IMPRESSION: Soft tissue swelling without acute fracture or dislocation. ACT 112: Negative or not required by law. The above report was generated using voice recognition software. It may contain grammatical, syntax or spelling errors. Electronically signed by: Silvio Miguel M.D. 08/25/2024 8:24 AM Chest CTA 08/25/24 10:59 CT angio chest PE protocol CLINICAL HISTORY: PE TECHNIQUE: Multidetector row helical CT of the chest was performed with angiographic protocol. Coronal and sagittal reformations were obtained. Coronal and sagittal MIPS were obtained from the axial data set and were submitted for review. Automated dose lowering techniques and/or adjustment according to patient size were utilized for this exam. CT DOSE: 386.73 mGy.cm Comparison: Comparison is made to CT chest 03/23/2015 FINDINGS: Lungs and pleura: Moderate bilateral pleural effusions are seen with underlying atelectasis. Airspace opacities are seen most prominent in the bilateral upper lobes. Heart and pericardium: Cardiomegaly is seen with biatrial enlargement. Pulmonary trunk measures 34 mm in diameter. Vessels: No evidence of pulmonary embolism. Mediastinum and yisel: Subcentimeter lymph nodes are seen. Chest wall and lower neck: Unremarkable. Abdomen: Unremarkable. Bones: Vertebral plana of T8 is noted. There is approximately 6 mm of retropulsion. Old healed rib fractures are seen. IMPRESSION: 1. No pulmonary embolus. 2. Airspace opacities in the bilateral upper lungs which may represent pneumonia. 3. Age-indeterminate vertebral plana of T8 with 6 mm retropulsion. 4. Moderate bilateral pleural effusions with underlying atelectasis. ACT 112: Negative or not required by law. Electronically signed by: Rupesh Argueta M.D. 08/25/2024 12:03 PM Discharge Plan Visit Data Chief Complaint: Fall Stated Complaint: FALL, ED Provider: Sarah Hawkins Discharge Problem: CHI (closed head injury), Fall, Pneumonia, Hypoxia, Anemia, Hyponatremia Patient Disposition: Admitted As Inpatient Discharge Instructions Interventions: ED Discharge Assessment Last Done: 08/25/24 16:10
--- NOTE | 2024-08-25 08:26 | XRay Report ---
XR hip RT 2V w pelvis HISTORY: 78 years-old Female trauma acute pain of the pelvis and right hip COMPARISON: 08/08/2024 TECHNIQUE: AP view of the pelvis with 2 views of the right hip FINDINGS: Mild osteoarthritis of the left hip. Satisfactory alignment of the right hip arthroplasty. Soft tissu e swelling of the right thigh and tissues lateral to the right hip. No periprosthetic fracture or jeannette dware loosening. IMPRESSION: Soft tissue swelling without acute fracture or dislocation. ACT 112: Negative or not required by law. The above report was generated using voice recognition software. It may contain grammatical, syntax o r spelling errors. Electronically signed by: Silvio Miguel M.D. 08/25/2024 8:24 AM
--- NOTE | 2024-08-25 08:30 | XRay Report ---
XR chest 1V portable CLINICAL HISTORY: trauma TECHNIQUE: Single frontal radiograph of the chest was obtained. Comparison: Comparison is made to chest radiograph 08/02/2024 FINDINGS: A loop recorder is noted. Calcified aortic knob is seen. Bilateral lower lung predominant airspace op acities are seen. Small bilateral pleural effusions are seen evaluation of the right effusion is limiggy glass. IMPRESSION: 1. Bilateral lower lung predominant airspace opacities which may represent atelectasis, pneumonia, a nd/or aspiration. 2. Small bilateral pleural effusions are somewhat smaller than on the prior exam. ACT 112: Negative or not required by law. Electronically signed by: Rupesh Argueta M.D. 08/25/2024 8:29 AM
--- NOTE | 2024-08-25 09:21 | CT Scan Report ---
CT cervical spine wo con CLINICAL HISTORY: trauma TECHNIQUE: Multidetector row helical CT of the cervical spine was performed without administration of intravenous contrast. Coronal and sagittal reformations were obtained. Automated dose lowering techn iques and/or adjustment according to patient size were utilized for this exam. Comparison: None available at the time of this dictation. FINDINGS: No acute fractures or subluxations are identified. Degenerative changes are seen in the visualized sp ine. The alignment is normal. Airspace opacities are noted in the bilateral pulmonary apices. IMPRESSION: Degenerative changes without evidence of acute bony injury. ACT 112: Negative or not required by law. Electronically signed by: Rupesh Argueta M.D. 08/25/2024 9:19 AM
--- NOTE | 2024-08-25 09:23 | CT Scan Report ---
CT head/brain wo con CLINICAL HISTORY: 78 years-old Female with trauma. Acute head trauma with weakness TECHNIQUE: Multiple axial CT images of the head were obtained without contrast. A dose lowering tech nique was utilized adhering to the principles of ALARA. COMPARISON: Head CT 07/30/2024 FINDINGS: No acute intracranial hemorrhage, midline shift, intracranial mass, hydrocephalus, territorial ischem ia or abnormal extra-axial collection. Involutional changes with white matter hypodensities redemonst rated suggestive of chronic microvascular ischemic disease. The calvarium is intact. The paranasal sinuses, mastoid air cells, and middle ear cavities are clear . IMPRESSION: No acute intracranial abnormality or calvarial fracture. ACT 112: Negative or not required by law. The above report was generated using voice recognition software. It may contain grammatical, syntax o r spelling errors. Electronically signed by: Silvio Miguel M.D. 08/25/2024 9:22 AM
[2024-08-25 10:11] LABS: Basophils # (auto) 0.03 K/uL (0.00-0.20); Basophils % (auto) 0.4 %; Eosinophils # (auto) 0.21 K/uL (0.00-0.50); Eosinophils % (auto) 2.5 %; Hematocrit (blood only) 29.4 % (37.0-47.0); Hemoglobin 9.6 g/dl (12.0-16.0); Immature Granulocytes # (auto) 0.05 K/uL (0.01-0.20); Immature Granulocytes % (auto) 0.6 %; Lymphocytes # (auto) 0.62 K/uL (1.20-3.40); Lymphocytes % (auto) 7.4 %; Mean Corpuscular Hemoglobin 29.3 pg (25.0-34.0); Mean Corpuscular Hgb Conc 32.7 g/dL (32.0-36.0); Mean Corpuscular Volume 89.6 fL (80.0-100.0); Mean Platelet Volume 9.9 fL (9.4-12.4); Monocytes # (auto) 0.78 K/uL (0.11-0.59); Monocytes % (auto) 9.4 %; Neutrophils # (auto) 6.65 K/uL (1.40-6.50); Neutrophils % (auto) 79.7 %; Platelet Count 403 K/uL (130-400); RDW Coefficient of Variation 12.7 % (11.5-14.5); RDW Standard Deviation 41.6 fL (36.4-46.3); Red Blood Count 3.28 M/uL (4.20-5.40); White Blood Count 8.34 K/ul (4.8-10.8)
[2024-08-25] MEDS: SODIUM CHLORIDE 0.9% 500 ML IV ONE ×2 (10:12→14:37)
[2024-08-25 10:19] LABS: Albumin Globulin Ratio 1.1 (0.9-2); Albumin Level 3.5 gm/dl (3.4-5.0); BUN Creatinine Ratio 18.5 (10-20); Bilirubin,Total 0.6 mg/dl (0.2-1.0); Calcium 8.4 mg/dl (8.6-10.3); Creatinine Clr Calc Pharmacy 41.7 ml/min; Globulin 3.1 gm/dl (2.5-4.0); Magnesium 1.7 mg/dl (1.7-2.4); Potassium 3.3 mmol/L (3.5-5.1); Total Protein 6.6 gm/dl (6.0-8.3)
[2024-08-25 10:25] LABS: Troponin I High Sensitivity 39.5 pg/ml (0-14)
[2024-08-25 10:28] LABS: INR 1.2 (0.9-1.1)
[2024-08-25 10:55] LABS: Adenovirus PCR Not Detected (NotDetected); Bordetella parapertussis PCR Not Detected (NotDetected); Bordetella pertussis PCR Not Detected (NotDetected); Chlamydia pneumoniae PCR Not Detected (NotDetected); Coronavirus 229E PCR Not Detected (NotDetected); Coronavirus CoV-2 (COVID19)PCR Not Detected (NotDetected); Coronavirus HKU1 PCR Not Detected (NotDetected); Coronavirus NL63 PCR Not Detected (NotDetected); Coronavirus OC43PCR Not Detected (NotDetected); Human Metapneumovirus PCR Not Detected (NotDetected); Influenza A PCR Not Detected (NotDetected); Influenza B PCR Not Detected (NotDetected); Mycoplasma pneumoniae PCR Not Detected (NotDetected); Parainfluenza Virus 1 PCR Not Detected (NotDetected); Parainfluenza Virus 2 PCR Not Detected (NotDetected); Parainfluenza Virus 3 PCR Not Detected (NotDetected); Parainfluenza Virus 4 PCR Not Detected (NotDetected); Respiratory Syncytial VirusPCR Not Detected (NotDetected); Rhinovirus/Enterovirus PCR Not Detected (NotDetected)
[2024-08-25] MEDS: OPTIRAY 320 125ml IV ONE (11:14)
[2024-08-25] MEDS: MAGNESIUM SULFATE / D5W 1 GM/100 ML BAG IV STA (11:26)
[2024-08-25] MEDS: POTASSIUM CHLORIDE CRTAB 20 MEQ TABCR PO STA (11:27)
--- NOTE | 2024-08-25 12:04 | CT Scan Report ---
CT angio chest PE protocol CLINICAL HISTORY: PE TECHNIQUE: Multidetector row helical CT of the chest was performed with angiographic protocol. Garcia l and sagittal reformations were obtained. Coronal and sagittal MIPS were obtained from the axial arely a set and were submitted for review. Automated dose lowering techniques and/or adjustment according to patient size were utilized for this exam. CT DOSE: 386.73 mGy.cm Comparison: Comparison is made to CT chest 03/23/2015 FINDINGS: Lungs and pleura: Moderate bilateral pleural effusions are seen with underlying atelectasis. Airspace opacities are seen most prominent in the bilateral upper lobes. Heart and pericardium: Cardiomegaly is seen with biatrial enlargement. Pulmonary trunk measures 34 mm in diameter. Vessels: No evidence of pulmonary embolism. Mediastinum and yisel: Subcentimeter lymph nodes are seen. Chest wall and lower neck: Unremarkable. Abdomen: Unremarkable. Bones: Vertebral plana of T8 is noted. There is approximately 6 mm of retropulsion. Old healed rib fr actures are seen. IMPRESSION: 1. No pulmonary embolus. 2. Airspace opacities in the bilateral upper lungs which may represent pneumonia. 3. Age-indeterminate vertebral plana of T8 with 6 mm retropulsion. 4. Moderate bilateral pleural effusions with underlying atelectasis. ACT 112: Negative or not required by law. Electronically signed by: Rupesh Argueta M.D. 08/25/2024 12:03 PM
[2024-08-25] MEDS: cefTRIAXone SODIUM 2,000 MG/50 ML BAG IV STA (14:14)
[2024-08-25] MEDS: DOXYCYCLINE HYCLATE 100 MG CAP PO STA (14:33)
--- NOTE | 2024-08-25 14:42 | History & Physical Report ---
Date of Service August 25, 2024 Assessment & Plan (1) Fall: Plan: Brittney is a 78-year-old female with PMH of atrial fibrillation (on apixaban), Andriy's thyroiditis, CKD, and IBS. She presented via EMS from [facility] on 08/25 after sustaining a fall in the bathroom this morning. Remote history of right hip surgery in July 2024. No head strike; no LOC Head and cervical spine CT unremarkable Right hip x-ray with evidence of soft tissue swelling but no acute fracture or dislocation PT/OT evaluations appreciated Fall precautions Case management consult for return to rehab at [facility]; beds currently unavailable on 08/25 (2) Aspiration pneumonia: Plan: On clinical exam, patient did have an episode where she started coughing and gagging while lying at a 30 degree angle in bed Based on this episode, increased concern for aspiration pneumonia BioFire negative No leukocytosis; afebrile CXR did reveal bilateral lower lung airspace opacities that might represent a pneumonia Clinically, patient denies cough or fever, but does endorse some hoarseness Ceftriaxone + Doxycycline x 1 given in the ED Due to concern for aspiration pneumonia, will switch patient to Unasyn 300 mg IV q6h Aspiration precautions Passed dysphagia screen at the bedside, okay to eat/p.o. meds for now [facility] Speech therapy consult appreciated (3) Hypoxia: Plan: Patient was started on supplemental oxygen after her hip surgery in July 2024 However, this was continued while she was at [facility] due to potential heart failure At this point, it is unclear whether the patient is acute hypoxic failure versus chronic SpO2 was 72% on RA on arrival Chest CTA revealed no pulmonary embolism Supplemental oxygen as needed to maintain SpO2 greater than 94% Continuous pulse oximetry (4) Paroxysmal atrial fibrillation: Plan: NSR on arrival; rate controlled Continue Eliquis BID Continue amiodarone 200 mg p.o. BID Per review of medication list sent by Mae Petersen, patient is not currently on metoprolol (5) Elevated troponin: Plan: Troponin 39-->49 on arrival; trend to peak Clinically, patient denies chest pain and is chest pain-free at time of admission Suspect demand ischemia in the setting of aspiration pneumonia Continuous telemetry monitoring for now (6) Anemia: Plan: Chronic; Hgb 9.6 on arrival Clinically, no signs of active bleeding on physical exam Trend CBC (7) Hyponatremia: Plan: Chronic Continue sodium tablets BID Will fluid restrict as needed (8) Hypokalemia: Plan: Replete Hold a.m. Lasix Plan [facility] Regular diet, easy to chew (aspiration cautions) VTE PPx: On Eliquis History of Present Illness Chief Complaint: Fall Primary Care Provider: Roopa Vo DO Brittney is a 78-year-old female with PMH of atrial fibrillation (on apixaban), Andriy's thyroiditis, CKD, and IBS. She presented via EMS from [facility] on 08/25 after sustaining a fall in the bathroom this morning. Remote history of right hip surgery in July 2024. Patient was then at [facility] upon discharge, but transition to [facility] 2 days ago. Patient reports that she got up to use the bathroom today. She ambulates with a walker at baseline. She asked an aide for help, and was placed on the toilet. However, when she got up, she reports that she started to feel "blurry"; she also reports that she felt shaky and could not catch her breath. She believes that she fell due to both lightheadedness and her legs giving out. She went down using the walker, and denies any head strike or LOC. She denies any recent falls aside from this one and the one that broke her hip. Patient was reportedly on the floor for ~10 minutes. Per EMS, patient was hypoxic in the 70% range on RA. It is important to note that the patient was not on supplemental oxygen prior to her hip surgery in July. Since then, she has required at least 1 L of supplemental oxygen, however patient is unsure how frequently she is needing more or less. Patient denies using CPAP at night. Patient took all her regular morning medicine today including her Eliquis. She does not manage her own medicine at home, but rather it is managed by Mae Petersen. No recent change in diet. Patient reports that she does watch her salt intake. Patient denies smoking, tobacco use, recent alcohol use. Patient is hypertensive at 146/77 on arrival; SpO2 92% on 2L NC; vitals otherwise stable. ED course: NSS 500 mL IV x 2 Potassium chloride 40 mEq p.o. Magnesium sulfate 1 g IV Rocephin 2000 mg IV Doxycycline 100 mg p.o. ROS: Patient endorses lightheadedness with standing, LE weakness, dry cough (when she lays flat), sore throat, and hoarseness. Patient denies fever, chills, night-sweats, headache, chest pain, SOB at rest or with exertion, difficulty swallowing, abdominal pain, N/V/D, burning with urination, pain in the right hip, or numbness/tingling in the legs. Allergies Allergy/AdvReac Type Severity Reaction Status Date / Time methylprednisolone Allergy Mild Rash Verified 07/29/24 14:32 alendronate sodium AdvReac Mild GI upset Verified 07/29/24 14:32 erythromycin base AdvReac Mild GI upset Verified 07/29/24 14:32 hydrochlorothiazide AdvReac Mild hyponatremi Verified 07/29/24 14:32 a hydrocodone AdvReac Mild nausea Verified 07/29/24 14:32 vomiting tramadol AdvReac Mild nausea Verified 07/29/24 14:32 vomiting clavulanic acid AdvReac Gastrointestinal Verified 07/29/24 14:32 [From Augmentin] Upset Home Medications Medication Instructions Recorded Confirmed Type fluticasone propionate 50 1 spray intranasal DAILY #48 grams 07/06/23 08/25/24 Rx mcg/actuation nasal spray,suspension (Flonase Allergy Relief) apixaban 5 mg tablet (Eliquis) 5 mg PO BID #180 tabs 07/23/23 08/25/24 Rx lovastatin 40 mg tablet 40 mg PO QPM #90 tabs 01/18/24 08/25/24 Rx cholecalciferol (vitamin D3) 125 125 mcg PO DAILY #30 caps 06/09/24 08/25/24 Rx mcg (5,000 unit) capsule levothyroxine 100 mcg tablet 100 mcg PO QAM #90 tabs 07/11/24 08/25/24 Rx alprazolam 0.25 mg tablet 0.25 mg PO DAILY PRN anxiety #30 07/26/24 08/25/24 Rx tabs nortriptyline 25 mg capsule 25 mg PO HS #180 caps 08/06/24 08/25/24 Rx amiodarone 200 mg tablet 200 mg PO BID 08/25/24 08/25/24 History amlodipine 10 mg tablet 10 mg PO DAILY 08/25/24 08/25/24 History calcium carbonate 500 mg PO BID 08/25/24 08/25/24 History cetirizine 10 mg tablet 10 mg PO DAILY PRN allergies 08/25/24 08/25/24 History cyanocobalamin (vitamin B-12) 0 mcg PO DAILY 08/25/24 08/25/24 History 1,000 mcg capsule furosemide 40 mg tablet 40 mg PO DAILY 08/25/24 08/25/24 History losartan 50 mg tablet 50 mg PO PM 08/25/24 08/25/24 History sertraline 50 mg tablet 50 mg PO DAILY 08/25/24 08/25/24 History sodium chloride 1,000 mg soluble 1,000 mg PO BID 08/25/24 08/25/24 History tablet Past Med/Surg History Problem List (Updated 08/25/24 @ 15:39 by Richardson Wiggins PA-C) Elevated troponin Paroxysmal atrial fibrillation Hypoxia (Acute) Pneumonia (Acute) Fall (Acute) CHI (closed head injury) (Acute) Hyponatremia Dry mouth Loss of coordination Aspiration pneumonia Postoperative hypoxia Hypokalemia (Acute) Closed fracture of right hip (Acute 07/28/24) Systolic murmur Fall Vitamin D deficiency Osteoporotic fracture of right hip (07/28/24) Hypokalemia Closed right femoral fracture (07/28/24) right femoral neck fracture from a fall Anemia History of loop recorder Syncope (Acute) Chronic kidney disease, stage 3a Gait disturbance Sensorineural hearing loss of both ears Allergic rhinitis History of cardiomyopathy Irritable bowel syndrome HX-FAMILY HX Aortic atherosclerosis Asymmetric septal hypertrophy Atrial fibrillation HX ON ELIQUIS-F/U DR 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 NO HX BLEEDING ISSUES Panic attacks Medical History (Updated 08/25/24 @ 15:39 by Richardson Wiggins PA-C) H/O dizziness Vertigo Dyslipidemia Gastroesophageal reflux disease HX Depression with anxiety Osteoporosis Hypothyroidism HTN (hypertension) Status post placement of implantable loop recorder Hx of fracture of clavicle Right clavicle fracture S/P Pleural effusion HX Surgical History (Updated 08/20/24 @ 00:07 by Marcell Peterson) History of colonoscopy H/O oral surgery S/P eye surgery BLOCKED TEAR DUCT S/P tubal ligation S/P dilatation and curettage Family History Mother Hypertension Heart disease Stroke Brother Hypertension Grandfather (Paternal) Lung cancer Father Cancer Other No family history of allergies No family history of bleeding disorder Denies family history of Ovarian cancer Prostate cancer Breast cancer Colorectal cancer Asthma Social History Smoking Status: Never smoker Second Hand Exposure: Yes (SPOUSE SMOKED); Do You Dip or Chew Tobacco: No; Hx Alcohol Use: No Hx Substance Use: No Preferred Language: Spanish Communication Ability: Effective Visual Impairment: No Limitations Hearing Ability: Normal Hydro Operator Required: No Beliefs That Will Affect Care: None marital status: Current Living Situation: Rehab Current Living Situation Comment: apartment alone current occupational status: retired How many Children do You have: 3 Feels Safe at Home: Yes Safety Concerns: Feels Safe At This Time Childhood Exposure to Second-Hand Smoke: No Diet: regular Diet Comment: regular caffeine: No during the past year weight has: remained stable Dental Care, Regularly: Yes Physical Activity Frequency: Daily Physical Activity Frequency Comment: walk Seatbelt Use: always Sunscreen Use: Yes Assistive Devices: Glasses, Oxygen - Continuous and Walker Review of Systems Review of Systems: See HPI above Physical Exam Physical Exam: General: no acute distress; pleasant affect; non-toxic appearing; frail appearing; cooperative; SpO2 92% on 2L NC HEENT: normocephalic, atraumatic; no scleral icterus; PERRLA; vision and hearing intact Neck: supple; no lymphadenopathy; trachea midline Skin: warm, dry without signs of tenting; no cyanosis; no rashes, bruising, lesions, or erythema noted CV: chest wall NTP; RRR; S1/S2 normal; no murmurs/rubs/gallops; pulses intact and symmetric at radial, DP, and PT Lungs: no acute respiratory distress; dry cough; symmetrical chest wall expansion; clear breath sounds across all lung andino w/o adventitious sounds; no wheezing ABD: Soft, NTP; BS present; no rebound/guarding; no distention MSK: no tics or fasciculations; no edema noted in the LEs b/l, nonerythematous: 5/5 color stripper strength bilaterally; 3/5 strength in lower extremities bilaterally when lifting legs while supine Neuro: A&Ox3; normal mood and affect; fluent speech; no focal deficits; sensation grossly intact in the LEs b/l Note: During clinical exam patient did start coughing and gagging on her sputum; patient was sat up in bed/head of bed was elevated, and patient did improve, but her SpO2 was around 88 to 89% after this event on 2L NC. Results & Data Results & Data Vital Signs (Past 12 Hours) Vital Signs Temp Pulse Pulse Resp BP BP Pulse Ox 08/25/24 14:14 66 16 146/77 H 92 08/25/24 12:32 63 08/25/24 12:30 63 18 131/64 97 08/25/24 11:25 70 16 136/65 92 08/25/24 10:06 66 18 95 08/25/24 10:00 137/66 08/25/24 10:00 67 22 137/66 93 08/25/24 09:30 66 19 125/58 L 95 08/25/24 09:05 67 20 132/66 96 08/25/24 08:34 67 08/25/24 07:44 72 L 08/25/24 07:44 37.0 C 73 16 129/71 94 O2 Del Method O2 Flow Rate 08/25/24 14:14 Nasal Cannula 2 08/25/24 12:32 08/25/24 12:30 Nasal Cannula 2 08/25/24 11:25 Nasal Cannula 2 08/25/24 10:06 08/25/24 10:00 08/25/24 10:00 Nasal Cannula 2 08/25/24 09:30 Nasal Cannula 2 08/25/24 09:05 Nasal Cannula 3 08/25/24 08:34 08/25/24 07:44 Room Air 0 08/25/24 07:44 Nasal Cannula 4 Laboratory Results Abnormal lab results 08/25/24 Range/Units 09:44 RBC 3.28 L (4.20-5.40) M/uL Hgb 9.6 L (12.0-16.0) g/dl Hct 29.4 L (37.0-47.0) % Plt Count 403 H (130-400) K/uL Neut # (Auto) 6.65 H (1.40-6.50) K/uL Lymph # (Auto) 0.62 L (1.20-3.40) K/uL Eagle # (Auto) 0.78 H (0.11-0.59) K/uL PT 13.0 H (9.0-12.0) Seconds INR 1.2 H (0.9-1.1) Sodium 128 L (136-145) mmol/L Potassium 3.3 L (3.5-5.1) mmol/L Chloride 88 L (98-107) mmol/L Carbon Dioxide 33 H (21-32) mmol/L Glucose 114 H (70-99(Fasting)) mg/dl Calcium 8.4 L (8.6-10.3) mg/dl Troponin I High Sens 39.5 H (0-14) pg/ml B-Natriuretic Peptide 599 H (0-100) pg/ml Diagnostic Findings Cervical Spine CT 08/25/24 07:57 CT cervical spine wo con CLINICAL HISTORY: trauma TECHNIQUE: Multidetector row helical CT of the cervical spine was performed without administration of intravenous contrast. Coronal and sagittal reformations were obtained. Automated dose lowering techniques and/or adjustment according to patient size were utilized for this exam. Comparison: None available at the time of this dictation. FINDINGS: No acute fractures or subluxations are identified. Degenerative changes are seen in the visualized spine. The alignment is normal. Airspace opacities are noted in the bilateral pulmonary apices. IMPRESSION: Degenerative changes without evidence of acute bony injury. ACT 112: Negative or not required by law. Electronically signed by: Rupesh Argueta M.D. 08/25/2024 9:19 AM Chest X-Ray 08/25/24 07:57 XR chest 1V portable CLINICAL HISTORY: trauma TECHNIQUE: Single frontal radiograph of the chest was obtained. Comparison: Comparison is made to chest radiograph 08/02/2024 FINDINGS: A loop recorder is noted. Calcified aortic knob is seen. Bilateral lower lung predominant airspace opacities are seen. Small bilateral pleural effusions are seen evaluation of the right effusion is limited. IMPRESSION: 1. Bilateral lower lung predominant airspace opacities which may represent atelectasis, pneumonia, and/or aspiration. 2. Small bilateral pleural effusions are somewhat smaller than on the prior exam. ACT 112: Negative or not required by law. Electronically signed by: Rupesh Argueta M.D. 08/25/2024 8:[address] 08/25/24 07:57 CT head/brain wo con CLINICAL HISTORY: 78 years-old Female with trauma. Acute head trauma with weakness TECHNIQUE: Multiple axial CT images of the head were obtained without contrast. A dose lowering technique was utilized adhering to the principles of ALARA. COMPARISON: Head CT 07/30/2024 FINDINGS: No acute intracranial hemorrhage, midline shift, intracranial mass, hydrocephalus, territorial ischemia or abnormal extra-axial collection. Involutional changes with white matter hypodensities redemonstrated suggestive of chronic microvascular ischemic disease. The calvarium is intact. The paranasal sinuses, mastoid air cells, and middle ear cavities are clear. IMPRESSION: No acute intracranial abnormality or calvarial fracture. ACT 112: Negative or not required by law. The above report was generated using voice recognition software. It may contain grammatical, syntax or spelling errors. Electronically signed by: Silvio Miguel M.D. 08/25/2024 9:22 AM Hip/Pelvis X-Ray 08/25/24 07:57 XR hip RT 2V w pelvis HISTORY: 78 years-old Female trauma acute pain of the pelvis and right hip COMPARISON: 08/08/2024 TECHNIQUE: AP view of the pelvis with 2 views of the right hip FINDINGS: Mild osteoarthritis of the left hip. Satisfactory alignment of the right hip arthroplasty. Soft tissue swelling of the right thigh and tissues lateral to the right hip. No periprosthetic fracture or hardware loosening. IMPRESSION: Soft tissue swelling without acute fracture or dislocation. ACT 112: Negative or not required by law. The above report was generated using voice recognition software. It may contain grammatical, syntax or spelling errors. Electronically signed by: Silvio Miguel M.D. 08/25/2024 8:24 AM Chest CTA 08/25/24 10:59 CT angio chest PE protocol CLINICAL HISTORY: PE TECHNIQUE: Multidetector row helical CT of the chest was performed with angiographic protocol. Coronal and sagittal reformations were obtained. Coronal and sagittal MIPS were obtained from the axial data set and were submitted for review. Automated dose lowering techniques and/or adjustment according to p atient size were utilized for this exam. CT DOSE: 386.73 mGy.cm Comparison: Comparison is made to CT chest 03/23/2015 FINDINGS: Lungs and pleura: Moderate bilateral pleural effusions are seen with underlying atelectasis. Airspace opacities are seen most prominent in the bilateral upper lobes. Heart and pericardium: Cardiomegaly is seen with biatrial enlargement. Pulmonary trunk measures 34 mm in diameter. Vessels: No evidence of pulmonary embolism. Mediastinum and yisel: Subcentimeter lymph nodes are seen. Chest wall and lower neck: Unremarkable. Abdomen: Unremarkable. Bones: Vertebral plana of T8 is noted. There is approximately 6 mm of retropulsion. Old healed rib fractures are seen. IMPRESSION: 1. No pulmonary embolus. 2. Airspace opacities in the bilateral upper lungs which may represent pneumonia. 3. Age-indeterminate vertebral plana of T8 with 6 mm retropulsion. 4. Moderate bilateral pleural effusions with underlying atelectasis. ACT 112: Negative or not required by law. Electronically signed by: Rupesh Argueta M.D. 08/25/2024 12:03 PM ECG Additional Comments: ECG revealed NSR at 70 bpm; QTc 388 Code Status & VTE Plan Code Status DNR/DNI VTE Prophylaxis Plan VTE Prophylaxis will be ordered: Yes Supervising Physician Co-Signing Physician Notes Patient seen and examined, chart reviewed, case discussed with Richardson Wiggins PA-C and I agree with the assessment and plan as above except as otherwise noted Labs and images reviewed Patient is admitted for acute hypoxic respiratory due to suspected aspiration pneumonia and a fall. No hip fracture. No head strike or loss of consciousness. CXR with airspace opacities concerning for pneumonia, and patient did have a coughing gagging episode in bed with a possible aspiration episode. Agree with Unasyn at this time. Aspiration precautions. SpO2 goal 90%. Lungs are grossly clear on exam. Agree with management as above. PG Care Time/CCT Total # of Minutes Spent Total Time Spent with Patient: Total time spent is greater than 50% in coordination of care (as documented) at patient's floor/unit and/or counseling patient: [place] [address] INT INP/OBS CARE 3/75MIN Patient Type Established Medical Decision Making High Complexity Diagnoses Fall W19.XXXA Aspiration pneumonia J69.0 Hypoxia R09.02 Paroxysmal atrial fibrillation I48.0 Elevated troponin R79.89 Anemia D64.9 Hyponatremia E87.1 Hypokalemia E87.6
[2024-08-25] MEDS ORDERED: ONDANSETRON INJ 2 MG/ML 2 ML VIAL IV PRN (16:33)
[2024-08-25] MEDS: AMPICILLIN/SULBACTAM SOD 3,000 MG/100 ML BAG IV SCH (20:24)
[2024-08-25] MEDS: AMIODARONE 200 MG TAB PO SCH (20:24)
[2024-08-25] MEDS: SODIUM CHLORIDE 1 GM TABLET PO SCH (20:24)
[2024-08-25] MEDS: LOSARTAN POTASSIUM 50 MG TAB PO SCH (20:24)
[2024-08-25] MEDS: LOVASTATIN 20 MG TAB PO SCH (20:24)
[2024-08-25] MEDS: NORTRIPTYLINE HCL 25 MG CAP PO SCH (20:24)
[2024-08-25] MEDS: APIXABAN 5 MG TABLET PO SCH (20:24)
--- NOTE | 2024-08-25 21:41 | Electrocardiogram Report ---
Test Reason : Blood Pressure : */* mmHG Vent. Rate : 70 BPM Atrial Rate : 70 BPM P-R Int : 196 ms QRS Dur : 88 ms QT Int : 524 ms P-R-T Axes : 37 25 191 degrees QTcB Int : 566 ms Poor data quality, interpretation may be adversely affected Normal sinus rhythm Nonspecific ST and T wave abnormality Prolonged QT Abnormal ECG When compared with ECG of 31-Jul-2024 03:50, Sinus rhythm has replaced Atrial fibrillation Vent. rate has decreased by 64 bpm Questionable change in QRS axis ST no longer depressed in Lateral leads Nonspecific T wave abnormality, worse in Anterolateral leads Confirmed by Nelson Chaidez ([id number]) on 08/25/2024 9:41:00 PM Referred By: Dariusz Petersen Confirmed By: Nelson Chaidez
[2024-08-26] MEDS: LEVOTHYROXINE SODIUM 100 MCG TABLET PO SCH (04:51)
[2024-08-26 06:39] LABS: Basophils # (auto) 0.07 K/uL (0.00-0.20); Basophils % (auto) 0.8 %; Eosinophils # (auto) 0.47 K/uL (0.00-0.50); Eosinophils % (auto) 5.1 %; Hematocrit (blood only) 27.3 % (37.0-47.0); Immature Granulocytes # (auto) 0.05 K/uL (0.01-0.20); Immature Granulocytes % (auto) 0.5 %; Lymphocytes # (auto) 0.78 K/uL (1.20-3.40); Lymphocytes % (auto) 8.5 %; Mean Platelet Volume 9.7 fL (9.4-12.4); Monocytes # (auto) 1.06 K/uL (0.11-0.59); Monocytes % (auto) 11.5 %; Neutrophils # (auto) 6.76 K/uL (1.40-6.50); Neutrophils % (auto) 73.6 %; Platelet Count 349 K/uL (130-400); RDW Coefficient of Variation 12.9 % (11.5-14.5); RDW Standard Deviation 42.7 fL (36.4-46.3); White Blood Count 9.19 K/ul (4.8-10.8)
[2024-08-26 06:57] LABS: Calcium 7.9 mg/dl (8.6-10.3); Potassium 3.6 mmol/L (3.5-5.1)
[2024-08-26 07:03] LABS: BUN Creatinine Ratio 16.3 (10-20); Creatinine Clr Calc Pharmacy 47.9 ml/min
[2024-08-26 07:20] LABS: Troponin I High Sensitivity 30.5 pg/ml (0-14)
[2024-08-26] MEDS: FLUTICASONE PROPIONATE NA SPR 16 GM BTL SCH (07:48)
[2024-08-26] MEDS: SERTRALINE HCL 50 MG TABLET PO SCH (07:49)
[2024-08-26] MEDS: amLODIPine BESYLATE 5 MG TAB PO SCH (07:50)
[2024-08-26] MEDS ORDERED: POLYETHYLENE (MIRALAX) 17 GM PACK PO PRN (09:00)
[2024-08-26] MEDS: FUROSEMIDE 40 MG/4 ML VIAL IV ONE ×2 (11:27→16:43)
--- NOTE | 2024-08-26 16:21 | Hospitalist Progress Note ---
Date of Service August 26, 2024 Assessment & Plan (1) (HFpEF) heart failure with preserved ejection fraction: Plan: Brittney is a 78-year-old female with PMH of paroxysmal atrial fibrillation (on apixaban), HTN, Andriy's thyroiditis, CKD, depression/anxiety, HL, aspiration pneumonia with dysmotility of the esophagus, and IBS. She presented via EMS from [facility] on 08/25 after sustaining a fall in the bathroom this morning. Remote history of right hip fracture surgery in July 2024. Patient here with significant bilateral pleural effusions, acute respiratory failure with hypoxia, with significant aortic valve murmur but noted to be sclerosis but without stenosis on recent echocardiogram. With preserved EF. BNP elevated at 569, with some peripheral edema of the legs which is now improving. In sinus rhythm. Blood pressures are controlled Give Lasix Lasix 40 mg IV twice daily today and reassess tomorrow I's and O's, daily weights, low-sodium diet (2) Hypoxia: Plan: Patient was started on supplemental oxygen after her hip surgery in July 2024 However, this was continued while she was at [facility] due to potential heart failure SpO2 was 72% on RA on arrival Chest CTA revealed no pulmonary embolism, but showed moderate pleural effusions bilat with compressive atelectasis and bilat UL PNA Viral respiratory BioFire panel negative Supplemental oxygen as needed to maintain SpO2 greater than 94% Diuresing with Lasix as above (3) Fall: Plan: Patient with a history of falls including 1 with a right hip fracture last admission and interestingly last admission had a CT angiogram of the head and neck which showed vertebral artery compression syndrome on the israel?-Unclear if related No head strike; no LOC Head and cervical spine CT unremarkable, however CT of the chest notes a T8 vertebral plana with 6 mm of retropulsion-she has no back pain Right hip x-ray with evidence of soft tissue swelling but no acute fracture or dislocation and she has no right hip pain PT/OT evaluations appreciated Fall precautions Consult orthopedic spine surgery for further evaluation of the T8 finding (4) Aspiration pneumonia: Plan: Patient had gagging and coughing with reflux in the ER but no vomiting CT chest does show bilateral upper lobe infiltrates which may be residual from last admission but should have been gone by now Continue Unasyn Has known esophageal dysmotility from last admission evaluation No leukocytosis; afebrile Aspiration precautions Elevate HOB Speech therapy consult appreciated (5) Paroxysmal atrial fibrillation: Plan: Remains in sinus rhythm with first-degree AV block and PACs, rates in the 60s to 70s Continue Eliquis BID Continue amiodarone 200 mg p.o. BID She was discontinued from metoprolol prior to admission due to bradycardia when in sinus Follow on telemetry (6) Elevated troponin: Plan: Troponin 39/41/49/30, no chest pain, no ischemic changes on EKG, this is myocardial demand ischemia in the setting of hypoxia and heart failure (7) Hyponatremia: Plan: Chronic, sodium improved to 131 from 128 on admission. 130 is around her baseline Hold further salt tablets due to heart failure-can resume at lower dose if needed (8) Defect of endplate of vertebra: Plan: As noted above (9) Anemia: Plan: Chronic; Hgb 9.0 here, normocytic, likely secondary to recent hip fracture with repair. Baseline hemoglobin normal prior to hip fracture Follow CBC Add on iron tablets and docusate Plan CKD stage III-creatinine at baseline Renally dose medications, avoid nephrotoxins Hypothyroidism-recent TSH normal at 2.5, continue levothyroxine Depression/anxiety-continue sertraline, Xanax as needed, nortriptyline HTN-blood pressure is controlled-continue losartan, amlodipine, Lasix Hyperlipidemia-continue statin DVT prophylaxis-Eliquis Disposition: Continued stay [facility] telemetry Admission and Anticipated Discharge Date Admission Date: August 25, 2024 Subjective Pt feeling SOB somewhat, no pain in her back or anywhere else. No numbness or tingling down the legs. Remains on 6 L nasal cannula No pain in right hip. Physical Exam Constitutional: WD/WN, vitals as above Respiratory: normal respiratory effort Auscultation: + diminished lung sounds (at bases bilat with crackles); no rhonchi and no wheezes Cardiovascular: Rate/Rhythm: regular rate and regular rhythm Heart Sounds: + murmur (3/6 NEFTALI at RUSB) Extremities: + edema (trace pitting edema legs bilat) Gastrointestinal (Abdomen): normal bowel sounds, soft, nontender, no hepatosplenomegaly Musculoskeletal: Extremities: + extremities abnormal to inspection (Right hip incision well-healed) Psychiatric: A+Ox3, euthymic affect Results & Data Results & Data Vital Signs (Past 12 Hours) Vital Signs Temp Pulse Pulse Resp BP Pulse Ox Pulse Ox 08/26/24 13:50 68 08/26/24 12:41 90 08/26/24 11:29 37.2 C 60 18 127/86 92 08/26/24 07:50 08/26/24 07:47 36.7 C 79 18 135/69 90 08/26/24 07:00 73 Pulse Ox O2 Del Method O2 Flow Rate O2 Flow Rate O2 Flow Rate 08/26/24 13:50 08/26/24 12:41 94 6 6 08/26/24 11:29 Nasal Cannula 6 08/26/24 07:50 Nasal Cannula 6 08/26/24 07:47 Nasal Cannula 5 08/26/24 07:00 Laboratory Results CBC, BMP, troponin reviewed PG Care Time/CCT Total # of Minutes Spent Total Time Spent with Patient: Total time spent is greater than 50% in coordination of care (as documented) at patient's floor/unit and/or counseling patient: Coding Level of Care Code 29329 SUB INP/OBS CARE 3/50MIN Diagnoses (HFpEF) heart failure with preserved ejection fraction I50.30 Hypoxia R09.02 Fall W19.XXXA Aspiration pneumonia J69.0 Paroxysmal atrial fibrillation I48.0 Elevated troponin R79.89 Hyponatremia E87.1 Defect of endplate of vertebra Q76.49 Anemia D64.9
[2024-08-27 07:25] LABS: Basophils # (auto) 0.05 K/uL (0.00-0.20); Basophils % (auto) 0.5 %; Eosinophils # (auto) 0.29 K/uL (0.00-0.50); Eosinophils % (auto) 3.1 %; Hematocrit (blood only) 26.9 % (37.0-47.0); Hemoglobin 8.7 g/dl (12.0-16.0); Immature Granulocytes # (auto) 0.06 K/uL (0.01-0.20); Immature Granulocytes % (auto) 0.6 %; Lymphocytes # (auto) 0.75 K/uL (1.20-3.40); Lymphocytes % (auto) 8.1 %; Mean Corpuscular Hemoglobin 29.4 pg (25.0-34.0); Mean Corpuscular Hgb Conc 32.3 g/dL (32.0-36.0); Mean Corpuscular Volume 90.9 fL (80.0-100.0); Mean Platelet Volume 9.7 fL (9.4-12.4); Monocytes # (auto) 0.95 K/uL (0.11-0.59); Monocytes % (auto) 10.3 %; Neutrophils # (auto) 7.14 K/uL (1.40-6.50); Neutrophils % (auto) 77.4 %; Platelet Count 348 K/uL (130-400); RDW Standard Deviation 43.2 fL (36.4-46.3); Red Blood Count 2.96 M/uL (4.20-5.40); White Blood Count 9.24 K/ul (4.8-10.8)
[2024-08-27 07:43] LABS: BUN Creatinine Ratio 16.5 (10-20); Calcium 7.7 mg/dl (8.6-10.3); Creatinine Clr Calc Pharmacy 45.1 ml/min; Magnesium 1.9 mg/dl (1.7-2.4)
[2024-08-27] MEDS: FUROSEMIDE 40 MG/4 ML VIAL IV SCH (09:34)
[2024-08-27] MEDS: DOCUSATE SODIUM 100 MG CAP PO SCH (09:34)
[2024-08-27] MEDS: POTASSIUM CHLORIDE CRTAB 20 MEQ TABCR PO SCH (09:34)
--- NOTE | 2024-08-27 10:36 | Orthopedic Consultation ---
Date of Consultation August 27, 2024 Assessment & Plan (1) Compression fracture of thoracic vertebra with routine healing: At this time the fracture seems to be present for some time. It is intrinsically stable as it is now with vertebral plaque. She is distraught describing no neurologic issues or pain. Recommend that she continue with activity as tolerated. She is not a candidate for a brace. She is not a surgical candidate. History of Present Illness Reason for Consultation: T8 compression fracture Attending Physician: Miriam Hutchinson MD History of Present Illness This is a very pleasant 70-year-old female who presents to the hospital with multiple medical issues. She does note she has a history of a fall years ago where she believes she sustained a fracture in her thoracic spine. Today she states she has very little pain in this region. She describes some pinpoint discomfort only. She denies any numbness or tingling lower extremities. Allergies Allergy/AdvReac Type Severity Reaction Status Date / Time methylprednisolone Allergy Mild Rash Verified 07/29/24 14:32 alendronate sodium AdvReac Mild GI upset Verified 07/29/24 14:32 erythromycin base AdvReac Mild GI upset Verified 07/29/24 14:32 hydrochlorothiazide AdvReac Mild hyponatremi Verified 07/29/24 14:32 a hydrocodone AdvReac Mild nausea Verified 07/29/24 14:32 vomiting tramadol AdvReac Mild nausea Verified 07/29/24 14:32 vomiting clavulanic acid AdvReac Gastrointestinal Verified 07/29/24 14:32 [From Augmentin] Upset Home Medications Medication Instructions Recorded Confirmed Type fluticasone propionate 50 1 spray intranasal DAILY #48 grams 07/06/23 08/25/24 Rx mcg/actuation nasal spray,suspension (Flonase Allergy Relief) apixaban 5 mg tablet (Eliquis) 5 mg PO BID #180 tabs 07/23/23 08/25/24 Rx lovastatin 40 mg tablet 40 mg PO QPM #90 tabs 01/18/24 08/25/24 Rx cholecalciferol (vitamin D3) 125 125 mcg PO DAILY #30 caps 06/09/24 08/25/24 Rx mcg (5,000 unit) capsule levothyroxine 100 mcg tablet 100 mcg PO QAM #90 tabs 07/11/24 08/25/24 Rx alprazolam 0.25 mg tablet 0.25 mg PO DAILY PRN anxiety #30 07/26/24 08/25/24 Rx tabs nortriptyline 25 mg capsule 25 mg PO HS #180 caps 08/06/24 08/25/24 Rx amiodarone 200 mg tablet 200 mg PO BID 08/25/24 08/25/24 History amlodipine 10 mg tablet 10 mg PO DAILY 08/25/24 08/25/24 History calcium carbonate 500 mg PO BID 08/25/24 08/25/24 History cetirizine 10 mg tablet 10 mg PO DAILY PRN allergies 08/25/24 08/25/24 History cyanocobalamin (vitamin B-12) 0 mcg PO DAILY 08/25/24 08/25/24 History 1,000 mcg capsule furosemide 40 mg tablet 40 mg PO DAILY 08/25/24 08/25/24 History losartan 50 mg tablet 50 mg PO PM 08/25/24 08/25/24 History sertraline 50 mg tablet 50 mg PO DAILY 08/25/24 08/25/24 History sodium chloride 1,000 mg soluble 1,000 mg PO BID 08/25/24 08/25/24 History tablet Patient History Medical History (Updated 08/27/24 @ 10:35 by Shaka Uriostegui DO) H/O dizziness Vertigo Dyslipidemia Gastroesophageal reflux disease HX Depression with anxiety Osteoporosis Hypothyroidism HTN (hypertension) Status post placement of implantable loop recorder Hx of fracture of clavicle Right clavicle fracture S/P Pleural effusion HX Surgical History (Updated 08/20/24 @ 00:07 by Marcell Peterson) History of colonoscopy H/O oral surgery S/P eye surgery BLOCKED TEAR DUCT S/P tubal ligation S/P dilatation and curettage Family History Mother Hypertension Heart disease Stroke Brother Hypertension Grandfather (Paternal) Lung cancer Father Cancer Other No family history of allergies No family history of bleeding disorder Denies family history of Ovarian cancer Prostate cancer Breast cancer Colorectal cancer Asthma Social History Smoking Status: Never smoker Second Hand Exposure: Yes (SPOUSE SMOKED); Do You Dip or Chew Tobacco: No; Hx Alcohol Use: No Hx Substance Use: No Preferred Language: Surinamese Communication Ability: Effective Visual Impairment: No Limitations Hearing Ability: Normal Head Banquet Waitress Required: No Beliefs That Will Affect Care: None marital status: Current Living Situation: Rehab Current Living Situation Comment: apartment alone current occupational status: retired How many Children do You have: 3 Feels Safe at Home: Yes Safety Concerns: Feels Safe At This Time Childhood Exposure to Second-Hand Smoke: No Diet: regular Diet Comment: regular caffeine: No during the past year weight has: remained stable Dental Care, Regularly: Yes Physical Activity Frequency: Daily Physical Activity Frequency Comment: walk Seatbelt Use: always Sunscreen Use: Yes Assistive Devices: Oxygen - Continuous and Walker Physical Exam Physical Exam: On exam she is in the chair at the bedside. She is alert and oriented. She is very comfortable. She exhibits no discomfort to palpation or percussion of the thoracolumbar spine. She has regional strength testing lower extremities. Sensory is intact to cold and light touch. Results & Data Vital Signs (Past 12 Hours) Vital Signs Temp Pulse Pulse Resp BP BP Pulse Ox 08/27/24 09:44 67 08/27/24 08:35 94 08/27/24 08:20 87 L 08/27/24 07:36 36.6 C 70 133/66 92 08/27/24 07:32 08/27/24 03:36 74 17 91 08/27/24 02:56 36.6 C 73 18 133/67 88 L 08/27/24 00:00 70 08/26/24 22:45 36.7 C 70 18 127/65 91 O2 Del Method O2 Flow Rate 08/27/24 09:44 08/27/24 08:35 High Flow Nasal Cannula 9 08/27/24 08:20 High Flow Nasal Cannula 8 08/27/24 07:36 High Flow Nasal Cannula 8 08/27/24 07:32 High Flow Nasal Cannula 8 08/27/24 03:36 Nasal Cannula 8 08/27/24 02:56 Nasal Cannula 6 08/27/24 00:00 08/26/24 22:45 Nasal Cannula 6
--- NOTE | 2024-08-27 16:38 | Hospitalist Progress Note ---
Date of Service August 27, 2024 Assessment & Plan (1) (HFpEF) heart failure with preserved ejection fraction: Plan: Brittney is a 78-year-old female with PMH of paroxysmal atrial fibrillation (on apixaban), HTN, Andriy's thyroiditis, CKD, depression/anxiety, HL, aspiration pneumonia with dysmotility of the esophagus, and IBS. She presented via EMS from [facility] on 08/25 after sustaining a fall in the bathroom on the AM of admission. She has a recent h/o right hip fracture with repair in July 2024. She had post-op complications of fever and aspiration PNA, hypoxia, hyponatremia. She was sent to after that admission and was doing well, not requiring O2. SHe then went to [facility] x 2 days prior to falling. #Acute on chronic HFpEF Patient here with significant bilateral pleural effusions w/ compressive atelectasis on Chest CT, acute respiratory failure with hypoxia, with significant aortic valve murmur but noted to be sclerosis but without stenosis on recent echocardiogram w/ preserved EF. BNP elevated at 569, with some peripheral edema of the legs which is now resolved. In sinus rhythm. Blood pressures are controlled I/O documented are net positive but weight down 1 kg since admission, remains on 8-9LNC -continue Lasix 40 mg IV twice daily -continue I's and O's, daily weights, low-sodium diet -with lasix-induced hypokalemia--> replace with KCl 40 meq po tid today -follow BMP, mag in AM -continue BP control with losartan, amlodipine -STOP salt tablets as contributing to volume overload--> Na+ increasing with diuresis (2) Hypoxia: Plan: Acute respiratory failure with hypoxia- was on 1LNC continuously when she was at [facility] prior to admission Now requiring 8-9 LNC SpO2 was 72% on RA on arrival here secondary to acute on chronic HFpEF and PNA Chest CTA revealed no pulmonary embolism, but showed moderate pleural effusions bilat with compressive atelectasis and bilat UL PNA Viral respiratory BioFire panel negative Continue Supplemental oxygen as needed to maintain SpO2 greater than 94%- continue to wean as able Diuresing with Lasix as above Treating for aspiration PNA Add ICS (3) Aspiration pneumonia: Plan: Patient had gagging and coughing with reflux in the ER but no vomiting CT chest does show bilateral upper lobe infiltrates which may be residual from last admission but should have been gone by now Continue Unasyn Has known esophageal dysmotility from last admission evaluation No leukocytosis; afebrile Aspiration precautions Elevate HOB Speech therapy consult appreciated (4) Hyponatremia: Plan: Chronic, sodium 128 on admission. 130 is around her baseline Now up to 133 with diuresis. Hyponatremia likely due to CHF Hold further salt tablets due to heart failure-can resume at lower dose if needed after diuresis Follow BMP (5) Fall: Plan: Patient with a history of falls including 1 with a right hip fracture last admission and interestingly last admission had a CT angiogram of the head and neck which showed vertebral artery compression syndrome on the israel?-Unclear if related No head strike; no LOC Head and cervical spine CT unremarkable, however CT of the chest notes a T8 vertebral plana with 6 mm of retropulsion-she has no back pain and Ortho SPine thinks this is old and no interventions needed Right hip x-ray with evidence of soft tissue swelling but no acute fracture or dislocation and she has no right hip pain PT/OT evaluations appreciated Fall precautions (6) Paroxysmal atrial fibrillation: Plan: Remains in sinus rhythm with first-degree AV block and PACs, rates in the 60s to 70s Continue Eliquis BID Continue amiodarone 200 mg p.o. BID She was discontinued from metoprolol prior to admission due to bradycardia when in sinus Follow on telemetry (7) Elevated troponin: Plan: Troponin 39/41/49/30, no chest pain, no ischemic changes on EKG, this is myocardial demand ischemia in the setting of hypoxia and heart failure (8) Anemia: Plan: Chronic; Hgb 8.7-9.0 here, normocytic, likely secondary to recent hip fracture with repair. Baseline hemoglobin normal prior to hip fracture Follow CBC Add on iron tablets and docusate (9) Defect of endplate of vertebra: Plan: Seen by Ortho SPine, no intervention; old finding Plan #CKD stage III-creatinine at baseline Renally dose medications, avoid nephrotoxins follow BMP #Hypothyroidism-recent TSH normal at 2.5, continue levothyroxine #Depression/anxiety-continue sertraline, Xanax as needed, nortriptyline #HTN-blood pressure is controlled-continue losartan, amlodipine, Lasix #Hyperlipidemia-continue statin DVT prophylaxis-Eliquis Disposition: Continued stay Med[facility] telemetry, not stable for dc yet, but will need rehab again Admission and Anticipated Discharge Date Admission Date: August 25, 2024 Subjective Pt feeling quite short of breath with minimal movement, is now on 8-9LNC No pain. Is feeling anxious because she thought she was to be discharged to rehab and does not feel ready. Gave reassurance she would not be discharged yet. Tele with 1st degree AVB, SR rates 60-70s, some PACs Physical Exam Constitutional: WD/WN, vitals as above Respiratory: normal respiratory effort Auscultation: + diminished lung sounds (bilat lower to mid lung andino) and + crackles (bibasilar); no rhonchi and no wheezes Cardiovascular: Rate/Rhythm: regular rate and regular rhythm Heart Sounds: + murmur (3/6 NEFTALI at RUSB) Extremities: no edema Gastrointestinal (Abdomen): normal bowel sounds, soft, nontender, no hepatosplenomegaly Musculoskeletal: Extremities: + extremities abnormal to inspection (Right hip incision well-healed) Psychiatric: Orientation: alert and oriented x 3 Affect: + anxious affect Mood: + anxious mood Results & Data Results & Data Vital Signs (Past 12 Hours) Vital Signs Temp Pulse Pulse Pulse Resp BP BP 08/27/24 14:07 66 08/27/24 11:28 36.6 C 68 18 118/74 08/27/24 09:44 67 08/27/24 08:35 08/27/24 08:20 08/27/24 07:36 36.6 C 70 133/66 08/27/24 07:32 Pulse Ox O2 Del Method O2 Flow Rate 08/27/24 14:07 08/27/24 11:28 93 High Flow Nasal Cannula 8 08/27/24 09:44 08/27/24 08:35 94 High Flow Nasal Cannula 9 08/27/24 08:20 87 L High Flow Nasal Cannula 8 08/27/24 07:36 92 High Flow Nasal Cannula 8 08/27/24 07:32 High Flow Nasal Cannula 8 Laboratory Results CBC,BMP, magnesium reviewed PG Care Time/CCT Total # of Minutes Spent Total Time Spent with Patient: Total time spent is greater than 50% in coordination of care (as documented) at patient's floor/unit and/or counseling patient: Coding Level of Care Code 92543 SUB INP/OBS CARE 3/50MIN Diagnoses (HFpEF) heart failure with preserved ejection fraction I50.30 Hypoxia R09.02 Aspiration pneumonia J69.0 Hyponatremia E87.1 Fall W19.XXXA Paroxysmal atrial fibrillation I48.0 Elevated troponin R79.89 Anemia D64.9 Defect of endplate of vertebra Q76.49
[2024-08-27] MEDS: FERROUS SULFATE 325 MG TAB PO SCH (16:42)
--- NOTE | 2024-08-28 00:43 | Communication Note ---
Date of Service: August 28, 2024 RN contacted me to notify patient had been feeling more SOB and oxygen saturation had decreased to 77% with NC at 5 lpm, which improved to 92% on NC at 8 lpm. On arrival at bedside, patient endorsing SOB that is worse when laying down. Exam with slightly decreased lung sounds at bases. Ordered CXR which to my interpretation could represent effusions. Procal and CRP added to am labs as well to r/o possibility of pna. Lasix 40 mg IV x1 given. Resident Activity Tracking Resident Involvement: Resident Care Provided Care Provided: Adult Hospital Medicine
--- NOTE | 2024-08-28 00:47 | XRay Report ---
Exam(s): XR CXR 1 VIEW EXAM: XR Chest, 1 View CLINICAL HISTORY: Reason for exam: SOB. TECHNIQUE: Frontal view of the chest. COMPARISON: 08/25/2024 FINDINGS: There is a poor inspiratory effort. Lungs: There is pulmonary vascular congestion. There are bilateral infiltrates more pronounced on the right.. Pleural space: There is a small right pleural effusion with a moderate left pleural effusion.. No pneumothorax. Heart: Heart is enlarged. Mediastinum: There is uncoiling of thoracic aorta. . IMPRESSION: There are bilateral pleural effusions with bilateral infiltrates which have worsened compared to previous examination. There is pulmonary vascular congestion with cardiomegaly. Findings in part may be related to congestive heart failure/pulmonary edema. Underlying pneumonia cannot be excluded Electronically signed by: Rajiv Choe MD 08/28/24 00:45 AM
[2024-08-28] MEDS: FUROSEMIDE 40 MG/4 ML VIAL IV ONE ×2 (01:27→04:06)
[2024-08-28] MEDS ORDERED: VANCOMYCIN CONSULT ACTIVE PRN (03:32)
[2024-08-28] MEDS: VANCOMYCIN HCL 1,250 MG in SODIUM CHLORIDE 0.9% 250 ML IV ONE (05:33)
[2024-08-28] MEDS: PIPERACILLIN/TAZOBACTAM 4.5 GM/100 ML BAG IV SCH (07:19)
[2024-08-28 07:52] LABS: Basophils # (auto) 0.04 K/uL (0.00-0.20); Basophils % (auto) 0.4 %; Eosinophils # (auto) 0.26 K/uL (0.00-0.50); Eosinophils % (auto) 2.5 %; Hematocrit (blood only) 27.3 % (37.0-47.0); Hemoglobin 8.8 g/dl (12.0-16.0); Immature Granulocytes # (auto) 0.06 K/uL (0.01-0.20); Immature Granulocytes % (auto) 0.6 %; Lymphocytes # (auto) 0.73 K/uL (1.20-3.40); Mean Corpuscular Hemoglobin 29.4 pg (25.0-34.0); Mean Corpuscular Hgb Conc 32.2 g/dL (32.0-36.0); Mean Corpuscular Volume 91.3 fL (80.0-100.0); Mean Platelet Volume 9.9 fL (9.4-12.4); Monocytes % (auto) 10.5 %; Neutrophils # (auto) 8.25 K/uL (1.40-6.50); Platelet Count 363 K/uL (130-400); RDW Coefficient of Variation 13.2 % (11.5-14.5); RDW Standard Deviation 43.4 fL (36.4-46.3); Red Blood Count 2.99 M/uL (4.20-5.40); White Blood Count 10.44 K/ul (4.8-10.8)
[2024-08-28 08:08] LABS: BUN Creatinine Ratio 15.2 (10-20); C Reactive Protein 16.82 mg/dl (0-0.5); Calcium 7.8 mg/dl (8.6-10.3); Creatinine Clr Calc Pharmacy 38.7 ml/min; Magnesium 1.9 mg/dl (1.7-2.4); Potassium 3.4 mmol/L (3.5-5.1)
--- NOTE | 2024-08-28 08:26 | Hospitalist Progress Note ---
Date of Service August 28, 2024 Assessment & Plan (1) (HFpEF) heart failure with preserved ejection fraction: (2) Hypoxia: (3) Aspiration pneumonia: (4) Hyponatremia: (5) Fall: (6) Paroxysmal atrial fibrillation: (7) Elevated troponin: (8) Anemia: (9) Defect of endplate of vertebra: Plan Brittney is a 78-year-old female with PMH of paroxysmal atrial fibrillation (on apixaban), HTN, Andriy's thyroiditis, CKD, depression/anxiety, HL, aspiration pneumonia with dysmotility of the esophagus, and IBS. She presented via EMS from [facility] on 08/25 after sustaining a fall in the bathroom on the AM of admission. She has a recent h/o right hip fracture with repair in July 2024. She had post-op complications of fever and aspiration PNA, hypoxia, hyponatremia. She was sent to [facility] after that admission and was doing well, not requiring O2. SHe then went to [facility] x 2 days prior to falling. #Acute on chronic HFpEF - Patient here with significant bilateral pleural effusions w/ compressive atelectasis on Chest CT, acute respiratory failure with hypoxia, with significant aortic valve murmur but noted to be sclerosis but without stenosis on recent echocardiogram w/ preserved EF. - elevated at 599, with some peripheral edema of the legs which is now resolved. In sinus rhythm. Blood pressures are controlled - I/O documented are net positive but weight down 1 kg since admission - hypoxia worsening - continue Lasix 40 mg IV twice daily - continue I's and O's, daily weights, low-sodium diet - with lasix-induced hypokalemia--> replace with KCl 40 meq po bid today - follow BMP, mag in AM - continue BP control with losartan, amlodipine - salt tablets have been stopped, likely contributed to volume overload--> Na+ increasing with diuresis #Acute respiratory failure with hypoxia - was on 1LNC continuously when she was at [facility] prior to admission - overnight worsened and is currently on HFNC - SpO2 was 72% on RA on arrival here secondary to acute on chronic HFpEF and PNA - Chest CTA revealed no pulmonary embolism, but showed moderate pleural effusions bilat with compressive atelectasis and bilat UL PNA - Viral respiratory BioFire panel negative - Continue Supplemental oxygen as needed to maintain SpO2 greater than 94%- continue to wean as able - Diuresing with Lasix as above - Treating for aspiration PNA - Add ICS #Aspiration pneumonia: - Patient had gagging and coughing with reflux in the ER but no vomiting - CT chest does show bilateral upper lobe infiltrates which may be residual from last admission but should have been gone by now - on zosyn now - Has known esophageal dysmotility from last admission evaluation - No leukocytosis; afebrile - Aspiration precautions - Elevate HOB - CUPOLA MECHANIC eval appreciated, recs easy to chew diet, alt solids & liquids, aspiration precautions #Hyponatremia: - Chronic, sodium 128 on admission. 130 is around her baseline - Now up to 132 with diuresis. Hyponatremia likely due to CHF - Hold further salt tablets due to heart failure-can resume at lower dose if needed after diuresis - Follow BMP #Fall: - Patient with a history of falls including 1 with a right hip fracture last admission and interestingly last admission had a CT angiogram of the head and neck which showed vertebral artery compression syndrome on the [place]?-Unclear if related - No head strike; no LOC - Head and cervical spine CT unremarkable, however CT of the chest notes a T8 vertebral plana with 6 mm of retropulsion-she has no back pain and Ortho SPine thinks this is old and no interventions needed - Right hip x-ray with evidence of soft tissue swelling but no acute fracture or dislocation and she has no right hip pain - PT/OT on board - Fall precautions #Paroxysmal atrial fibrillation: - Remains in sinus rhythm with first-degree AV block and PACs, rates in the 60s to 70s - Continue Eliquis BID - Continue amiodarone 200 mg p.o. BID - She was discontinued from metoprolol prior to admission due to bradycardia when in sinus - Follow on telemetry #Elevated troponin: - Troponin 39/41/49/30, no chest pain, no ischemic changes on EKG, this is myocardial demand ischemia in the setting of hypoxia and heart failure #Anemia: - Chronic; Hgb 8.7-9.0 here, normocytic, likely secondary to recent hip fracture with repair. - Baseline hemoglobin normal prior to hip fracture - Follow CBC Add on iron tablets and docusate #Defect of endplate of vertebra: - Seen by Ortho SPine, no intervention; old finding #CKD stage III-creatinine at baseline - Renally dose medications, avoid nephrotoxins - follow BMP #Hypothyroidism-recent TSH normal at 2.5, continue levothyroxine #Depression/anxiety-continue sertraline, Xanax as needed, nortriptyline #HTN-blood pressure is controlled-continue losartan, amlodipine, Lasix #Hyperlipidemia-continue statin #DVT prophylaxis-Eliquis #Disposition: Continued stay MedSurg telemetry, not stable for dc yet, but will need rehab again Admission and Anticipated Discharge Date Admission Date: August 25, 2024 Subjective Overnight, pt became more hypoxic without respiratory distress Pt was transitioned to HFNC at 30L / 60% Since pt was saturating 98%, HFNC reduced to 25L / 50% Review of Systems Review of Systems: Comprehensive ROS neg Physical Exam Physical Exam: Gen: NAD HEENT: NC/AT, MMM Lungs: diminished breath sounds at the bases CVS: s1s2nl, RRR Abd: nl bowel sounds, soft, NT Ext: no edema Results & Data Results & Data Vital Signs (Past 12 Hours) Vital Signs Temp Pulse Pulse Resp BP BP Pulse Ox 08/28/24 07:51 36.6 C 67 18 143/71 H 95 08/28/24 07:23 82 18 94 08/28/24 05:30 68 22 99 08/28/24 03:03 36.6 C 73 20 125/63 90 08/27/24 22:36 36.6 C 69 20 128/67 91 08/27/24 22:04 70 O2 Del Method O2 Flow Rate FiO2 08/28/24 07:51 High Flow Nasal Cannula 10 08/28/24 07:23 High Flow Nasal Cannula 30 60 08/28/24 05:30 High Flow Nasal Cannula 30 40 08/28/24 03:03 High Flow Nasal Cannula 10 08/27/24 22:36 High Flow Nasal Cannula 8 08/27/24 22:04 PG Care Time/CCT Total # of Minutes Spent Total Time Spent with Patient: Total time spent is greater than 50% in coordination of care (as documented) at patient's floor/unit and/or counseling patient: Coding Level of Care Code 68023 SUB INP/OBS CARE 2/35MIN Diagnoses (HFpEF) heart failure with preserved ejection fraction I50.30 Hypoxia R09.02 Aspiration pneumonia J69.0 Hyponatremia E87.1 Fall W19.XXXA Paroxysmal atrial fibrillation I48.0 Elevated troponin R79.89 Anemia D64.9 Defect of endplate of vertebra Q76.49
[2024-08-28] MEDS: MAGNESIUM OXIDE 400 MG TAB PO SCH (09:22)
[2024-08-28] MEDS: POTASSIUM CHLORIDE CRTAB 20 MEQ TABCR PO SCH (09:22)
[2024-08-29 08:07] LABS: Hematocrit (blood only) 27.5 % (37.0-47.0); Hemoglobin 8.8 g/dl (12.0-16.0); Mean Corpuscular Hemoglobin 28.8 pg (25.0-34.0); Mean Corpuscular Volume 89.9 fL (80.0-100.0); Mean Platelet Volume 9.6 fL (9.4-12.4); Platelet Count 360 K/uL (130-400); RDW Standard Deviation 42.7 fL (36.4-46.3); Red Blood Count 3.06 M/uL (4.20-5.40); White Blood Count 10.38 K/ul (4.8-10.8)
[2024-08-29 08:30] LABS: BUN Creatinine Ratio 11.8 (10-20); Creatinine Clr Calc Pharmacy 34.6 ml/min; Phosphorus 2.3 mg/dl (2.5-4.9); Potassium 3.5 mmol/L (3.5-5.1)
--- NOTE | 2024-08-29 15:10 | Hospitalist Progress Note ---
Date of Service August 29, 2024 Assessment & Plan (1) (HFpEF) heart failure with preserved ejection fraction: (2) Hypoxia: (3) Aspiration pneumonia: (4) Hyponatremia: (5) Fall: (6) Paroxysmal atrial fibrillation: (7) Elevated troponin: (8) Anemia: (9) Defect of endplate of vertebra: Plan Brittney is a 78-year-old female with PMH of paroxysmal atrial fibrillation (on apixaban), HTN, Andriy's thyroiditis, CKD, depression/anxiety, HL, aspiration pneumonia with dysmotility of the esophagus, and IBS. She presented via EMS from [facility] on 08/25 after sustaining a fall in the bathroom on the AM of admission. She has a recent h/o right hip fracture with repair in July 2024. She had post-op complications of fever and aspiration PNA, hypoxia, hyponatremia. She was sent to [facility] after that admission and was doing well, not requiring O2. SHe then went to [facility] x 2 days prior to falling. #Acute on chronic HFpEF - Patient here with significant bilateral pleural effusions w/ compressive atelectasis on Chest CT, acute respiratory failure with hypoxia, with significant aortic valve murmur but noted to be sclerosis but without stenosis on recent echocardiogram w/ preserved EF. - elevated at 599, with some peripheral edema of the legs which is now resolved. In sinus rhythm. Blood pressures are controlled - I/O documented are net positive but weight down 1 kg since admission - hypoxia initially worsening - continue Lasix 40 mg IV twice daily Less hypoxic today 08/29. Using 6 L of oxygen - continue I's and O's, daily weights, low-sodium diet - with lasix-induced hypokalemia--> replace with KCl 40 meq po bid - follow BMP, mag in AM - continue BP control with losartan, amlodipine - salt tablets have been stopped, likely contributed to volume overload--> Na+ increasing with diuresis #Acute respiratory failure with hypoxia - was on 1LNC continuously when she was at [facility] prior to admission - overnight worsened and is currently on HFNC - SpO2 was 72% on RA on arrival here secondary to acute on chronic HFpEF and PNA - Chest CTA revealed no pulmonary embolism, but showed moderate pleural effusions bilat with compressive atelectasis and bilat UL PNA - Viral respiratory BioFire panel negative - Continue Supplemental oxygen as needed to maintain SpO2 greater than 94%- continue to wean as able - Diuresing with Lasix as above - Treating for aspiration PNA - Add ICS #Aspiration pneumonia: - Patient had gagging and coughing with reflux in the ER but no vomiting - CT chest does show bilateral upper lobe infiltrates which may be residual from last admission but should have been gone by now - on zosyn now - Has known esophageal dysmotility from last admission evaluation - No leukocytosis; afebrile - Aspiration precautions - Elevate HOB - MORTISING MACHINE OPERATOR eval appreciated, recs easy to chew diet, alt solids & liquids, aspiration precautions #Hyponatremia: - Chronic, sodium 128 on admission. 130 is around her baseline -130 today - Hold further salt tablets due to heart failure-can resume at lower dose if needed after diuresis - Follow BMP #Fall: - Patient with a history of falls including 1 with a right hip fracture last admission and interestingly last admission had a CT angiogram of the head and neck which showed vertebral artery compression syndrome on the [place]?-Unclear if related - No head strike; no LOC - Head and cervical spine CT unremarkable, however CT of the chest notes a T8 vertebral plana with 6 mm of retropulsion-she has no back pain and Ortho SPine thinks this is old and no interventions needed - Right hip x-ray with evidence of soft tissue swelling but no acute fracture or dislocation and she has no right hip pain - PT/OT on board - Fall precautions #Paroxysmal atrial fibrillation: - Remains in sinus rhythm with first-degree AV block and PACs, rates in the 60s to 70s - Continue Eliquis BID - Continue amiodarone 200 mg p.o. BID - She was discontinued from metoprolol prior to admission due to bradycardia when in sinus - Follow on telemetry #Elevated troponin: - Troponin 39/41/49/30, no chest pain, no ischemic changes on EKG, this is myocardial demand ischemia in the setting of hypoxia and heart failure #Anemia: - Chronic; Hgb 8.7-9.0 here, normocytic, likely secondary to recent hip fracture with repair. - Baseline hemoglobin normal prior to hip fracture - Follow CBC Add on iron tablets and docusate #Defect of endplate of vertebra: - Seen by Ortho SPine, no intervention; old finding #CKD stage III-creatinine at baseline - Renally dose medications, avoid nephrotoxins - follow BMP #Hypothyroidism-recent TSH normal at 2.5, continue levothyroxine #Depression/anxiety-continue sertraline, Xanax as needed, nortriptyline #HTN-blood pressure is controlled-continue losartan, amlodipine, Lasix #Hyperlipidemia-continue statin #DVT prophylaxis-Eliquis #Disposition: Continued stay MedSurg telemetry, not stable for dc yet, but will need rehab again Admission and Anticipated Discharge Date Admission Date: August 25, 2024 Subjective Patient was seen and examined at 11:50 AM. She denies feeling short of breath. She does have oxygen per nasal cannula on. Denies any chest pain. Does not have any major complaints at this time. Review of Systems Review of Systems: All systems reviewed & are unremarkable except as noted in Subjective Physical Exam Physical Exam: General: Awake, conversant Heart: S1, S2/regular rate and rhythm, no murmur rubs or gallops Lungs: Bilateral crackles at the bases. Normal effort Abdomen: Soft/nontender/nondistended. No hepatosplenomegaly Extremities: No clubbing/cyanosis. No edema Behavior: Appropriate, cooperative Results & Data Results & Data Vital Signs (Past 12 Hours) Vital Signs Temp Pulse Pulse Resp BP Pulse Ox O2 Del Method 08/29/24 14:17 63 08/29/24 11:27 36.7 C 63 20 123/69 95 Nasal Cannula 08/29/24 10:50 94 High Flow Nasal Cannula 08/29/24 07:32 37.0 C 70 20 124/66 90 Nasal Cannula 08/29/24 07:14 High Flow Nasal Cannula 08/29/24 07:07 69 08/29/24 04:00 36.7 C 70 18 127/66 95 High Flow Nasal Cannula O2 Flow Rate 08/29/24 14:17 08/29/24 11:27 6 08/29/24 10:50 6 08/29/24 07:32 6 08/29/24 07:14 6 08/29/24 07:07 08/29/24 04:00 6 Laboratory Results Abnormal lab results 08/29/24 Range/Units 07:39 RBC 3.06 L (4.20-5.40) M/uL Hgb 8.8 L (12.0-16.0) g/dl Hct 27.5 L (37.0-47.0) % Sodium 130 L (136-145) mmol/L Chloride 93 L (98-107) mmol/L Glucose 124 H (70-99(Fasting)) mg/dl Calcium 8.0 L (8.6-10.3) mg/dl Phosphorus 2.3 L (2.5-4.9) mg/dl PG Care Time/CCT Total # of Minutes Spent Total Time Spent with Patient: Total time spent is greater than 50% in coordination of care (as documented) at patient's floor/unit and/or counseling patient: Coding Level of Care Code 66331 SUB INP/OBS CARE 2/35MIN Diagnoses (HFpEF) heart failure with preserved ejection fraction I50.30 Hypoxia R09.02 Aspiration pneumonia J69.0 Hyponatremia E87.1 Fall W19.XXXA Paroxysmal atrial fibrillation I48.0 Elevated troponin R79.89 Anemia D64.9 Defect of endplate of vertebra Q76.49
[2024-08-29] MEDS: ALPRAZolam 0.25 MG TABLET PO PRN (21:47)
[2024-08-29] MEDS: ACETAMINOPHEN 325 MG TAB PO PRN (21:47)
[2024-08-29] MEDS: POTASSIUM CHLORIDE CRTAB 20 MEQ TABCR PO SCH (21:51)
[2024-08-30 08:27] LABS: BUN Creatinine Ratio 12.5 (10-20); Calcium 8.1 mg/dl (8.6-10.3); Creatinine Clr Calc Pharmacy 35.3 ml/min
[2024-08-30] MEDS: POTASSIUM CHLORIDE CRTAB 20 MEQ TABCR PO STA (10:30)
[2024-08-30] MEDS: POTASSIUM CHLORIDE CRTAB 20 MEQ TABCR PO SCH (13:24)
--- NOTE | 2024-08-30 15:02 | Hospitalist Progress Note ---
Date of Service August 30, 2024 Assessment & Plan (1) (HFpEF) heart failure with preserved ejection fraction: (2) Hypoxia: (3) Aspiration pneumonia: (4) Hyponatremia: (5) Fall: (6) Paroxysmal atrial fibrillation: (7) Elevated troponin: (8) Anemia: (9) Defect of endplate of vertebra: Plan Brittney is a 78-year-old female with PMH of paroxysmal atrial fibrillation (on apixaban), HTN, Andriy's thyroiditis, CKD, depression/anxiety, HL, aspiration pneumonia with dysmotility of the esophagus, and IBS. She presented via EMS from [facility] on 08/25 after sustaining a fall in the bathroom on the AM of admission. She has a recent h/o right hip fracture with repair in July 2024. She had post-op complications of fever and aspiration PNA, hypoxia, hyponatremia. She was sent to [facility] after that admission and was doing well, not requiring O2. SHe then went to [facility] x 2 days prior to falling. #Acute on chronic HFpEF - Patient here with significant bilateral pleural effusions w/ compressive atelectasis on Chest CT, acute respiratory failure with hypoxia, with significant aortic valve murmur but noted to be sclerosis but without stenosis on recent echocardiogram w/ preserved EF. - elevated at 599, with some peripheral edema of the legs which is now resolved. In sinus rhythm. Blood pressures are controlled - I/O documented are net positive but weight down 1 kg since admission - hypoxia initially worsening -Patient is being treated with Lasix 40 mg IV twice daily Patient is less hypoxic using 4 L of oxygen today 08/30 and was orthostatic Will discontinue Lasix Encourage incentive spirometer for hypoxia - continue I's and O's, daily weights, low-sodium diet - with lasix-induced hypokalemia--> replace with KCl - follow BMP, mag in AM - continue BP control with losartan, hold amlodipine since blood pressure is low - salt tablets have been stopped, likely contributed to volume overload--> Na+ increasing with diuresis #Acute respiratory failure with hypoxia - was on 1LNC continuously when she was at [facility] prior to admission - SpO2 was 72% on RA on arrival here secondary to acute on chronic HFpEF and PNA - Chest CTA revealed no pulmonary embolism, but showed moderate pleural effusions bilat with compressive atelectasis and bilat UL PNA - Viral respiratory BioFire panel negative - Continue Supplemental oxygen as needed to maintain SpO2 greater than 94%- continue to wean as able -Was being diuresed with Lasix but became orthostatic. Will hold Lasix Incentive spirometer - Treating for aspiration PNA - Add ICS If not weaning, may consider repeating chest imaging #Aspiration pneumonia: - Patient had gagging and coughing with reflux in the ER but no vomiting - CT chest does show bilateral upper lobe infiltrates which may be residual from last admission but should have been gone by now - on zosyn now - Has known esophageal dysmotility from last admission evaluation - No leukocytosis; afebrile - Aspiration precautions - Elevate HOB - PEOPLESOFT FINANCIAL DEVELOPER eval appreciated, recs easy to chew diet, alt solids & liquids, aspiration precautions #Hyponatremia: - Chronic, sodium 128 on admission. 130 is around her baseline -130 today - Hold further salt tablets due to heart failure-can resume at lower dose if needed after diuresis - Follow BMP #Fall: - Patient with a history of falls including 1 with a right hip fracture last admission and interestingly last admission had a CT angiogram of the head and neck which showed vertebral artery compression syndrome on the [place]?-Unclear if related - No head strike; no LOC - Head and cervical spine CT unremarkable, however CT of the chest notes a T8 vertebral plana with 6 mm of retropulsion-she has no back pain and Ortho SPine thinks this is old and no interventions needed - Right hip x-ray with evidence of soft tissue swelling but no acute fracture or dislocation and she has no right hip pain - PT/OT on board. Plan to [facility] when medically stable - Fall precautions #Paroxysmal atrial fibrillation: - Remains in sinus rhythm with first-degree AV block and PACs, rates in the 60s to 70s - Continue Eliquis BID - Continue amiodarone 200 mg p.o. BID - She was discontinued from metoprolol prior to admission due to bradycardia when in sinus - Follow on telemetry #Elevated troponin: - Troponin 39/41/49/30, no chest pain, no ischemic changes on EKG, this is myocardial demand ischemia in the setting of hypoxia and heart failure #Anemia: - Chronic; Hgb 8.7-9.0 here, normocytic, likely secondary to recent hip fracture with repair. - Baseline hemoglobin normal prior to hip fracture - Follow CBC Add on iron tablets and docusate #Defect of endplate of vertebra: - Seen by Ortho SPine, no intervention; old finding #CKD stage III-creatinine at baseline - Renally dose medications, avoid nephrotoxins - follow BMP #Hypothyroidism-recent TSH normal at 2.5, continue levothyroxine #Depression/anxiety-continue sertraline, Xanax as needed, nortriptyline #HTN-blood pressure is controlled-continue losartan, amlodipine, Lasix #Hyperlipidemia-continue statin #DVT prophylaxis-Eliquis #Disposition: Continued stay MedSurg telemetry, not stable for dc yet, but will need rehab again Admission and Anticipated Discharge Date Admission Date: August 25, 2024 Subjective Patient was seen and examined at 10:40 AM. She was accompanied by her daughter and the nurse at the bedside. Nurse reported that the patient worked with physical therapy, became dizzy and was found to be orthostatic upon standing. Review of Systems Review of Systems: All systems reviewed & are unremarkable except as noted in Subjective Physical Exam Physical Exam: General: Awake, conversant Heart: S1, S2/regular rate and rhythm, no murmur rubs or gallops Lungs: Bilateral crackles at the bases. Normal effort Abdomen: Soft/nontender/nondistended. No hepatosplenomegaly Extremities: No clubbing/cyanosis. No edema Behavior: Appropriate, cooperative Results & Data Results & Data Vital Signs (Past 12 Hours) Vital Signs Temp Pulse Pulse Resp BP Pulse Ox O2 Del Method 08/30/24 11:24 36.4 C L 61 20 115/66 91 Nasal Cannula 08/30/24 08:50 Nasal Cannula 08/30/24 08:30 63 08/30/24 07:49 36.7 C 59 L 20 138/72 94 Nasal Cannula 08/30/24 07:43 62 08/30/24 03:46 36.4 C L 62 18 135/67 94 High Flow Nasal Cannula O2 Flow Rate 08/30/24 11:24 4 08/30/24 08:50 6 08/30/24 08:30 08/30/24 07:49 6 08/30/24 07:43 08/30/24 03:46 6 Laboratory Results Abnormal lab results 08/30/24 Range/Units 07:26 Sodium 130 L (136-145) mmol/L Potassium 3.0 L (3.5-5.1) mmol/L Chloride 92 L (98-107) mmol/L Glucose 123 H (70-99(Fasting)) mg/dl Calcium 8.1 L (8.6-10.3) mg/dl PG Care Time/CCT Total # of Minutes Spent Total Time Spent with Patient: Total time spent is greater than 50% in coordination of care (as documented) at patient's floor/unit and/or counseling patient: Coding Level of Care Code 58917 SUB INP/OBS CARE 2/35MIN Diagnoses (HFpEF) heart failure with preserved ejection fraction I50.30 Hypoxia R09.02 Aspiration pneumonia J69.0 Hyponatremia E87.1 Fall W19.XXXA Paroxysmal atrial fibrillation I48.0 Elevated troponin R79.89 Anemia D64.9 Defect of endplate of vertebra Q76.49
--- NOTE | 2024-08-31 08:51 | XRay Report ---
XR chest 1V portable CLINICAL HISTORY: F/U post diuresis COMPARISON STUDY: Chest CT August 25, 2024. Chest radiograph August 27, 2024. FINDINGS: There is no pneumothorax. Moderate bilateral pleural effusions have slightly improved. Pulm onary edema persists. Superimposed airspace opacities, greater within the right lung, have slightly p rogressed. Cardiomediastinal silhouette is stable. Electronic device projects over the left chest. IMPRESSION: 1. Cardiomegaly with persistent interstitial pulmonary edema. 2. Bilateral airspace opacities, greater within the right lung, which which slightly progressed. The findings may represent alveolar pulmonary edema or superimposed pneumonia. 3. Moderate bilateral pleural effusions, slightly improved. ACT 112: Negative or not required by law. Electronically signed by: Bari Damon M.D. 08/31/2024 8:50 AM
[2024-08-31 10:51] LABS: BUN Creatinine Ratio 12.9 (10-20); Creatinine Clr Calc Pharmacy 31.7 ml/min; Magnesium 2.1 mg/dl (1.7-2.4); Potassium 4.1 mmol/L (3.5-5.1)
--- NOTE | 2024-08-31 14:01 | Hospitalist Progress Note ---
Date of Service August 31, 2024 Assessment & Plan (1) (HFpEF) heart failure with preserved ejection fraction: (2) Hypoxia: (3) Aspiration pneumonia: (4) Hyponatremia: (5) Fall: (6) Paroxysmal atrial fibrillation: (7) Elevated troponin: (8) Anemia: (9) Defect of endplate of vertebra: Plan Brittney is a 78-year-old female with PMH of paroxysmal atrial fibrillation (on apixaban), HTN, Andriy's thyroiditis, CKD, depression/anxiety, HL, aspiration pneumonia with dysmotility of the esophagus, and IBS. She presented via EMS from [facility] on 08/25 after sustaining a fall in the bathroom on the AM of admission. She has a recent h/o right hip fracture with repair in July 2024. She had post-op complications of fever and aspiration PNA, hypoxia, hyponatremia. She was sent to [facility] after that admission and was doing well, not requiring O2. SHe then went to [facility] x 2 days prior to falling. #Acute on chronic HFpEF/acute hypoxic respiratory failure - Patient here with significant bilateral pleural effusions w/ compressive atelectasis on Chest CT, acute respiratory failure with hypoxia, with significant aortic valve murmur but noted to be sclerosis but without stenosis on recent echocardiogram w/ preserved EF. - elevated at 599, with some peripheral edema of the legs which is now resolved. In sinus rhythm. Blood pressures are controlled - I/O documented are net positive but weight down 1 kg since admission - hypoxia initially worsening -Patient is being treated with Lasix 40 mg IV twice daily Since 08/30, the patient has been having orthostatic drop in blood pressures with therapy Lasix discontinued Chest x-ray repeated today 08/31 showed improvement in bilateral pleural effusion but still with pulmonary congestion Consult pulmonology Encourage incentive spirometer for hypoxia - continue I's and O's, daily weights, low-sodium diet - follow BMP, mag in AM - hold amlodipine and losartan since blood pressure is low - salt tablets have been stopped, likely contributed to volume overload--> Na+ increasing with diuresis #Acute respiratory failure with hypoxia - was on 1LNC continuously when she was at [facility] prior to admission - SpO2 was 72% on RA on arrival here secondary to acute on chronic HFpEF and PNA - Chest CTA revealed no pulmonary embolism, but showed moderate pleural effusions bilat with compressive atelectasis and bilat UL PNA - Viral respiratory BioFire panel negative - Continue Supplemental oxygen as needed to maintain SpO2 greater than 94%- continue to wean as able -Was being diuresed with Lasix but became orthostatic. Will hold Lasix Incentive spirometer - Treating for aspiration PNA Consult pulmonology as the hypoxia is not improving with diuresis - Add ICS #Aspiration pneumonia: - Patient had gagging and coughing with reflux in the ER but no vomiting - CT chest does show bilateral upper lobe infiltrates which may be residual from last admission but should have been gone by now - on zosyn now - Has known esophageal dysmotility from last admission evaluation - No leukocytosis; afebrile - Aspiration precautions - Elevate HOB - SECURITY DEVELOPER evvidal appreciated, recs easy to chew diet, alt solids & liquids, aspiration precautions #Hyponatremia: - Chronic, sodium 128 on admission. 130 is around her baseline - Hold further salt tablets due to heart failure-can resume at lower dose if needed after diuresis - Follow BMP #Fall: - Patient with a history of falls including 1 with a right hip fracture last admission and interestingly last admission had a CT angiogram of the head and neck which showed vertebral artery compression syndrome on the is[place]?-Unclear if related - No head strike; no LOC - Head and cervical spine CT unremarkable, however CT of the chest notes a T8 vertebral plana with 6 mm of retropulsion-she has no back pain and Ortho SPine thinks this is old and no interventions needed - Right hip x-ray with evidence of soft tissue swelling but no acute fracture or dislocation and she has no right hip pain - PT/OT on board. Plan to discharge to [facility] when medically stable - Fall precautions #Paroxysmal atrial fibrillation: - Remains in sinus rhythm with first-degree AV block and PACs, rates in the 60s to 70s - Continue Eliquis BID - Continue amiodarone 200 mg p.o. BID - She was discontinued from metoprolol prior to admission due to bradycardia when in sinus - Follow on telemetry #Elevated troponin: - Troponin 39/41/49/30, no chest pain, no ischemic changes on EKG, this is myocardial demand ischemia in the setting of hypoxia and heart failure #Anemia: - Chronic; Hgb 8.7-9.0 here, normocytic, likely secondary to recent hip fracture with repair. - Baseline hemoglobin normal prior to hip fracture - Follow CBC Add on iron tablets and docusate #Defect of endplate of vertebra: - Seen by Ortho SPine, no intervention; old finding #CKD stage III-creatinine at baseline - Renally dose medications, avoid nephrotoxins - follow BMP #Hypothyroidism-recent TSH normal at 2.5, continue levothyroxine #Depression/anxiety-continue sertraline, Xanax as needed, nortriptyline #HTN-blood pressure is controlled-continue losartan, amlodipine, Lasix #Hyperlipidemia-continue statin #DVT prophylaxis-Eliquis #Disposition: Continued stay MedSurg telemetry, not stable for dc yet, but will need rehab again Admission and Anticipated Discharge Date Admission Date: August 25, 2024 Subjective Patient was seen and examined at 10:15 AM. It was noted the patient was down to needing 3 L of oxygen yesterday but during the night she was down to 70% on the 3 L. She was put on 6 L of oxygen. She does not report feeling short of breath. A chest x-ray was done that showed some improvement with diuresis. Incentive spirometer was encouraged. The patient is no more on diuretics because of orthostatic drop in blood pressures. Review of Systems Review of Systems: All systems reviewed & are unremarkable except as noted in Subjective Physical Exam Physical Exam: General: Awake, conversant Heart: S1, S2/regular rate and rhythm, no murmur rubs or gallops Lungs: Bilateral crackles at the bases. Normal effort Abdomen: Soft/nontender/nondistended. No hepatosplenomegaly Extremities: No clubbing/cyanosis. No edema Behavior: Appropriate, cooperative Results & Data Results & Data Vital Signs (Past 12 Hours) Vital Signs Temp Pulse Pulse Resp BP Pulse Ox O2 Del Method 08/31/24 11:55 36.8 C 67 20 106/60 97 Nasal Cannula 08/31/24 11:14 Nasal Cannula 08/31/24 07:43 36.4 C L 65 16 118/65 91 Nasal Cannula 08/31/24 07:06 63 08/31/24 04:02 36.5 C 66 20 119/63 90 High Flow Nasal Cannula O2 Flow Rate 08/31/24 11:55 6 08/31/24 11:14 6 08/31/24 07:43 6 08/31/24 07:06 08/31/24 04:02 6 Laboratory Results Abnormal lab results 08/31/24 Range/Units 10:00 Sodium 130 L (136-145) mmol/L Chloride 96 L (98-107) mmol/L Glucose 118 H (70-99(Fasting)) mg/dl Calcium 8.0 L (8.6-10.3) mg/dl Diagnostic Findings Chest X-Ray 08/31/24 08:08 XR chest 1V portable CLINICAL HISTORY: F/U post diuresis COMPARISON STUDY: Chest CT August 25, 2024. Chest radiograph August 27, 2024. FINDINGS: There is no pneumothorax. Moderate bilateral pleural effusions have slightly improved. Pulmonary edema persists. Superimposed airspace opacities, greater within the right lung, have slightly progressed. Cardiomediastinal silhouette is stable. Electronic device projects over the left chest. IMPRESSION: 1. Cardiomegaly with persistent interstitial pulmonary edema. 2. Bilateral airspace opacities, greater within the right lung, which which slightly progressed. The findings may represent alveolar pulmonary edema or superimposed pneumonia. 3. Moderate bilateral pleural effusions, slightly improved. ACT 112: Negative or not required by law. Electronically signed by: Bari Damon M.D. 08/31/2024 8:50 AM PG Care Time/CCT Total # of Minutes Spent Total Time Spent with Patient: Total time spent is greater than 50% in coordination of care (as documented) at patient's floor/unit and/or counseling patient: Coding Level of Care Code 47670 SUB INP/OBS CARE 2/35MIN Diagnoses (HFpEF) heart failure with preserved ejection fraction I50.30 Hypoxia R09.02 Aspiration pneumonia J69.0 Hyponatremia E87.1 Fall W19.XXXA Paroxysmal atrial fibrillation I48.0 Elevated troponin R79.89 Anemia D64.9 Defect of endplate of vertebra Q76.49
--- NOTE | 2024-08-31 14:56 | Pulmonary Consultation ---
Date of Consultation August 31, 2024 Assessment & Plan (1) Pneumonia: (2) Hypoxia: (3) Aspiration pneumonia: (4) Atelectasis: (5) Pleural effusion: Plan Impression: 78-year-old female status post recent fall with hip fracture with persistent hypoxemia. She is been diuresed however review of her intake and output shows that she is positive about 850 cc since admission to the hospital. Recommendation: 1. Hypoxemia: Likely multifactorial with components of VQ mismatch/17 phys iology due to basilar atelectasis and compressive atelectasis with small pleural effusions. I would recommend continued diuresis as you are doing. Incentive spirometry. Aggressive pulmonary toilet including keeping the patient upright and out of bed to chair. 2. The patient's aspiration pneumonia identified on prior chest x-ray appears improved on the x-ray today with improvement in the apical airspace opacities. The lung bases continue to demonstrate bibasilar infiltrates. Unclear how much of this is fluid and how much is atelectasis. She is fully anticoagulated so no role for any invasive procedures and the pleural effusions appear relatively small on prior imaging. 3. There may have been some discordant values on her pulse oximetry as I was able to titrate her down from 7 L to 1 L during the course of my evaluation. Would target oxygen saturations at around 90%. Likely the patient will require supplemental oxygen going back to her rehab center/assisted living center. Re commend getting her ambulatory with therapy and keeping her out of bed to chair is much as possible 4. Patient has completed 7 days of antimicrobial therapy including Zosyn, Unasyn, Rocephin, vancomycin. She is afebrile and white count is normal. X-ray is improving. Can discontinue antibiotics as this would provide her with additional fluid and salt load. Will observe clinically. Will see how the patient does targeting a lower oxygen saturation. If she maintains, disposition out of the acute care setting might be appropriate. Thanks for the opportunity to participate care of this patient. Will continue to follow with you. Feel free to contact us with questions or concerns History of Present Illness Attending Physician: Idris Stahl MD History of Present Illness Asked by hospitalist to assist in evaluation management this patient with multifactorial hypoxemic respiratory failure. History is obtained from discussion with the patient as well as review of electronic medical record. Patient is a 78-year-old female with a history of A-fib and chronic kidney disease who was brought from her nursing home facility on 08/25/2024 after a fall. She was hypoxemic in the field. She had a previous fall in July 2024 resulting in a hip fracture and she was dismissed from the hospital on supplemental oxygen. No prior history of hypoxemia or oxygen requirement. She is required oxygen throughout her hospitalization here and had a CT angiogram which showed no evidence of pulmonary embolism. She is completed a course of antibiotics and did have an aspiration event. Pulmonary was consulted today due to continued oxygen requirement. Patient is currently sitting up in a chair. She is awake alert and conversant. She is on 7 L. During the course of our history and physical I decreased her oxygen down to 1 L/min while continuing to monitor her pulse ox. She remained at or above 98% throughout the history. She was able to perform incentive spirometry for me at the bedside. Her technique is moderately adequate. The patient does not report any cough or sputum production. No chest pain or palpitations. She denies any prior history of tobacco abuse. No prior pulmonary history before being admitted to the hospital. Allergies Allergy/AdvReac Type Severity Reaction Status Date / Time methylprednisolone Allergy Mild Rash Verified 07/29/24 14:32 alendronate sodium AdvReac Mild GI upset Verified 07/29/24 14:32 erythromycin base AdvReac Mild GI upset Verified 07/29/24 14:32 hydrochlorothiazide AdvReac Mild hyponatremi Verified 07/29/24 14:32 a hydrocodone AdvReac Mild nausea Verified 07/29/24 14:32 vomiting tramadol AdvReac Mild nausea Verified 07/29/24 14:32 vomiting clavulanic acid AdvReac Gastrointestinal Verified 07/29/24 14:32 [From Augmentin] Upset Home Medications Medication Instructions Recorded Confirmed Type fluticasone propionate 50 1 spray intranasal DAILY #48 grams 07/06/23 08/25/24 Rx mcg/actuation nasal spray,suspension (Flonase Allergy Relief) apixaban 5 mg tablet (Eliquis) 5 mg PO BID #180 tabs 07/23/23 08/25/24 Rx lovastatin 40 mg tablet 40 mg PO QPM #90 tabs 01/18/24 08/25/24 Rx cholecalciferol (vitamin D3) 125 125 mcg PO DAILY #30 caps 06/09/24 08/25/24 Rx mcg (5,000 unit) capsule levothyroxine 100 mcg tablet 100 mcg PO QAM #90 tabs 07/11/24 08/25/24 Rx alprazolam 0.25 mg tablet 0.25 mg PO DAILY PRN anxiety #30 07/26/24 08/25/24 Rx tabs nortriptyline 25 mg capsule 25 mg PO HS #180 caps 08/06/24 08/25/24 Rx amiodarone 200 mg tablet 200 mg PO BID 08/25/24 08/25/24 History amlodipine 10 mg tablet 10 mg PO DAILY 08/25/24 08/25/24 History calcium carbonate 500 mg PO BID 08/25/24 08/25/24 History cetirizine 10 mg tablet 10 mg PO DAILY PRN allergies 08/25/24 08/25/24 History cyanocobalamin (vitamin B-12) 0 mcg PO DAILY 08/25/24 08/25/24 History 1,000 mcg capsule furosemide 40 mg tablet 40 mg PO DAILY 08/25/24 08/25/24 History losartan 50 mg tablet 50 mg PO PM 08/25/24 08/25/24 History sertraline 50 mg tablet 50 mg PO DAILY 08/25/24 08/25/24 History sodium chloride 1,000 mg soluble 1,000 mg PO BID 08/25/24 08/25/24 History tablet Patient History Medical History (Updated 08/31/24 @ 14:50 by Shaka Barrera MD) H/O dizziness Vertigo Dyslipidemia Gastroesophageal reflux disease HX Depression with anxiety Osteoporosis Hypothyroidism HTN (hypertension) Status post placement of implantable loop recorder Hx of fracture of clavicle Right clavicle fracture S/P Pleural effusion HX Surgical History (Updated 08/20/24 @ 00:07 by Marcell Peterson) History of colonoscopy H/O oral surgery S/P eye surgery BLOCKED TEAR DUCT S/P tubal ligation S/P dilatation and curettage Family History Mother Hypertension Heart disease Stroke Brother Hypertension Grandfather (Paternal) Lung cancer Father Cancer Other No family history of allergies No family history of bleeding disorder Denies family history of Ovarian cancer Prostate cancer Breast cancer Colorectal cancer Asthma Social History Smoking Status: Never smoker Second Hand Exposure: Yes (SPOUSE SMOKED); Do You Dip or Chew Tobacco: No; Hx Alcohol Use: No Hx Substance Use: No Preferred Language: Kiswahili Communication Ability: Effective Visual Impairment: No Limitations Hearing Ability: Normal Video Presentation Operator Required: No Beliefs That Will Affect Care: None marital status: Current Living Situation: Rehab Current Living Situation Comment: apartment alone current occupational status: retired How many Children do You have: 3 Feels Safe at Home: Yes Safety Concerns: Feels Safe At This Time Childhood Exposure to Second-Hand Smoke: No Diet: regular Diet Comment: regular caffeine: No during the past year weight has: remained stable Dental Care, Regularly: Yes Physical Activity Frequency: Daily Physical Activity Frequency Comment: walk Seatbelt Use: always Sunscreen Use: Yes Assistive Devices: Oxygen - Continuous and Walker Review of Systems Review of Systems: Please refer to hospitalist note. No additions or deletions Physical Exam Constitutional: WD/WN, vitals as above Respiratory: normal respiratory effort Auscultation: + diminished lung sounds (bilat lower to mid lung andino) and + crackles (bibasilar); no rhonchi and no wheezes Cardiovascular: Rate/Rhythm: regular rate and regular rhythm Heart Sounds: + murmur (3/6 NEFTALI at RUSB) Extremities: no edema Gastrointestinal (Abdomen): normal bowel sounds, soft, nontender, no hepatosplenomegaly Musculoskeletal: Extremities: + extremities abnormal to inspection (Right hip incision well-healed) Psychiatric: Orientation: alert and oriented x 3 Affect: + anxious affect Mood: + anxious mood Results & Data Results & Data Vital Signs (Past 12 Hours) Vital Signs Temp Pulse Pulse Resp BP Pulse Ox O2 Del Method 08/31/24 14:02 62 08/31/24 11:55 36.8 C 67 20 106/60 97 Nasal Cannula 08/31/24 11:14 Nasal Cannula 08/31/24 07:43 36.4 C L 65 16 118/65 91 Nasal Cannula 08/31/24 07:06 63 08/31/24 04:02 36.5 C 66 20 119/63 90 High Flow Nasal Cannula O2 Flow Rate 08/31/24 14:02 08/31/24 11:55 6 08/31/24 11:14 6 08/31/24 07:43 6 08/31/24 07:06 08/31/24 04:02 6 Diagnostic Findings Video swallow 08/01/2024 during her last admission showed laryngeal penetration without overt aspiration. Pooling of barium was noted in the bilateral piriform sinuses and valleculae. CT angiogram 08/25/2024 was independently reviewed. No PE was identified. Bilateral upper lobe airspace opacities were noted with small bilateral pleural effusions and basilar atelectasis. Echocardiogram from 07/28/2024 showed an EF of 70%. Concentric LVH. Sclerotic aortic valve without significant stenosis. Trace MR. Critical Care Results & Data Vital Signs (Past 12 Hours) Vital Signs Temp Pulse Pulse Resp BP Pulse Ox O2 Del Method 08/31/24 14:02 62 08/31/24 11:55 36.8 C 67 20 106/60 97 Nasal Cannula 08/31/24 11:14 Nasal Cannula 08/31/24 07:43 36.4 C L 65 16 118/65 91 Nasal Cannula 08/31/24 07:06 63 08/31/24 04:02 36.5 C 66 20 119/63 90 High Flow Nasal Cannula O2 Flow Rate 08/31/24 14:02 08/31/24 11:55 6 08/31/24 11:14 6 08/31/24 07:43 6 08/31/24 07:06 08/31/24 04:02 6 Lab & Micro Results (Past 24 Hours) No Data to Display 2 Na 130 mmol/L (136-145) L 08/31/24 K 4.1 mmol/L (3.5-5.1) 08/31/24 Cl 96 mmol/L (98-107) L 08/31/24 CO2 28 mmol/L (21-32) 08/31/24 Anion Gap 6 (3-11) 08/31/24 BUN 15 mg/dl (6-23) 08/31/24 Creatinine 1.16 mg/dl (0.6-1.2) 08/31/24 BUN/Creatinine Ratio 12.9 (10-20) 08/31/24 Glu 118 mg/dl (70-99(Fasting)) H 08/31/24 Ca 8.0 mg/dl (8.6-10.3) L 08/31/24 Mg 2.1 mg/dl (1.7-2.4) 08/31/24 10:00 Calcium Level 8.0 mg/dl (8.6-10.3) L 08/31/24 10:00 Diagnostic Findings (Past 24 Hours) Chest X-Ray 08/31/24 08:08 XR chest 1V portable CLINICAL HISTORY: F/U post diuresis COMPARISON STUDY: Chest CT August 25, 2024. Chest radiograph August 27, 2024. FINDINGS: There is no pneumothorax. Moderate bilateral pleural effusions have slightly improved. Pulmonary edema persists. Superimposed airspace opacities, greater within the right lung, have slightly progressed. Cardiomediastinal silhouette is stable. Electronic device projects over the left chest. IMPRESSION: 1. Cardiomegaly with persistent interstitial pulmonary edema. 2. Bilateral airspace opacities, greater within the right lung, which which slightly progressed. The findings may represent alveolar pulmonary edema or superimposed pneumonia. 3. Moderate bilateral pleural effusions, slightly improved. ACT 112: Negative or not required by law. Electronically signed by: Bari Damon M.D. 08/31/2024 8:50 AM I & O Totals 24 Hours 08/30/24 08/31/24 09/01/24 06:59 06:59 06:59 Intake Total 815 / 815 1100 / 1100 Output Total 925 / 925 600 / 600 Balance -110 / -110 500 / 500 -1 / -1 Cumulative 08/25/24 07:29 thru 08/31/24 14:46 Intake Total 5720.00 Output Total 4876 Balance 844.00 RT Ventilator Mngmt (Last Documented) Ventilator Ordered Settings Respiratory Rate 20 08/31/24 11:55 Fraction of Inspired Oxygen 50 08/28/24 15:15 Ventilator - PT Measurements Respiratory Rate 20 PG Care Time/CCT Total # of Minutes Spent Total Time Spent with Patient: Total time spent is greater than 50% in coordination of care (as documented) at patient's floor/unit and/or counseling patient: Coding Level of Care Code 66010 INT INP/OBS CARE 3/75MIN Diagnoses Pneumonia J18.9 Hypoxia R09.02 Aspiration pneumonia J69.0 Atelectasis J98.11 Pleural effusion J90
[2024-09-01 07:24] LABS: Calcium 8.4 mg/dl (8.6-10.3); Creatinine Clr Calc Pharmacy 37.3 ml/min; Magnesium 2.1 mg/dl (1.7-2.4); Potassium 3.7 mmol/L (3.5-5.1)
--- NOTE | 2024-09-01 08:26 | Pulmonology Progress Note ---
Date of Service September 01, 2024 Assessment & Plan (1) Pneumonia: (2) Hypoxia: (3) Aspiration pneumonia: (4) Atelectasis: (5) Pleural effusion: Plan Impression: 78-year-old female status post recent fall with hip fracture with persistent hypoxemia. She is been diuresed however review of her intake and output shows that she is positive about 850 cc since admission to the hospital. She is on a minimal amount of oxygen currently Recommendation: 1. Hypoxemia: Likely multifactorial with components of VQ mismatch/shunt physiology due to basilar atelectasis and compressive atelectasis with small pleural effusions. I would recommend continued diuresis as you are doing. Incentive spirometry. Aggressive pulmonary toilet including keeping the patient upright and out of bed to chair. 2. The patient's aspiration pneumonia identified on prior chest x-ray appears improved on the x-ray today with improvement in the apical airspace opacities. The lung bases continue to demonstrate bibasilar infiltrates. Unclear how much of this is fluid and how much is atelectasis. She is fully anticoagulated so no role for any invasive procedures and the pleural effusions appear relatively small on prior imaging. 3. She is on a minimal amount of oxygen currently recommend getting her ambulatory with therapy and keeping her out of bed to chair is much as possible 4. Patient has completed 7 days of antimicrobial therapy including Zosyn, Unasyn, Rocephin, vancomycin. She is afebrile and white count is normal. Cough antibiotics Patient is on a minimal amount of oxygen currently, close to where she was when she came into the hospital. Continued pulmonary toilet, diuresis, and increasing activity will likely result in improvement in oxygenation. Thanks for the opportunity to participate in the care of this patient. Pulmonary will sign off. Feel free to contact us with questions or concerns Admission and Anticipated Discharge Date Admission Date: August 25, 2024 Subjective Patient seen and examined. EMR reviewed. No complaints this morning. Review of Systems 2 Review of Systems: All systems reviewed & are unremarkable except as noted in Subjective Physical Exam 2 Constitutional: WD/WN, vitals as above Respiratory: normal respiratory effort Auscultation: + diminished lung sounds (bilat lower to mid lung andino) and + crackles (bibasilar); no rhonchi and no wheezes Cardiovascular: Rate/Rhythm: regular rate and regular rhythm Heart Sounds: + murmur (3/6 NEFTALI at RUSB) Extremities: no edema Gastrointestinal (Abdomen): normal bowel sounds, soft, nontender, no hepatosplenomegaly Musculoskeletal: Extremities: + extremities abnormal to inspection (Right hip incision well-healed) Psychiatric: Orientation: alert and oriented x 3 Affect: + anxious affect Mood: + anxious mood Results & Data Results & Data Vital Signs (Past 12 Hours) Vital Signs Temp Pulse Pulse Resp BP Pulse Ox O2 Del Method 09/01/24 07:41 36.4 C L 67 18 123/67 93 High Flow Nasal Cannula 09/01/24 07:26 High Flow Nasal Cannula 09/01/24 07:18 69 09/01/24 03:26 96 Nasal Cannula 09/01/24 03:20 36.5 C 66 18 136/73 78 L Nasal Cannula 08/31/24 22:30 36.6 C 60 16 108/68 95 Nasal Cannula 08/31/24 22:28 65 08/31/24 21:39 Nasal Cannula O2 Flow Rate 09/01/24 07:41 1 09/01/24 07:26 4 09/01/24 07:18 09/01/24 03:26 4 09/01/24 03:20 1 08/31/24 22:30 1 08/31/24 22:28 08/31/24 21:39 1 Laboratory Results 08/29/24 07:39 09/01/24 06:34 Diagnostic Findings No new imaging PG Care Time/CCT Total # of Minutes Spent Total Time Spent with Patient: Total time spent is greater than 50% in coordination of care (as documented) at patient's floor/unit and/or counseling patient: Coding Level of Care Code 23574 SUB INP/OBS CARE 2/35MIN Diagnoses Pneumonia J18.9 Hypoxia R09.02 Aspiration pneumonia J69.0 Atelectasis J98.11 Pleural effusion J90
--- NOTE | 2024-09-01 14:21 | Hospitalist Progress Note ---
Date of Service September 01, 2024 Assessment & Plan (1) (HFpEF) heart failure with preserved ejection fraction: (2) Hypoxia: (3) Aspiration pneumonia: (4) Hyponatremia: (5) Fall: (6) Paroxysmal atrial fibrillation: (7) Elevated troponin: (8) Anemia: (9) Defect of endplate of vertebra: Plan Brittney is a 78-year-old female with PMH of paroxysmal atrial fibrillation (on apixaban), HTN, Andriy's thyroiditis, CKD, depression/anxiety, HL, aspiration pneumonia with dysmotility of the esophagus, and IBS. She presented via EMS from [facility] on 08/25 after sustaining a fall in the bathroom on the AM of admission. She has a recent h/o right hip fracture with repair in July 2024. She had post-op complications of fever and aspiration PNA, hypoxia, hyponatremia. She was sent to [facility] after that admission and was doing well, not requiring O2. SHe then went to [facility] x 2 days prior to falling. #Acute on chronic HFpEF/acute hypoxic respiratory failure - Patient here with significant bilateral pleural effusions w/ compressive atelectasis on Chest CT, acute respiratory failure with hypoxia, with significant aortic valve murmur but noted to be sclerosis but without stenosis on recent echocardiogram w/ preserved EF. - elevated at 599, with some peripheral edema of the legs which is now resolved. In sinus rhythm. Blood pressures are controlled - I/O documented are net positive but weight down 1 kg since admission - hypoxia initially worsening -Patient is being treated with Lasix 40 mg IV twice daily Since 08/30, the patient has been having orthostatic drop in blood pressures with therapy Lasix discontinued Chest x-ray repeated today 08/31 showed improvement in bilateral pleural effusion but still with pulmonary congestion Pulmonology consulted, recommends continuing diuretics. However patient is orthostatic. Diuretics held Requested the nurse to try to wean her O2 down aggressively. If she does not wean down, may need to order some p.o. Lasix. Asked the nurse to give me updates throughout the day Encourage incentive spirometer for hypoxia - continue I's and O's, daily weights, low-sodium diet - follow BMP, mag in AM - hold amlodipine and losartan since blood pressure is low - salt tablets have been stopped, likely contributed to volume overload--> Na+ increasing with diuresis #Acute respiratory failure with hypoxia - was on 1LNC continuously when she was at SNF prior to admission - SpO2 was 72% on RA on arrival here secondary to acute on chronic HFpEF and PNA - Chest CTA revealed no pulmonary embolism, but showed moderate pleural effusions bilat with compressive atelectasis and bilat UL PNA - Viral respiratory BioFire panel negative - Continue Supplemental oxygen as needed to maintain SpO2 greater than 94%- continue to wean as able -Was being diuresed with Lasix but became orthostatic. Will hold Lasix Incentive spirometer - Treating for aspiration PNA Consulted pulmonology as the hypoxia is not improving with diuresis. Pulmonology recommends continuing diuretics however patient is orthostatic. 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 130 is around her baseline - Hold further salt tablets due to heart failure-can resume at lower dose if needed after diuresis - Follow BMP #Fall: - Patient with a history of falls including 1 with a right hip fracture last admission and interestingly last admission had a CT angiogram of the head and neck which showed vertebral artery compression syndrome on the [place]?-Unclear if related - No head strike; no LOC - Head and cervical spine CT unremarkable, however CT of the chest notes a T8 vertebral plana with 6 mm of retropulsion-she has no back pain and Ortho SPine thinks this is old and no interventions needed - Right hip x-ray with evidence of soft tissue swelling but no acute fracture or dislocation and she has no right hip pain - PT/OT on board. Plan to discharge to [facility] when medically stable - Fall precautions #Paroxysmal atrial fibrillation: - Remains in sinus rhythm with first-degree AV block and PACs, rates in the 60s to 70s - Continue Eliquis BID - Continue amiodarone 200 mg p.o. BID - She was discontinued from metoprolol prior to admission due to bradycardia when in sinus - Follow on telemetry #Elevated troponin: - Troponin 39/41/49/30, no chest pain, no ischemic changes on EKG, this is myocardial demand ischemia in the setting of hypoxia and heart failure #Anemia: - Chronic; Hgb 8.7-9.0 here, normocytic, likely secondary to recent hip fracture with repair. - Baseline hemoglobin normal prior to hip fracture - Follow CBC Add on iron tablets and docusate #Defect of endplate of vertebra: - Seen by Ortho SP[facility], no intervention; old finding #CKD stage III-creatinine at baseline - Renally dose medications, avoid nephrotoxins - follow BMP #Hypothyroidism-recent TSH normal at 2.5, continue levothyroxine #Depression/anxiety-continue sertraline, Xanax as needed, nortriptyline #HTN-blood pressure is controlled-continue losartan, amlodipine, Lasix #Hyperlipidemia-continue statin #DVT prophylaxis-Eliquis #Disposition: Continued stay MedSurg telemetry, not stable for dc yet, but will need rehab again Admission and Anticipated Discharge Date Admission Date: August 25, 2024 Subjective Patient was seen and examined at 10:20 AM. She feels weak in general. Review of Systems Review of Systems: All systems reviewed & are unremarkable except as noted in Subjective Physical Exam Physical Exam: General: Awake, conversant. Frail looking elderly woman Heart: S1, S2/regular rate and rhythm, no murmur rubs or gallops Lungs: Bilateral crackles at the bases. Normal effort Abdomen: Soft/nontender/nondistended. No hepatosplenomegaly Extremities: No clubbing/cyanosis. No edema Behavior: Appropriate, cooperative Results & Data Results & Data Vital Signs (Past 12 Hours) Vital Signs Temp Pulse Pulse Resp BP Pulse Ox O2 Del Method 09/01/24 13:50 64 09/01/24 12:00 36.6 C 62 18 110/66 100 High Flow Nasal Cannula 09/01/24 11:36 98 High Flow Nasal Cannula 09/01/24 07:41 36.4 C L 67 18 123/67 93 High Flow Nasal Cannula 09/01/24 07:26 High Flow Nasal Cannula 09/01/24 07:18 69 09/01/24 03:26 96 Nasal Cannula 09/01/24 03:20 36.5 C 66 18 136/73 78 L Nasal Cannula O2 Flow Rate 09/01/24 13:50 09/01/24 12:00 3 09/01/24 11:36 3 09/01/24 07:41 1 09/01/24 07:26 4 09/01/24 07:18 09/01/24 03:26 4 09/01/24 03:20 1 Laboratory Results Abnormal lab results 09/01/24 Range/Units 06:34 Sodium 130 L (136-145) mmol/L Chloride 96 L (98-107) mmol/L Glucose 117 H (70-99(Fasting)) mg/dl Calcium 8.4 L (8.6-10.3) mg/dl PG Care Time/CCT Total # of Minutes Spent Total Time Spent with Patient: Total time spent is greater than 50% in coordination of care (as documented) at patient's floor/unit and/or counseling patient: Coding Level of Care Code 09936 SUB INP/OBS CARE 2MIN Diagnoses (HFpEF) heart failure with preserved ejection fraction I50.30 Hypoxia R09.02 Aspiration pneumonia J69.0 Hyponatremia E87.1 Fall W19.XXXA Paroxysmal atrial fibrillation I48.0 Elevated troponin R79.89 Anemia D64.9 Defect of endplate of vertebra Q76.49
[2024-09-02 07:45] VITALS: RESP 18; TEMP 98.1; O2SAT 96
[2024-09-02 07:58] LABS: BUN Creatinine Ratio 23.2 (10-20); Calcium 8.1 mg/dl (8.6-10.3); Creatinine Clr Calc Pharmacy 45.7 ml/min; Potassium 3.4 mmol/L (3.5-5.1)
[2024-09-02] MEDS: POTASSIUM CHLORIDE CRTAB 20 MEQ TABCR PO STA (09:16)
--- NOTE | 2024-09-02 12:41 | Discharge Summary ---
Date of Service September 02, 2024 Admission HPI Per Admitting Provider Brittney is a 78-year-old female with PMH of atrial fibrillation (on apixaban), Andriy's thyroiditis, CKD, and IBS. She presented via EMS from [facility] on 08/25 after sustaining a fall in the bathroom this morning. Remote history of right hip surgery in July 2024. Patient was then at [facility] upon discharge, but transition to [facility] 2 days ago. Patient reports that she got up to use the bathroom today. She ambulates with a walker at baseline. She asked an aide for help, and was placed on the toilet. However, when she got up, she reports that she started to feel "blurry"; she also reports that she felt shaky and could not catch her breath. She believes that she fell due to both lightheadedness and her legs giving out. She went down using the walker, and denies any head strike or LOC. She denies any recent falls aside from this one and the one that broke her hip. Patient was reportedly on the floor for ~10 minutes. Per EMS, patient was hypoxic in the 70% range on RA. It is important to note that the patient was not on supplemental oxygen prior to her hip surgery in July. Since then, she has required at least 1 L of supplemental oxygen, however patient is unsure how frequently she is needing more or less. Patient denies using CPAP at night. Patient took all her regular morning medicine today including her Eliquis. She does not manage her own medicine at home, but rather it is managed by Mae Petersen. No recent change in diet. Patient reports that she does watch her salt intake. Patient denies smoking, tobacco use, recent alcohol use. Patient is hypertensive at 146/77 on arrival; SpO2 92% on 2L NC; vitals otherwise stable. ED course: NSS 500 mL IV x 2 Potassium chloride 40 mEq p.o. Magnesium sulfate 1 g IV Rocephin 2000 mg IV Doxycycline 100 mg p.o. ROS: Patient endorses lightheadedness with standing, LE weakness, dry cough (when she lays flat), sore throat, and hoarseness. Patient denies fever, chills, night-sweats, headache, chest pain, SOB at rest or with exertion, difficulty swallowing, abdominal pain, N/V/D, burning with urination, pain in the right hip, or numbness/tingling in the legs. Admission Exam Per Admitting Provider General: no acute distress; pleasant affect; non-toxic appearing; frail appearing; cooperative; SpO2 92% on 2L NC HEENT: normocephalic, atraumatic; no scleral icterus; PERRLA; vision and hearing intact Neck: supple; no lymphadenopathy; trachea midline Skin: warm, dry without signs of tenting; no cyanosis; no rashes, bruising, lesions, or erythema noted CV: chest wall NTP; RRR; S1/S2 normal; no murmurs/rubs/gallops; pulses intact and symmetric at radial, DP, and PT Lungs: no acute respiratory distress; dry cough; symmetrical chest wall expansion; clear breath sounds across all lung andino w/o adventitious sounds; no wheezing ABD: Soft, NTP; BS present; no rebound/guarding; no distention MSK: no tics or fasciculations; no edema noted in the LEs b/l, nonerythematous: 5/5 asset liability analyst strength bilaterally; 3/5 strength in lower extremities bilaterally when lifting legs while supine Neuro: A&Ox3; normal mood and affect; fluent speech; no focal deficits; sensation grossly intact in the LEs b/l Note: During clinical exam patient did start coughing and gagging on her sputum; patient was sat up in bed/head of bed was elevated, and patient did improve, but her SpO2 was around 88 to 89% after this event on 2L NC. Principal Diagnosis Hypoxemia due to a combination of acute diastolic congestive heart failure and aspiration pneumonia Fall due to deconditioning Discharge Exam General: Awake, conversant. Frail looking elderly woman Heart: S1, S2/regular rate and rhythm, no murmur rubs or gallops Lungs: Bilateral crackles at the bases. Normal effort Abdomen: Soft/nontender/nondistended. No hepatosplenomegaly Extremities: No clubbing/cyanosis. No edema Behavior: Appropriate, cooperative Discharge Data Allergies Allergy/AdvReac Type Severity Reaction Status Date / Time methylprednisolone Allergy Mild Rash Verified 07/29/24 14:32 alendronate sodium AdvReac Mild GI upset Verified 07/29/24 14:32 erythromycin base AdvReac Mild GI upset Verified 07/29/24 14:32 hydrochlorothiazide AdvReac Mild hyponatremi Verified 07/29/24 14:32 a hydrocodone AdvReac Mild nausea Verified 07/29/24 14:32 vomiting tramadol AdvReac Mild nausea Verified 07/29/24 14:32 vomiting clavulanic acid AdvReac Gastrointestinal Verified 07/29/24 14:32 [From Augmentin] Upset Consultations 08/26/24 15:34 Consult Orthopedic Surgery Routine 08/31/24 09:51 Consult Pulmonology Routine Ordered Studies 08/25/24 07:57 CT cervical spine wo con Stat CT head/brain wo con Stat 08/25/24 10:59 CT angio chest PE protocol Stat Hospital Course (1) (HFpEF) heart failure with preserved ejection fraction: (2) Hypoxia: (3) Aspiration pneumonia: (4) Hyponatremia: (5) Fall: (6) Paroxysmal atrial fibrillation: (7) Elevated troponin: (8) Anemia: (9) Defect of endplate of vertebra: Gabrielle Lugo is a 78-year-old female with PMH of paroxysmal atrial fibrillation (on apixaban), HTN, Andriy's thyroiditis, CKD, depression/anxiety, HL, aspiration pneumonia with dysmotility of the esophagus, and IBS. She presented via EMS from [facility] on 08/25 after sustaining a fall in the bathroom on the AM of admission. She has a recent h/o right hip fracture with repair in July 2024. She had post-op complications of fever and aspiration PNA, hypoxia, hyponatremia. She was sent to [facility] after that admission and was doing well, not requiring O2. SHe then went to [facility] x 2 days prior to falling. #Acute on chronic HFpEF/acute hypoxic respiratory failure - Patient here with significant bilateral pleural effusions w/ compressive atelectasis on Chest CT, acute respiratory failure with hypoxia, with significant aortic valve murmur but noted to be sclerosis but without stenosis on recent echocardiogram w/ preserved EF. - elevated at 599, with some peripheral edema of the legs which is now resolved. In sinus rhythm. Blood pressures are controlled - I/O documented are net positive but weight down 1 kg since admission - hypoxia initially worsening -Patient was being treated with Lasix 40 mg IV twice daily Since 08/30, the patient has been having orthostatic drop in blood pressures with therapy Lasix discontinued Chest x-ray repeated 08/31 showed improvement in bilateral pleural effusion but still with pulmonary congestion Pulmonology consulted, recommends continuing diuretics. However patient is orthostatic. Diuretics held Requested the nurse to try to wean her O2 down aggressively. If she does not wean down, may need to order some p.o. Lasix. Asked the nurse to give me upda benton throughout the day Encourage incentive spirometer for hypoxia Hypoxia improved - continue I's and O's, daily weights, low-sodium diet - follow BMP, mag in AM - hold amlodipine and losartan since blood pressure is low - salt tablets have been stopped, likely contributed to volume overload--> Na+ increasing with diuresis #Acute respiratory failure with hypoxia - was on 1LNC continuously when she was at SNF prior to admission - SpO2 was 72% on RA on arrival here secondary to acute on chronic HFpEF and PNA - Chest CTA revealed no pulmonary embolism, but showed moderate pleural effusions bilat with compressive atelectasis and bilat UL PNA - Viral respiratory BioFire panel negative - Continue Supplemental oxygen as needed to maintain SpO2 greater than 94%- continue to wean as able -Was being diuresed with Lasix but became orthostatic. Will hold Lasix Incentive spirometer - Treating for aspiration PNA Consulted pulmonology as the hypoxia is not improving with diuresis. Pulmonol dell recommends continuing diuretics however patient is orthostatic. Hold diuretics Requested the nurse to wean off O2 aggressively - Add ICS #Aspiration pneumonia: - Patient had gagging and coughing with reflux in the ER but no vomiting - CT chest does show bilateral upper lobe infiltrates which may be residual from last admission but should have been gone by now -Completed Zosyn course - Has known esophageal dysmotility from last admission evaluation - No leukocytosis; afebrile - Aspiration precautions - Elevate HOB - ENAMELER eval appreciated, recs easy to chew diet, alt solids & liquids, aspiration precautions #Hyponatremia: - Chronic, sodium 128 on admission. 130 is around her baseline - Hold further salt tablets due to heart failure-can resume at lower dose if needed after diuresis - Follow BMP #Fall: - Patient with a history of falls including 1 with a right hip fracture last admission and interestingly last admission had a CT angiogram of the head and neck which showed vertebral artery compression syndrome on the [place]?-Unclear if related - No head strike; no LOC - Head and cervical spine CT unremarkable, however CT of the chest notes a T8 vertebral plana with 6 mm of retropulsion-she has no back pain and Ortho SPine thinks this is old and no interventions needed - Right hip x-ray with evidence of soft tissue swelling but no acute fracture or dislocation and she has no right hip pain - PT/OT recommended rehab - Fall precautions #Paroxysmal atrial fibrillation: - Remains in sinus rhythm with first-degree AV block and PACs, rates in the 60s to 70s - Continue Eliquis BID - Continue amiodarone 200 mg p.o. BID - She was discontinued from metoprolol prior to admission due to bradycardia when in sinus - Follow on telemetry #Elevated troponin: - Troponin 39/41/49/30, no chest pain, no ischemic changes on EKG, this is myocardial demand ischemia in the setting of hypoxia and heart failure #Anemia: - Chronic; Hgb 8.7-9.0 here, normocytic, likely secondary to recent hip fracture with repair. - Baseline hemoglobin normal prior to hip fracture #Defect of endplate of vertebra: - Seen by Ortho SPine, no intervention; old finding #CKD stage III-creatinine at baseline - Renally dose medications, avoid nephrotoxins - follow BMP #Hypothyroidism-recent TSH normal at 2.5, continue levothyroxine #Depression/anxiety-continue sertraline, Xanax as needed, nortriptyline #HTN-blood pressure is controlled-continue losartan, amlodipine, Lasix #Hyperlipidemia-continue statin #DVT prophylaxis-Eliquis #Disposition: Discharge to rehab Total Time Total Time Spent Total Time Spent (In Minutes): 35 Discharge Plan Discharge Items Patient Disposition: Transfer Inpatient Rehab Fac Reason For Visit: B/L PNA, FALL Discharge Diagnosis: Hypoxemia due to a combination of acute diastolic congestive heart failure and aspiration pneumonia Fall due to deconditioning Activity: As commented below Activity Comment: Per PT/OT recommendation Non-emergency contact: Primary Care Provider Call non-emergency contact if: you have any medication questions and your symptoms worsen Follow-up/Referrals: Roopa Vo DO [Primary Care Provider] - Diet: Heart Healthy and Low Sodium (2gm) Addtl Attending Provider Instructions: Advised to follow-up with PCP in 1 week Pending Studies at Discharge: No Stand-Alone Forms: My [facility] Skilled Items Patient informed of condition?: No DNR: Yes Discharge Level of Care: Acute rehab Communicable Disease: No Discharge Prognosis: Stable Lines: None Urinary Catheter: No Medications and DC Order Prescriptions: Continued fluticasone propionate [Flonase Allergy Relief] 50 mcg/actuation spray,suspension 1 spray INTNAS DAILY Qty: 48 1RF Rx Instructions: administer into each nostril Eliquis 5 mg tablet 5 mg PO BID Qty: 180 3RF lovastatin 40 mg tablet 40 mg PO QPM Qty: 90 1RF cholecalciferol (vitamin D3) 125 mcg (5,000 unit) capsule 125 mcg PO DAILY Qty: 30 0RF levothyroxine 100 mcg tablet 100 mcg PO QAM Qty: 90 2RF alprazolam 0.25 mg tablet 0.25 mg PO DAILY PRN (Reason: anxiety) Qty: 30 0RF nortriptyline 25 mg capsule 25 mg PO HS Qty: 180 1RF sertraline 50 mg tablet 50 mg PO DAILY cyanocobalamin (vitamin B-12) 1,000 mcg capsule 0 mcg PO DAILY Rx Instructions: Strength not listed on medication list, 1 tab po daily amiodarone 200 mg tablet 200 mg PO BID sodium chloride 1,000 mg tablet,soluble 1,000 mg PO BID losartan 50 mg Tablet 50 mg PO PM cetirizine 10 mg Tablet 10 mg PO DAILY PRN (Reason: allergies) calcium carbonate 500 mg calcium (1,250 mg) Tablet 500 mg PO BID amlodipine 10 mg Tablet 10 mg PO DAILY Discontinued furosemide 40 mg Tablet 40 mg PO DAILY Discharge Orders: Discharge Order (Routine); Ordered 09/02/24 Ordered By: Idris Stahl Admission Data Admit Date/Time: 08/25/24 15:25 Attending Provider: Idris Stahl Admit Provider: Oswaldo Arevalo Primary Care Provider: Roopa Vo Other Providers: Jeyson Whitney [facility]; [facility]; Shaka Uriostegui; Shaka Barrera
[2024-09-02 14:09] VITALS: BP 111/66; PULSE 70
== END 2024-09-02 15:41 | DRG 177 ==
LOC: ED 07:42 → SUATTDRO 15:25 → 2N 15:25